=== PATIENT | female | born 1960 | race Caucasian/White ===

== ENCOUNTER 2024-06-22 08:41 | Emergency (ER) | payer MEDICARE, SELFPAY ==
[2024-06-22] VITALS (18 sets, daily range): BP systolic 131–134; BP diastolic 88–96; PULSE 61–84; TEMP 37.1; O2SAT 90–98; BMI 58.2
--- NOTE | 2024-06-22 08:43 | ECG_ITS ---
[facility] Test Date: 2024-06-22 Pat Name: LEANDRO RICHEY Department: Room: - Gender: Female Rf Manager: : 1960 Requested By: [id number] Order Number: [id number] Reading MD: LUIS BRIONES M.D. Measurements Intervals [place] Rate: 64 P: 40 MI: 210 QRS: -20 QRSD: 92 T: 37 QT: 394 QTc: 403 Interpretive Statements 1100 Sinus rhythm 2231 First degree AV block 8102 Low QRS voltage in chest leads 9150 abnormal ECG No previous ECG available for comparison Electronically Signed On 06-22-2024 13:15:34 EDT by LUIS BRIONES M.D.
--- NOTE | 2024-06-22 08:43 | ED.GENADUL1 ---
HPI HPI - General Adult General Chief complaint: Weakness Stated complaint: leg weakness Time Seen by Provider: 06/22/24 08:42 History of Present Illness HPI narrative: Patient states she has noticed left leg weakness since morning. She states it feels heavy. She has been in a rehab facility for 3 weeks because she would keep falling at home. Prior to her admission at the rehab facility she presented to an outlying ER and was found to have bilateral pulmonary emboli. She was started on apixaban. Patient has had problems with what she reports as neuropathy in the left leg causing her to have falls and other injuries involving the left leg. Over the last several weeks she has had imaging of the lower back, right knee, left ankle and foot with no fractures reported. CT angiogram of the chest performed 3 weeks ago, in addition to reporting bilateral pulmonary emboli with right heart strain had reported a new lung nodule in the right upper lobe. Patient is a former cigarette smoker who quit about 4 to 5 years ago. Related Data Home Medications ?Medication ?Instructions ?Recorded ?Confirmed acetaminophen 500 mg tablet 500 mg PO TID PRN pain 06/22/24 06/22/24 albuterol sulfate 90 mcg/actuation 2 inh inhalation Q4H PRN shortness 06/22/24 06/22/24 aerosol inhaler of breath or wheezing apixaban 5 mg tablet 5 mg PO BID 06/22/24 06/22/24 aripiprazole 30 mg tablet 30 mg PO .QD 06/22/24 06/22/24 atorvastatin 20 mg tablet 20 mg PO .QD 06/22/24 06/22/24 benztropine 0.5 mg tablet 0.5 mg PO .QD 06/22/24 06/22/24 duloxetine 60 mg capsule,delayed 60 mg PO .QD 06/22/24 06/22/24 release famotidine 20 mg tablet (Acid 20 mg PO DAILY 06/22/24 06/22/24 Controller) levothyroxine 150 mcg tablet 150 mcg PO .ACB 06/22/24 06/22/24 loratadine 10 mg tablet (Claritin) 10 mg PO DAILY 06/22/24 06/22/24 losartan 100 mg tablet 100 mg PO .QD 06/22/24 06/22/24 metformin 500 mg tablet,extended 500 mg PO .QD 06/22/24 06/22/24 release 24 hr ondansetron 4 mg disintegrating 4 mg PO Q6H PRN nausea and vomiting 06/22/24 06/22/24 tablet polyethylene glycol 3350 17 gram 17 g PO DAILY 06/22/24 06/22/24 oral powder packet (Miralax) pregabalin 25 mg capsule 50 mg PO Q12H 06/22/24 06/22/24 tramadol 50 mg tablet 50 mg PO .QHS PRN pain 06/22/24 06/22/24 Allergies Allergy/AdvReac Type Severity Reaction Status Date / Time gabapentin Allergy Mild Anxiety Verified 06/22/24 08:46 semaglutide (From Ozempic) Allergy Mild Rash Verified 06/22/24 08:46 sulfamethoxazole (From Allergy Mild Hives Verified 06/22/24 08:46 Bactrim) trimethoprim (From Bactrim) Allergy Mild Hives Verified 06/22/24 08:46 Opioid HPI Opioid Management Most Recent Opioid Data: No Data to Display Review of Systems ROS Narrative All other systems are reviewed and are negative other than what is mentioned in the HPI. PFSH PFSH Social History Little interest or pleasure in doing things: not at all Feeling down, depressed, or hopeless: not at all Exam Narrative Exam Narrative: Patient is awake and alert upon arrival. GCS is 15. Head is atraumatic. Pupils are equal and reactive. There is no facial asymmetry. Speech and mentation are clear and intact. She moves her upper extremities actively. She is unable to raise the left leg or bend the leg at the knee. She is weak plantarflexion and dorsiflexion of the right foot. She is able to raise the right leg little against gravity and she is able to bend the right leg also. Neck is supple. Lung sounds are clear anteriorly. Heart has regular rate and rhythm. Abdomen is protuberant, soft and nontender. Skin is warm dry with no pallor or icterus. Constitutional Vital Signs, click to edit/add: Last Vital Signs Temp 98.7 F 06/22/24 08:47 Pulse 84 06/22/24 08:47 Resp 18 06/22/24 08:47 BP 134/88 06/22/24 08:47 Pulse Ox 98 06/22/24 08:47 O2 Del Method Room Air 06/22/24 08:47 Course Vital Signs Vital signs: Vital Signs Temperature 98.7 F 06/22/24 08:47 Pulse Rate 84 06/22/24 08:47 Respiratory Rate 18 06/22/24 08:47 Blood Pressure 134/88 06/22/24 08:47 Pulse Oximetry 98 06/22/24 08:47 Oxygen Delivery Method Room Air 06/22/24 08:47 Temperature 98.7 F 06/22/24 08:47 Pulse Rate 84 06/22/24 08:47 Respiratory Rate 18 06/22/24 08:47 Blood Pressure 134/88 06/22/24 08:47 Pulse Oximetry 98 06/22/24 08:47 Oxygen Delivery Method Room Air 06/22/24 08:47 Medical Decision Making MDM Narrative Medical decision making narrative: Twelve-lead EKG is interpreted by me and shows sinus rhythm with a rate of 64 bpm. Echo is normal. [place] interval is elongated consistent with first-degree AV block. No acute ST elevations noted. Patient presents with new onset left leg weakness although in reviewing her previous history she has had ongoing weakness of the legs more so on the left side that has been ascribed to peripheral neuropathy in the past. She has had a number of falls in the recent past. She was diagnosed with bilateral pulmonary emboli with right heart strain 3 weeks ago and was placed on apixaban and is currently in a rehab facility. She is a former smoker. CT of the chest 3 weeks ago reported a new lung nodule in the right upper lobe. 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 Patient is administered Decadron 6 mg IV and 50 mL of hypertonic saline IV. The plan is to transfer her to [facility] where she has been accepted by their hospitalist Dr. Killian and I also discussed her findings with their neurosurgeon Dr. Tovar. Lab Data Labs: Lab Results 06/22/24 06/22/24 Range/Units 08:57 09:14 WBC 7.5 (4.0-11.0) 10^3/uL RBC 4.22 (4.20-5.40) 10^6/uL Hgb 13.6 (12.0-16.0) g/dL Hct 40.7 (36.0-48.0) % MCV 96.4 (81.0-99.0) fL MCH 32.2 (26.7-34.0) pg MCHC 33.4 (29.9-35.2) g/dL RDW 12.8 (11.0-15.0) % Plt Count 296 (150-450) 10^3/uL MPV 9.1 L (9.5-13.5) fL Neut % (Auto) 63.6 (43.0-75.0) % Lymph % (Auto) 24.9 (20.5-60.0) % Beaver % (Auto) 6.9 (1.7-12.0) % Eos % (Auto) 4.0 (0.9-7.0) % Baso % (Auto) 0.3 (0.2-2.0) % Neut # (Auto) 4.8 (1.4-6.5) 10^3/uL Lymph # (Auto) 1.9 (1.2-3.8) 10^3/uL Beaver # (Auto) 0.5 (0.3-0.8) 10^3/uL Eos # (Auto) 0.3 (0.0-0.7) 10^3/uL Baso # (Auto) 0.0 (0.0-0.1) 10^3/uL Abs Immat Gran (auto) 0.02 (0.00-0.03) 10^3/uL Imm/Tot Granulo (auto) 0.3 (0.0-0.5) % PT 10.9 (9.0-11.6) sec INR 1.03 APTT 28.0 (22.3-36.2) sec Sodium 141 (136-145) mmol/L Potassium 4.0 (3.5-5.1) mmol/L Chloride 105 (98-107) mmol/L Carbon Dioxide 30.7 (21.0-32.0) mmol/L Anion Gap 9.3 BUN 10.0 (7.0-18.0) mg/dL Creatinine 0.91 (0.55-1.02) mg/dL Est GFR ( Amer) >60 (>=60 mL/min/1.73m^2) Est GFR (Non-Af Amer) >60 (>=60 mL/min/1.73m^2) BUN/Creatinine Ratio 11.0 Glucose 100 (74-106) mg/dL Calcium 9.0 (8.5-10.1) mg/dL Total Bilirubin 0.5 (0.2-1.0) mg/dL AST 15 (15-37) U/L ALT 19 (14-59) U/L Alkaline Phosphatase 177 H (46-116) U/L Troponin I High Sens <4.0 L (4.0-51.3) pg/mL Total Protein 7.0 (6.4-8.2) g/dL Albumin 3.2 L (3.4-5.0) g/dL Globulin 3.8 g/dL Albumin/Globulin Ratio 0.8 POC Glucose 107 H (74-106) mg/dL Discharge Plan Discharge Chief Complaint: Weakness Clinical Impression: FINANCIAL UNDERWRITER mass Patient Disposition: [facility] Time of Disposition Decision: 10:32 Discharge location: [facility] Condition: Good Mode of Transportation: EMS
[2024-06-22 09:06] LABS: Basophils Percent Auto 0.3 % (0.2-2.0); Eosinophils Absolute Auto 0.3 10^3/uL (0.0-0.7); Hematocrit 40.7 % (36.0-48.0); Hemoglobin 13.6 g/dL (12.0-16.0); Immature Granulocytes Abs Auto 0.02 10^3/uL (0.00-0.03); Immature Granulocytes Pct Auto 0.3 % (0.0-0.5); Lymphocytes Absolute Auto 1.9 10^3/uL (1.2-3.8); Lymphocytes Percent Auto 24.9 % (20.5-60.0); Mean Corpuscular HGB Conc 33.4 g/dL (29.9-35.2); Mean Corpuscular Hemoglobin 32.2 pg (26.7-34.0); Mean Corpuscular Volume 96.4 fL (81.0-99.0); Mean Platelet Volume 9.1 fL (9.5-13.5); Monocytes Absolute Auto 0.5 10^3/uL (0.3-0.8); Monocytes Percent Auto 6.9 % (1.7-12.0); Neutrophils Absolute Auto 4.8 10^3/uL (1.4-6.5); Neutrophils Percent Auto 63.6 % (43.0-75.0); Platelet Count 296 10^3/uL (150-450); Red Blood Count 4.22 10^6/uL (4.20-5.40); Red Cell Distribution Width 12.8 % (11.0-15.0); White Blood Count 7.5 10^3/uL (4.0-11.0)
[2024-06-22 09:15] LABS: Glucometer 107 mg/dL (74-106)
[2024-06-22] MEDS: DEXAMETHASONE SOD PHOS 10 MG/ML VIAL 6 MG IV (09:17)
[2024-06-22 09:19] LABS: INR 1.03; Prothrombin Time 10.9 sec (9.0-11.6)
[2024-06-22 09:20] LABS: Alanine Aminotransferase 19 U/L (14-59); Albumin Globulin Ratio 0.8; Albumin Level 3.2 g/dL (3.4-5.0); Alkaline Phosphatase 177 U/L (46-116); Anion Gap 9.3; Aspartate Amino Transferase 15 U/L (15-37); Bilirubin Total 0.5 mg/dL (0.2-1.0); Carbon Dioxide 30.7 mmol/L (21.0-32.0); Chloride 105 mmol/L (98-107); Estimated GFR (African America >60 (>=60 mL/min/1.73m^2); Estimated GFR (Non-African Ame >60 (>=60 mL/min/1.73m^2); Globulin 3.8 g/dL; Glucose 100 mg/dL (74-106); Sodium 141 mmol/L (136-145)
[2024-06-22 09:22] LABS: Troponin I High Sensitivity <4.0 pg/mL (4.0-51.3)
[2024-06-22] MEDS: SODIUM CHLORIDE 3 % 500 ML 100 ML IV (09:51)
[2024-06-22] MEDS: FENTANYL CITRATE/PF 100 MCG/2 ML VIAL 25 MCG IV (11:35)
== END 2024-06-22 15:51 | disposition short-term general hospital (02) ==
PROVIDERS: Emergency Provider Emergency Medicine; PCP Family Medicine
DX: G93.9 Disorder of brain, unspecified (principal); R53.1 Weakness; Z91.81 History of falling; I26.99 Other pulmonary embolism without acute cor pulmonale; Z79.01 Long term (current) use of anticoagulants; Z87.891 Personal history of nicotine dependence; R91.1 Solitary pulmonary nodule
CPT/HCPCS: 36415; 70450; 80053; 84484; 85025; 85610; 85730; 93005; 96374; 96375; 99285; J1100; J3010; J7131

== ENCOUNTER 2024-09-14 10:51 | Emergency (ER) | payer MEDICARE, SELFPAY ==
--- OUTSIDE RECORDS SUMMARY | 2024-08-10 05:00 | XMS_ITS ---
Author Organization [facility] [place] Address [address] [place] [address] Care Team Providers Care Metal Machinist Name Role Phone Reynold Rehman Primary Care Provider Unavailabl e Provider, Radiology Unavailable [phone] REASON FOR VISIT Radiology Billing Encounters Encounter Location Date Provider Diagnosis Radiology [facility] [address] [place] [address] 08/10/2024 Radiology Provider Neoplasm of unspecified behavior of bone, soft tissue, and skin D49.2 Assessments Encounter Date Diagnosis (ICD Code) Assessment Notes Treatment Notes Treatment Clinical Notes Section Notes 08/10/2024 Neoplasm of unspecified behavior of bone, soft tissue, and skin (ICD-10 - D49.2) Plan Of Treatment No Information Progress Notes * Melissa GODOY JDOB:[birth year] (64 yo F)Acc No.[id number]:08/10/2024 Progress Note Patient: Niya WAGONERTOY Melissa Kate Provider: Wolfgang adiology Provider :1960 A ge:64 Y S ex:Female Date:08/10/2024 Address:[address] [place] [id number] Pcp:Reynold Rehman Subjective: * Chief Complaints: * R adiology Billing * Active Problem List J45.20 Mild intermittent as thma Modified On:11/30/2020W/U Status:confirmed G47.33 MEETA on CPAP Modified On:11/30/2020W/U Status:confirmed E66.01 Morbid obesity Modified On:11/30/2020 Status:confirmed F17.200 Tobacco dependence Modified On:12/30/2019 Status:confirmed U07.1 COVID-19 virus infec tion Modified On:06/29/2020 Status:confirmed Z87.891 History of tobacco u se Modified On:11/30/2020 Status:confirmed I10 Essential (primary) hypertension Modified On:06/22/2024 Status:confirmed G47.33 Obstructive sleep ap dania (adult) (pediatric) Modified On:06/22/2024 Status:confirmed 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 N eoplasm of unspecified behavior of bone, soft tissue, and skin - D49.2 Plan: * Treatment: * Procedure Codes: 7 0553 MRI BRAIN W/[facility] DYE * * Sign off status: Completed Visit Status: Lashonda BONILLA (Check Out) true * Provider: Wolfgang adiology Provider Date: 0 08/10/2024 Generated for Crystal oneill/Matheus/Damirsmitting on: 0 09/14/2024 12:20 PM EDT
--- OUTSIDE RECORDS SUMMARY | 2024-08-20 04:30 | XMS_ITS ---
Author Organization [facility] Address [address] [place], [place] [address] Care Team Providers Care Fleece Tier Name Role Phone Dinorah Leger Primary Care Provider Mary Ramirez Unavailable [phone] REASON FOR VISIT 3 month f/u Social History Sex Assigned At : Social History Observation Description Sex Assigned At Female Encounters Encounter Location Date Provider Diagnosis Main [address] [place] [id number] 08/20/2024 Mary Ramirez Plan Of Treatment Next Appt Details Provider Name:Mary Ramirez , 12/10/2024 10:00:00 AM, [address] [place] [place], [id number], Provider Name:Dinorah Leger , 12/17/2024 09:45:00 AM, [address] [place], [id number], Progress Notes * Sina GODOYB:1960 (64 yo F)Acc No.[id number]:08/20/2024 Patient: Claribel FARRELLa Provider: CARMEN LeesPBethBC :1960 A ge:64 Y S ex:Female Date:08/20/2024 Address:[address] [place] [phone] Pcp:Dinorah Leger Subjective: * Chief Complaints: * 1 . 3 month f/u. * Medical History: Objective: * Vitals: Assessment: Plan: * Treatment: Care Plan: * Problems: * Billing Information: * Visit Code: * Procedure Codes: Care Plan Details* * Electronic signature of Maurice Ramirez [facility] on 09/14/2024 at 12:19 PM EDT Sign off status: Pending * Provider: CARMEN LeesBeth Date: 0 08/20/2024 Generated for Crystal oneill/Matheus/Em on: 09/14/2024 12:19 PM EDT
--- OUTSIDE RECORDS SUMMARY | 2024-08-20 06:30 | XMS_ITS ---
Author Organization [facility] in [place] Address [address] [place] [address] Care Team Providers Care Rcp Name Role Phone Reynold Rehman Primary Care Provider Emerald Ho Unavailable [phone] REASON FOR VISIT MD TELEHEALTH Encounters Encounter Location Date Provider Diagnosis [address] [address] 08/20/2024 Emerald Rose Plan Of Treatment No Information Progress Notes * ROSSI Melissa KateDOB:[birth year] (64 yo F)Acc No.[id number]:08/20/2024 UNLOCKED PROGRESS NOTE Progress Notes Patient: Melissa FARRELL Provider: Amy Rose M.D. :1960 A ge:64 Y S ex:Female Date:08/20/2024 Address:[address] [place], [place] [phone] Pcp:Reynold Rehman Subjective: * Chief Complaints: * 1 . TELEHEALTH. * Medical History: Objective: * Vitals: Assessment: Plan: * Treatment: * * Electronic signature of Shazia Rose MD, [id number] on 09/14/2024 at 12:19 PM EDT Sign off status: Pending Visit Status: C ANC (Cancelled) * Provider: Amy Rose M.D. Date: 0 08/20/2024 Generated for Printi ng/Faxing/eTransmitting on: 0 09/14/2024 12:19 PM EDT
--- OUTSIDE RECORDS SUMMARY | 2024-08-26 08:15 | XMS_ITS ---
Author Organization [facility] in [place] Address [address] [place] [address] Care Team Providers Care Road Worker Name Role Phone Reynold Rehman Primary Care Provider Emerald Ho Unavailable [phone] REASON FOR VISIT MD TELEHEALTH Encounters Encounter Location Date Provider Diagnosis [facility] [address] [place] [address] 08/26/2024 Emerald Rose Plan Of Treatment No Information Progress Notes * ROSSI Melissa JDOB:[birth year] (64 yo F)Acc No.[id number]:08/26/2024 UNLOCKED PROGRESS NOTE Progress Notes Patient: Melissa FARRELL Provider: Amy Rose M.D. :1960 A ge:64 Y S ex:Female Date:08/26/2024 Address:[address] [place], [place] [phone] Pcp:Reynold Rehman Subjective: * Chief Complaints: * 1 . TELEHEALTH. * Medical History: Objective: * Vitals: Assessment: Plan: * Treatment: * * Electronic signature of Shazia Rose MD, [id number] on 09/14/2024 at 12:20 PM EDT Sign off status: Pending Visit Status: C ONFPHONE (Voice) * Provider: Amy Rose M.D. Date: 0 08/26/2024 Generated for Crystal oneill/Matheus/Em on: 0 09/14/2024 12:20 PM EDT
--- OUTSIDE RECORDS SUMMARY | 2024-09-01 13:00 | XMS_ITS | Encounter Summary ---
[facility] Address [id number] [place] [address] Care Team Providers Care Hide Dropper Name Role Phone Dinorah Leger LENS POLISHER-FINANCIAL COMPLIANCE OFFICER Primary Care Provider + Reason for Visit * Reason Comments Suture / Staple Removal Encounter Details Date Type Department Care Team (Late st Contact Info) Description 09/01/2024 1:00 PM EDT Support Visit [facility] [address] [place] [phone] Superficial incisional surgical site infection (Primary Dx) Social History Tobacco Use Types Packs/Day Years Used Date Smoking Tobacco: Former Cigarettes 2 20 Q uit: 2019 Smokeless Tobacco: Never Alcohol Use Standard Drinks/Week Comments No 0 (1 standard drink = 0.6 oz pur e alcohol) [employer] Utilities Answer Date Recorded In the past 12 months has e [employer], gas, oil, or water company threatened to shut off services in your home? No 08/20/2024 AUDIT-C Answer Date Recorded Q1: How often do you have a drink containing alcohol? Never 08/20/2024 Q2: How many drinks containi ng alcohol do you have on a typical day when you are drinking? Patient does not drink Q3: How often do you have si x or more drinks on one occasion? Never 08/20/2024 PHQ-2 Answer Date Recorded Total Score 0 08/20/2024 PRAPARE - Transportation Answer Date Re corded In the past 12 months, has l ack of transportation kept you from medical appointments or from getting medications? No 07/30 In the past 12 months, has l ack of transportation kept you from meetings, work, or from getting things needed for daily living? No 08/20/2024 Housing Instability Answer Date Recorde d Are you worried or concerned that in the next two months you may not have stable housing that you own, rent or stay in as a part of a household? No 08/20/2024 Childcare Answer Date Recorded Childcare Unknown 09/01/2018 Employment Answer Date Recorded Employment Unknown 09/01/2018 Hunger Screening Answer Date Recorded Within the past 12 months we worried whether our food would run out before we got money to buy more. Never True 08/22/2024 Within the past 12 months th e food we bought just didn't last and we didn't have money to get more. Never True 08/22/2024 Purpose - Life Answer Date Recorded Purpose and direction in life Unknown Comments No Sex and Gender Information Value Date Recorded Sex Assigned at Not on file Legal Sex Female 11:28 AM EDT Gender Identity Female 05/28/2024 5:58 PM EST Sexual Orientation Straight 05/28/2024 5: 58 PM EST documented as of this encounter Progress Notes * Madhuri Beaver LPN - 09/01/2024 1:00 PM EDT [facility] [address] [address] Suture/Staple Removal/Wound Date: September 01, 2024 Patient: Melissa Godoy Physician: Dr. Tovar Procedure: Past Surgical History: Procedure Laterality Date APPENDECTOMY unsure if removed during hysterectomy, they were supposed to age 17 COLONOSCOPY N/A 08/22/2017 Performed by Andrew Guevara MD at [facility] Diagnostic cerebral angiogram N/A 06/24/2024 Performed by Ori Hitchcock MD at [facility] EGD N/A 08/22/2017 Performed by Andrew Guevara MD at [facility] Embolization intracranial N/A 06/24/2024 Performed by Ori Hitchcock MD at [facility] INCISION DRAINAGE HEAD/NECK / SURGICAL SITE N/A 08/20/2024 Performed by Adarsh Tovar MD at [facility] LAPAROTOMY OOPHERECTOMY Right age 17 Neuro Invasive N/A 06/24/2024 Performed by Ori Hitchcock MD at [facility] SYNAPTIVE CRANIOTOMY EXCISION TUMOR N/A 06/25/2024 Performed by Adarsh Tovar MD at [facility] Date of Procedure: 08/20/24 Reason for Appointment: staple/suture removal Post-Op Fever?: No Incisional Drainage?: No Skin Edges Approximated?: Yes Unusual Redness?: No Unusual Swelling?: No Sutures/Champlain Removed?: Yes Steri Strips Applied?: No Use of Pain Medication: Tylenol ES prn Effective for Pain Relief?: Yes Comments: Patient ambulates with a wobbly gate, accompanied by son. Incision is clean,dry with edges well approximated. Scabbing noted to incision line,no drainage or swelling noted. Provider assessed and advised ok to remove the puneet and sutures. Removed without difficultly and hygiene reviewed with patient understanding. Gently wash with baby shampoo,rinse and pat dry, no lotions or ointments to incision. Patient uses a mask for sleep apnea and is advised to be careful with straps rubbing on incision.Patient denies any fevers/chills, headaches or body aches. Patient has PICC to [facility], receiving Vancomycin for 1 1/2 hours daily. Patient has home care nursing and PT in home. Patient follows up with [facility] Joann Garza I&D on 09/10/24 and radiation to begin in about 1 month ,after head incision is healed per oncology. Patient verbalizes post appointment on 09/29/24 and is advised to call our office prior with any questions or concerns. Current Concerns with Incision or Symptoms?: No Patient educated on how to properly request future pain medication refills as well as the need to always read the directions on their medication bottle because the direction on how to take the medication may change with every refill. Neurosurgery will not provide early refills for prescriptions that are lost, stolen or not taken as prescribed. It is best to reposition often to reduce the amount of pressure on the incision. Evaluated By: Dr. Tovar documented in this encounter Plan of Treatment Upcoming Encounters Date Type Department Care Team (Late st Contact Info) Description 09/29/2024 12:50 PM EDT Office Visit [facility] [address] [place] [phone] Adarsh Tovar MD [address], [facility] [address] [place], [place] [id number] 11/22/2024 11:45 AM EDT Office Visit [facility] [address] [address] [place] [address] [place] [address] [address] [place], [place] [phone] documented as of this encounter Goals Goal Patient Goal Type Associated Problems Recent Progress Patient-Stated? Author SNF per pt & son Celestino General Yes María Ruiz LSW Note: Evaluation of progress towards goal: feeling some better transition to SNF at discharge General Yes Mita Paniagua, HOT METAL CAR OPERATOR Note: Evaluation of progress towards goal: transition to SNF at discharge <enter goal here> General Yes Adonay Luna, RN Note: Evaluation of progress towards goal: home with [facility] documented as of this encounter Visit Diagnoses Diagnosis Superficial incisional surgical site infection- Primary documented in this encounter Additional Health Concerns Assessment Noted Time PHQ-9 Depression Total Score: 0 08/21/19 25 8:33 PM EDT documented as of this encounter Care Teams Hide Dropper Relationship Specialty Start Date End Date Dinorah Leger, LENS POLISHER-FINANCIAL COMPLIANCE OFFICER [address] [place] [address] PCP - General Nurse Practitioner 03/09/24 documented as of this encounter
--- OUTSIDE RECORDS SUMMARY | 2024-09-03 04:30 | XMS_ITS ---
Author Organization [facility] vices Address [address] [place], [place] [id number] Care Team Providers Care Phone Circuit Operator Name Role Phone Farrah Legersa Primary Care Provider Mary Ramirez Unavailable [phone] Allergies Allergen (clinical drug ingredient) Drug/Non Drug Allergy documented on EMR Reaction Allergy Type Onset Date Status sulfamethoxazole / trimethoprim Bactrim Hives Drug Allergy Active gabapentin Gabapentin delusional Drug Allergy Acti ve semaglutide Ozempic Sores on head Drug Allergy A ctive REASON FOR VISIT F/u Medications Medication SIG (Take, Route, Frequency, Duration) Notes Start Date End Date Status glucometer 1 glucometer for 30 days any brand covered by insurance 01/21/2024 Active Albuterol Sulfate (2.5 MG/3ML) 0.083% 3 mL as needed Inhalation every 6 hrs for 90 days Please give 6 boxes or quantify allowed by insurance. Active Alcohol Pads twice daily for 30 days any brand covered by insurance 01/21/2024 Active Lancets 1 twice daily for 30 days any brand covered by insurance 01/21/2024 Active Glucose Test Strips 1 strip twice a day for 30 days any brand covered by insurance 01/21/2024 Active DULoxetine HCl 60 MG 1 capsule Orally Once a day for 90 days 02/20/2024 Active Albuterol Sulfate 108 (90 Base) MCG/ACT 1 puff as needed Inhalation every 4 hrs Active Blood Glucose Monitor - as directed for 90 days Please give brand covered by insurance. 12/14/2023 Active Benztropine Mesylate 0.5 MG 1 tablet at bedtime Oral Once a day for 90 days Active ARIPiprazole 30 MG 1 tablet Orally bed time for 90 days Active Alcohol Wipes 70 % Use 1 alcohol pad Externally three times daily for 90 days 08/06/2024 Active 1st Choice Lancets Super Thin - Use 1 lancet to test sugars three times daily for 90 days Please give brand covered by insurance. 12/14/2023 Active Blood Glucose Test Strips 333 - Use 1 strip In Vitro three times daily for 90 days Please give brand covered by insurance. 12/14/2023 Active Mounjaro 5 MG/0.5ML 5mg Subcutaneous once weekly for 30 days Dose change. Not-Taking Losartan Potassium 100 MG 1 tablet Orall y Once a day for 90 days Not-Taking hydroCHLOROthiazide 25 MG 1 tablet in th e morning Orally Once a day for 90 days 01/30/2024 Not-Taking Refresh 1.4-0.6 % as directed Ophthalmic 1gtts OU in am Not-Taking Fish Oil 1200 MG 1 capsule Orally Three times a day Not-Taking MiraLax 17 GM/SCOOP 1 scoop mixed with 8 ounces of fluid Orally Once a day for 30 days Active traMADol HCl 50 MG 1 tablet if needed Orally Once a day for 30 days Reviewed [facility], [place] to fill today 6--08/31/2024 Active Famotidine 20 MG 1 tablet at bedtime as needed Orally Once a day for 30 days Active Eliquis 5 MG 1 tablet Orally twice daily for 30 days 08/06/2024 Active metFORMIN HCl ER 500 MG TAKE 1 TABLETS B Y MOUTH EVERY DAY Oral Once a day for 30 days Please use prior RF 1st. Active Melatonin 5 MG 1-2 capsule at bedtime as needed Orally Once a day for 30 days Active Levothyroxine Sodium 150 MCG 1 tablet in the morning on an empty stomach Orally Once a day for 30 days Active Vitamin B-12 1000 MCG 1 tablet Oral every other day for 30 days Active dexAMETHasone 2 MG 1 tablet Orally Once a day for 30 days Active Atorvastatin Calcium 20 MG TAKE 1 TABLET BY MOUTH DAILY Orally daily for 30 days Active Social History Tobacco Use: Social History Observation Description Date Details (start date - stop date) Former Smoker 06/21/1996 - 08/30/2019 Sex Assigned At : Social History Observation Description Sex Assigned At Female Tobacco Use/Smoking Question Answer Notes Tobacco use: former smoker patient enter ed data When did you start smoking? 06/21/1996 lillian harding entered data When did you stop smoking? 08/30/2019 lee james entered data How long has it been since you last smoked? 1-5 years patient entered data Tobacco use other than smoking: Question Answer Notes Are you an other tobacco user? No CAGE-AID Questionnaire (2018 Edition) Question Answer Notes Have you ever felt that you ought to cut down on your drinking or drug use? No patient entered data Have people annoyed you by c riticizing your drinking or drug use? No patient entered data Have you ever felt bad or gu ilty about your drinking or drug use? No patient entered data Have you ever had a drink or used drugs first thing in the morning to steady your nerves or to get rid of a hangover? No patient entered data CAGE-AID Score 0 Interpretation Negative Problems Problem Type SNOMED Code ICD Code Onset Dates Problem Status W/U Status Risk Notes Problem Mental health screening (procedure) (671205725) Encounter for screening examination for mental health and behavioral disorders, unspecified (Z13.30) Active confirmed Vital Signs Weight 280 lbs 09/03/2024 Height 62.50 in 09/03/2024 BMI 50.39 kg/m2 09/03/2024 Respiratory Rate 18 /min 09/03/2024 Weight-kg 127.01 kg 09/03/2024 Height-cm 158.75 cm 09/03/2024 Encounters Encounter Location Date Provider Diagnosis Main [address] [place], [place] [id number] 09/03/2024 Mary Ramirez Schizophrenia, unspecified type F20.9 ; Dietary counseling Z71.3 ; Exercise counseling Z71.82 and Encounter for screening examination for mental health and behavioral disorders, unspecified Z13.30 Assessments Encounter Date Diagnosis (ICD Code) Assessment Notes Treatment Notes Treatment Clinical Notes Section Notes 09/03/2024 Schizophrenia, unspecified type (ICD-10 - F20.9) Stable w/current medications. Reviewed risks/benefits, major/common side effects, and alternatives of medication plan with patient, stated understanding and agreement with plan. Medication and allergy list reconciled. The patient was informed of contraindications of alcohol, THC use and side effects of any substances with medications. Antidepressant Medication: We discussed the risks/benefits and side effects of medications. I stressed in particular side effects including but not limited to gastrointestinal problems, sexual dysfunction, serotonin syndrome, agitation, rare induction of mag, rare activation of suicidality. We discussed issues related to healthy weight, diet, and sleep hygiene. Discussed risk of EPS, black box warnings. Encouraged multivitamin. RTO in 3 months or as needed. 911/ER if suicidal/homicidal. PVU. Continue counseling as needed for support. 09/03/2024 Dietary counseling (ICD-10 - Z71.3) Stable w/current medications. Reviewed risks/benefits, major/common side effects, and alternatives of medication plan with patient, stated understanding and agreement with plan. Medication and allergy list reconciled. The patient was informed of contraindications of alcohol, THC use and side effects of any substances with medications. Antidepressant Medication: We discussed the risks/benefits and side effects of medications. I stressed in particular side effects including but not limited to gastrointestinal problems, sexual dysfunction, serotonin syndrome, agitation, rare induction of mag, rare activation of suicidality. We discussed issues related to healthy weight, diet, and sleep hygiene. Discussed risk of EPS, black box warnings. Encouraged multivitamin. RTO in 3 months or as needed. 911/ER if suicidal/homicidal. PVU. Continue counseling as needed for support. 09/03/2024 Exercise counseling (ICD-10 - Z71.82) Stable w/current medications. Reviewed risks/benefits, major/common side effects, and alternatives of medication plan with patient, stated understanding and agreement with plan. Medication and allergy list reconciled. The patient was informed of contraindications of alcohol, THC use and side effects of any substances with medications. Antidepressant Medication: We discussed the risks/benefits and side effects of medications. I stressed in particular side effects including but not limited to gastrointestinal problems, sexual dysfunction, serotonin syndrome, agitation, rare induction of mag, rare activation of suicidality. We discussed issues related to healthy weight, diet, and sleep hygiene. Discussed risk of EPS, black box warnings. Encouraged multivitamin. RTO in 3 months or as needed. 911/ER if suicidal/homicidal. PVU. Continue counseling as needed for support. 09/03/2024 Encounter for screening examination for mental health and behavioral disorders, unspecified (ICD-10 - Z13.30) Stable w/current medications. Reviewed risks/benefits, major/common side effects, and alternatives of medication plan with patient, stated understanding and agreement with plan. Medication and allergy list reconciled. The patient was informed of contraindications of alcohol, THC use and side effects of any substances with medications. Antidepressant Medication: We discussed the risks/benefits and side effects of medications. I stressed in particular side effects including but not limited to gastrointestinal problems, sexual dysfunction, serotonin syndrome, agitation, rare induction of mag, rare activation of suicidality. We discussed issues related to healthy weight, diet, and sleep hygiene. Discussed risk of EPS, black box warnings. Encouraged multivitamin. RTO in 3 months or as needed. 911/ER if suicidal/homicidal. PVU. Continue counseling as needed for support. 09/03/2024 Kelsea Torres is a 64 y.o female presents in office for f.u visit. Pt presents alone without son. Ambulates independent with a walker. 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 Continues to live alone, has a home nurse and nursing aid that come in once a week and therapy twice a week. 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 Large scar noted on top right side of head. Pt's hair is buzzed short. Reports she starts radiation sometime in September. Pt reports she has pic line. Denies SI/HI and hallucinations . Denies paranoia. Reports she is coping well with the new medical diagnosis. Stable w/current medications. Reviewed risks/benefits, major/common side effects, and alternatives of medication plan with patient, stated understanding and agreement with plan. Medication and allergy list reconciled. The patient was informed of contraindications of alcohol, THC use and side effects of any substances with medications. Antidepressant Medication: We discussed the risks/benefits and side effects of medications. I stressed in particular side effects including but not limited to gastrointestinal problems, sexual dysfunction, serotonin syndrome, agitation, rare induction of mag, rare activation of suicidality. We discussed issues related to healthy weight, diet, and sleep hygiene. Discussed risk of EPS, black box warnings. Encouraged multivitamin. RTO in 3 months or as needed. 911/ER if suicidal/homicidal. PVU. Continue counseling as needed for support. Plan Of Treatment Medication Medication Name Sig Start Date Stop Date Notes DULoxetine HCl 60 MG 1 capsule Orally On ce a day for 90 days 02/20/2024 Benztropine Mesylate 0.5 MG 1 tablet at bedtime Oral Once a day for 90 days ARIPiprazole 30 MG 1 tablet Orally bed time for 90 days Next Appt Details Follow Up: 3 Months,prn, Kelley son: Provider Name:Mary Ramirez , 12/10/2024 10:00:00 AM, [address], [place], [id number], Provider Name:Dinorah Leger , 12/17/2024 09:45:00 AM, [address], [place], [id number], Progress Notes * ROSSI SinaB:1960 (64 yo F)Acc No.[id number]:09/03/2024 Patient: Melissa FARRELL Provider: Rosita Perea PMHNP-BC :1960 A ge:64 Y S ex:Female Date:09/03/2024 Address:[address] [place], [place] [id number] Pcp:Dinorah Leger Subjective: * Chief Complaints: * F /u * HPI: S creening: [place] Suicide Severity Rating Scale (LF) D o you want to initiate with S creener form 1 . Wish to be : Have you wished you were or wished you could go to sleep and not wake up? N o 2 . Suicidal Thoughts: Have you actually had any thoughts of killing yourself? N o 6 . Suicide Behaviour: Have you ever done anything,started to do anything, or prepared to end your life? N o I nterpretation: L ow Risk H istory of Presenting Problem: Denies : Referral source. Denies : Anger management. Denies : Anxiety. Denies : Depression. Denies : Homicidal ideation. Denies : Mood lability. Denies : Obsessive thoughts. Denies : Psychosis. Denies : Sleep disturbance. Denies : Substance abuse. Denies : Suicidal ideation. Well and stable. * Medical History: * Social History: S afety: P atient feels safe in relationships: Yes. T obacco Use: T obacco Use/Smoking T obacco use: f ormer smoker patient entered data W hen did you start smoking? 0 06/21/1996 patient entered data W hen did you stop smoking? 0 08/30/2019 patient entered data H ow long has it been since you last smoked??1-5 years patient entered data Tobacco use other than smoking A re you an other tobacco user? N o D rugs/Alcohol/Caffeine: D rugs H ave you used drugs other than those for medical reasons in the past 12 months? N o Caffeine I ntake: 3 -4 cups per day coffee Do you smoke marijuana?: Denies. Do you drink alcohol?: No. CAGE-AID Questionnaire (2018 Edition) H ave you ever felt that you ought to cut down on your drinking or drug use? N o patient entered data H ave people annoyed you by criticizing your drinking or drug use? N o patient entered data H ave you ever felt bad or guilty about your drinking or drug use? N o patient entered data H ave you ever had a drink or used drugs first thing in the morning to steady your nerves or to get rid of a hangover? N o patient entered data C AGE-AID Score 0 I nterpretation N egative A IMS: A IMS B ase your answers off of the following code:?0 = None, 1 = Minimal, 2 = Mild, 3 = Moderate, 4 = Severe M uscles of Facial Expression: e.g., movements of forehead, eyebrow, periorbital area, cheeks; include frowning, blinking, smiling, grimacing 0 L ips and Perioral Area e.g., puckering, pouting, smacking 0 J aw e.g., biting, clenching, chewing, mouth opening, lateral movement 0 T ongue Rate only increase in movement both in and out of mouth. NOT inability to sustain movement 0 U pper (arms, wrists, hands, fingers) Include choreic movements, (i.e., rapid, objectively purposeless, Irregular, spontaneous), athetoid movements (i.e., slow, irregular, complex, serpentine). Do NOT include tremor (i.e., repetitive, regular, rhythmic) 0 L ower (legs, knees, ankles, toes) e.g., lateral knee movement, foot tapping, heel dropping, foot squirming, inversion and eversion of foot 0 N nicole, shoulders, hips e.g., rocking, twisting, squirming, pelvic gyrations 0 S everity of abnormal movements 0 I ncapacitation due to abnormal movements 0 A wareness of abnormal movements N o awareness - 0 C urrent problems with teeth and/or dentures??No - 0 D o you usually wear dentures? N o - 0 T otal 0 N utrition Assessment: A ssessment G ained or lost more than 10 lbs in the last 3 months N o D ecrease in food intake or appetite N o D ental issues N o E ating disorder behaviors N o * Medications: T akingBlood Glucose Test Strips 333 - Strip Use 1 strip In Vitro three times daily , Notes to Pharmacist: Please give brand covered by insurance.1st Choice Lancets Super Thin - Miscellaneous Use 1 lancet to test sugars three times daily , Notes to Pharmacist: Please give brand covered by insurance.Alcohol Wipes 70 % Miscellaneous Use 1 alcohol pad Externally three times daily Blood Glucose Monitor - Kit as directed , Notes to Pharmacist: Please give brand covered by insurance.Albuterol Sulfate 108 (90 Base) MCG/ACT Aerosol Powder Breath Activated 1 puff as needed Inhalation every 4 hrs Albuterol Sulfate (2.5 MG/3ML) 0.083% Nebulization Solution 3 mL as needed Inhalation every 6 hrs , Notes to Pharmacist: Please give 6 boxes or quantify allowed by insurance.glucometer 1 glucometer any brand covered by insuranceGlucose Test Strips 1 strip twice a day any brand covered by insuranceLancets 1 twice daily any brand covered by insuranceAlcohol Pads twice daily any brand covered by insuranceARIPiprazole 30 MG Tablet 1 tablet Orally bed time Atorvastatin Calcium 20 MG Tablet TAKE 1 TABLET BY MOUTH DAILY Orally daily Benztropine Mesylate 0.5 MG Tablet TAKE 1 TABLET BY MOUTH 1 TIME PER DAY Oral Once a day dexAMETHasone 2 MG Tablet 1 tablet Orally Once a day Vitamin B-12 1000 MCG Tablet 1 tablet Oral every other day DULoxetine HCl 60 MG Capsule Delayed Release Particles 1 capsule Orally Once a day Eliquis 5 MG Tablet 1 tablet Orally twice daily Famotidine 20 MG Tablet 1 tablet at bedtime as needed Orally Once a day Levothyroxine Sodium 150 MCG Tablet 1 tablet in the morning on an empty stomach Orally Once a day Melatonin 5 MG Capsule 1-2 capsule at bedtime as needed Orally Once a day metFORMIN HCl ER 500 MG Tablet Extended Release 24 Hour TAKE 1 TABLETS BY MOUTH EVERY DAY Oral Once a day , Notes to Pharmacist: Please use prior RF 1st.traMADol HCl 50 MG Tablet 1 tablet if needed Orally Once a day , Notes to Pharmacist: Reviewed [facility] to fill today 4-0-99CcagIvn 17 GM/SCOOP Powder 1 scoop mixed with 8 ounces of fluid Orally Once a day Taking Blood Glucose Test Strips 333 - Strip Use 1 strip In Vitro three times daily , Notes to Pharmacist: Please give brand covered by insurance.Taking 1st Choice Lancets Super Thin - Miscellaneous Use 1 lancet to test sugars three times daily , Notes to Pharmacist: Please give brand covered by insurance.Taking Alcohol Wipes 70 % Miscellaneous Use 1 alcohol pad Externally three times daily Taking Blood Glucose Monitor - Kit as directed , Notes to Pharmacist: Please give brand covered by insurance.Taking Albuterol Sulfate 108 (90 Base) MCG/ACT Aerosol Powder Breath Activated 1 puff as needed Inhalation every 4 hrs Taking Albuterol Sulfate (2.5 MG/3ML) 0.083% Nebulization Solution 3 mL as needed Inhalation every 6 hrs , Notes to Pharmacist: Please give 6 boxes or quantify allowed by insurance.Taking glucometer 1 glucometer any brand covered by insuranceTaking Glucose Test Strips 1 strip twice a day any brand covered by insuranceTaking Lancets 1 twice daily any brand covered by insuranceTaking Alcohol Pads twice daily any brand covered by insuranceTaking ARIPiprazole 30 MG Tablet 1 tablet Orally bed time Taking Atorvastatin Calcium 20 MG Tablet TAKE 1 TABLET BY MOUTH DAILY Orally daily Taking Benztropine Mesylate 0.5 MG Tablet TAKE 1 TABLET BY MOUTH 1 TIME PER DAY Oral Once a day Taking dexAMETHasone 2 MG Tablet 1 tablet Orally Once a day Taking Vitamin B-12 1000 MCG Tablet 1 tablet Oral every other day Taking DULoxetine HCl 60 MG Capsule Delayed Release Particles 1 capsule Orally Once a day Taking Eliquis 5 MG Tablet 1 tablet Orally twice daily Taking Famotidine 20 MG Tablet 1 tablet at bedtime as needed Orally Once a day Taking Levothyroxine Sodium 150 MCG Tablet 1 tablet in the morning on an empty stomach Orally Once a day Taking Melatonin 5 MG Capsule 1-2 capsule at bedtime as needed Orally Once a day Taking metFORMIN HCl ER 500 MG Tablet Extended Release 24 Hour TAKE 1 TABLETS BY MOUTH EVERY DAY Oral Once a day , Notes to Pharmacist: Please use prior RF 1st.Taking traMADol HCl 50 MG Tablet 1 tablet if needed Orally Once a day , Notes to Pharmacist: Reviewed [facility], [place] to fill today 9-4-36Qfflkv MiraLax 17 GM/SCOOP Powder 1 scoop mixed with 8 ounces of fluid Orally Once a day Not-Taking/PRNFish Oil 1200 MG Capsule 1 capsule Orally Three times a day Refresh 1.4-0.6 % Solution as directed Ophthalmic 1gtts OU in am hydroCHLOROthiazide 25 MG Tablet 1 tablet in the morning Orally Once a day Losartan Potassium 100 MG Tablet 1 tablet Orally Once a day Mounjaro 5 MG/0.5ML Solution Pen-injector 5mg Subcutaneous once weekly , Notes to Pharmacist: Dose change.Medication List reviewed and reconciled with the patientNot-Taking/PRN Fish Oil 1200 MG Capsule 1 capsule Orally Three times a day Not-Taking/PRN Refresh 1.4-0.6 % Solution as directed Ophthalmic 1gtts OU in am Not-Taking/PRN hydroCHLOROthiazide 25 MG Tablet 1 tablet in the morning Orally Once a day Not-Taking/PRN Losartan Potassium 100 MG Tablet 1 tablet Orally Once a day Not-Taking/PRN Mounjaro 5 MG/0.5ML Solution Pen-injector 5mg Subcutaneous once weekly , Notes to Pharmacist: Dose change.Medication List reviewed and reconciled with the patient * Allergies: B actrim: Hives - AllergyOzempic: Sores on headGabapentin: delusional - Contraindicationno[Allergies Verified] Objective: * Vitals: W t:280lbs, Ht: 62.50 in, BMI:50.39Index, RR:18/min, Pain scale:61-10, Wt-k.01 kg, Ht-cm: 158.75 cm, Body Surface Area: 2.36. Assessment: * Assessment: 1. S chizophrenia, unspecified type - F20.9 (Primary) 2 . D ietary counseling - Z71.3 3 . E xercise counseling - Z71.82 4 . E ncounter for screening examination for mental health and behavioral disorders, unspecified - Z13.30 ? Stable w/current medications . Reviewed risks/benefits, major/common side effects, and alternatives of medication plan with patient, stated understanding and agreement with plan. Medication and allergy list reconciled. The patient was informed of contraindications of alcohol, THC use and side effects of any substances with medications. Antidepressant Medication: We discussed the risks/benefits and side effects of medications. I stressed in particular side effects including but not limited to gastrointestinal problems, sexual dysfunction, serotonin syndrome, agitation, rare induction of mag, rare activation of suicidality. We discussed issues related to healthy weight, diet, and sleep hygiene. Discussed risk of EPS, black box warnings. Encouraged multivitamin. RTO in 3 months or as needed. 911/ER if suicidal/homicidal. PVU. Continue counseling as needed for support. Plan: * Treatment: 2. O thers Clinical Notes: Melissa is a 64 y.o female presents in office for f.u visit. Pt presents alone without son. Ambulates independent with a walker. 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 Continues to live alone, has a home nurse and nursing aid that come in once a week and therapy twice a week. 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 Large scar noted on top right side of head. Pt's hair is buzzed short. Reports she starts radiation sometime in September. Pt reports she has pic line. Denies SI/HI and hallucinations. Denies paranoia. Reports she is coping well with the new medical diagnosis. * Procedure Codes: 1 036F TOBACCO NON-USER * Follow Up: 3 Months,prn Care Plan: * Problems: * Billing Information: * Visit Code: 80484 Office Visit Est 20-29 minutes. * Procedure Codes: 1036F TOBACCO NON-USER. Care Plan Details* * Sign off status: Completed true * Provider: OSIEL Lees Date: 0 09/03/2024 Generated for Crystal oneill/Matheus/eTransmitting on: 0 09/14/2024 12:20 PM EDT History and Physical Notes * HPI (History of Present Illness) Category Sub-Category Detail Notes Category Not es History of Presenting Problem Referral source Well and stable. Anxiety Depression Substance abuse Anger management Suicidal ideation Homicidal ideation Sleep disturbance Psychosis Mood lability Obsessive thoughts Screening [place] Suicide Sev erity Rating Scale (LF) Do you want to initiate with: Screener form 1. Wish to be : Have you wished you were or wished you could go to sleep and not wake up?: No 2. Suicidal Thoughts: Have you actually had any thoughts of killing yourself?: No 6. Suicide Behaviour: Have you ever done anything,started to do anything, or prepared to end your life?: No Interpretation:: Low Risk
--- OUTSIDE RECORDS SUMMARY | 2024-09-09 11:00 | XMS_ITS ---
Author Organization Formerly [facility] vices Address [address], [place] [id number] Care Team Providers Care Sprayer Leather Name Role Phone Farrah Legersa Primary Care Provider [phone] Mary Ramirez Unavailable [phone] Allergies Allergen (clinical drug ingredient) Drug/Non Drug Allergy documented on EMR Reaction Allergy Type Onset Date Status sulfamethoxazole / trimethoprim Bactrim Hives Drug Allergy Active gabapentin Gabapentin delusional Drug Allergy Acti ve semaglutide Ozempic Sores on head Drug Allergy A ctive REASON FOR VISIT DVT & Brain Cancer Medications Medication SIG (Take, Route, Frequency, Duration) Notes Start Date End Date Status Mounjaro 5 MG/0.5ML 5mg Subcutaneous once weekly for 30 days Dose change. Unknown hydroCHLOROthiazide 25 MG 1 tablet in th e morning Orally Once a day for 90 days 01/30/2024 Unknown Losartan Potassium 100 MG 1 tablet Orall y Once a day for 90 days Unknown Fish Oil 1200 MG 1 capsule Orally Three times a day Unknown Refresh 1.4-0.6 % as directed Ophthalmic 1gtts OU in am Unknown MiraLax 17 GM/SCOOP 1 scoop mixed with 8 ounces of fluid Orally Once a day for 30 days Active DULoxetine HCl 60 MG 1 capsule Orally Once a day for 90 days 02/20/2024 Active traMADol HCl 50 MG 1 tablet if needed Orally Once a day for 30 days Reviewed [facility], OK to fill today 6-3-25 08/31/2024 Active ARIPiprazole 30 MG 1 tablet Orally bed time for 90 days Active Benztropine Mesylate 0.5 MG 1 tablet at bedtime Oral Once a day for 90 days Active Levothyroxine Sodium 150 MCG 1 tablet in the morning on an empty stomach Orally Once a day for 30 days Active Melatonin 5 MG 1-2 capsule at bedtime as needed Orally Once a day for 30 days Active Famotidine 20 MG 1 tablet at bedtime as needed Orally Once a day for 30 days Active metFORMIN HCl ER 500 MG TAKE 1 TABLETS B Y MOUTH EVERY DAY Oral Once a day for 30 days Please use prior RF 1st. Active Eliquis 5 MG 1 tablet Orally twice daily for 30 days 08/06/2024 Active Lancets 1 twice daily for 30 days any brand covered by insurance 01/21/2024 Active Alcohol Pads twice daily for 30 days any brand covered by insurance 01/21/2024 Active Vitamin B-12 1000 MCG 1 tablet Oral every other day for 30 days Active Atorvastatin Calcium 20 MG TAKE 1 TABLET BY MOUTH DAILY Orally daily for 30 days Active dexAMETHasone 2 MG 1 tablet Orally Once a day for 30 days Active Blood Glucose Monitor - as directed for 90 days Please give brand covered by insurance. 12/14/2023 Active Albuterol Sulfate 108 (90 Base) MCG/ACT 1 puff as needed Inhalation every 4 hrs Active Albuterol Sulfate (2.5 MG/3ML) 0.083% 3 mL as needed Inhalation every 6 hrs for 90 days Please give 6 boxes or quantify allowed by insurance. Active glucometer 1 glucometer for 30 days any brand covered by insurance 01/21/2024 Active Glucose Test Strips 1 strip twice a day for 30 days any brand covered by insurance 01/21/2024 Active 1st Choice Lancets Super Thin - Use 1 lancet to test sugars three times daily for 90 days Please give brand covered by insurance. 12/14/2023 Active Alcohol Wipes 70 % Use 1 alcohol pad Externally three times daily for 90 days 08/06/2024 Active Blood Glucose Test Strips 333 - Use 1 strip In Vitro three times daily for 90 days Please give brand covered by insurance. 12/14/2023 Active Social History Sex Assigned At : Social History Observation Description Sex Assigned At Female Problems Problem Type SNOMED Code ICD Code Onset Dates Problem Status W/U Status Risk Notes Problem 663213209 Neuropathy (G62.9) Active confirmed Problem [id number] Malignant neoplasm of brain, unspecified location (C71.9) Active confirmed Vital Signs Temperature 98.0 degrees Fahrenheit 09/10/19 25 Weight 301 lbs 09/09/2024 Height 62.50 in 09/09/2024 BMI 54.17 kg/m2 09/09/2024 Blood pressure systolic 111 mm Hg 09/10/19 25 Blood pressure diastolic 72 mm Hg 025 Heart Rate 79 /min 09/09/2024 Respiratory Rate 18 /min 09/09/2024 Oximetry 96 % 09/09/2024 Weight-kg 136.53 kg 09/09/2024 Height-cm 158.75 cm 09/09/2024 Samy Stern 025 03:04:57 PM EDT > Encounters Encounter Location Date Provider Diagnosis [address] [facility] [place] [id number] 09/09/2024 Dinorah Arsen Malignant neoplasm o f brain, unspecified location C71.9 ; Neuropathy G62.9 ; Obesity, morbid, BMI 50 or higher E66.01 and Body mass index (BMI) of 50-59.9 in adult Z68.43 Assessments Encounter Date Diagnosis (ICD Code) Assessment Notes Treatment Notes Treatment Clinical Notes Section Notes 09/09/2024 Malignant neoplasm of brain, unspecified location (ICD-10 - C71.9) Continue following w/ Neurosurgery at this time Next appt Early September and will determine if pt can begin radiation F/U 3 months or PRN 09/09/2024 Neuropathy (ICD-10 - G62.9) Pt would like to resume Lyrica for neuropathy Has not taken in some time d/t diagnosis Used to get from Neurology at [facility] Informed pt she should discuss w/ Neurosurgery at next appt prior to starting Will manage for her if OK for her to take from specialist standpoint F/U 3 months or PRN 09/09/2024 Obesity, morbid, BMI 50 or higher (ICD-10 - E66.01) 09/09/2024 Body mass index (BMI) of 50-59.9 in adult (ICD-10 - Z68.43) Plan Of Treatment Treatment Notes Assessment Notes Malignant neoplasm of brain, unspecified location Continue following w/ Neurosurgery at this time Next appt Early September and will determine if pt can begin radiation F/U 3 months or PRN Neuropathy Pt would like to resume Lyrica for neuropathy Has not taken in some time d/t diagnosis Used to get from Neurology at [facility] Informed pt she should discuss w/ Neurosurgery at next appt prior to starting Will manage for her if OK for her to take from specialist standpoint F/U 3 months or PRN Next Appt Details Follow Up: 3 months Brain Ca ncer & Neuropathy, Reason: Provider Name:Mary Ramirez , 12/10/2024 10:00:00 AM, [address] [place], [id number], Provider Name:Dinorah Leger , 12/17/2024 09:45:00 AM, [address] [place], [place], [id number], Progress Notes * ROSSISinaB:1960 (64 yo F)Acc No.[id number]:09/09/2024 Medical Note Patient: Melissa FARRELL Provider: Amy Leger :1960 A ge:64 Y S ex:Female Date:09/09/2024 Address:[address] [place], [place] [id number] Subjective: * Chief Complaints: * D VT & Brain Cancer * HPI: I nterim History: DVT & BRAIN CANCER Pt underwent craniotomy and resection w/ Dr. 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 Tovar felt it appeared infected at incision site, placed on Keflex, stopped on Eliquis I&D of infected craniotomy incision 08/20/24 Dr. Tovar recommended post-op radiation to R Frontal Parietal tumor bed once wounds healed and infection resolved Recent PET CT Negative Dr. Tovar wanted pt to wait at least aa month following I&D before starting radiation Radiation to last 5-6 weeks. Pt follows w/ [facility] in [place], [place] Last appt 08/13/24 Telehealth w/ Dr. Rubens Altamirano, will F/U on 09/16/24 again Follows w/ Dr. Tovar from Neurosurgery, last visit 09/01/24 for staple and suture removal, pt on Vancomycin through port, next appt 09/29/24; Pt to start Radiation in 1 month Pt following w/ [facility] Abby Russmo 09/10/24 Pt follows w/ [facility] Follows w/ Dr. Dedra Olivo from [facility], next appt 11/22/24 Follows bailee/ Marcio Ramirez, PMHNP for [facility] NEUROPATHY Pt reports Neuropathy in left foot, used to follow w/ Neurology at [facility] for this and received Lyrics 25mg 1QD Pt reports last she filled it was March She would like to resume taking it, as her neuropathy has been acting up. * ROS: N egative except mentioned above in the HPI. * Medical History: * Surgical History: C ystectomy; Total Appendectomy EXTENSIVE HYSTERECTOMY Brain tumor unsureBrain cleaning due to infection unsure * Hospitalization/Major Diagno stic Procedure: S ee Above * Family History: F ather: , malignant melanoma. M other: alive, deep vein thrombosis. P aternal Grand Father: . P aternal Grand Mother: . M aternal Grand Father: , diagnosed with Cancer. M aternal Grand Mother: , diagnosed with Cancer. S ister: diagnosed with Cancer. 2 sister(s) . . * Medications: T akingBlood Glucose Test Strips [...] Pads twice daily any brand covered by insuranceAtorvastatin Calcium 20 MG Tablet TAKE 1 TABLET BY MOUTH DAILY Orally daily dexAMETHasone 2 MG Tablet 1 tablet Orally Once a day Vitamin B-12 1000 MCG Tablet 1 tablet Oral every other day Eliquis 5 MG Tablet 1 tablet [...] a day , Notes to Pharmacist: Reviewed OARRSLAVERNE to fill today 3-9-66JskpDkw 17 GM/SCOOP Powder 1 scoop mixed with 8 ounces of fluid Orally Once a day DULoxetine HCl 60 MG Capsule Delayed Release Particles 1 capsule Orally Once a day ARIPiprazole 30 MG Tablet 1 tablet Orally bed time Benztropine Mesylate 0.5 MG Tablet 1 tablet at bedtime Oral Once a day Taking Blood Glucose Test [...] twice daily any brand covered by insuranceTaking Atorvastatin Calcium 20 MG Tablet TAKE 1 TABLET BY MOUTH DAILY Orally daily Taking dexAMETHasone 2 MG Tablet 1 tablet Orally Once a day Taking Vitamin B-12 1000 MCG Tablet 1 tablet Oral every other day Taking Eliquis 5 MG Tablet 1 [...] a day , Notes to Pharmacist: Reviewed QASIMRRSLAVERNE to fill today 8-5-25Qrmohq MiraLax 17 GM/SCOOP Powder 1 scoop mixed with 8 ounces of fluid Orally Once a day Taking DULoxetine HCl 60 MG Capsule Delayed Release Particles 1 capsule Orally Once a day Taking ARIPiprazole 30 MG Tablet 1 tablet Orally bed time Taking Benztropine Mesylate 0.5 MG Tablet 1 tablet at bedtime Oral Once a day UnknownFish Oil 1200 MG Capsule 1 capsule Orally [...] change.Medication List reviewed and reconciled with the patientUnknown Fish Oil 1200 MG Capsule 1 capsule Orally Three times a day Unknown Refresh 1.4-0.6 % Solution as directed Ophthalmic 1gtts OU in am Unknown hydroCHLOROthiazide 25 MG Tablet 1 tablet in the morning Orally Once a day Unknown Losartan Potassium 100 MG Tablet 1 tablet Orally Once a day Unknown Mounjaro 5 MG/0.5ML Solution Pen-injector 5mg Subcutaneous once weekly , Notes to Pharmacist: Dose change.Medication List reviewed and reconciled with the patient * Allergies: B actrim: Hives - AllergyOzempic: Sores on headGabapentin: delusional - Contraindicationno[Allergies Verified] Objective: * Vitals: T emp:98.0F, Wt:301lbs, Ht: 62.50 in, BMI:54.17Index, BP:111/72mm Hg, HR:79/min, RR:18/min, Pain scale:61-10, Oxygen sat %:96%, Wt-k.53 kg, Ht-cm: 158.75 cm, Body Surface Area: 2.45. Samy Stern 09/09/2024 03:04:57 PM EDT >. * Examination: C QM Exceptions: Currently taking Aspirin: A spirin Use: N o G eneral Examination: General appearance: a lert, pleasant, well-nourished and in no acute distress. Head: n ormocephalic,healed fully approximated craniotomy scar. Heart: r egular rate and rhythm without murmurs, gallops, clicks or rubs. Lungs: c lear to auscultation bilaterally, with good air movement and no rales, rhonchi or wheezes. Extremities: b ilateral LE swelling, 1+ nonpitting, good pulses. Psych: a lert and oriented x 3 , cooperative with exam,?normal affect / mood , speech is clear and coherent. Assessment: * Assessment: 1. M alignant neoplasm of brain, unspecified location - C71.9 (Primary) 2 .?Neuropathy - G62.9 3 . O besity, morbid, BMI 50 or higher - E66.01 ?4. B anderson mass index (BMI) of 50-59.9 in adult - Z68.43 Plan: * Treatment: 2. N europathy Notes: Pt would like to resume Lyrica for neuropathy Has not taken in some time d/t diagnosis Used to get from Neurology at [facility] Informed pt she should discuss w/ Neurosurgery at next appt prior to starting Will manage for her if OK for her to take from specialist standpoint F/U 3 months or PRN * Procedure Codes: 3 078F HTN DIAST BP < [id number] HTN SYST BP < 130 * Preventive Medicine: Counseling: C ommunication to patient: Counseling for nutrition provided Y es Counseling for physical activity provided Y es * Follow Up: 3 months Brain Cancer & Neuropathy * Billing Information: * Visit Code: 16463 Office Visit Est 30-39 minutes. * Procedure Codes: 3078F HTN DIAST BP < 80. 3074F HTN SYST BP < 130. * Sign off status: Completed true * Provider: Amy Leger Date: 0 09/09/2024 Generated for Crystal oneill/Matheus/Damianransmitting on: 0 09/14/2024 12:21 PM EDT History and Physical Notes * Examination Category Sub-Category Detail Notes Category Not es General Examination General appearance: alert, p leasant, well-nourished and in no acute distress Head: normocephalic, heale d fully approximated craniotomy scar Heart: regular rate and rhy thm without murmurs, gallops, clicks or rubs Lungs: clear to auscultatio n bilaterally, with good air movement and no rales, rhonchi or wheezes Extremities: bilateral LE swellin g, 1+ nonpitting, good pulses Psych: alert and oriented x 3 , cooperative with exam, normal affect / mood , speech is clear and coherent CQM Exceptions Currently taking Aspirin: Aspirin Use:: No
--- OUTSIDE RECORDS SUMMARY | 2024-09-10 09:40 | XMS_ITS | Encounter Summary ---
Author Organization [facility] Address [address] [place] [address] Care Team Providers Care Credit Department Manager Name Role Phone Self, Referred Primary Care Provider Unavailabl e Reason for Visit * Reason Comments Follow-up Encounter Details Date Type Department Care Team (Late st Contact Info) Description 09/10/2024 9:40 AM EDT Follow-Up [facility] Infectious Disease [address], [address] [place] [phone] Abby Barbosa, HARNESS TIER [address] [facility] [phone] 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, sequela (Primary Dx); S/P craniotomy; Controlled type 2 diabetes mellitus without complication, unspecified whether jail insulin use (CMS/HCC); Urinary frequency Social History Tobacco Use Types Packs/Day Years Used Date Smoking Tobacco: Never Assessed Comments Unknown Sex and Gender Information Value Date Recorded Sex Assigned at Not on file Legal Sex Female 6:47 PM EDT Gender Identity Not on file Sexual Orientation Not on file documented as of this encounter Last Filed Vital Signs Vital Sign Reading Time Taken Comments Blood Pressure 127/85 09/10/2024 9:33 AM EDT Pulse 70 09/10/2024 9:33 AM EDT Temperature - - Respiratory Rate - - Oxygen Saturation 96% 09/10/2024 9:33 AM EDT Inhaled Oxygen Concentration - - Weight 127 kg (280 lb) 09/10/2024 9:33 AM EDT Height 160 cm (5' 3 ) 09/10/2024 9:33 AM EDT Body Mass Index 49.6 09/10/2024 9:33 AM EDT documented in this encounter Patient Instructions * Attachments The following attachments cannot be sent through Care Everywhere. * Wound Infection (Nepalese) documented in this encounter Progress Notes * Abby Barbosa, EKATERINA - 09/10/2024 9:40 AM EDT Division of Infectious Diseases - Outpatient Clinic Note Patient name: Melissa Godoy Patient Today's Date and Time: 09/10/2024, 11:07 AM Primary Care Physician: SELF, REFERRED Reason for consultation / Chief complaint: Postoperative infection History of Present Illness: This is a 64-year-old female patient who was initially admitted on August 20, 2024. 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 She developed dehiscence of her surgical incision in the outpatient setting, and she was noted to have purulence from the incision. She had started taking oral cephalexin a few days prior to presentation to the hospital. She underwent an I&D on August 20, 2024. Intraoperative cultures obtained showed no growth, and the operative note documented that there was no purulent drainage encountered during the procedure. She was discharged on 6 weeks of intravenous vancomycin that we will conclude on October 01, 2024. The patient is completing a hospital follow-up with her service today to evaluate for any change ofsymptoms. She is present today with her son. She reports she has been infusing vancomycin as prescribed, and she has not had any side effects. She denied having any fevers, chills, chest pain, shortness of breath, abdominal pain, nausea, vomiting, or diarrhea. She has not had any headaches. She reports chronic pain of the bilateral knees and left foot. She has a follow up on September 29, 2024 with neurosurgery. She reports she has to wait one month after her last surgery before she can start radiation. She will have 6-8 weeks of radiation 5 days a week. Her blood sugar this morning was 130. Past Medical History: Medical History[1] Past Surgical History: Surgical History[2] Medications: Social History: Social History Socioeconomic History Marital status: Single Spouse name: Not on file Number of children: Not on file Years of education: Not on file Highest education level: Not on file Occupational History Not on file Tobacco Use Smoking status: Not on file Smokeless tobacco: Not on file Substance and Sexual Activity Alcohol use: Not on file Drug use: Not on file Sexual activity: Not on file Other Topics Concern Not on file Social History Narrative Not on file Social Drivers of Health Financial Resource Strain: Not on file Food Insecurity: No Food Insecurity (08/22/2024) Received from [facility] Hunger Screening Within the past 12 months we worried whether our food would run out before we got money to buy more.: Never True Within the past 12 months the food we bought just didn't last and we didn't have money to get more.: Never True Transportation Needs: No Transportation Needs (08/20/2024) Received from [facility] PRAPARE - Transportation Lack of Transportation (Medical): No Lack of Transportation (Non-Medical): No Physical Activity: Not on file Stress: Not on file Social Connections: Not on file Intimate Partner Violence: Not on file Housing Stability: Low Risk (08/20/2024) Received from [facility] Housing Instability Are you worried or concerned that in the next two months you may not have stable housing that you own, rent or stay in as a part of a household?: No Family History: Family History[3] Immunization History: There is no immunization history on file for this patient. Allergies: Allergies[4] Review of Systems: General: No fevers or chills. Eyes: No double vision or blurry vision. ENT: No sore throat or runny nose. Cardiovascular: No chest pain or palpitations. Lung: No shortness of breath or cough. Abdomen: No nausea, vomiting, diarrhea, or abdominal pain. Genitourinary: No increased urinary frequency, or dysuria. Musculoskeletal: Chronic pain of the bilateral knees and left foot. Hematologic: No bleeding or bruising. Neurologic: No headache, weakness, numbness, or tingling. Objective Physical Examination: Vitals: 09/10/24 0933 BP: 127/85 BP Location: Left arm Patient Position: Sitting BP Cuff Size: Adult Pulse: 70 SpO2: 96% Weight: 127 kg (280 lb) Height: 1.6 m (5' 3 ) General Appearance: awake, alert, oriented, in no acute distress Lungs: Normal expansion. Clear to auscultation. No rales, rhonchi, or wheezing. Heart: Heart sounds are normal. Regular rate and rhythm without murmur, gallop or rub. Abdomen: Soft, non-tender, normal bowel sounds; no bruits, organomegaly or masses. Skin: No rash. PICC line noted. The cranial incision is well-approximated. There are 2 areas of scabbing. There does appear to be an embedded suture away from the incision near the middle portion of the head. Psych exam: alert,oriented, in NAD with a full range of affect, normal behavior and no psychotic features Impression and Recommendations: 1. 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, sequela (Primary) This is a patient who was hospitalized after developing a postcraniotomy infection. Cultures obtained showed no growth. She was discharged on 6 weeks of intravenous vancomycin that we will conclude on October 01, 2024. She has been tolerating the antibiotic without any side effects. She denied having any symptoms of infection. Lab work obtained on September 06, 2024 did not show any renal dysfunction. A vancomycin trough was therapeutic. A CRP had been within normal. A CBC from September 07, 2024 did not show any leukocytosis. On examination, there are no signs of infection surrounding the cranial incision. However, there isan embedded suture that is noted. It was attempted to lift the suture after the area was cleaned, but there was resistance met, and there is concern that the suture may track underneath a scab on the portion of the incision. The patient's neurosurgeons office was contacted to see if they could see the patient today to remove this, and they had recommended the patient go to the emergency department for removal. Her son reports he will be taking her to [facility] for this. We will plan for the patient to continue on antibiotic therapy through completion. We will follow-up with her near her treatment stop date for further evaluation. They were in agreement with this plan. 2. S/P craniotomy Treatment as above. We will await further input from the patient's neurosurgeon as to whether or not the patient will require repeat imaging. 3. Controlled type 2 diabetes mellitus without complication, unspecified whether jail insulin use ([facility]) The patient reports today her blood sugar was 130. She was encouraged to maintain her blood sugars within normal to prevent recurrent infection. 4. Urinary frequency The patient suffers from chronic urinary frequency that she reports has been worsening. She also has been suffering from incontinence. She did have a urine culture obtained in June 2024 that showed Proteus. We will repeat a urinalysis and urine culture to ensure she is not still infected with with this. We will await these results and treat accordingly - Urinalysis; Future - Urine culture, routine; Future The patient was educated about new and worsening signs and symptoms of infection to monitor for andinstructed to call immediately or go to the emergency department if any of these occur. Abby Barbosa APRN-EKATERINA [facility]-Infectious Disease Please call , option 3, for any questions or concerns. This progress note was completed using a voice home demonstrator system. Every effort was made to ensure accuracy; however, inadvertent computerized home demonstrator errors may be present. [1] No past medical history on file. [2] No past surgical history on file. [3] No family history on file. [4] Allergies Allergen Reactions Gabapentin Other and Unknown Sulfamethoxazole-Trimethoprim Hives and Unknown Semaglutide Other and Rash Other Reaction(s): Sores on head documented in this encounter Plan of Treatment Upcoming Encounters Date Type Department Care Team (Late st Contact Info) Description 09/29/2024 11:40 AM EDT Follow-Up [facility] Infectious Disease [address], [address] [place] [address] Abby Barbosa CNP [address] [facility]/[place]ious [place] [address] Scheduled Orders Name Type Priority Associated Diagnoses Orde r Schedule Urinalysis Lab Routine Urinary frequency Expected: 09/10/2024 (Approximate), Expires: 09/10/2025 Urine culture, routine Microbiology Routine Urinary frequency Expected: 09/10/2024 (Approximate), Expires: 09/10/2025 documented as of this encounter Visit Diagnoses Diagnosis 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, sequela- Primary S/P craniotomy Other postprocedural status Controlled type 2 diabetes mellitus without complication, unspecified whether jail insulin use ([facility]) Urinary frequency documented in this encounter Care Teams Credit Department Manager Relationship Specialty Start Date End Date SELF, REFERRED [address] PCP - General 09/10/24 documented as of this encounter
[2024-09-14 10:58] VITALS: BP 140/74; PULSE 73; TEMP 36.6; O2SAT 95; BMI 49.6
--- NOTE | 2024-09-14 11:10 | ED.GENADUL1 ---
HPI HPI - General Adult General Chief complaint: Recheck/Abnormal Lab/Rx Stated complaint: staple removal Time Seen by Provider: 09/14/24 10:53 Source: patient Mode of arrival: walk-in History of Present Illness HPI narrative: 64-year-old female presents to the emergency department to have sutures removed. She had neurosurgery in [place] about 3 weeks ago and she states that some of the sutures were taken out in the office but not all of them and she was told to come here to get the remaining one removed. She has had no issues such as drainage. Related Data Home Medications ?Medication ?Instructions ?Recorded ?Confirmed acetaminophen 500 mg tablet 500 mg PO TID PRN pain 06/22/24 06/22/24 albuterol sulfate 90 mcg/actuation 2 inh inhalation Q4H PRN shortness 06/22/24 06/22/24 aerosol inhaler of breath or wheezing apixaban 5 mg tablet 5 mg PO BID 06/22/24 06/22/24 aripiprazole 30 mg tablet 30 mg PO .QD 06/22/24 06/22/24 atorvastatin 20 mg tablet 20 mg PO .QD 06/22/24 06/22/24 benztropine 0.5 mg tablet 0.5 mg PO .QD 06/22/24 06/22/24 duloxetine 60 mg capsule,delayed 60 mg PO .QD 06/22/24 06/22/24 release famotidine 20 mg tablet (Acid 20 mg PO DAILY 06/22/24 06/22/24 Controller) levothyroxine 150 mcg tablet 150 mcg PO .ACB 06/22/24 06/22/24 loratadine 10 mg tablet (Claritin) 10 mg PO DAILY 06/22/24 06/22/24 losartan 100 mg tablet 100 mg PO .QD 06/22/24 06/22/24 metformin 500 mg tablet,extended 500 mg PO .QD 06/22/24 06/22/24 release 24 hr ondansetron 4 mg disintegrating 4 mg PO Q6H PRN nausea and vomiting 06/22/24 06/22/24 tablet polyethylene glycol 3350 17 gram 17 g PO DAILY 06/22/24 06/22/24 oral powder packet (Miralax) pregabalin 25 mg capsule 50 mg PO Q12H 06/22/24 06/22/24 tramadol 50 mg tablet 50 mg PO .QHS PRN pain 06/22/24 06/22/24 Allergies Allergy/AdvReac Type Severity Reaction Status Date / Time gabapentin Allergy Mild Anxiety Verified 06/22/24 08:46 semaglutide (From Ozempic) Allergy Mild Rash Verified 06/22/24 08:46 sulfamethoxazole (From Allergy Mild Hives Verified 06/22/24 08:46 Bactrim) trimethoprim (From Bactrim) Allergy Mild Hives Verified 06/22/24 08:46 Opioid HPI Opioid Management Most Recent Opioid Data: Last Pain Scale 10 06/22/24, 11:35 Review of Systems ROS Narrative A ten point review of systems is negative except as noted above. PFSH PFSH Social History Little interest or pleasure in doing things: not at all Feeling down, depressed, or hopeless: not at all Exam Narrative Exam Narrative: Nurses note and vital signs reviewed and patient is not hypoxic. General: The patient appears well and in no apparent distress. Patient is resting comfortably on cart. Skin: Warm, dry, no pallor noted. There is no rash noted. Head: Normocephalic, her scalp is inspected and the surgical wound appears to be healing well. There is a single Prolene suture visible. I have removed it with no dehiscence or drainage. It was towards the left side of the incision. On the right side is a large scab which should not be removed at this point and no visible suture material is noted. Eye: Normal conjunctiva, no drainage Ears, Nose, Mouth, and Throat: oral mucosa is moist. Nares patent. Cardiovascular: Regular Rate and Rhythm Respiratory: Patient is in no distress, no accessory muscle use, lungs are clear to auscultation, no wheezing, rales or rhonchi Back: non-tender GI: Soft and nontender Musculoskeletal: No joint swelling Neurological: A&O, normal speech Psychiatric: Cooperative Constitutional Vital Signs, click to edit/add: Last Vital Signs Temp 98 F 09/14/24 10:58 Pulse 73 09/14/24 10:58 Resp 20 09/14/24 10:58 BP 140/74 09/14/24 10:58 Pulse Ox 95 09/14/24 10:58 O2 Del Method Room Air 09/14/24 10:58 Course Vital Signs Vital signs: Vital Signs Temperature 98 F 09/14/24 10:58 Pulse Rate 73 09/14/24 10:58 Respiratory Rate 20 09/14/24 10:58 Blood Pressure 140/74 09/14/24 10:58 Pulse Oximetry 95 09/14/24 10:58 Oxygen Delivery Method Room Air 09/14/24 10:58 Temperature 98 F 09/14/24 10:58 Pulse Rate 73 09/14/24 10:58 Respiratory Rate 20 09/14/24 10:58 Blood Pressure 140/74 09/14/24 10:58 Pulse Oximetry 95 09/14/24 10:58 Oxygen Delivery Method Room Air 09/14/24 10:58 Medical Decision Making MDM Narrative Medical decision making narrative: I have removed the single suture present and there is no dehiscence. Differential Diagnosis Differential Diagnosis: Suture removal Discharge Plan Discharge Chief Complaint: Recheck/Abnormal Lab/Rx Clinical Impression: Visit for suture removal Patient Disposition: Home, Self-Care Time of Disposition Decision: 11:10 Condition: Good Mode of Transportation: Private Vehicle Prescriptions / Home Meds: No Action atorvastatin 20 mg tablet 20 mg PO .QD duloxetine 60 mg capsule,delayed release(DR/EC) 60 mg PO .QD metformin 500 mg tablet extended release 24 hr 500 mg PO .QD tramadol 50 mg tablet 50 mg PO .QHS PRN (Reason: pain) aripiprazole 30 mg tablet 30 mg PO .QD benztropine 0.5 mg tablet 0.5 mg PO .QD famotidine [Acid Controller] 20 mg tablet 20 mg PO DAILY levothyroxine 150 mcg tablet 150 mcg PO .ACB losartan 100 mg tablet 100 mg PO .QD apixaban 5 mg tablet 5 mg PO BID pregabalin 25 mg capsule 50 mg PO Q12H loratadine [Claritin] 10 mg tablet 10 mg PO DAILY polyethylene glycol 3350 [Miralax] 17 gram powder in packet 17 g PO DAILY albuterol sulfate 90 mcg/actuation HFA aerosol inhaler 2 inh inhalation Q4H PRN (Reason: shortness of breath or wheezing) acetaminophen 500 mg tablet 500 mg PO TID PRN (Reason: pain) ondansetron 4 mg tablet,disintegrating 4 mg PO Q6H PRN (Reason: nausea and vomiting) Print Language: Solomon Islander Instructions: Stitches Removal (ED) Referrals: STEFFANIE ALANIZ DO [Primary Care Provider, Family Practice] - 1 week
--- OUTSIDE RECORDS SUMMARY | 2024-09-14 12:20 | XMS_ITS | Referral Summary ---
Author Organization [facility] Address [address] [place] [address] Care Team Providers Care Financial Aid Officer Name Role Phone Self, Referred Primary Care Provider Unavailabl e Encounters Date Type Department Care Team Description 09/13/2024 Telephone [facility] of [address], [address] [place] [phone] Abby Barbosa CNP 09/10/2024 Telephone [facility] of [address], [address] [place] [phone] Abby Barbosa CNP 09/10/2024 9:40 AM EDT Follow-Up [facility] of [address], [address] [place] [phone] Abby Barbosa CNP 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, sequela (Primary Dx); S/P craniotomy; Controlled type 2 diabetes mellitus without complication, unspecified whether tank terminal gauger insulin use ([facility]); Urinary frequency 09/06/2024 Telephone [facility] of [address], [address] [place] [phone] Halley Haynes MA 08/30/2024 Telephone [facility] of [facility] [address], [address] [place] [phone] Halley Haynes MA 08/27/2024 Telephone [facility] of [facility] Infectious Disease [address], [address] [place] [address] Christal Frank RN from Last 3 Months Allergies Active Allergy Reactions Criticality Noted Date Comments Gabapentin Other,Unknown High 11/24/2023 Semaglutide Other,Rash Low 10/29/2021 Other Reaction(s): Sores on head Sulfamethoxazole-Trimethop rim Hives,Unknown High 07/01/2007 Medications albuterol 90 mcg/actuation inhaler Inhale 2 puffs every 4 (four) hours if needed. 10/17/2022 Active amLODIPine (Norvasc) 5 mg tablet Take 5 mg by mouth in the morning. Active Eliquis 5 mg tablet Take 1 tablet by mouth Twice daily at 6am and 6pm. 08/06/2024 Active ARIPiprazole (Abilify) 30 mg tablet Take 30 mg by mouth in the morning. 07/30/2021 Active atorvastatin (Lipitor) 20 mg tablet Take 20 mg by mouth in the morning. 04/08/2022 Active cyanocobalamin (Vitamin B-12) 1,000 mcg tablet Take 1,000 mcg by mouth in the morning. 10/04/2021 Active dexAMETHasone (Decadron) 2 mg tablet Take 2 mg by mouth. 07/05/2024 Active famotidine (Pepcid) 20 mg tablet Take 20 mg by mouth in the morning. 06/02/2024 Active heparin lock flush, porcine, 10 unit/mL injection Infuse 10-50 Units into a venous catheter if needed each day. 08/24/2024 Active heparin lock flush, porcine, 100 unit/mL vial Infuse 100-500 Units into a venous catheter if needed each day. 08/24/2024 Active hydroCHLOROthia zide (HYDRODiuril) 25 mg tablet take 1 tablet by mouth daily in the morning 02/01/2024 Active levothyroxine (Synthroid, Levoxyl) 150 mcg tablet Take 150 mcg by mouth in the morning. 08/21/2022 Active melatonin 10 mg tablet,chewable Chew 10 mg in the morning. Active metFORMIN XR (Glucophage-XR) 500 mg 24 hr tablet Take 500 mg by mouth daily with evening meal. 07/12/2021 Active pregabalin (Lyrica) 25 mg capsule Take 25 mg by mouth twice a day. 04/08/2024 Active traMADol (Ultram) 50 mg tablet Take 50 mg by mouth every 6 (six) hours if needed. Active vancomycin (Vancocin) 10 gram recon soln 09/07/2024 Act myles Social History Tobacco Use Types Packs/Day Years Used Date Smoking Tobacco: Never Assessed Comments Unknown Sex and Gender Information Value Date Recorded Sex Assigned at Not on file Legal Sex Female 6:47 PM EDT Gender Identity Not on file Sexual Orientation Not on file Last Filed Vital Signs Vital Sign Reading [...] Mass Index 49.6 09/10/2024 9:33 AM EDT Plan of Treatment Upcoming Encounters Date Type Department Care Team (Late st Contact Info) Description 09/29/2024 11:40 AM EDT Follow-Up [facility] Infectious Disease [address] [place] [address], [address] [place] [address] Abby Barbosa, CELLAR HAND [address] [facility] [address] Insurance [facility] MEDICARE ADVANTAGE Care Teams Financial Aid Officer Relationship Specialty Start Date End Date SELF, REFERRED [address] PCP - General 09/10/24
--- OUTSIDE RECORDS SUMMARY | 2024-09-14 12:20 | XMS_ITS | Encounter Summary ---
Author Organization 3D Product Imagingsouth [facility] regional medical centerAudit Verify [facility] tem Address [id number] [address] [place] [address] Care Team Providers Care Glove Former Name Role Phone Dinorah Leger BARREL ASSEMBLER-SUPERVISOR COAL HANDLING Primary Care Provider + Encounter Details Date Type Department Care Team (Late st Contact Info) Description 09/13/2024 Lab Requisition [facility] - Lab [address] [place] [phone] Pamela Santiago APRN-SUPERVISOR COAL HANDLING [address] [place] [address] Infection following a procedure, organ and space surgical site, initial encounter; Disruption of external operation (surgical) wound, not elsewhere classified, initial encounter Social History Tobacco Use Types Packs/Day Years Used Date Smoking Tobacco: Former Cigarettes 2 20 Q uit: 2019 Smokeless Tobacco: Never Alcohol Use Standard Drinks/Week Comments No 0 (1 standard drink = 0.6 oz pur e alcohol) [facility] Utilities Answer Date Recorded In the past 12 months has [employer], gas, oil, or water [employer] threatened to shut off services in your [...] PM EST documented as of this encounter Plan of Treatment Upcoming Encounters Date Type Department Care Team (Late st Contact Info) Description 09/29/2024 12:50 PM EDT Office Visit [facility] [address] [place] [phone] Adarsh Tovar MD [address] [place], [place] [phone] 11/22/2024 11:45 AM EDT Office Visit [facility] [place] [address] Dedra Olivo DO [address] [place] [address] documented as of this encounter Goals Goal Patient Goal Type Associated Problems Recent Progress Patient-Stated? Author SNF per pt & son Celestino General Yes María Ruiz, ADVERTISING VICE PRESIDENT Note: Evaluation of progress towards goal: feeling some better transition to SNF at discharge General Yes Mita Paniagua, ADVERTISING VICE PRESIDENT Note: Evaluation of progress towards goal: transition to SNF at discharge <enter goal here> General Yes Adonay Luna RN Note: Evaluation of progress towards goal: home with [facility] documented as of this encounter Procedures Procedure Name Priority Date/Time Associated Diagnosis Comments CBC WITH AUTO DIFFERENTIAL Routine 09/13/2024 9:10 AM EDT Infection following a procedure, organ and space surgical site, initial encounter Disruption of external operation (surgical) wound, not elsewhere classified, initial encounter C-REACTIVE PROTEIN Routine 09/13/2024 9: 10 AM EDT Infection following a procedure, organ and space surgical site, initial encounter Disruption of external operation (surgical) wound, not elsewhere classified, initial encounter BUN Routine 09/13/2024 9:10 AM EDT Infection following a procedure, organ and space surgical site, initial encounter Disruption of external operation (surgical) wound, not elsewhere classified, initial encounter CREATININE, SERUM Routine 09/13/2024 9:1 0 AM EDT Infection following a procedure, organ and space surgical site, initial encounter Disruption of external operation (surgical) wound, not elsewhere classified, initial encounter VANCOMYCIN, TROUGH Routine 09/13/2024 9: 10 AM EDT Infection following a procedure, organ and space surgical site, initial encounter Disruption of external operation (surgical) wound, not elsewhere classified, initial encounter documented in this encounter Results * C-reactive protein (09/13/2024 9:10 AM EDT) C REACTIVE PROTEIN 0.7 <=0.7 mg/dL 09/13/2024 10:28 AM EDT [facility] Blood Venous blood / Unknown 09/13/2024 9:10 AM EDT 09/13/2024 9:51 AM EDT us Pamela Amadio BARREL ASSEMBLER-SUPERVISOR COAL HANDLING LAB BLOOD ORDERABLES Ina l Result Performing Organization Address City/[facility] Co de Phone Number [address] [place] [address], [place] * Vancomycin, trough (09/13/2024 9:10 AM EDT) VANCOMYCIN TROUGH 14.5 5.0 - 20.0 ug/mL 09/13/2024 11:09 AM EDT [facility] Blood Venous blood / Unknown 09/13/2024 9:10 AM EDT 09/13/2024 9:51 AM EDT us Pamela Amadio BARREL ASSEMBLER-SUPERVISOR COAL HANDLING LAB BLOOD ORDERABLES Ina l Result Performing Organization Address [facility] Phone Number [address] [place] [address], [place] * Creatinine includes GFR, serum (09/13/2024 9:10 AM EDT) CREATININE 0.50 0.40 - 1.00 mg/dL 09/13/2024 10:28 AM EDT [facility] Comment:METHOD TRACEABLE TO IDMS STANDARD EGFR Non-Race Dependent >90 >=60 ml/min/1.7 3sq.m 09/13/2024 10:28 AM EDT [facility] Comment: Reported eGFR is based on the CKD-EPI 2020 equation that does not use a race coefficient. Blood Venous blood / Unknown 09/13/2024 9:10 AM EDT 09/13/2024 9:51 AM EDT us Pamela Amadio BARREL ASSEMBLER-SUPERVISOR COAL HANDLING LAB BLOOD ORDERABLES Ina l Result Performing Organization Address [facility] Co de Phone Number [address] [place] [address], [place] * BUN (09/13/2024 9:10 AM EDT) BLOOD UREA NITROGEN 20 5 - 27 mg/dL 09/13/2024 10:28 AM EDT [facility] Blood Venous blood / Unknown 09/13/2024 9:10 AM EDT 09/13/2024 9:51 AM EDT us Pamela Santiago BARREL ASSEMBLER-SUPERVISOR COAL HANDLING LAB BLOOD ORDERABLES Ina l Result [facility] [address] [place] [address], [place] * (ABNORMAL) CBC auto differential (09/13/2024 9:10 AM EDT) WBC 10.2 4 - 11 x10E9/L 09/13/2024 9:57 AM EDT [facility] RBC Count 3.93 3.8 - 5.2 X10E12/L 09/13/2024 9:57 AM EDT [facility] Hemoglobin 12.4 11.7 - 15.5 g/dL 09/13/2024 9:57 AM EDT [facility] Hematocrit 37.6 35 - 47 % 09/13/2024 9:57 AM EDT [facility] MCV 96 80 - 100 fL 09/13/2024 9:57 AM EDT [facility] MCH 31.7 27 - 34 pg 09/13/2024 9:57 AM EDT [facility] MCHC 33.1 32 - 36 g/dL 09/13/2024 9:57 AM EDT [facility] RDW 14.9 11.5 - 15 % 09/13/2024 9:57 AM EDT [facility] Platelet Count 292 150 - 450 X10E9/L 09/13/2024 9:57 AM EDT [facility] MPV 7.0 7 - 12 fL 09/13/2024 9:57 AM EDT [facility] Neutrophils Relative 71.7 % 09/13/2024 9:57 AM EDT [facility] Lymphocytes Relative 19.7 % 09/13/2024 9:57 AM EDT [facility] Monocytes Relative 8.0 % 09/13/2024 9:57 AM EDT [facility] Eosinophils Relative 0.3 % 09/13/2024 9:57 AM EDT [facility] Basophils Relative 0.3 % 09/13/2024 9:57 AM EDT [facility] Neutrophils Absolute (A) 7.3(H) 1.5 - 6.6 10*3/uL 09/13/2024 9:57 AM EDT [facility] Lymphocytes Absolute 2.0 1.0 - 3.5 10*3/uL 09/13/2024 9:57 AM EDT [facility] Monocytes Absolute 0.8 0.0 - 0.9 10*3/uL 09/13/2024 9:57 AM EDT [facility] Eosinophils Absolute 0.0 0.0 - 0.4 10*3/uL 09/13/2024 9:57 AM EDT [facility] Basophils Absolute 0.0 0.0 - 0.2 10*3/uL 09/13/2024 9:57 AM EDT [facility] Differential Type AUTOMATED DIFFERENTIAL 09/13/2024 9:57 AM EDT [facility] Blood Venous blood / Unknown 09/13/2024 9:10 AM EDT 09/13/2024 9:51 AM EDT us Pamela Santiago BARREL ASSEMBLER-SUPERVISOR COAL HANDLING LAB BLOOD ORDERABLES Ina l Result [facility] [address] [place] [address], [place] documented in this encounter Visit Diagnoses Diagnosis Infection following a procedure, organ and space surgical site, initial encounter Disruption of external operation (surgical) wound, not elsewhere classified, initial encounter documented in this encounter Additional Health Concerns Assessment Noted Time PHQ-9 Depression Total Score: 0 08/21/19 25 8:33 PM EDT documented as of this encounter Care Teams Glove Former Relationship Specialty Start Date End Date Dinorah Leger APRN-EKATERINA [address] [place] [address] PCP - General Nurse Practitioner 03/09/24 documented as of this encounter
--- OUTSIDE RECORDS SUMMARY | 2024-09-14 12:20 | XMS_ITS | Encounter Summary ---
Author Organization [employer] tem Address [facility]-[id number] [address] [place] [address] Care Team Providers Care Front End Drupal Developer Name Role Phone Dinorah Leger SPINNER HYDRAULIC-AIRPLANE PILOT COMMERCIAL Primary Care Provider + Reason for Visit * Reason Onset Date Comments re start Lyrica 09/09/2024 Encounter Details Date Type Department Care Team (Late st Contact Info) Description 09/09/2024 Telephone [facility] [address] [place] [address] Madhuri Beaver LPN re start Lyrica Social History Tobacco Use Types Packs/Day Years Used Date Smoking Tobacco: Former Cigarettes 2 20 Q uit: 2019 Smokeless Tobacco: Never Alcohol Use Standard Drinks/Week Comments No 0 (1 standard drink = 0.6 oz pur e alcohol) [facility] Utilities Answer Date Recorded In the past 12 months has e electric, gas, oil, or water company threatened to [...] PM EST documented as of this encounter Miscellaneous Notes * Telephone Encounter - Madhuri Beaver LPN - 09/09/2024 4:52 PM EDT Melissa calls and leaves a message asking if ok to resume her Lyrica, reports prescriber advised patient to check with neurosurgery prior to restarting Attempted to call Melissa, her phone line is disconnected and number left is unable to leave a message. Called and spoke with son Celestino and advised that if prescribing physician is ok for patient to restart then ok. Advised that Melissa may call with anyfurther questions. documented in this encounter Plan of Treatment Upcoming Encounters Date Type Department Care Team (Late st Contact Info) Description 09/29/2024 12:50 PM EDT Office Visit [facility] [address] [place] [phone] Adarsh Tovar MD [address], [address] [address] 11/22/2024 11:45 AM EDT Office Visit [facility] [place] [address] [place] [address] Dedra Olivo, [address] [facility] [address] [place] [address] documented as of this encounter Goals Goal Patient Goal Type Associated Problems Recent Progress Patient-Stated? Author SNF per pt & son Celestino General Yes María Ruiz OVEN LABORER Note: Evaluation of progress towards goal: feeling some better transition to SNF at discharge General Yes Mita Paniagua, OVEN LABORER Note: Evaluation of progress towards goal: transition to SNF at discharge <enter goal here> General Yes Adonay Luna, RN Note: Evaluation of progress towards goal: home with [facility] documented as of this encounter Visit Diagnoses Not on filedocumented in this encounter Additional Health Concerns Assessment Noted Time PHQ-9 Depression Total Score: 0 08/21/19 25 8:33 PM EDT documented as of this encounter Care Teams Front End Drupal Developer Relationship Specialty Start Date End Date Dinorah Leger APRN-EKATERINA [address] [place] [address] PCP - General Nurse Practitioner 03/09/24 documented as of this encounter
--- OUTSIDE RECORDS SUMMARY | 2024-09-14 12:20 | XMS_ITS | Encounter Summary ---
Author Organization [employer] tem Address [facility]-[id number] [address] [place] [address] Care Team Providers Care Seafood Specialist Name Role Phone Dinorah Leger PIPE BLANKS CUT OFF SAW OPERATOR-ASSISTANT FINANCIAL ACCOUNTANT Primary Care Provider + Encounter Details Date Type Department Care Team (Late st Contact Info) Description 09/10/2024 Telephone [facility] [address] [place] [phone] Susy Bridges Social History Tobacco Use Types Packs/Day Years Used Date Smoking Tobacco: Former Cigarettes 2 20 Q uit: 2019 Smokeless Tobacco: Never Alcohol Use Standard Drinks/Week Comments No 0 (1 standard drink = 0.6 oz pur e alcohol) [facility] Utilities Answer Date Recorded In the past 12 months has [employer] gas, oil, or water [employer] threatened to shut off services in your [...] encounter Miscellaneous Notes * Telephone Encounter - Susy Bridges - 09/10/2024 10:31 AM EDT RETAINED SUTURE FROM CRANIOTOMY RE: MELISSA GODOY [address] MONROY'S NURSE? Spoke with Madhuri OLIVIER and she advised patient should go to [facility] for retained suture. Sks documented in this encounter Plan of Treatment Upcoming Encounters Date Type Department Care Team (Late st Contact Info) Description 09/29/2024 12:50 PM EDT Office Visit [facility] [address] [place] [phone] Adarsh Tovar MD [address], [facility] [address] [place] [address] 11/22/2024 11:45 AM EDT Office Visit [facility] [place] [address] Dedra Olivo, [address] [place] [address] documented as of this encounter Goals Goal Patient Goal Type Associated Problems Recent Progress Patient-Stated? Author SNF per pt & son Celestino General Yes María Ruiz LSW Note: Evaluation of progress towards goal: feeling some better transition to SNF at discharge General Yes Mita Paniagua, MILANESE KNITTING MACHINE OPERATOR Note: Evaluation of progress towards goal: transition to SNF at discharge <enter goal here> General Yes Adonay Luna, CHARLINE Note: Evaluation of progress towards goal: home with [facility] documented as of this encounter Visit Diagnoses Not on filedocumented in this encounter Additional Health Concerns Assessment Noted Time PHQ-9 Depression Total Score: 0 08/21/19 25 8:33 PM EDT documented as of this encounter Care Teams Seafood Specialist Relationship Specialty Start Date End Date Dinorah Leger APRN-EKATERINA [address] [place] [address] PCP - General Nurse Practitioner 03/09/24 documented as of this encounter
--- OUTSIDE RECORDS SUMMARY | 2024-09-14 12:20 | XMS_ITS | Encounter Summary ---
Author Organization [email or web address] tem Address [id number] [address] [place] [address] Care Team Providers Care Tobacco Baler Name Role Phone Dinorah Leger GENERAL UTILITY WORKER-WARDROBE STYLIST Primary Care Provider + Encounter Details Date Type Department Care Team (Late st Contact Info) Description 09/07/2024 Lab Requisition [facility] - Lab [address] [place] [phone] Pamela Santiago APRN-WARDROBE STYLIST [address] [place] [address] Aftercare following surgery for neoplasm; Infection following a procedure, organ and space surgical site, initial encounter; Disruption of external operation (surgical) wound, not elsewhere classified, initial encounter Social History Tobacco Use Types Packs/Day Years Used Date Smoking Tobacco: Former Cigarettes 2 20 Q uit: 2019 Smokeless Tobacco: Never Alcohol Use Standard Drinks/Week Comments No 0 (1 standard drink = 0.6 oz pur e alcohol) [facility] Utilities Answer Date Recorded In the past 12 months has [email or web address], gas, oil, or water [employer] threatened to shut off services in your [...] PM EDT Office Visit [facility] [address] [place] [address] Adarsh Tovar MD [address], [facility] [address] [place], [place] [phone] 11/22/2024 11:45 AM EDT Office Visit [facility] [place] [address] Dedra Olivo DO [address] [facility] [address] [place] [address] documented as of this encounter Goals Goal Patient Goal Type Associated Problems Recent Progress Patient-Stated? Author SNF per pt & son Celestino General Yes María Ruiz, CURER ACID DRUM Note: Evaluation of progress towards goal: feeling some better transition to SNF at discharge General Yes Mita Paniagua, CURER ACID DRUM Note: Evaluation of progress towards goal: transition to SNF at discharge <enter goal here> General Yes Adonay Luna, RN Note: Evaluation of progress towards goal: home with [facility] documented as of this encounter Procedures Procedure Name Priority Date/Time Associated Diagnosis Comments CBC WITH AUTO DIFFERENTIAL Routine 09/07/2024 2:10 PM EDT Aftercare following surgery for neoplasm Infection following a procedure, organ and space surgical site, initial encounter Disruption of external operation (surgical) wound, not elsewhere classified, initial encounter documented in this encounter Results * (ABNORMAL) CBC auto differential (09/07/2024 2:10 PM EDT) WBC 10.5 4 - 11 x10E9/L 09/07/2024 3:21 PM EDT [facility] RBC Count 3.88 3.8 - 5.2 X10E12/L 09/07/2024 3:21 PM EDT [facility] Hemoglobin 12.3 11.7 - 15.5 g/dL 09/07/2024 3:21 PM EDT [facility] Hematocrit 37.0 35 - 47 % 09/07/2024 3:21 PM EDT [facility] MCV 95 80 - 100 fL 09/07/2024 3:21 PM EDT [facility] MCH 31.6 27 - 34 pg 09/07/2024 3:21 PM EDT [facility] MCHC 33.1 32 - 36 g/dL 09/07/2024 3:21 PM EDT [facility] RDW 14.8 11.5 - 15 % 09/07/2024 3:21 PM EDT [facility] Platelet Count 342 150 - 450 X10E9/L 09/07/2024 3:21 PM EDT [facility] MPV 6.5(L) 7 - 12 fL 09/07/2024 3:21 PM EDT [facility] Neutrophils Relative 82.6 % 09/07/2024 3:21 PM EDT [facility] Lymphocytes Relative 12.9 % 09/07/2024 3:21 PM EDT [facility] Monocytes Relative 4.4 % 09/07/2024 3:21 PM EDT [facility] Eosinophils Relative 0.0 % 09/07/2024 3:21 PM EDT [facility] Basophils Relative 0.1 % 09/07/2024 3:21 PM EDT [facility] Neutrophils Absolute (A) 8.7(H) 1.5 - 6.6 10*3/uL 09/07/2024 3:21 PM EDT [facility] Lymphocytes Absolute 1.4 1.0 - 3.5 10*3/uL 09/07/2024 3:21 PM EDT [facility] Monocytes Absolute 0.5 0.0 - 0.9 10*3/uL 09/07/2024 3:21 PM EDT [facility] Eosinophils Absolute 0.0 0.0 - 0.4 10*3/uL 09/07/2024 3:21 PM EDT [facility] Basophils Absolute 0.0 0.0 - 0.2 10*3/uL 09/07/2024 3:21 PM EDT [facility] Differential Type AUTOMATED DIFFERENTIAL 09/07/2024 3:21 PM EDT [facility] Blood Venous blood / Unknown 09/07/2024 2:10 PM EDT 09/07/2024 3:15 PM EDT us Pamela Santiago GENERAL UTILITY WORKER-WARDROBE STYLIST LAB BLOOD ORDERABLES Ina l Result [facility] [address] [place] [address], documented in this encounter Visit Diagnoses Diagnosis Aftercare following surgery for neoplasm Infection following a procedure, organ and space surgical site, initial encounter Disruption of external operation (surgical) wound, not elsewhere classified, initial encounter documented in this encounter Additional Health Concerns Assessment Noted Time PHQ-9 Depression Total Score: 0 08/21/19 25 8:33 PM EDT documented as of this encounter Care Teams Tobacco Baler Relationship Specialty Start Date End Date Dinorah Leger APRN-CNP [address] [place] [address] PCP - General Nurse Practitioner 03/09/24 documented as of this encounter
--- OUTSIDE RECORDS SUMMARY | 2024-09-14 12:20 | XMS_ITS | Encounter Summary ---
Author Organization [facility] Address [facility]-[id number] [address] [place] [address] Care Team Providers Care Oxidation Engineer Name Role Phone Dinorah Leger MEDICAL RESIDENT-FISH HATCHERY WORKER Primary Care Provider + Reason for Visit * Reason Onset Date Comments Appointment 09/14/2024 Encounter Details Date Type Department Care Team ([facility] st Contact Info) Description 09/14/2024 [facility] [address] [place] [address] Brenda Omalley, RN Appointment Social History Tobacco Use Types Packs/Day Years Used Date Smoking Tobacco: Former Cigarettes 2 20 Q uit: 2019 Smokeless Tobacco: Never Alcohol Use Standard Drinks/Week Comments No 0 (1 standard drink = 0.6 oz pur e alcohol) [facility] Utilities Answer Date Recorded In the past 12 months has e [employer], gas, oil, or water company threatened to [...] encounter Miscellaneous Notes * Telephone Encounter - Brenda Omalley RN - 09/14/2024 12:11 PM EDT Melissa calls stating that she is unable to come to the appointment tomorrow as she has no transportation. She states that she was as a local hospital today that removed the retained suture, but did notremove the scab. Advised that it would be beneficial to be evaluated in the clinic by the nurse andshe states that she is unable to come other than at the time of appt with the doctor. Advised that s he is at higher risk of infection and she could be at the higher risk of returning to surgery. She verbalizes understanding- appt canceled. documented in this encounter Plan of Treatment Upcoming Encounters Date Type Department Care Team (Late st Contact Info) Description 09/29/2024 12:50 PM EDT Office Visit [facility] [address] [place] [phone] Adarsh Tovar MD [address], [address] [address] 11/22/2024 11:45 AM EDT Office Visit [facility] [address] [place] [address] Dedra Olivo, DO [address] [facility] [address] [place] [address] documented as of this encounter Goals Goal Patient Goal Type Associated Problems Recent Progress Patient-Stated? Author SNF per pt & son Celestino General Yes María Ruiz, HOUSE PAINTER Note: Evaluation of progress towards goal: feeling some better transition to SNF at discharge General Yes Mita Paniagua, HOUSE PAINTER Note: Evaluation of progress towards goal: transition to SNF at discharge <enter goal here> General Yes Adonay Luna, RN Note: Evaluation of progress towards goal: home with [facility] documented as of this encounter Visit Diagnoses Not on filedocumented in this encounter Additional Health Concerns Assessment Noted Time PHQ-9 Depression Total Score: 0 08/21/19 25 8:33 PM EDT documented as of this encounter Care Teams Oxidation Engineer Relationship Specialty Start Date End Date Dinorah Leger APRN-EKATERINA [address] [place] [address] PCP - General Nurse Practitioner 03/09/24 documented as of this encounter
--- OUTSIDE RECORDS SUMMARY | 2024-09-14 12:20 | XMS_ITS | Encounter Summary ---
Author Organization [facility] Address [id number] [place] [address] Care Team Providers Care Credit Operations Specialist Name Role Phone Dinorah Leger DRY TRANSFER MAN-CLINICAL TRAINING COORDINATOR Primary Care Provider + Encounter Details Date Type Department Care Team (Late st Contact Info) Description 09/06/2024 Lab Requisition [facility] - Lab [address] [place] [phone] Pamela Santiago APRN-CLINICAL TRAINING COORDINATOR [address] [place] [address] Infection following a procedure, organ and space surgical site, initial encounter; Disruption of external operation (surgical) wound, not elsewhere classified, initial encounter Social History Tobacco Use Types Packs/Day Years Used Date Smoking Tobacco: Former Cigarettes 2 20 Q uit: 2019 Smokeless Tobacco: Never Alcohol Use Standard Drinks/Week Comments No 0 (1 standard drink = 0.6 oz pur e alcohol) [employer] Utilities Answer Date Recorded In the past 12 months has [employer], gas, oil, or water [facility] threatened to shut off services in your [...] Office Visit [facility] [address] [place] [phone] Adarsh Tovar MD [address], [facility] [address] [place], [place] [id number] 11/22/2024 11:45 AM EDT Office Visit [facility] [place] [address] Dedra Olivo DO [address] [place] [address] documented as of this encounter Goals Goal Patient Goal Type Associated Problems Recent Progress Patient-Stated? Author SNF per pt & son Celestino General Yes María Ruiz, BARREL CHARRER Note: Evaluation of progress towards goal: feeling some better transition to SNF at discharge General Yes Mita Paniagua, BARREL CHARRER Note: Evaluation of progress towards goal: transition to SNF at discharge <enter goal here> General Yes Adonay Luna RN Note: Evaluation of progress towards goal: home with [facility] documented as of this encounter Procedures Procedure Name Priority Date/Time Associated Diagnosis Comments C-REACTIVE PROTEIN Routine 09/06/2024 8: 10 AM EDT Infection following a procedure, organ and space surgical site, initial encounter Disruption of external operation (surgical) wound, not elsewhere classified, initial encounter BUN Routine 09/06/2024 8:10 AM EDT Infection following a procedure, organ and space surgical site, initial encounter Disruption of external operation (surgical) wound, not elsewhere classified, initial encounter CREATININE, SERUM Routine 09/06/2024 8:1 0 AM EDT Infection following a procedure, organ and space surgical site, initial encounter Disruption of external operation (surgical) wound, not elsewhere classified, initial encounter VANCOMYCIN, TROUGH Routine 09/06/2024 8: 10 AM EDT Infection following a procedure, organ and space surgical site, initial encounter Disruption of external operation (surgical) wound, not elsewhere classified, initial encounter documented in this encounter Results * Vancomycin, trough (09/06/2024 8:10 AM EDT) VANCOMYCIN TROUGH 14.4 5.0 - 20.0 ug/mL 09/06/2024 9:17 AM EDT [facility] Blood Venous blood / Unknown 09/06/2024 8:10 AM EDT 09/06/2024 9:01 AM EDT us Pamela Santiago DRY TRANSFER MAN-CLINICAL TRAINING COORDINATOR LAB BLOOD ORDERABLES Ina l Result [facility] [place] [address], [place] * BUN (09/06/2024 8:10 AM EDT) BLOOD UREA NITROGEN 26 5 - 27 mg/dL 09/06/2024 9:17 AM EDT [facility] Blood Venous blood / Unknown 09/06/2024 8:10 AM EDT 09/06/2024 9:01 AM EDT us Pamela Amadio DRY TRANSFER MAN-CLINICAL TRAINING COORDINATOR LAB BLOOD ORDERABLES Ina l Result [address] [place] [address], [place] * Creatinine includes GFR, serum (09/06/2024 8:10 AM EDT) CREATININE 0.55 0.40 - 1.00 mg/dL 09/06/2024 9:17 AM EDT [facility] Comment:METHOD TRACEABLE TO IDMS STANDARD EGFR Non-Race Dependent >90 >=60 ml/min/1.7 3sq.m 09/06/2024 9:17 AM EDT [facility] Comment: Reported eGFR is based on the CKD-EPI 2020 equation that does not use a race coefficient. Blood Venous blood / Unknown 09/06/2024 8:10 AM EDT 09/06/2024 9:01 AM EDT us Pamela Amadio DRY TRANSFER MAN-CLINICAL TRAINING COORDINATOR LAB BLOOD ORDERABLES Ina l Result [address] [place] [address], [place] * C-reactive protein (09/06/2024 8:10 AM EDT) C REACTIVE PROTEIN 0.6 <=0.7 mg/dL 09/06/2024 9:17 AM EDT [facility] Blood Venous blood / Unknown 09/06/2024 8:10 AM EDT 09/06/2024 9:01 AM EDT us Pamela GUNTER LAB BLOOD ORDERABLES Ina l Result [facility] [place] [address] [place] [address], documented in this encounter Visit Diagnoses Diagnosis Infection following a procedure, organ and space surgical site, initial encounter Disruption of external operation (surgical) wound, not elsewhere classified, initial encounter documented in this encounter Additional Health Concerns Assessment Noted Time PHQ-9 Depression Total Score: 0 08/21/19 25 8:33 PM EDT documented as of this encounter Care Teams Credit Operations Specialist Relationship Specialty Start Date End Date Dinorah Leger APRN-CNP [address] [place] [id number] PCP - General Nurse Practitioner 03/09/24 documented as of this encounter
--- OUTSIDE RECORDS SUMMARY | 2024-09-14 12:20 | XMS_ITS | Clinical Summary ---
Author Organization [facility] Address [address] [place] [address] Care Team Providers Care Formula Clerk Name Role Phone Self, Referred Primary Care Provider Unavailabl e Allergies Active Allergy Reactions Criticality Noted Date [...] 10 gram recon soln 09/07/2024 Act myles Encounters Date Type Department Care Team Description 09/13/2024 Telephone [facility] [address] [place] [phone] Abby Barbosa CNP 09/10/2024 9:40 AM EDT Follow-Up [facility] [address], [address] [place] [phone] Abby Barbosa CNP 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, sequela (Primary Dx); S/P craniotomy; Controlled type 2 diabetes mellitus without complication, unspecified whether termite helper insulin use ([facility]); Urinary frequency 09/10/2024 Telephone [facility] [address], [address] [place] [phone] Abby Barbosa CNP 09/06/2024 Telephone [facility] [address] [facility], [address] [place] [address] Halley Haynes MA 08/30/2024 Telephone [facility] [address], [address] [place] [address] Halley Haynes MA 08/27/2024 Telephone [facility] Infectious Disease [address] [facility], [address] [place] [address] Christal Frank RN from Last 3 Months Social History Tobacco Use Types Packs/Day Years [...] 09/29/2024 11:40 AM EDT Follow-Up [facility] Infectious Disease [address] [facility], [address] [place] [address] Abby Barbosa, DIRECTOR OF MATERNITY SERVICES [address] [place] [facility]/[place] [phone] Health Maintenance Due Date Last Done Comments CT Colonography 1959 Colonoscopy 1959 Colorectal Cancer Screening 1959 Diabetes: Hemoglobin A1C 1959 FIT-DNA 1959 FIT 1959 FOBT 1959 Medicare Annual Wellness (AWV) 1959 Medicare Initial Physical (IPPE) 1959 Sigmoidoscopy 1959 Diabetes: Retinopathy Screening 1969 Depression Screening 1971 Diabetes: Urine Protein Screening 1978 Pap Smear 1980 Cervical Cancer Screening 1989 HPV/Cotest 1989 Mammogram 1999 COVID-19 Vaccine ( season) 2024 01/02/2024, 12/29/2022, 12/22/2021, Additional history exists Fall Risk Screening 2024 Adult Tetanus 02/07/2033 02/07/2023, 07/18/2008 Zoster Vaccines Completed 04/04/2023, 02/07/2023 Influenza Vaccine Completed 01/02/2024, , 12/22/2021, Additional history exists Pneumococcal Vaccine: 50+ Years Completed 01/05/2024 HIB Vaccines Aged Out No longer eligi ble based on patient's age to complete this topic HPV Vaccines Aged Out No longer eligi ble based on patient's age to complete this topic IPV Vaccines Aged Out No longer eligi ble based on patient's age to complete this topic Meningococcal B Vaccine Aged Out No l onger eligible based on patient's age to complete this topic Meningococcal Vaccine Aged Out No kory miky eligible based on patient's age to complete this topic Rotavirus Vaccines Aged Out No longer eligible based on patient's age to complete this topic Insurance [employer] [place] [address] Care Teams Formula Clerk Relationship Specialty Start Date End Date SELF, REFERRED [address] PCP - General 09/10/24
--- OUTSIDE RECORDS SUMMARY | 2024-09-14 12:20 | XMS_ITS | Encounter Summary ---
Author Organization [facility] Address [address] [place] [address] Care Team Providers Care Cleaner And Polisher Name Role Phone Misa Grey MD Primary Care Provider [phone] Deacon Lacy DO Unavailable [phone] Dinorah Leger MD Unavailable [phone] Encounter Details Date Type Department Care Team (Late st Contact Info) Description 12/18/2023 Orders Only LATOSHA DEDE [address] [place] [phone] Jamarcus Kong MD [address] [place] [address] Social History Tobacco Use Types Packs/Day Years Used Date Smoking Tobacco: Former Cigarettes Smokeless Tobacco: Never Alcohol Use Standard Drinks/Week Comments Never 0 (1 standard drink = 0.6 oz pure alcohol) Caffeine intake: 1-2 cups per day Comments Unknown Sex and Gender Information Value Date Recorded Sex Assigned at Not on file Legal Sex Female 8:13 PM EDT Gender Identity Not on file Sexual Orientation Not on file documented as of this encounter Plan of Treatment Not on file documented as of this encounter Procedures Procedure Name Priority Date/Time Associated Diagnosis Comments EMG AND NERVE CONDUCTION STUDY Routine 08/17/2012 4:23 PM EDT documented in this encounter Results * EMG AND NERVE CONDUCTION STUDY (08/17/2012 4:23 PM EDT) Jamarcus Kong MD NEUROLOGY ORDERABLES Final Result documented in this encounter Visit Diagnoses Not on filedocumented in this encounter Care Teams Cleaner And Polisher Relationship Specialty Start Date End Date Misa Grey MD [address] [place], [place] [phone] PCP - General Pediatrics 09/11/22 Deacon Lacy DO [address] [facility] [address] [place] [address] Referring Physician Neurology 04/08/24 Dinorah Leger MD [address] [place], [place] [phone] Referring Physician Drywall Taper 04/08/24 documented as of this encounter
--- OUTSIDE RECORDS SUMMARY | 2024-09-14 12:20 | XMS_ITS | Clinical Summary ---
Author Organization [email or web address] tem Address [facility] [id number] [address] [place] [address] Care Team Providers Care Drag Down Name Role Phone Dinorah Leger TRUCK SALES REPRESENTATIVE-CURATOR OF MANUSCRIPTS Primary Care Provider + Allergies Active Allergy Reactions Criticality Noted Date Comments Sulfamethoxazole-Trimeth oprim Hives High 06/12/2017 Gabapentin Abnormal Behavior High 11/24/2023 Semaglutide Rash Low 10/29/2021 Other Reaction(s): Sores on head Medications levothyroxine (SYNTHROID, LEVOTHROID) 150 MCG tabletIndications :hypothyroidism Take 1 tablet (150 mcg total) by mouth in the morning. Indications: a condition with low thyroid hormone levels. Active benztropine (COGENTIN) 0.5 mg tabletIndications :drug-induced extrapyramidal reaction Take 1 tablet (0.5 mg total) by mouth in the morning. Indications: extrapyramidal symptoms as a result of taking the medication. 022 Active ARIPiprazole (ABILIFY) 30 mg tabletIndications :schizophrenia Take 1 tablet (30 mg total) by mouth in the morning. Indications: schizophrenia. 022 Active metFORMIN XR (GLUCOPHAGE XR) 500 mg 24 hr tabletIndications :type 2 diabetes mellitus Take 1 tablet (500 mg total) by mouth daily with breakfast Indications: type 2 diabetes mellitus. 022 Active cyanocobalamin 1000 MCG tabletIndications :prevention of vitamin B12 deficiency Take 1 tablet (1,000 mcg total) by mouth in the morning. Indications: prevention of vitamin B12 deficiency. 022 Active atorvastatin (LIPITOR) 20 mg tabletIndications :hypercholesterol emia Take 1 tablet (20 mg total) by mouth in the morning. Indications: high cholesterol. Active albuterol (PROAIR HFA) 90 mcg/actuation inhalerIndication s:Mild intermittent asthma without complication Inhale 2 puffs every 4 (four) hours as needed for shortness of breath. 18 g 11 Active melatonin 10 mg tablet,chewable Chew 10 mg and swallow once daily at bedtime. sleep Active DULoxetine (CYMBALTA) 60 mg capsule Take 1 capsule (60 mg total) by mouth once daily at bedtime. Active Additional Information Patient taking differently:60 mg oral Bedtime,Indications: anxiety with depression, Reported on 08/20/2024 famotidine (PEPCID) 20 mg tablet Take 1 tablet (20 mg total) by mouth in the morning. Active Additional Information Patient taking differently:20 mg oral Daily, Morning,Indications: gastroesophageal reflux disease, Reported on 08/12/2024 ALCOHOL PREP PADS pads, medicated Active ACCU-CHEK GUIDE TEST STRIPS strip Active ACCU-CHEK SOFTCLIX LANCETS lancets Active acetaminophen (TYLENOL EXTRA STRENGTH) 500 mg tablet Take 2 tablets (1,000 mg total) by mouth every 6 (six) hours as needed for pain or headaches. Active dexAMETHasone (DECADRON) 2 mg tablet Take 1 tablet (2 mg total) by mouth daily with breakfast. Continue current dose until follow up with radiation oncology Active sennosides-docusa te sodium (SENOKOT-S) 8.6-50 mg Take 2 tablets by mouth nightly. Active Additional Information Patient taking differently:2 tablet oral Nightly,Indications: constipation, Reported on 08/12/2024 polyethylene glycol (GLYCOLAX) 17 gram packet Take 17 g by mouth daily as needed (constipation). Active insulin lispro (HumaLOG) 100 unit/mL injection Inject 0.01-0.15 mL (1-15 Units total) under the skin in the morning and 0.01-0.15 mL (1-15 Units total) at noon and 0.01-0.15 mL (1-15 Units total) in the evening. Inject before meals. Per sliding scale . Active nystatin (MYCOSTATIN) powderIndications :cutaneous candidiasis Apply 1 Application topically in the morning and 1 Application at noon and 1 Application in the evening and 1 Application before bedtime. Indications: a skin infection due to the fungus Leeanne. Activ e traMADoL (ULTRAM) 50 mg tablet Take 1 tablet (50 mg total) by mouth every 6 (six) hours as needed for pain. Activ e loperamide (IMODIUM) 2 mg capsule Take 1 capsule (2 mg total) by mouth as needed for diarrhea. Active ondansetron (ZOFRAN) 4 mg tablet Take 1 tablet (4 mg total) by mouth 4 (four) times a day as needed for nausea or vomiting. Activ e vancomycin in NaCl (VANCOCIN) IVPB Premix Infuse 540 mL (2,000 mg total) into a venous catheter daily for 38 days. 500 mL 37 025 2024 Active heparin lock flush, porcine, 10 unit/mL injection Infuse 1-5 mL (10-50 Units total) into a venous catheter as needed (line care per nursing agency protocol.). 1 mL Active heparin lock flush, porcine, injection 100 unit/mL solution Infuse 1-5 mL (100-500 Units total) into a venous catheter as needed (line care per nursing agency protocol.). 1 mL Active sodium chloride injection Infuse 10-20 mL into a venous catheter as needed for line care (line care per nursing agency protocol.). 1 mL Active apixaban (ELIQUIS) 5 mg tablet Take 2 tablets (10 mg total) by mouth 2 (two) times a day for 5 days, THEN 1 tablet (5 mg total) 2 (two) times a day for 90 days. 025 2024 CEPHalexin (KEFLEX) 500 mg capsuleIndication s:Delayed surgical wound healing, subsequent encounter Take 1 capsule (500 mg total) by mouth in the morning and 1 capsule (500 mg total) at noon and 1 capsule (500 mg total) in the evening and 1 capsule (500 mg total) before bedtime. Do all this for 10 days. 40 capsule 025 2024 Discontin ued(Stop Taking at Discharge ) Active Problems Problem Noted Date Diagnosed Date Status post craniotomy 08/11/2024 Delayed surgical wound healing 08/11/2024 Acute urinary retention 06/29/2024 Acute pulmonary embolism, un specified pulmonary embolism type, unspecified whether acute cor pulmonale present 05/28/2024 COPD (chronic obstructive pulmonary disease) Diabetic polyneuropathy asso ciated with type 2 diabetes mellitus 05/28/2024 Hypothyroidism 08/09/2021 Primary hypertension 08/09/2021 Sleep apnea 08/09/2021 Overview (08/12/2024): cpap Schizoaffective disorder 08/09/2021 Diabetes 08/09/2021 History of concussion 08/09/2021 Nicotine dependence 08/09/2021 Mild intermittent asthma without complication Obesity Resolved Problems Problem Noted Date Diagnosed Date Resolved Date Brain mass 06/22/2024 08/12/2024 Morbid obesity with BMI of 50.0-59.9, adult 08/09/2021 08/12/2024 Encounters Date Type Department Care Team Description 09/14/2024 Telephone [facility] [address] [place] [phone] Brenda Omalley, RN Appointment 09/13/2024 Lab Requisition [facility] - Lab [address] [place] [phone] Abby Barbosa APRN-CURATOR OF MANUSCRIPTS Frequency of micturition 09/13/2024 Lab Requisition [facility] - Lab [address] [place] [phone] Pamela Santiago APRN-EKATERINA Infection following a procedure, organ and space surgical site, initial encounter; Disruption of external operation (surgical) wound, not elsewhere classified, initial encounter 09/10/2024 Telephone [facility] [address] [place] [phone] Susy Bridges 09/09/2024 Telephone [facility] [address] [place] [address] [phone] Madhuri Beaver LPN re start [facility] 09/07/2024 Lab Requisition [facility] - Lab [address] [place] [phone] Pamela Santiago APRN-CNP Aftercare following surgery for neoplasm; Infection following a procedure, organ and space surgical site, initial encounter; Disruption of external operation (surgical) wound, not elsewhere classified, initial encounter 09/06/2024 Lab Requisition [facility] - Lab [address] [place] [address] Pameal Santiago APRN-CURATOR OF MANUSCRIPTS Infection following a procedure, organ and space surgical site, initial encounter; Disruption of external operation (surgical) wound, not elsewhere classified, initial encounter 09/01/2024 1:00 PM EDT Support Visit [facility] [address] [place] [phone] Superficial incisional surgical site infection (Primary Dx) 09/01/2024 Travel 08/30/2024 Lab Requisition [facility] - Lab [address] [place] [phone] Pamela Santiago APRN-EKATERINA Infection following a procedure, organ and space surgical site, initial encounter; Disruption of external operation (surgical) wound, not elsewhere classified, initial encounter 08/20/2024 4:45 PM EDT - 08/20/2024 6:15 PM EDT Surgery [facility] - Surgery [address] [place] [phone] Adarsh Tovar MD INCISION DRAINAGE HEAD/NECK / SURGICAL SITE [83660 (CPT )] 08/20/2024 2:21 PM EDT Anesthesia Event [facility] - Surgery [address] [place] [phone] Latoya Woodson MD 08/20/2024 9:36 AM EDT - 08/26/2024 4:16 PM EDT Hospital Encounter [facility] - GEN [address] [place] [phone] Adarsh Tovar MD Pillai, Kanchan M, MD Gill, Kaleem U, MD Simple chronic bronchitis ([facility]) (Primary Dx); Status post craniotomy; Delayed surgical wound healing, initial encounter Discharge Disposition: Home Health 08/20/2024 Travel 08/12/2024 10:45 AM EDT Procedure visit [facility] [address] [place] [phone] Pre-op testing (Primary Dx) 08/12/2024 Telephone [facility] [address] [facility] [address] [place] [phone] Madhuri Beaver LPN antibiotic 08/12/2024 Travel 08/11/2024 12:40 PM EDT Office Visit [facility] [address] [place] [phone] Adarsh Tovar MD Status post craniotomy (Primary Dx) 08/11/2024 Telephone [facility] [address] [place] [phone] Faby Bai CMA 08/11/2024 Travel 08/10/2024 9:55 AM EDT Ancillary Procedure [facility] [address] [place] [phone] Pain 07/30/2024 Orders Only [facility] [address] [place] [address] Ref Prov, Not In System 07/26/2024 1:45 PM EDT Office Visit [facility] [place] [address] [place] [address] Dedra Olivo DO Acute deep vein thrombosis (DVT) of tibial vein of both lower extremities ([facility]) (Primary Dx) 07/26/2024 Travel 07/05/2024 Telephone [facility] [address] [place] [address] Madhuri Beaver LPN suture removal appointment 07/02/2024 Telephone [facility] [address] [place] [address] Jemima Aquino MA Referral 07/02/2024 Orders Only [facility] Radiation Oncology [address] [place] [address] Sasha Parnell, TRUCK SALES REPRESENTATIVE-CURATOR OF MANUSCRIPTS Brain mass (Primary Dx) 06/25/2024 6:30 PM EDT - 06/25/2024 9:25 PM EDT Surgery [facility] - Surgery [address] [place] [address]. [place] [address] Adarsh Tovar MD SYNAPTIVE CRANIOTOMY EXCISION TUMOR 06/25/2024 5:59 PM EDT Anesthesia Event [facility] Surgery [address] [place] [address]. [place] [phone] Mitch Izquierdo 06/25/2024 Travel 06/24/2024 10:48 AM EDT Anesthesia Event [facility] - Cardiac Cath [address] [place] [phone] Anatoly Donohue MD Harrison, Daniel P, TRUCK SALES REPRESENTATIVE-STONE CLEANER 06/24/2024 10:05 AM EDT - 06/24/2024 12:05 PM EDT Surgery [facility] - Cardiac Cath [address] [place] [phone] Ori Hitchcock MD Embolization intracranial [10474 (CPT )] 06/23/2024 [facility] [address] [place] [phone] Transcribe, Orders Support User Pain (Primary Dx) 06/22/2024 4:59 PM EDT - 07/05/2024 3:00 PM EDT Hospital Encounter [facility] - GEN 8 Acute [address] [place] [phone] Gaviota Killian MD Noumi, Andre, MD Slusky, Ryan M, MD Brain mass (Primary Dx) Discharge Disposition: Half-Way Facility-Medicare Cert 06/22/2024 8:55 AM EDT Ancillary Procedure [facility] [address] [place] [phone] Pain 06/22/2024 Travel 06/22/2024 Telephone [facility] [address] [place] [phone] Dania Sanford ADMISSION ADVICE from Last 3 Months Immunizations Immunization Administration Dates Next Due Influenza (IM) Preservative Free 12/31/2015,09/2014 Influenza, Im Flucelvax (Pf) 01/02/2024 Influenza, Injectable, Mdck, Preservative Free, Quad 12/22/2021 Influenza, Injectable, quadr ivalent (PF) 12/29/2022,01/01/2021,01/05/2020,2018,01/12/2018,12/29/2017,01/13/2017 Palivizumab 02/07/2023 Pneumococcal Conjugate 20-valent 01/05/2024 RSV, recombinant, protein pack bunit RSVpreF, adjuvant reconstituted, 0.5 mL, PF 02/07/2023 Tdap 02/07/2023,07/18/2008 Zoster Vaccine Recombinant 04/04/2023,02/07/2023 Family History Medical History Relation Name Comments Breast cancer Cousin 30s [place] Breast Cancer Daughter Breast cancer Daughter Melanoma Father Colon cancer Maternal Grandfather Lung cancer Maternal Grandfather Colon polyps Mother Dementia Mother Breast cancer Sister 1 Lung cancer Sister 2 Lung cancer Sister 3 Anesthesia problems Neg Hx Relation Name Status Comments Cousin Daughter Alive Father Maternal Grandfather Mother Alive Sister 1 Alive Sister 2 Sister 3 Social History Tobacco Use Types Packs/Day Years Used Date Smoking Tobacco: Former Cigarettes 2 20 Q uit: 2019 Smokeless Tobacco: Never Tobacco Cessation:Counseling Given: Not Answered Alcohol Use Standard Drinks/Week Comments No 0 (1 standard drink = 0.6 oz pur e alcohol) [facility] Utilities Answer Date Recorded In the past 12 months has [email or web address] gas, oil, or water company threatened to [...] Orientation Straight 05/28/2024 5: 58 PM EST Last Filed Vital Signs Vital Sign Reading Time Taken Comments Blood Pressure 125/88 08/26/2024 3:11 PM EDT Pulse 71 08/26/2024 11:28 AM EDT Temperature 36.7 C (98 F) 08/26/2024 11:28 AM EDT Respiratory Rate 20 08/26/2024 11:28 AM EDT Oxygen Saturation 95% 08/26/2024 11:28 AM EDT Inhaled Oxygen Concentration - - Weight 127 kg (280 lb) 08/20/2024 12:19 PM EDT Height 160 cm (5' 3 ) 08/20/2024 12:19 PM EDT Body Mass Index 49.6 08/20/2024 12:19 PM EDT Plan of Treatment Upcoming Encounters Date Type Department Care Team (Late st Contact Info) Description 09/29/2024 12:50 PM EDT Office Visit [facility] [address] [place] [phone] Adarsh Tovar MD [address] [place], [place] [phone] 11/22/2024 11:45 AM EDT Office Visit [facility] [place] [address] Dedra Olivo, DO [address] [place] [address] Health Maintenance Due Date Last Done Comments Diabetic Ophthalmology Exam 1959 Adult BMI Follow Up Plan 1977 Diabetic Foot Exam 1977 Colonoscopy 06/24/2017 06/25/2007 Fall Risk Screening 2024 COVID-19 Vaccine (2023-2 5 season) 2024 01/02/2024, 12/29/2022, 12/22/2021, Additional history exists Influenza Vaccine 11/29/2024 01/02/2024, , 12/22/2021, Additional history exists Adult BMI Screening 08/20/2025 08/20/2024 Depression Screening 08/20/2025 08/20/2024 Tobacco Screening 08/20/2025 08/20/2024 DTaP,Tdap and Td Vaccines (3 - Td or Tdap) 02/07/2033 02/07/2023, 07/18/2008 Zoster (Shingles) Vaccine Completed 04/04/2023, 12/2022 Goals Goal Patient Goal Type Associated Problems Recent Progress Patient-Stated? Author SNF per pt & son Celestino General Yes Joseph, María, COMMUNITY MIDWIFE Note: Evaluation of progress towards goal: feeling some better transition to SNF at discharge General Yes Siva, Mita, COMMUNITY MIDWIFE Note: Evaluation of progress towards goal: transition to SNF at discharge <enter goal here> General Yes Adonay Luna, RN Note: Evaluation of progress towards goal: home with [facility] Medical Devices Implanted Type Area Search Marketing Specialist Device Identifier Shelf Expiration Date Model / Serial / Lot Patch Dura 5x4in Thk3.5mm Crnmxf Drmtrx-Onla y + Npor Rgnrt Rpl [id number] - [id number] Implanted:Q ty: 1 on 06/25/2024 by Adarsh Tovar MD at [facility] Graft N/A: Cranial LEWIS CRANIOMAXILLOFACIAL 03/30/2027 [id number] / / [id number] Sphere Embl Ylw Embsph 100-300um Trisacryl Geltn Pf Juanjose Syr 5/Bx - [id number] Implanted:Q ty: 1 on 06/24/2024 by Ori Hitchcock MD at [facility] Other Implant Merit [id number] 05/26/2025 S220 / / [id number] 1-5 Sphere Embl Ylw Embsph 100-300um Trisacryl Geltn Pf Juanjose Syr 5/Bx - [id number] Implanted:Q ty: 1 on 06/24/2024 by Ori Hitchcock MD at [facility] Other Implant Merit [id number] 05/26/2025 S220 / / [id number] 1-5 Cover Bur Hl 14mm Lp Tab Unv Neuro 2 Thk.5mm Ns Lf - [id number] Implanted:Q ty: 3 on 06/25/2024 by Adarsh Tovar MD at [facility] Other Implant N/A: Cranial LEWIS CRANIOMAXILLOFACIAL 53-0551 4 / / Plate Bn 4mm 2y 6 Hl Lp Bar Unv Neuro 2 Ns Lf - [id number] Implanted:Q ty: 2 on 06/25/2024 by Adarsh Tovar MD at [facility] Plate N/A: Cranial LEWIS CRANIOMAXILLOFACIAL 53-0560 8 / / Screw Bn 4mm 1.5mm Slf Drl Xpn Crnmxf Strl Must Order In Multiples Of 5ea - [id number] Implanted:Q ty: 18 on 06/25/2024 by Adarsh Tovar MD at [facility] Screw N/A: Cranial LEWIS CRANIOMAXILLOFACIAL 92-1849 4 / / Screw Bn 4mm 1.7mm Er Mxlfcl Ti - [id number] Implanted:Q ty: 2 on 06/25/2024 by Adarsh Tovar MD at [facility] Screw N/A: Cranial LEWIS CRANIOMAXILLOFACIAL 51-3270 4 / / Procedures Procedure Name Priority Date/Time Associated Diagnosis Comments URINALYSIS Routine 09/13/2024 9:20 AM EDT Frequency of micturition C-REACTIVE PROTEIN Routine 09/13/2024 9: 10 AM [...] (surgical) wound, not elsewhere classified, initial encounter CBC WITH AUTO DIFFERENTIAL Routine 09/13/2024 9:10 AM EDT Infection following a procedure, organ and space surgical site, initial encounter Disruption of external operation (surgical) wound, not elsewhere classified, initial encounter CBC WITH AUTO DIFFERENTIAL Routine 09/07/2024 2:10 [...] elsewhere classified, initial encounter C-REACTIVE PROTEIN Routine 09/06/2024 8: 10 AM EDT Infection following a procedure, organ and space surgical site, initial encounter Disruption of external operation (surgical) wound, not elsewhere classified, initial encounter CBC WITH AUTO DIFFERENTIAL Routine 08/30/2024 3:25 PM EDT Infection following a procedure, organ and space surgical site, initial encounter Disruption of external operation (surgical) wound, not elsewhere classified, initial encounter BUN Routine 08/30/2024 9:40 AM EDT Infection following a procedure, organ and space surgical site, initial encounter Disruption of external operation (surgical) wound, not elsewhere classified, initial encounter VANCOMYCIN, TROUGH Routine 08/30/2024 9: 40 AM EDT Infection following a procedure, organ and space surgical site, initial encounter Disruption of external operation (surgical) wound, not elsewhere classified, initial encounter CREATININE, SERUM Routine 08/30/2024 9:4 0 AM EDT Infection following a procedure, organ and space surgical site, initial encounter Disruption of external operation (surgical) wound, not elsewhere classified, initial encounter C-REACTIVE PROTEIN Routine 08/30/2024 9: 40 AM EDT Infection following a procedure, organ and space surgical site, initial encounter Disruption of external operation (surgical) wound, not elsewhere classified, initial encounter BEDSIDE GLUCOSE Routine 08/26/2024 12:19 PM EDT BEDSIDE GLUCOSE Routine 08/26/2024 8:12 AM EDT MAGNESIUM Routine 08/26/2024 4:21 AM EDT COMPREHENSIVE METABOLIC PANEL Routine 08/26/2024 4:21 AM EDT CBC WITH AUTO DIFFERENTIAL Routine 08/26/2024 4:21 AM EDT BEDSIDE GLUCOSE Routine 08/25/2024 9:58 PM EDT VANCOMYCIN, TROUGH Routine 08/25/2024 9: 29 PM EDT BEDSIDE GLUCOSE Routine 08/25/2024 4:20 PM EDT BEDSIDE GLUCOSE Routine 08/25/2024 11:56 AM EDT BEDSIDE GLUCOSE Routine 08/25/2024 8:08 AM EDT MAGNESIUM Routine 08/25/2024 2:24 AM EDT COMPREHENSIVE METABOLIC PANEL Routine 08/25/2024 2:24 AM EDT CBC WITH AUTO DIFFERENTIAL Routine 08/25/2024 2:24 AM EDT VANCOMYCIN, PEAK Routine 08/25/2024 2:24 AM EDT BEDSIDE GLUCOSE Routine 08/24/2024 10:09 PM EDT BEDSIDE GLUCOSE Routine 08/24/2024 4:15 PM EDT BEDSIDE GLUCOSE Routine 08/24/2024 12:05 PM EDT BASIC METABOLIC PANEL Routine 08/24/2024 10:47 AM EDT BEDSIDE GLUCOSE Routine 08/24/2024 7:32 AM EDT MAGNESIUM Routine 08/24/2024 6:32 AM EDT COMPREHENSIVE METABOLIC PANEL Routine 08/24/2024 6:32 AM EDT CBC WITH AUTO DIFFERENTIAL Routine 08/24/2024 6:32 AM EDT BEDSIDE GLUCOSE Routine 08/23/2024 7:31 PM EDT BEDSIDE GLUCOSE Routine 08/23/2024 3:30 PM EDT MAGNESIUM Routine 08/23/2024 11:44 AM EDT COMPREHENSIVE METABOLIC PANEL Routine 08/23/2024 11:44 AM EDT CBC WITH AUTO DIFFERENTIAL Routine 08/23/2024 11:44 AM EDT BEDSIDE GLUCOSE Routine 08/23/2024 11:34 AM EDT BEDSIDE GLUCOSE Routine 08/23/2024 8:55 AM EDT BEDSIDE GLUCOSE Routine 08/22/2024 9:49 PM EDT BEDSIDE GLUCOSE Routine 08/22/2024 4:59 PM EDT BEDSIDE GLUCOSE Routine 08/22/2024 12:50 PM EDT BEDSIDE GLUCOSE Routine 08/22/2024 9:00 AM EDT BEDSIDE GLUCOSE Routine 08/21/2024 10:34 PM EDT HEMOGLOBIN A1C Routine 08/21/2024 7:07 PM EDT BASIC METABOLIC PANEL Routine 08/21/2024 7:04 PM EDT BEDSIDE GLUCOSE Routine 08/21/2024 5:16 PM EDT BEDSIDE GLUCOSE Routine 08/21/2024 1:30 PM EDT BEDSIDE GLUCOSE Routine 08/21/2024 9:48 AM EDT BEDSIDE GLUCOSE Routine 08/20/2024 9:05 PM EDT BEDSIDE GLUCOSE Routine 08/20/2024 4:58 PM EDT TISSUE CULTURE Routine 08/20/2024 2:59 PM EDT Status post craniotomy Delayed surgical wound healing, initial encounter FUNGAL CULTURE INCLUDES FUNGAL SMEAR Routine 08/20/2024 2:59 PM EDT Status post craniotomy Delayed surgical wound healing, initial encounter ANAEROBIC CULTURE Routine 08/20/2024 2:5 9 PM EDT Status post craniotomy Delayed surgical wound healing, initial encounter SD AN ELECTIVE ENDOTRACHEAL AIRWAY Routine 08/20/2024 2:36 PM EDT SD DRAIN SKIN ABSCESS SIMPLE 08/20/2024 2:22 PM EDT Status post craniotomy Delayed surgical wound healing, initial encounter Case Notes ANGELITA GRAY 56 GAVE 60 Special Needs 1 HOUR WORKING BEDSIDE GLUCOSE Routine 08/20/2024 12:48 PM EDT CBC WITH AUTO DIFFERENTIAL Routine 08/12/2024 12:50 PM EDT Pre-op testing MR BRAIN W WO CONT Routine 08/10/2024 9: 55 AM EDT Pain VASC VENOUS DUPLEX LOWER BILATERAL Routine 07/30/2024 3:36 PM EDT EXTERNAL LAB ORDERS / RESULTS Routine 07/06/2024 2:09 PM EDT BEDSIDE GLUCOSE Routine 07/05/2024 11:35 AM EDT BEDSIDE GLUCOSE Routine 07/05/2024 8:05 AM EDT CBC WITH AUTO DIFFERENTIAL Routine 07/05/2024 5:16 AM EDT BASIC METABOLIC PANEL Routine 07/05/2024 5:16 AM EDT BEDSIDE GLUCOSE Routine 07/04/2024 8:54 PM EDT BEDSIDE GLUCOSE Routine 07/04/2024 3:49 PM EDT BEDSIDE GLUCOSE Routine 07/04/2024 11:34 AM EDT BEDSIDE GLUCOSE Routine 07/04/2024 8:37 AM EDT CBC WITH AUTO DIFFERENTIAL Routine 07/04/2024 6:04 AM EDT BASIC METABOLIC PANEL Routine 07/04/2024 6:04 AM EDT BEDSIDE GLUCOSE Routine 07/03/2024 9:03 PM EDT BEDSIDE GLUCOSE Routine 07/03/2024 3:58 PM EDT BLOOD CULTURE STAT 07/03/2024 12:30 PM EDT PROCALCITONIN Routine 07/03/2024 12:25 PM EDT LACTATE W/ REFLEX Routine 07/03/2024 12:25 PM EDT CBC WITH AUTO DIFFERENTIAL Routine 07/03/2024 12:25 PM EDT BLOOD CULTURE STAT 07/03/2024 12:24 PM EDT BEDSIDE GLUCOSE Routine 07/03/2024 11:53 AM EDT MICROSCOPIC URINE Routine 07/03/2024 10:20 AM EDT URINE CULTURE Routine 07/03/2024 10:20 AM EDT BASIC METABOLIC PANEL Routine 07/03/2024 8:58 AM EDT BEDSIDE GLUCOSE Routine 07/03/2024 8:26 AM EDT BEDSIDE GLUCOSE Routine 07/02/2024 9:25 PM EDT BEDSIDE GLUCOSE Routine 07/02/2024 6:00 PM EDT BEDSIDE GLUCOSE Routine 07/02/2024 12:19 PM EDT BEDSIDE GLUCOSE Routine 07/02/2024 8:47 AM EDT BASIC METABOLIC PANEL Routine 07/02/2024 5:43 AM EDT BIPAP/CPAP/AUTOPAP Routine 07/01/2024 8: 00 PM EDT BEDSIDE GLUCOSE Routine 07/01/2024 7:55 PM EDT BEDSIDE GLUCOSE Routine 07/01/2024 3:41 PM EDT BEDSIDE GLUCOSE Routine 07/01/2024 11:34 AM EDT BEDSIDE GLUCOSE Routine 07/01/2024 8:04 AM EDT BASIC METABOLIC PANEL Routine 07/01/2024 6:45 AM EDT BEDSIDE GLUCOSE Routine 06/30/2024 8:22 PM EDT BEDSIDE GLUCOSE Routine 06/30/2024 4:12 PM EDT BEDSIDE GLUCOSE Routine 06/30/2024 11:21 AM EDT BEDSIDE GLUCOSE Routine 06/30/2024 8:31 AM EDT BASIC METABOLIC PANEL Routine 06/30/2024 6:26 AM EDT BEDSIDE GLUCOSE Routine 06/29/2024 8:10 PM EDT BEDSIDE GLUCOSE Routine 06/29/2024 4:51 PM EDT BEDSIDE GLUCOSE Routine 06/29/2024 12:51 PM EDT BEDSIDE GLUCOSE Routine 06/29/2024 8:09 AM EDT BIPAP/CPAP/AUTOPAP Routine 06/29/2024 8: 00 AM EDT CBC (NO DIFF) Routine 06/29/2024 4:39 AM EDT BASIC METABOLIC PANEL Routine 06/29/2024 4:39 AM EDT BEDSIDE GLUCOSE Routine 06/29/2024 3:32 AM EDT BEDSIDE GLUCOSE Routine 06/28/2024 11:48 PM EDT BEDSIDE GLUCOSE Routine 06/28/2024 8:12 PM EDT BIPAP/CPAP/AUTOPAP Routine 06/28/2024 8: 00 PM EDT US RETROPERITONEAL COMPLETE Routine 06/28/2024 6:51 PM EDT BEDSIDE GLUCOSE Routine 06/28/2024 3:40 PM EDT BEDSIDE GLUCOSE Routine 06/28/2024 12:10 PM EDT BEDSIDE GLUCOSE Routine 06/28/2024 7:50 AM EDT CBC (NO DIFF) Routine 06/28/2024 6:40 AM EDT BASIC METABOLIC PANEL Routine 06/28/2024 6:40 AM EDT BEDSIDE GLUCOSE Routine 06/28/2024 4:04 AM EDT CROSSMATCH RBC Routine 06/28/2024 2:22 AM EDT BEDSIDE GLUCOSE Routine 06/28/2024 12:52 AM EDT BEDSIDE GLUCOSE Routine 06/27/2024 9:38 PM EDT OXYGEN THERAPY, MID-LEVEL Routine 06/27/2024 4:00 PM EDT BEDSIDE GLUCOSE Routine 06/27/2024 3:46 PM EDT OXYGEN THERAPY, MID-LEVEL Routine 06/27/2024 12:00 PM EDT BEDSIDE GLUCOSE Routine 06/27/2024 11:31 AM EDT FL SWALLOW MOTILITY FUNCTION Routine 06/27/2024 9:31 AM EDT BEDSIDE GLUCOSE Routine 06/27/2024 8:45 AM EDT OXYGEN THERAPY, MID-LEVEL Routine 06/27/2024 8:00 AM EDT BEDSIDE GLUCOSE Routine 06/27/2024 4:06 AM EDT OXYGEN THERAPY, MID-LEVEL Routine 06/27/2024 4:00 AM EDT CBC (NO DIFF) Add-On 06/27/2024 4:00 AM EDT HEMOGLOBIN Routine 06/27/2024 4:00 AM EDT BASIC METABOLIC PANEL Routine 06/27/2024 4:00 AM EDT BEDSIDE GLUCOSE Routine 06/27/2024 12:13 AM EDT OXYGEN THERAPY, MID-LEVEL Routine 06/27/2024 12:00 AM EDT BEDSIDE GLUCOSE Routine 06/26/2024 8:44 PM EDT OXYGEN THERAPY, MID-LEVEL Routine 06/26/2024 8:00 PM EDT BIPAP/CPAP/AUTOPAP Routine 06/26/2024 8: 00 PM EDT BEDSIDE GLUCOSE Routine 06/26/2024 4:[address] BRAIN WO CONT Routine 06/26/2024 3:59 PM EDT BEDSIDE GLUCOSE Routine 06/26/2024 12:51 PM EDT POTASSIUM Routine 06/26/2024 9:43 AM EDT EXTUBATION Routine 06/26/2024 9:24 AM EDT BEDSIDE GLUCOSE Routine 06/26/2024 8:02 AM EDT BEDSIDE GLUCOSE Routine 06/26/2024 6:16 AM EDT IONIZED CALCIUM Routine 06/26/2024 5:00 AM EDT RESP ARTERIAL LINE SETUP Routine 06/26/2024 4:00 AM EDT BLOOD GAS, ARTERIAL STAT 06/26/2024 3 :55 AM EDT BASIC METABOLIC PANEL Routine 06/26/2024 3:25 AM EDT RESP ARTERIAL LINE SETUP Routine 06/26/2024 12:00 AM EDT XR CHEST 1 VW STAT 06/25/2024 10:58 PM EDT VENTILATION Routine 06/25/2024 9:55 PM EDT VENTILATION Routine 06/25/2024 9:55 PM EDT VENTILATION Routine 06/25/2024 9:55 PM EDT VENTILATION Routine 06/25/2024 9:55 PM EDT RESP ARTERIAL LINE SETUP Routine 06/25/2024 9:55 PM EDT RESP ARTERIAL LINE SETUP Routine 06/25/2024 9:55 PM EDT RESP ARTERIAL LINE SETUP Routine 06/25/2024 9:55 PM EDT RESP ARTERIAL LINE SETUP Routine 06/25/2024 9:55 PM EDT BEDSIDE GLUCOSE Routine 06/25/2024 9:40 PM EDT POCT ABG RAPID NA K GLU ICA HH Routine 06/25/2024 8:21 PM EDT SURGICAL PATHOLOGY Routine 06/25/2024 7: 37 PM EDT SD ANES ART LINE Routine 06/25/2024 7:31 PM EDT SD ANE CENTRAL LINE DOUBLE LUMEN Routine 06/25/2024 6:49 PM EDT SD AN ELECTIVE ENDOTRACHEAL AIRWAY Routine 06/25/2024 6:18 PM EDT SYNAPTIVE CRANIOTOMY EXCISION TUMOR 06/25/2024 5:59 PM EDT TUMOR BEDSIDE GLUCOSE Routine 06/25/2024 5:21 PM EDT BEDSIDE GLUCOSE Routine 06/25/2024 11:29 AM EDT BEDSIDE GLUCOSE Routine 06/25/2024 8:17 AM EDT TYPE AND SCREEN Routine 06/25/2024 7:00 AM EDT APTT Routine 06/25/2024 6:39 AM EDT CBC (NO DIFF) Routine 06/25/2024 6:39 AM EDT MAGNESIUM Routine 06/25/2024 6:39 AM EDT BASIC METABOLIC PANEL Routine 06/25/2024 6:39 AM EDT APTT Routine 06/24/2024 9:54 PM EDT BEDSIDE GLUCOSE Routine 06/24/2024 9:51 PM EDT BEDSIDE GLUCOSE Routine 06/24/2024 2:56 PM EDT NEURO INVASIVE Routine 06/24/2024 12:56 PM EDT NEURO INVASIVE Routine 06/24/2024 12:56 PM EDT NEURO INVASIVE Routine 06/24/2024 12:56 PM EDT BEDSIDE GLUCOSE Routine 06/24/2024 8:12 AM EDT APTT Routine 06/24/2024 5:06 AM EDT CBC (NO DIFF) Routine 06/24/2024 5:06 AM EDT MAGNESIUM Routine 06/24/2024 5:06 AM EDT BASIC METABOLIC PANEL Routine 06/24/2024 5:06 AM EDT REPEATED ABORH Routine 06/24/2024 5:00 AM EDT MR BRAIN SYNAPTIVE Routine 06/24/2024 2: 54 AM EDT BEDSIDE GLUCOSE Routine 06/23/2024 9:45 PM EDT APTT Routine 06/23/2024 9:07 PM EDT BEDSIDE GLUCOSE Routine 06/23/2024 3:20 PM EDT APTT Routine 06/23/2024 12:23 PM EDT BEDSIDE GLUCOSE Routine 06/23/2024 12:[address] ABDOMEN AND PELVIS W CONT Routine 06/23/2024 11:38 AM EDT VASC VENOUS DUPLEX LOWER BILATERAL Routine 06/23/2024 11:00 AM EDT BEDSIDE GLUCOSE Routine 06/23/2024 8:39 AM EDT APTT Routine 06/23/2024 1:08 AM EDT CBC (NO DIFF) Routine 06/23/2024 1:08 AM EDT MAGNESIUM Routine 06/23/2024 1:08 AM EDT BASIC METABOLIC PANEL Routine 06/23/2024 1:08 AM EDT BEDSIDE GLUCOSE Routine 06/22/2024 9:09 PM EDT BIPAP/CPAP/AUTOPAP Routine 06/22/2024 7: 28 PM EDT BIPAP/CPAP/AUTOPAP Routine 06/22/2024 7: 28 PM EDT PROTIME & INR Routine 06/22/2024 6:29 PM EDT APTT Routine 06/22/2024 6:29 PM EDT PLATELET COUNT Routine 06/22/2024 6:29 PM EDT HEMOGLOBIN Routine 06/22/2024 6:[address] BRAIN WO CONT STROKE ALERT STAT Reading 06/22/2024 8:55 AM EDT Pain HM COLONOSCOPY Routine 06/25/2007 from Last 3 Months or Most Recently Relevant to Health Maintenance Results * Urinalysis (09/13/2024 9:20 AM EDT) COLOR Yellow Yellow, Colorless 09/13/2024 10:18 AM EDT [facility] TURBIDITY Clear Clear 09/13/2024 10:18 AM EDT [facility] SPECIFIC GRAVITY 1.025 1.003 - 1.035 09/13 10:18 AM EDT [facility] NITRITE Negative Negative 09/13/2024 10:18 AM EDT [facility] PH,URINE 6.0 5.0 - 8.5 09/13/2024 10:18 AM EDT [facility] LEUKOCYTE ESTERASE Negative Negative 09/13/2024 10:18 AM EDT [facility] PROTEIN Negative Negative 09/13/2024 10:18 AM EDT [facility] KETONES (URINE) Negative Negative 10:18 AM EDT [facility] UROBILINOGEN 0.2 eu/dL 0.2 eu/dL, 1.0 eu/dL 09/13/2024 10:18 AM EDT [facility] BILIRUBIN (URINE) Negative Negative 09/13/2024 10:18 AM EDT [facility] BLOOD/HGB Negative Negative 09/13/2024 10:18 AM EDT [facility] GLUCOSE (URINE) Negative Negative, 250 mg/dL 09/13/2024 10:18 AM EDT [facility] Urine Urine specimen collection, clean catch / Unknown 09/13/2024 9:20 AM EDT 09/13/2024 9:53 AM EDT Narrative [facility] - 09/13/2024 10:18 AM EDT Urine received without preservative. Delays in transport may affect results. Interpret with caution. A clinical correlation is recommended. us Abby Barbosa [employer] SALES REPRESENTATIVE-CURATOR OF [employer]US[employer] URINE ORDERABLES Ina l Result [facility] [address] [place] [address], * (ABNORMAL) CBC auto differential (09/13/2024 9:10 AM EDT) Only the most recent of11 resultswithin the time period is included. WBC 10.2 4 - 11 x10E9/L 09/13/2024 9:57 AM EDT [facility] RBC Count 3.93 3.8 - 5.2 X10E12/L 09/13/2024 9:57 AM EDT [facility] Hemoglobin 12.4 11.7 - 15.5 g/dL 09/13/2024 9:57 AM EDT [facility] Hematocrit 37.6 35 - 47 % 09/13/2024 9:57 AM EDT [facility] MCV 96 80 - 100 fL 09/13/2024 9:57 AM EDT [facility] MCH 31.7 27 - 34 pg 09/13/2024 9:57 AM EDT [facility] MCHC 33.1 32 - 36 g/dL 09/13/2024 9:57 AM EDT [facility] RDW 14.9 11.5 - 15 % 09/13/2024 9:57 AM EDT [facility] Platelet Count 292 150 - 450 X10E9/L 09/13/2024 9:57 AM EDT [facility] MPV 7.0 7 - 12 fL 09/13/2024 9:57 AM EDT [facility] Neutrophils Relative 71.7 % 09/13/2024 9:57 AM EDT [facility] Lymphocytes Relative 19.7 % 09/13/2024 9:57 AM EDT [facility] Monocytes Relative 8.0 % 09/13/2024 9:57 AM EDT [facility] Eosinophils Relative 0.3 % 09/13/2024 9:57 AM EDT [facility] Basophils Relative 0.3 % 09/13/2024 9:57 AM EDT [facility] Neutrophils Absolute (A) 7.3(H) 1.5 - 6.6 10*3/uL 09/13/2024 9:57 AM EDT [facility] Lymphocytes Absolute 2.0 1.0 - 3.5 10*3/uL 09/13/2024 9:57 AM EDT [facility] Monocytes Absolute 0.8 0.0 - 0.9 10*3/uL 09/13/2024 9:57 AM EDT [facility] Eosinophils Absolute 0.0 0.0 - 0.4 10*3/uL 09/13/2024 9:57 AM EDT [facility] Basophils Absolute 0.0 0.0 - 0.2 10*3/uL 09/13/2024 9:57 AM EDT [facility] Differential Type AUTOMATED DIFFERENTIAL 09/13/2024 9:57 AM EDT [facility] Blood Venous blood / Unknown 09/13/2024 9:10 AM EDT 09/13/2024 9:51 AM EDT us Pamela Amadio [employer] SALES REPRESENTATIVE-CURATOR OF [employer] LAB BLOOD ORDERABLES Ina l Result Performing Organization Address City/[facility] Co de Phone Number [address] [place] [address], [place] * C-reactive protein (09/13/2024 9:10 AM EDT) Only the most recent of3 resultswithin the time period is included. C REACTIVE PROTEIN 0.7 <=0.7 mg/dL 09/13/2024 10:28 AM EDT [facility] Blood Venous blood / Unknown 09/13/2024 9:10 AM EDT 09/13/2024 9:51 AM EDT us Pamela Amadio [employer] SALES REPRESENTATIVE-[employer]ATOR OF [employer] LAB BLOOD ORDERABLES Ina l Result Performing Organization Address [facility] Co de Phone Number [address] [place] [address], [place] * BUN (09/13/2024 9:10 AM EDT) Only the most recent of3 resultswithin the time period is included. BLOOD UREA NITROGEN 20 5 - 27 mg/dL 09/13/2024 10:28 AM EDT [facility] Blood Venous blood / Unknown 09/13/2024 9:10 AM EDT 09/13/2024 9:51 AM EDT us Pamela Amadio [employer] SALES REPRESENTATIVE-[employer]ATOR OF [employer] LAB BLOOD ORDERABLES Ina l Result Performing Organization Address City/[facility] Co de Phone Number [address] [place] [address], [place] * Creatinine includes GFR, serum (09/13/2024 9:10 AM EDT) Only the most recent of3 resultswithin the time period is included. CREATININE 0.50 0.40 - 1.00 mg/dL 09/13/2024 10:28 AM EDT [facility] Comment:METHOD TRACEABLE TO IDMS STANDARD EGFR Non-Race Dependent >90 >=60 ml/min/1.7 3sq.m 09/13/2024 10:28 AM EDT [facility] Comment: Reported eGFR is based on the CKD-EPI 2020 equation that does not use a race coefficient. Blood Venous blood / Unknown 09/13/2024 9:10 AM EDT 09/13/2024 9:51 AM EDT us Pamela Amadio [employer] SALES REPRESENTATIVE-[employer]ATOR OF [employer] LAB BLOOD ORDERABLES Ina l Result Performing Organization Address City/[facility]/ZIP Co de Phone Number [address] [place] [address], [place] * Vancomycin, trough (09/13/2024 9:10 AM EDT) Only the most recent of4 resultswithin the time period is included. Pathologist [facility] VANCOMYCIN TROUGH 14.5 5.0 - 20.0 ug/mL 09/13/2024 11:09 AM EDT [facility] Blood Venous blood / Unknown 09/13/2024 9:10 AM EDT 09/13/2024 9:51 AM EDT us Pamela Amadio [employer] SALES REPRESENTATIVE-[employer]ATOR OF [employer] LAB BLOOD ORDERABLES Ina l Result [address] [place] [address], [place] * (ABNORMAL) Bedside Glucose *Place/Obtain serum glucose if >500 per glucometer. (08/26/2024 12:19PM EDT) Only the most recent of82 resultswithin the time period is included. Bedside Glucose (POC) 124(H) 65 - 99 mg/dL 08/26/2024 12:23 PM EDT [facility] arterial/capilla ry 08/26/2024 12:19 PM EDT 08/26/2024 12:23 PM EDT us Keenan Ivan MD POINT OF CARE TEST ORDERABLES F inal Result [facility] [address] [place] [address], [place] * Magnesium (08/26/2024 4:21 AM EDT) Only the most recent of7 resultswithin the time period is included. MAGNESIUM 2.1 1.8 - 2.6 mg/dL 08/26/2024 5:38 AM EDT [facility] Blood Venous blood / Unknown 08/26/2024 4:21 AM EDT 08/26/2024 5:07 AM EDT us Tomasa Akhtar [employer] SALES REPRESENTATIVE-CURATOR OF [employer] LAB BLOOD ORDERABLES Ina l Result [facility] [address] [place] [address], [place] [phone] * (ABNORMAL) Comprehensive metabolic panel (08/26/2024 4:21 AM EDT) Only the most recent of4 resultswithin the time period is included. SODIUM 142 134 - 146 mmol/L 08/26/2024 5:38 AM EDT [facility] POTASSIUM 4.2 3.5 - 5.0 mmol/L 08/26/2024 5:38 AM EDT [facility] CHLORIDE 106 98 - 109 mmol/L 08/26/2024 5:38 AM EDT [facility] CARBON DIOXIDE 29 22 - 32 mmol/L 08/26/2024 5:38 AM EDT [facility] ANION GAP 7 5 - 15 mmol/L 08/26/2024 5:38 AM EDT [facility] BLOOD UREA NITROGEN 19 5 - 27 mg/dL 08/26/2024 5:38 AM EDT [facility] CREATININE 0.51 0.40 - 1.00 mg/dL 08/26/2024 5:38 AM EDT [facility] Comment:METHOD TRACEABLE TO IDMS STANDARD GLUCOSE 99 65 - 99 mg/dL 08/26/2024 5:38 AM EDT [facility] CALCIUM 8.3(L) 8.5 - 10.5 mg/dL 08/26/2024 5:38 AM EDT [facility] TOTAL PROTEIN 5.6(L) 6.0 - 8.0 g/dL 08/26/2024 5:38 AM EDT [facility] ALBUMIN 3.1(L) 3.2 - 5.3 g/dL 08/26/2024 5:38 AM EDT [facility] ALKALINE PHOSPHATASE 77 39 - 130 U/L 08/26/2024 5:38 AM EDT [facility] AST 35 <=41 U/L 08/26/2024 5:38 AM EDT [facility] ALT 67(H) <=31 U/L 08/26/2024 5:38 AM EDT [facility] BILIRUBIN,TOTAL 0.4 0.3 - 1.2 mg/dL 08/26/2024 5:38 AM EDT [facility] EGFR Non-Race Dependent >90 >=60 ml/min/1.7 3sq.m 08/26/2024 5:38 AM EDT [facility] Comment: Reported eGFR is based on the CKD-EPI 2020 equation that does not use a race coefficient. Blood Venous blood / Unknown 08/26/2024 4:21 AM EDT 08/26/2024 5:07 AM EDT us Tomasa Akhtar [employer] SALES REPRESENTATIVE-CURATOR OF [employer]US[employer]IP[employer] LAB BLOOD ORDERABLES Ina eunice Result [facility] [address] [place] [address], [place] [phone] * (ABNORMAL) Vancomycin, peak (08/25/2024 2:24 AM EDT) VANCOMYCIN PEAK 26.3(L) 30.0 - 40.0 ug/mL 08/25/2024 3:21 AM EDT [facility] Blood Venous blood / Unknown 08/25/2024 2:24 AM EDT 08/25/2024 2:45 AM EDT us Joann Garza MD LAB BLOOD ORDERABLES F inal Result [facility] [address] [place] [address], * (ABNORMAL) Basic Metabolic Panel (08/24/2024 10:47 AM EDT) Only the most recent of15 resultswithin the time period is included. Pathologist [facility] SODIUM 141 134 - 146 mmol/L 08/24/2024 11:46 AM EDT [facility] POTASSIUM 3.8 3.5 - 5.0 mmol/L 08/24/2024 11:46 AM EDT [facility] CHLORIDE 103 98 - 109 mmol/L 08/24/2024 11:46 AM EDT [facility] CARBON DIOXIDE 32 22 - 32 mmol/L 08/24/2024 11:46 AM EDT [facility] ANION GAP 6 5 - 15 mmol/L 08/24/2024 11:46 AM EDT [facility] BLOOD UREA NITROGEN 21 5 - 27 mg/dL 08/24/2024 11:46 AM EDT [facility] CREATININE 0.58 0.40 - 1.00 mg/dL 08/24/2024 11:46 AM EDT [facility] Comment:METHOD TRACEABLE TO IDMS STANDARD GLUCOSE 113(H) 65 - 99 mg/dL 08/24/2024 11:46 AM EDT [facility] CALCIUM 8.6 8.5 - 10.5 mg/dL 08/24/2024 11:46 AM EDT [facility] EGFR Non-Race Dependent >90 >=60 ml/min/1.7 3sq.m 08/24/2024 11:46 AM EDT [facility] Comment: Reported eGFR is based on the CKD-EPI 2020 equation that does not use a race coefficient. Blood 08/24/2024 10:4 7 AM EDT 08/24/2024 11:00 AM EDT Tomasa Giovana [employer] SALES REPRESENTATIVE-CURATOR OF [employer]US[employer]IP[employer] LAB BLOOD ORDERABLES Ina l Result [facility] [address] [place] [address], * (ABNORMAL) Hemoglobin A1c (08/21/2024 7:07 PM EDT) HEMOGLOBIN A1C 6.1(H) 4.4 - 5.6 % 08/22/2024 7:22 AM EDT [facility] Comment: ADA Guidelines Result HgbA1c Normal : less than 5.7 % Prediabetes : 5.7 % to 6.4 % Diabetes : > 6.4 % Use with caution in patients with abnormal hemoglobin variants as the half-life of red blood cells and in vivo glycation rates are affected. EST. AVERAGE GLUCOSE 128 mg/dL 08/22/2024 7:22 AM EDT [facility] Blood Venous blood / Unknown 08/21/2024 7:07 PM EDT 08/21/2024 7:07 PM EDT Sasha Peralta [employer] SALES REPRESENTATIVE-[employer]ATOR OF [employer] LAB BLOOD ORDERABLE S Final Result [facility] [address] [place] [address], [place] [phone] * Tissue culture includes gram stain (08/20/2024 2:59 PM EDT) CULTURE RESULTS NO GROWTH 3 DAYS 08/24/2024 6:20 AM EDT [facility] GRAM STAIN 10 to 24 White Blood Cells/LPF 08/24/2024 6:20 AM EDT [facility] GRAM STAIN 0 Squamous Epithelial Cells/LPF 08/24/2024 6:20 AM EDT [facility] GRAM STAIN No organisms seen 08/24/2024 6:20 AM EDT [facility] Tissue (Other) 08/20/2024 2: 59 PM EDT 08/20/2024 3:26 PM EDT Comment:Pre-op diagnosis: Status post craniotomy [Z98.890] Delayed surgical wound healing, initial encounter [T81.89XA] Adarsh Tovar MD MICROBIOLOGY - GENERAL ORDERABLE S Final Result Performing Organization Address City/[facility]/ZIP Co de Phone Number [facility] [address] [place] [address], [place] [phone] * Anaerobic culture (08/20/2024 2:59 PM EDT) CULTURE RESULTS NO GROWTH 5 DAYS 08/25/2024 7:26 AM EDT [facility] Tissue (Other) 08/20/2024 2: 59 PM EDT 08/20/2024 3:26 PM EDT Comment:Pre-op diagnosis: Status post craniotomy [Z98.890] Delayed surgical wound healing, initial encounter [T81.89XA] Adarsh Tovar MD MICROBIOLOGY - GENERAL ORDERABLE S Final Result [facility] [address] [place] [address], * SD AN ELECTIVE ENDOTRACHEAL AIRWAY (08/20/2024 2:36 PM EDT) Narrative Phil Falk APRN-STONE CLEANER - 08/20/2024 2:36 PM EDT ABIGAIL Stinson 08/20/2024 2:56 PM Airway Patient location during procedure: OR Urgency: Elective Date/Time: 08/20/2024 2:36 PM IV In Situ: Peripheral General Information and Staff Service Provider: Latoya Woodson MD STONE CLEANER: ABIGAIL Stinson Placed by: ABIGAIL Stinson Patient Identified, IV Checked, Risks and Benefits Discussed, Surgical Consent, Monitors and Equipment Checked, Pre-op Evaluation and Timeout Performed Fire Risk Assessment Score: 0 Consent for Emergent Airway (if performed for an anesthetic, see related documentation for consents) Risks and benefits: risks, benefits and alternatives were discussed Indications and Patient Condition Sedation level: Deep Preoxygenated: yesPatient position: Supine and Sniffing Mask difficulty assessment: With Oral Airway Indications for airway management: Anesthesia Complications: No Complicating Factors: No Final Airway Details Final airway type: ETT Endotracheal airway: Cuffed and ETT - Single Lumen Techniques used for successful ETT Placement: Video Laryngoscopy and With Stylet Cormack-Lehane Classification: Grade I Endotracheal tube insertion site: Oral Post Intubation Trauma? No Blade type: Aigou. Blade size: #3 (3x) Placement verified by: chest auscultation, capnography and symmetrical chest wall movement ETT size: 7.5 mm Measured from: Teeth Secured at (cm): 21 Number of other approaches attempted: 0 Number of attempts at approach: 1 us Latoya Woodson MD ANESTHESIA ORDERABLES F inal Result * MR brain with and without contrast (08/10/2024 9:55 AM EDT) us Scanning Provider External IMG MRI ORDERABLES Fi nal Result * Vas venous duplex lwr bilateral (07/30/2024 3:36 PM EDT) Only the most recent of2 resultswithin the time period is included. Anatomical Region Laterality Modality Vascular Bilateral Ultrasound us Not In System Ref Prov CV VASCULAR ORDERABLES Fi nal Result * External Lab Orders / Results (07/06/2024 2:09 PM EDT) Adarsh Tovar MD LAB ORDERABLES Final Result * Blood culture #2 (07/03/2024 12:30 PM EDT) Only the most recent of2 resultswithin the time period is included. Culture NO GROWTH 5 DAYS 07/08/2024 12:52 PM EDT [employer] Blood Blood / Unknown 07/03/2024 1 2:30 PM EDT 07/03/2024 12:46 PM EDT Comment:ONLY AEROBIC BOTTLE RECEIVED, SUBOPTIMAL VOLUME OF BLOOD COLLECTED, RESULTS MAY BE AFFECTED Milton Walker MD MICROBIOLOGY - GENERAL ORDERABLE S Final Result Performing Organization Address [facility] Co de Phone Number [employer] * Procalcitonin (07/03/2024 12:25 PM EDT) Procalcitonin <0.05 <0.05 ng/mL 07/03/2024 1:23 PM EDT [facility] Comment: NOTE <0.50 ng/mL - Low risk of severe sepsis and/or septic shock. <2.00 ng/mL - Recommend retesting within 6-24 hours. >2.00 ng/mL - High risk of sepsis and/or septic shock. PLASMA 07/03/2024 12:2 5 PM EDT 07/03/2024 12:26 PM EDT Milton Walker MD LAB BLOOD ORDERABLES Final Resul t Performing Organization Address City/[facility]/ZIP Co de Phone Number [employer] [facility] [address], [address] [place] [address] * Lactate w/ Reflex (07/03/2024 12:25 PM EDT) Lactate w/ Reflex 1.2 0.4 - 2.0 mmol/L 07/03/2024 1:05 PM EDT [facility] Comment: Result did not trigger repeat Lactate, re-order if needed. PLASMA 07/03/2024 12:2 5 PM EDT 07/03/2024 12:26 PM EDT us Milton Walker MD LAB BLOOD ORDERABLES Final Resul t [facility] [address], [address] [place] [address] * (ABNORMAL) Microscopic, urine (07/03/2024 10:20 AM EDT) Mucus, UA PRESENT(A) NONE^NONE 07/03/2024 11:46 AM EDT [facility] RBC 22(H) 0 - 5 /hpf 07/03/2024 11:46 AM EDT [facility] Squamous epithelium 1 0 - 5 /hpf 07/03/2024 11:46 AM EDT [facility] Triplephos [place], UA PRESENT(A) NONE^NONE 07/03/2024 11:46 AM EDT [facility] WBC 236(H) 0 - 5 /hpf 07/03/2024 11:46 AM EDT [facility] Urine / Unknown 07/03/2024 1 0:20 AM EDT 07/03/2024 10:59 AM EDT us Milton Walker MD URINE ORDERABLES Final Result Performing Organization Address [facility]/ZIP Co de Phone Number [facility] [address] [place] [address], [address] [place] [address] * (ABNORMAL) Urine culture (07/03/2024 10:20 AM EDT) Culture >100,000 ORGANISMS/mL PROTEUS MIRABILIS(A) 07/04/2024 10:17 AM EDT [facility] Culture 10,000 to 50,000 ORGANISMS/mL NORMAL URO GENITAL GRISELDA 07/04/2024 10:17 AM EDT [facility] Urine Urine / Unknown 07/03/2024 1 0:20 AM EDT 07/03/2024 12:32 PM EDT Narrative Organism Antibiotic Method Susceptibility Proteus Mirabilis Ampicillin ROLANDO METHOD <=2: Susceptible Proteus Mirabilis AMP/SULBACTAM ROLANDO METHOD <=2/1: Susceptible Proteus Mirabilis Cefazolin (non-urinary) ROLANDO METHOD 4: Intermediate Proteus Mirabilis Cefazolin (urinary) ROLANDO METHOD 4: Susceptible Proteus Mirabilis Ceftriaxone ROLANDO METHOD <=0.25: Susceptible Proteus Mirabilis Ciprofloxacin ROLANDO METHOD <=0.06: Susceptible Proteus Mirabilis Gentamicin ROLANDO METHOD <=1: Susceptible Proteus Mirabilis Levofloxacin ROLANDO METHOD <=0.12: Susceptible Proteus Mirabilis Nitrofurantoin ROLANDO METHOD 128: Resistant Proteus Mirabilis PIPERACIL/TAZOBACTAM ROLANDO METHOD <=4: Susceptible Proteus Mirabilis TRIMETH/SULFAMETHOXAZOLE ROLANDO METHOD <=/: Susceptible Milton Walker MD MICROBIOLOGY - GENERAL ORDERABLE S Final Result [facility] [address], [address] [place] [address] * (ABNORMAL) CBC without diff (06/29/2024 4:39 AM EDT) Only the most recent of6 resultswithin the time period is included. White Blood Cells 10.1 4.0 - 11.0 X10E9/L 06/29/2024 5:52 AM EDT [facility] RBC count 3.76(L) 3.80 - 5.20 X10E12/L 06/29/2024 5:52 AM EDT [facility] Hemoglobin 11.9 11.7 - 15.5 g/dL 06/29/2024 5:52 AM EDT [facility] Hematocrit 35.4 35 - 47 % 06/29/2024 5:52 AM EDT [facility] MCV 94 80 - 100 fL 06/29/2024 5:52 AM EDT [facility] MCH 31.7 27 - 34 pg 06/29/2024 5:52 AM EDT [facility] MCHC 33.7 32 - 36 g/dL 06/29/2024 5:52 AM EDT [facility] RDW 14.1 11.5 - 15.0 % 06/29/2024 5:52 AM EDT [facility] Platelets 272 150 - 450 X10E9/L 06/29/2024 5:52 AM EDT [facility] MPV 8.2 7 - 12 fL 06/29/2024 5:52 AM EDT [facility] Blood / Unknown 06/29/2024 4 :39 AM EDT 06/29/2024 4:40 AM EDT us Jennifer Belcher DO LAB BLOOD ORDERABLES Final Resu lt THERESAQUEST [facility] [address], [address] [place] [address] * Ultrasound retroperitoneal complete (06/28/2024 6:51 PM EDT) Anatomical Region Laterality Modality Body Ultrasound 06/28/2024 7:20 PM EDT Narrative 06/28/2024 7:21 PM EDT CLINICAL INFORMATION: Hydronephrosis on CT. TECHNIQUE: Complete retroperitoneal ultrasound. COMPARISON: CT abdomen and pelvis 326.5 FINDINGS: Right kidney measures 9.2 cm in length. Left kidney measures 9.6 cm in length. Bilaterally there is no collecting system dilatation, shadowing echogenic calculi or solid contour deforming lesions identified. Urinary bladder is decompressed by Cobian catheter. IMPRESSION: * No hydronephrosis. Finalized by Tito Mariscal MD on 06/28/2024 7:21 PM Procedure Note Tito Mariscal MD - 06/28/2024 CLINICAL INFORMATION: Hydronephrosis on CT. TECHNIQUE: Complete retroperitoneal ultrasound. COMPARISON: CT abdomen and pelvis 326.5 FINDINGS: Right kidney measures 9.2 cm in length. Left kidney measures 9.6 cm inlength. Bilaterally there is no collecting system dilatation, shadowing echogeniccalculi or solid contour deforming lesions identified. Urinary bladder is decompressed by Cobian catheter. IMPRESSION: * No hydronephrosis. Finalized by Tito Mariscal MD on 06/28/2024 7:21 PM Edward Marques MD [facility] [place] ORDERABLES Final Result * Crossmatch RBC:Number of Units: 2 (06/28/2024 2:22 AM EDT) Blood 06/28/2024 2:22 AM EDT Misa Martin TRUCK SALES REPRESENTATIVE-CURATOR OF MANUSCRIPTS BLOOD BANK PRODUCT ORDE BEST Edited Result - Final SUNQUEST * Fluoroscopy swallow motility function (06/27/2024 9:31 AM EDT) Anatomical Region Laterality Modality Chest, Abdomen, Body Radio Fluor oscopy 06/27/2024 9:43 AM EDT Narrative 06/27/2024 9:58 AM EDT STUDY: Video fluoroscopic swallow study CLINICAL HISTORY: Oral pharyngeal dysphagia, difficulty swallowing COMPARISON: None. FINDINGS: Video fluoroscopic swallow study was performed in conjunction with members of speech pathology. Barium contrast materials of multiple consistencies were administered. Fluoroscopic reference air kerma was 1.6 mGy. Multiple video fluoroscopic images. Zero fluoroscopic spot films. Penetration with the thin liquid consistency using a straw. No penetration or aspiration with the thin liquid consistency using the cup. No penetration or aspiration with the applesauce, fruit, or cracker. Correlate with dedicated speech pathology report for additional details and recommendations. IMPRESSION: * Abnormal swallow study, as above. Approved by Resident Zack Pink MD on 06/27/2024 9:43 AM Jez Reyes MD have personally reviewed the image(s) and agree with and/or edited the report Finalized by Jez Flores MD on 06/27/2024 9:58 AM Procedure Note Jez Flores MD - 06/27/2024 STUDY: Video fluoroscopic swallow study CLINICAL HISTORY: Oral pharyngeal dysphagia, difficulty swallowing COMPARISON: None. FINDINGS: Video fluoroscopic swallow study was performed in conjunction with membersof speech pathology. Barium contrast materials of multiple consistencieswere administered. Fluoroscopic reference air kerma was 1.6 mGy. Multiplevideo fluoroscopic images. Zero fluoroscopic spot films. Penetration with the thin liquid consistency using a straw. No penetrationor aspiration with the thin liquid consistency using the cup. Nopenetration or aspiration with the applesauce, fruit, or cracker. Correlate with dedicated speech pathology report for additional detailsand recommendations. IMPRESSION: * Abnormal swallow study, as above. Approved by Resident Zack Pink MD on 06/27/2024 9:43 AM I, Jez Flores MD have personally reviewed the image(s) and agree withand/or edited the report Finalized by Jez Flores MD on 06/27/2024 9:58 AM us Jonathan Siddiqui MD IMG FLUOROSCOPY ORDERABLES Ina l Result * Hemoglobin (06/27/2024 4:00 AM EDT) Only the most recent of2 resultswithin the time period is included. Hemoglobin 11.9 11.7 - 15.5 g/dL 06/27/2024 4:34 AM EDT [facility] Blood / Unknown 06/27/2024 4 :00 AM EDT 06/27/2024 4:23 AM EDT us Milton Walker MD LAB BLOOD ORDERABLES Final Resul t SUNQUEST [facility] [address], [address] [place] [address] * CT brain without contrast (06/26/2024 3:59 PM EDT) Anatomical Region Laterality Modality Neuro, Head, Head and Neck, Neuro Covera N/A Computed Tomography 06/26/2024 4:11 PM EDT Narrative 06/26/2024 4:13 PM EDT CLINICAL INFORMATION: Craniotomy, post-op; post craniotomy for tumor resection TECHNIQUE: CT BRAIN WO CONT CT images of the brain were obtained and compared to previous examinations of 06/22/2024. Patient is status post right parietal craniotomy with intracranial surgical changes and encephalomalacia. Degree of edema again noted within the right parietal lobe. Mass effect upon the posterior horn right lateral ventricle may be somewhat improved. Trace blood products and intracranial air, postoperative. Basilar cisterns are patent without herniation. Integrity of the superior sagittal sinus is not well evaluated with this exam. IMPRESSION: Postoperative right parietal craniotomy with a parenchymal surgical changes and edema. Close follow-up recommended. All CT scans at this facility use dose modulation, iterative reconstruction, and/or weight based dosing when appropriate to reduce radiation dose to as low as reasonably achievable. Finalized by Venkat Morris MD on 06/26/2024 4:13 PM Procedure Note Venkat Morris MD - 06/26/2024 CLINICAL INFORMATION: Craniotomy, post-op; post craniotomy for tumor resection TECHNIQUE: CT BRAIN WO CONT CT images of the brain were obtained and compared to previous examinationsof 06/22/2024. Patient is status post right parietal craniotomy withintracranial surgical changes and encephalomalacia. Degree of edema againnoted within the right parietal lobe. Mass effect upon the posterior hornright lateral ventricle may be somewhat improved. Trace blood products andintracranial air, postoperative. Basilar cisterns are patent withoutherniation. Integrity of the superior sagittal sinus is not well evaluatedwith this exam. IMPRESSION: Postoperative right parietal craniotomy with a parenchymal surgicalchanges and edema. Close follow-up recommended. All CT scans at this facility use dose modulation, iterativereconstruction, and/or weight based dosing when appropriate to reduceradiation dose to as low as reasonably achievable. Finalized by Venkat Morris MD on 06/26/2024 4:13 PM Misa Martin TRUCK SALES REPRESENTATIVE-CURATOR OF MANUSCRIPTS IM CT ORDERABLES Final Result * Potassium (06/26/2024 9:43 AM EDT) Potassium, Bld 4.3 3.5 - 5.0 mmol/L 06/26/2024 10:27 AM EDT [facility] PLASMA 06/26/2024 9:43 AM EDT 06/26/2024 9:54 AM EDT us Milton Walker MD LAB BLOOD ORDERABLES Final Resul t Performing Organization Address City/[facility] Co de Phone Number [facility] [address] [place] [address], [facility] [address] [place] [address] * Ionized calcium (06/26/2024 5:00 AM EDT) Calcium, ionized 4.8 4.5 - 5.3 mg/dL 06/26/2024 5:49 AM EDT [facility] PLASMA 06/26/2024 5:00 AM EDT 06/26/2024 5:31 AM EDT us Milton Walker MD LAB BLOOD ORDERABLES Final Resul t Performing Organization Address [facility] Co de Phone Number [facility] [address] [place] [address], [facility] [address] [place] [address] * (ABNORMAL) Blood Gas, Arterial (06/26/2024 3:55 AM EDT) Sample Type ARTERIAL 06/26/2024 3:59 AM EDT [facility] Body Temp 37.0 37.0 C 06/26/2024 3:59 AM EDT [facility] pH 7.371 7.350 - 7.450 06/26/2024 3:59 AM EDT [facility] PCO2 41.1 35 - 45 MMHG 06/26/2024 3:59 AM EDT [facility] PO2 102(H) 80 - 100 MMHG 06/26/2024 3:59 AM EDT [facility] Base,Deficit 1.0 0.0 - 2.0 MMOL/L 06/26/2024 3:59 AM EDT [facility] Portable HCO3 23.8 22 - 26 MMOL/L 06/26/2024 3:59 AM EDT [facility] % O2 Sat 98.0 >90 % 06/26/2024 3:59 AM EDT [facility] Kb's Test NA 06/26/2024 3:59 AM EDT [facility] SPO2 97 % 06/26/2024 3:59 AM EDT [facility] Sample Site Juancarlos 06/26/2024 3:59 AM EDT [facility] Insp. O2 Conc. 40 % 06/26/2024 3:59 AM EDT [facility] Oxygen Source Vent 06/26/2024 3:59 AM EDT [facility] Artrial Blood Specimen 06/26/2024 3:55 AM EDT 06/26/2024 3:59 AM EDT us Gaviota Killian MD LAB BLOOD ORDERABLES Ina eunice Result BLADE [facility] [address] [place] [address] * X-ray chest 1 view (06/25/2024 10:58 PM EDT) Anatomical Region Laterality Modality Body, Chest N/A Computed Radiogr aphy 06/25/2024 10:5 9 PM EDT Narrative 06/25/2024 11:00 PM EDT Single view chest History: Intubated. Comparison: 06/04/2021 Impression: 1. ET tube approximately 5 cm above the db. Enteric tube within the stomach. Right IJ catheter at the mid SVC. 2. Stable cardiomediastinal silhouette. 3. No focal consolidation, effusion, or pneumothorax. Finalized by Anatoly Seo MD on 06/25/2024 11:00 PM Procedure Note Anatoly Seo MD - 06/25/2024 Single view chest History: Intubated. Comparison: 06/04/2021 Impression: 1. ET tube approximately 5 cm above the db. Enteric tube within thestomach. Right IJ catheter at the mid SVC. 2. Stable cardiomediastinal silhouette. 3. No focal consolidation, effusion, or pneumothorax. Finalized by Anatoly Seo MD on 06/25/2024 11:00 PM Brooks Olivas TRUCK SALES REPRESENTATIVE-CURATOR OF MANUSCRIPTS IMG DIAGNOSTIC IMAGING ORDERABLES Final Result * (ABNORMAL) POCT ABG Rapid NA K GLU ICA HH (06/25/2024 8:21 PM EDT) Portable sodium 132(L) 134 - 146 mmol/L 06/25/2024 8:22 PM EDT [facility] Portable potassium 3.7 3.5 - 5.0 mmol/L 06/25/2024 8:22 PM EDT [facility] Glucose 140(H) 65 - 99 mg/dL 06/25/2024 8:22 PM EDT [facility] Portable HGB 13.1 11.7 - 15.5 g/dL 06/25/2024 8:22 PM EDT [facility] Portable hematocrit 40 35 - 47 % 06/25/2024 8:22 PM EDT [facility] Ionized Calcium 4.4(L) 4.5 - 5.3 mg/dL 06/25/2024 8:22 PM T [facility] Sample Type Arterial 06/25/2024 8:22 PM T [facility] Body Temp 37.0 37.0 C 06/25/2024 8:22 PM T [facility] pH 7.478(H) 7.350 - 7.450 06/25/2024 8:22 PM T [facility] PCO2 32.4(L) 35 - 45 MMHG 06/25/2024 8:22 PM EDT [facility] PO2 90 80 - 100 MMHG 06/25/2024 8:22 PM EDT [facility] Base,Excess 0.5 0.0 - 2.0 MMOL/L 06/25/2024 8:22 PM EDT [facility] Portable HCO3 24.0 22 - 26 MMOL/L 06/25/2024 8:22 PM T [facility] % O2 Sat 98.1 >90 % 06/25/2024 8:22 PM EDT [facility] Kb'S Test NA 06/25/2024 8:22 PM EDT [facility] Sample Site JUANCARLOS 06/25/2024 8:22 PM EDT [facility] Insp. O2 Conc. 100 % 06/25/2024 8:22 PM EDT [facility] Artrial Blood Specimen 06/25/2024 8:21 PM EDT 06/25/2024 8:22 PM EDT us Gaviota Killian MD POINT OF CARE TEST ORDERA BLES Final Result BLADE [facility] [address] [place] [address] * Surgical Pathology (06/25/2024 7:37 PM EDT) Tissue Head structure / Unknown 06/25/2024 7:37 PM EDT Comment:Pre-op diagnosis: TUMOR Tissue specimen (specimen) Head structure / Unknown 06/25/2024 7:38 PM EDT Comment:Pre-op diagnosis: TUMOR Narrative COPATH - 07/07/2024 11:29 AM EDT [facility] [address] [place] [address] Surgical Pathology Consultation Patient Name:MELISSA RICHEY:1960 (Age: 64)Gender:FTaken:06/25/2024Reported:07/07/2024Physician(s):[facility] To: Rec. #:[id number]: #[id number] Final Pathologic Diagnosis 1-2. 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 See Comment. Comment: The tumor cells show nuclear expression of STAT6 in relatively preserved regions, compatible with the presence of NAB2 :: STAT6 fusion and diagnostic of solitary fibrous tumor. Intravascular foreign material is noted, consistent with preoperative embolization, and is associated with regions of tumor devitalization. Relatively preserved regions harbor inconspicuous mitotic activity (up to 2 per 10 high-power olea), and no definitive spontaneous tumor necrosis is identified, supporting the WHO grade 1 designation. In a recent evaluation of the types of NAB2 :: STAT6 fusion among meningeal solitary fibrous tumors*, the presence of an exon5::gcrb32-04 fusion was found to be associated with inferior patient outcomes. Therefore, further characterization of this tumor by targeted sequencing may be considered, and can be performed upon request. *Reference: Edwin ROSAS et al. Brain Pathology. 2023. 34(6):[id number]. Clinical Information This 64 year-old female patient was found to have an extra-axial, lobulated, avidly enhancing mass in the right parafalcine parietal region. A pre-operative embolization procedure was performed prior to this tumor resection. (All immunohistochemical stains performed at the referring institution and reviewed here.) NOTE: The above diagnosis and comment is that of Toan Callejas M.D., [facility], [place], [place]. Please see the complete report in the patient's EMR. CASE SUMMARY (Central Nervous System) Procedure: Resection Specimen size, gross description: Greatest dimension: 1.0 cm (part 1), 9.0 cm (part 2) Tumor site: Leptomeninges, cerebral lobe, parietal Tumor laterality: Right Integrated diagnosis (TRAINING DEVELOPER WHO 2020): Solitary fibrous tumor Integrated histologic molecular grade (TRAINING DEVELOPER WHO 2020): TRAINING DEVELOPER WHO grade 1 v.1.0.0.0/gp/3.22.23 Report Electronically Signed Out [facility]/07/07/2024delia Chiu MD Preliminary Report (PHS) Date Reported: 07/01/2024 1, 2. 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 Comment: Section show a biphasic tumor comprising cells with ovoid to elongated nuclei and a fibrotic background with abundant irregular vessels, accompanied by a proliferation of epithelioid cells with moderately pleomorphic, enlarged nuclei. Mitotic activity, however, is low, 1-2 mitotic figures/10 HPF. The larger vessels contain foreign material consistent with prior embolization. There are rare foci of necrosis, most likely secondary to embolization. Immunohistochemical analysis is performed with adequate controls in order to classify this tumor. The neoplastic cells are positive for CD34 and S100, and focally positive for STAT6 and Bcl-2. SMA highlights vessels and shows immunoreactivity predominantly at the periphery of the tumor. Ki-67 cell proliferation index is low, ~1-3%. The tumor is negative for AE1/AE3, GFAP, CD56, SARMAD, SD and SOX10. 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 This case has been sent to [facility] for further evaluation and definitive diagnosis, which is pending platform consultant's report. Electronically Signed Out Raulito Chiu MD Interpretation performed at [facility], [address] [place] [address], License number: [id number]. Clinical History Tumor. Gross Description 1. Received fresh for frozen section labeled JAYNE, brain tumor are 2 hope soft tissue bits, 1 x 1 x 0.6 cm and 1 x 0.6 x 0.5 cm. Construction Equipment Technician sections are submitted for frozen section and the remnants are submitted in cassette FSA. The remaining tissue submitted for permanent in cassette A. (2,ns,[id number], m2) . 2. Received in formalin labeled JAYNE, brain tumor are multiple hope-cortez, focally hemorrhagic rubbery and nodular soft tissue fragments aggregating to 9.0 x 7.5 x 3.0 cm. Construction Equipment Technician sections are submitted in cassettes A-J. (10,ss,[id number], m2) 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 Deferred to permanent for IHC analysis. - AO Interpretation provided at [facility], [facility] [place] [address] Specimen(s) Received 1: Brain tumor 2: Brain tumor Fee Codes(s): 1; 07035, 60809, 85920 2; 18828, 24894, 45547(6), 24909(5) us Adarsh Tovar MD PATHOLOGY/CYTOLOGY ORDERABLES Ed ited Result - Final COPATH * SD ANES ART LINE (06/25/2024 7:31 PM EDT) Phani Disla APRN-CRNA - 06/25/2024 7:31 PM EDT ABIGAIL Roman 06/25/2024 7:32 PM Art Line Performed by: ABIGAIL Roman Authorized by: Mitch Izquierdo Patient Location: OR Start Time: 06/25/2024 6:13 PM End Time: 06/25/2024 6:16 PM Service Provider: Mitch Izquierdo STONE CLEANER ( if not the service provider): ABIGAIL Aragon Placed By: ABIGAIL Aragon Complete checklist: Patient Identified, IV Checked, Risks and Benefits Discussed, Surgical Consent, Monitors and Equipment Checked, Pre-op Evaluation and Timeout Performed Fire Risk Assessment Score: 0 Site Prep: Chlorhexadine and Isopropyl Alcohol Hand Hygiene Performed Prior to Insertion: Yes Site Prep Agent has Completely Dried Before Insertion: Yes Patient Prep Prior to AL Insertion: General Anesthesia Size: 20 G Total Catheter Length (inches): 1 3/4 Location: Radial Orientation: Left Securement Method: Taped, Transparent Dressing and Steri-Stips Specimen Obtained: No Placement Technique: Anatomical Landmarks, Guidewire and Ultrasound Guidance Insertion Attempts: 1 Patient Tolerance: Tolerated Well no arterial injury us Mitch Izquierdo SD ANESTHESIA Final Res ult * SD ANE CENTRAL LINE DOUBLE LUMEN (06/25/2024 6:49 PM EDT) Mitch Larios - 06/25/2024 6:49 PM EDT Mitch Izquierdo 06/25/2024 6:52 PM Venous Access Line ([facility] [facility]) Performed by: Mitch Izquierdo Authorized by: Mitch Izquierdo Patient Location: OR Start Time: 06/25/2024 6:35 PM End Time: 06/25/2024 6:40 PM Service Provider: Mitch Izquierdo Placed By: Mitch Izquierdo Patient Identified, IV Checked, Risks and Benefits Discussed, Surgical Consent, Monitors and Equipment Checked, Pre-op Evaluation and Timeout Performed Fire Risk Assessment Score: 1 Venous Access Type: Central Line Number of Central Line Lumens: Double Lumen Is the patient 5 years old or younger: No Prep: Chlorhexidine Hand Hygiene Performed Prior to Insertion: Yes Site Prep Agent has Completely Dried Before Insertion: Yes Power Injectable: Yes CVC Type: Non-Tunneled CVC Size (Fr): 9 Location: Internal Jugular Orientation: Right Securement Method: Sutured and Transparent Dressing Placement Technique: Ultrasound Guidance Insertion Attempts: 2 Placement Verification: Blood Return and Ultrasound Comments: Verified with ultrasound and manometry to confirm placement. No complications noted. Mitch Izquierdo SD ANESTHESIA Final Res ult * SD AN ELECTIVE ENDOTRACHEAL AIRWAY (06/25/2024 6:18 PM EDT) Phani Disla APRN-CRNA - 06/25/2024 6:18 PM EDT ABIGAIL Roman 06/25/2024 6:33 PM Airway Patient location during procedure: OR Urgency: Elective Date/Time: 06/25/2024 6:18 PM Airway not difficult IV In Situ: Peripheral General Information and Staff Service Provider: Mitch Izquierdo Placed by: Mitch Izquierdo Patient Identified, IV Checked, Risks and Benefits Discussed, Surgical Consent, Monitors and Equipment Checked, Pre-op Evaluation and Timeout Performed Fire Risk Assessment Score: 0 Consent for Emergent Airway (if performed for an anesthetic, see related documentation for consents) Risks and benefits: risks, benefits and alternatives were discussed Indications and Patient Condition Sedation level: Deep Preoxygenated: yes Patient position: Supine Mask difficulty assessment: Vent By Mask Indications for airway management: Anesthesia and Airway Protection Spontaneous Ventilation: absent Complications: No Complicating Factors: No Final Airway Details Final airway type: ETT Endotracheal airway: Cuffed and ETT - Single Lumen Techniques used for successful ETT Placement: With Stylet and Video Laryngoscopy Cormack-Lehane Classification: Grade I Endotracheal tube insertion site: Oral Post Intubation Trauma? No Visibility: Cords Clear Blade: Other (Miguel 3x) Placement verified by: chest auscultation, capnography and symmetrical chest wall movement ETT size: 7.5 mm Cuff volume (mL): 5 Measured from: Lips Secured at (cm): 22 Number of attempts at approach: 1 us Mitch Izquierdo ANESTHESIA ORDERABLES Fin al Result * Type and screen(includes indirect palak) (06/25/2024 7:00 AM EDT) ABO O 06/25/2024 9:17 AM EDT [facility] RH Negative 06/25/2024 9:17 AM EDT [facility] Antibody Screen Negative 06/25/2024 9:17 AM EDT [facility] [facility] 06/25/2024 7:00 AM EDT us So Nair TRUCK SALES REPRESENTATIVE-CURATOR OF MANUSCRIPTS BLOOD BANK TEST ORDERABLE S Edited Result - Final [facility] [address] [place] [address], [place] * (ABNORMAL) APTT (06/25/2024 6:39 AM EDT) Only the most recent of7 resultswithin the time period is included. aPTT 73(H) 26 - 37 sec 06/25/2024 7:42 AM EDT [facility] 06/25/2024 6:39 AM EDT 06/25/2024 6:40 AM EDT us Jonathan Siddiqui MD LAB BLOOD ORDERABLES Final Resu lt [facility] [address] [place] [address] * EMBOLIZATION INTRACRANIAL LEFT, NEURO INVASIVE, DIAGNOSTIC CEREBRAL ANGIOGRAM (06/24/2024 12:56 PM EDT) Anatomical Region Laterality Modality X-Ray Angiograph y Narrative 06/24/2024 1:26 PM EDT Neuro interventional procedure report Date: 06/24/24 Surgeon: Ori Hitchcock MD Fryer Operator: Hardeep Golden MD and Jose Guadalupe Allen MD Procedure: Diagnostic cerebral angiogram, tumor embolization, left middle meningeal artery embolization, right occipital embolization Indication: meningioma Diagnosis codes: meningioma History: 64 y.o. female presented with left sided weakness. Workup revealed large right sided meningioma. A diagnostic cerebral angiogram and tumor embolization was requested. Anesthesia: PAT Contrast: 135 cc Fluoroscopy time: 54.4 minutes Technique: The risks and benefits of cerebral angiography and intracranial tumor embolization were discussed with the patient. The risks included but were not limited to ipsilateral blindness, intracranial and extracranial bleeding, vessel dissection, infection, stroke, renal failure, allergy, and . The patient was brought to the angiography suite and placed in the supine position. The bilateral groins were prepped and draped in the usual fashion. Using palpated and fluoroscopic landmarks, a 5 Georgian sheath was placed in the right common femoral artery using a micro puncture modified Seldinger technique. Vessel selection and contrast injection was performed via a AppCast 2 diagnostic catheter. Multiple images were taken of the bilateral carotid and vertebral arteries. The procedure was monitored by nursing staff. Angiography: CPT 15565: Selective catheter placement, LEFT common carotid including angiography of the ipsilateral intracranial carotid circulation. The diagnostic catheter was placed in the common carotid artery. The distal common carotid artery is normal. The carotid bifurcation is normal. The visualized branches of the external carotid artery are normal. The proximal internal carotid artery is normal. The distal cervical, petrous, cavernous, and supraclinoid segments of the internal carotid artery are normal. The origin, course, caliber, and configuration of the ophthalmic artery are normal. The posterior communicating artery is normal. The anterior choroidal artery is normal. The carotid terminus is normal. The M1 segment and the remainder of the middle cerebral artery territory are normal. The A1 segment and the remainder of the anterior cerebral artery territory are normal. There is no filling across the anterior communicating artery to the contralateral A2 segment. Capillary blush is normal. The venous anatomy is normal. There are no visualized aneurysms, stenoses, or vascular malformations. CPT 62512: Selective catheter placement, LEFT external carotid artery, unilateral, with angiography of the ipsilateral external carotid circulation. The left middle meningeal and left occipital arteries supply the meningioma. Based on the above findings, the following neurointerventional procedure was performed: Intracranial embolization (CPT 34617, 50466) The patient was fully heparinized. Under high magnification, fluoroscopic, roadmap conditions, an echelon 10 microcatheter was advanced into the mid to distal left middle meningeal artery over a synchro 2 micro wire. The wire was removed and branch angiography was performed, confirming left middle meningeal artery placement and distal tumor blush. 100-300um embosphere particles were infused in a pulsatile fashion over a prolonged period until distal status and no further tumor bed filling was seen. The microcatheter was removed. CPT 36409: follow up imaging after embolization or infusion from an existing catheter position. Through the diagnostic catheter positioned in the ipsilateral external carotid artery, imaging over the head and neck was performed. This demonstrated occlusion of the distal left middle meningeal artery occlusion and no tumor filling from that vessel. There is trace left occipital filling. Multiple attempts were made to cannulate the occipital artery without success. CPT 78197: Selective catheter placement, RIGHT common carotid including angiography of the ipsilateral intracranial carotid circulation. The diagnostic catheter was placed in the common carotid artery. The distal common carotid artery is normal. The carotid bifurcation is normal. The visualized branches of the external carotid artery are normal. The proximal internal carotid artery is normal. The distal cervical, petrous, cavernous, and supraclinoid segments of the internal carotid artery are normal. The origin, course, caliber, and configuration of the ophthalmic artery are normal. The posterior communicating artery is normal. The anterior choroidal artery is normal. The carotid terminus is normal. The M1 segment and the remainder of the middle cerebral artery territory is normal. The A1 segment is normal. There is trace meningioma filling off the right anterior cerebral artery. There is no filling across the anterior communicating artery to the contralateral A2 segment. Capillary blush is normal. The venous anatomy is normal. There are no visualized aneurysms, stenoses, or vascular malformations. CPT 34328: Selective catheter placement, RIGHT external carotid artery, unilateral, with angiography of the ipsilateral external carotid circulation. There is substantial right occipital filling of the meningioma but not significant middle miningioma or other filling. Based on the above findings, the following neurointerventional procedure was performed: Intracranial embolization (CPT 95566, 74071) The patient was fully heparinized. Under high magnification, fluoroscopic, roadmap conditions, an echelon 10 microcatheter was advanced into the mid to distal right occipital artery over a synchro 2 micro wire. The wire was removed and branch angiography was performed, confirming occipital placement and distal tumor blush. 100-300um embosphere particles were infused in a pulsatile fashion over a prolonged period until distal status and no further tumor bed filling was seen. The microcatheter was removed. CPT 06231: follow up imaging after embolization or infusion from an existing catheter position. Through the diagnostic catheter positioned in the ipsilateral external carotid artery, imaging over the head and neck was performed. This demonstrated occlusion of the distal right occipital artery and no tumor filling. CPT 99188: Selective catheter placement, LEFT vertebral artery, unilateral, with angiography of the ipsilateral vertebral circulation. The diagnostic catheter was placed in the vertebral artery. The visualized distal vertebral artery is normal. The ipsilateral posterior inferior cerebellar artery is normal. The vertebral basilar junction is normal. There is no reflux to the contralateral V4 segment. The basilar segment is normal. The bilateral anterior inferior cerebellar arteries are normal. The bilateral superior cerebellar arteries are normal. The bilateral posterior cerebral arteries are normal. There is no collateral flow via posterior communicating artery to the anterior circulation. Capillary blush is normal. The venous anatomy is normal. There are no visualized aneurysms, stenosis, or vascular malformations. Right common femoral arteriography: The sheath was placed in the straight segment of the artery between the epigastric artery and the common femoral bifurcation. There is no evidence of stenosis, dissection, extravasation, or pseudoaneurysm. Closure: 5F Mynx, right common femoral artery. Hemostasis was achieved. Complications: none Disposition: Patient was transfered back to neurological ICU. Impression: -tumor embolization: left middle meningeal artery and right occipital artery embolization for tumor The findings were discussed with the requesting service. Ori Hitchcock MD PhD Neurointerventional Surgery Jose Guadalupe Allen MD INV NEURO ORDERABLES Edited Result - Final * ABO Rh Repeat (06/24/2024 5:00 AM EDT) ABO O 06/24/2024 8:22 PM EDT [facility] RH Negative 06/24/2024 8:22 PM EDT [facility] 06/24/2024 5:00 AM EDT us So Nair TRUCK SALES REPRESENTATIVE-CURATOR OF MANUSCRIPTS BLOOD BANK TEST ORDERABLE S Final Result [facility] [address] [place] [address], [place] * MR brain synaptive protocol (06/24/2024 2:54 AM EDT) Anatomical Region Laterality Modality Neuro, Head, Head and Neck, Neuro Covera N/A Magnetic Resonance 06/24/2024 1:13 PM EDT Narrative 06/24/2024 1:26 PM EDT MR BRAIN SYNAPTIVE 06/24/2024 2:06 AM INDICATION: Intracranial mass. Abnormal CT. COMPARISON: CT head 06/22/2024. TECHNIQUE: Multiplanar multisequence MR images of the brain synaptive protocol were obtained with and without intravenous contrast. FINDINGS: Avidly lobulated enhancing mass measuring approximately 4.1 x 3.9 x 5.4 cm (AP by TR by CC) centered along the right parafalcine parietal region. This appears to be extra-axial in nature with displacement of the adjacent parenchyma and possible CSF cleft. Internal flow voids are noted. There is abutment and thickening of the adjacent posterior falx cerebri. Suspected invasion or significant compression of the posterior aspect of the superior sagittal sinus (series 15 image 71). Multiple prominent adjacent serpiginous vessels are also noted along the periphery of the mass. Adjacent vasogenic edema within the right frontal and parietal lobes. Associated mass effect with adjacent sulcal effacement, leftward shift of midline structures measuring 0.8 cm, and effacement of the right lateral ventricular atrium and occipital horn. No evidence of ventricular outflow obstruction. No acute intracranial ischemia or intracranial hemorrhage. Slight asymmetric prominence in the right cortical draining veins. Orbits are symmetric. Mild mucosal thickening of the ethmoid air cells. Small mucous retention cyst of the left mastoid sinus. Mastoid air cells are well-aerated. Poorly visualized flow-void of the posterior superior sagittal sinus. IMPRESSION: * Avidly enhancing mass along the paramedian right parietal lobe favored to be extra-axial in nature. Multiple prominent adjacent serpiginous vessels and internal flow voids. Suspected invasion of the posterior aspect superior sagittal sinus. * Surrounding vasogenic edema with sulcal effacement and 0.8 cm leftward shift of midline structures. There is effacement of the right lateral ventricle without evidence of ventricular outflow obstruction. Finalized by Kyle Hayden MD on 06/24/2024 1:26 PM Procedure Note Kyle Hayden MD - 06/24/2024 MR BRAIN SYNAPTIVE 06/24/2024 2:06 AM INDICATION: Intracranial mass. Abnormal CT. COMPARISON: CT head 06/22/2024. TECHNIQUE: Multiplanar multisequence MR images of the brain synaptiveprotocol were obtained with and without intravenous contrast. FINDINGS: Avidly lobulated enhancing mass measuring approximately 4.1 x 3.9 x 5.4 cm(AP by TR by CC) centered along the right parafalcine parietal region.This appears to be extra-axial in nature with displacement of the adjacentparenchyma and possible CSF cleft. Internal flow voids are noted. There is abutment and thickening of the adjacent posterior falx cerebri. Suspectedinvasion or significant compression of the posterior aspect of thesuperior sagittal sinus (series 15 image 71). Multiple prominent adjacentserpiginous vessels are also noted along the periphery of the mass. Adjacent vasogenic edema within the right frontal and parietal lobes.Associated mass effect with adjacent sulcal effacement, leftward shift ofmidline structures measuring 0.8 cm, and effacement of the right lateralventricular atrium and occipital horn. No evidence of ventricular outflow obstruction. No acute intracranial ischemia or intracranial hemorrhage. Slightasymmetric prominence in the right cortical draining veins. Orbits aresymmetric. Mild mucosal thickening of the ethmoid air cells. Small mucousretention cyst of the left mastoid sinus. Mastoid air cells arewell-aerated. Poorly visualized flow-void of the posterior superior sagittal sinus. IMPRESSION: * Avidly enhancing mass along the paramedian right parietal lobe favoredto be extra-axial in nature. Multiple prominent adjacent serpiginousvessels and internal flow voids. Suspected invasion of the posterioraspect superior sagittal sinus. * Surrounding vasogenic edema with sulcal effacement and 0.8 cm leftwardshift of midline structures. There is effacement of the right lateralventricle without evidence of ventricular outflow obstruction. Finalized by Kyle Hayden MD on 06/24/2024 1:26 PM Milton Walker MD IMG MRI ORDERABLES Final Result * CT abdomen and pelvis with contrast (06/23/2024 11:38 AM EDT) Anatomical Region Laterality Modality Body, Abdomen, Body Covera N/A Compu yoana Tomography 06/23/2024 12:1 8 PM EDT Narrative 06/23/2024 12:23 PM EDT Clinical history: Metastatic disease evaluation. Brain mass. Technique: Spiral CT of the abdomen and pelvis was performed after the intravenous administration of contrast material. Sagittal and coronal reformatted imaging was performed. All CT scans at this facility use dose modulation, iterative reconstruction, and/or weight based dosing when appropriate to reduce radiation dose to as low as reasonably achievable. Comparisons: 10/29/2021. Findings: Dependent atelectasis is present in the lung bases, left greater than right. There is no pneumoperitoneum. There is diastases rectus without overt hernia. Cholelithiasis again seen. The liver, granulomatous spleen, adrenal glands and pancreas appear unremarkable. There is a simple cyst upper pole right kidney which requires no follow-up. Bilaterally the renal collecting systems and ureters are dilated to the level of the urinary bladder. The urinary bladder is distended. Abdominal aorta is nonaneurysmal. No retroperitoneal nor mesenteric lymphadenopathy. No retroperitoneal nor intraperitoneal fluid collections. No dilated bowel loops. Patient is status post appendectomy. No acute fracture. No destructive bone lesion. IMPRESSION: 1. Renal collecting systems and ureters are dilated to the level of the urinary bladder and the bladder is markedly distended suggesting bladder dysfunction without obstruction. 2. Otherwise no acute finding in the abdomen or pelvis. 3. Cholelithiasis. Finalized by Rl Sterling MD on 06/23/2024 12:23 PM Procedure Note Rl Sterling MD - 06/23/2024 Clinical history: Metastatic disease evaluation. Brain mass. Technique: Spiral CT of the abdomen and pelvis was performed after theintravenous administration of contrast material. Sagittal and coronalreformatted imaging was performed. All CT scans at this facility use dosemodulation, iterative reconstruction, and/or weight based dosing whenappropriate to reduce radiation dose to as low as reasonably achievable. Comparisons: 10/29/2021. Findings: Dependent atelectasis is present in the lung bases, left greater thanright. There is no pneumoperitoneum. There is diastases rectus withoutovert hernia. Cholelithiasis again seen. The liver, granulomatous spleen,adrenal glands and pancreas appear unremarkable. There is a simple cystupper pole right kidney which requires no follow-up. Bilaterally the renal collectingsystems and ureters are dilated to the level of the urinary bladder. Theurinary bladder is distended. Abdominal aorta is nonaneurysmal. Noretroperitoneal nor mesenteric lymphadenopathy. No retroperitoneal nor intraperitoneal fluid collections. No dilated bowel loops. Patient isstatus post appendectomy. No acute fracture. No destructive bone lesion. IMPRESSION: 1. Renal collecting systems and ureters are dilated to the level of theurinary bladder and the bladder is markedly distended suggesting bladderdysfunction without obstruction. 2. Otherwise no acute finding in the abdomen or pelvis. 3. Cholelithiasis. Finalized by Rl Sterling MD on 06/23/2024 12:23 PM us [place] TRUCK SALES REPRESENTATIVE-[facility] IMG CT ORDERABLES Final Result * (ABNORMAL) Protime & INR (06/22/2024 6:29 PM EDT) Protime 15.3(H) 9.8 - 13.2 sec 06/22/2024 8:59 PM EDT [facility] Inr 1.3(H) 0.9 - 1.2 06/22/2024 8:59 PM EDT [facility] 06/22/2024 6:29 PM EDT 06/22/2024 6:30 PM EDT us Milton Walker MD LAB BLOOD ORDERABLES Final Resul t [facility] [address], [address] [place] [address] * Platelet count (06/22/2024 6:29 PM EDT) Platelets 316 150 - 450 X10E9/L 06/22/2024 8:39 PM EDT [facility] MPV 7.7 7 - 12 fL 06/22/2024 8:39 PM EDT [facility] Blood / Unknown 06/22/2024 6 :29 PM EDT 06/22/2024 6:30 PM EDT us Milton Walker MD LAB BLOOD ORDERABLES Final Resul t Performing Organization Address City/[facility]/ZIP Co de Phone Number [facility] [address] [place] [address] * CT brain without contrast stroke alert (06/22/2024 8:55 AM EDT) us Scanning Provider External IMG CT ORDERABLES Fin al Result * COLONOSCOPY (06/25/2007) us Scanning Provider External HEALTH MAINTENANCE Fi nal Result Performing Organization Address City/[facility]/ZIP Co de Phone Number [facility] [address] [place] [address] from Last 3 Months or Most Recently Relevant to Health Maintenance Insurance [facility] Advance Directives * Full Code (Latest Code Status on File) Date Activated Date Inactivated Comments 08/23/2024 11:14 AM 08/26/2024 6:23 PM * Full Code Date Activated Date Inactivated Comments 06/22/2024 5:17 PM 07/05/2024 5:12 PM * Full Code Date Activated Date Inactivated Comments 05/28/2024 4:39 PM 06/01/2024 9:25 PM Care Teams Drag Down Relationship Specialty Start Date End Date Dinorah Leger APRN-CURATOR OF MANUSCRIPTS [address] [place] [address] PCP - General Nurse Practitioner 03/09/24
--- OUTSIDE RECORDS SUMMARY | 2024-09-14 12:20 | XMS_ITS | Encounter Summary ---
Author Organization [facility] Address [address] [place] [address] Care Team Providers Care Sawmill Supervisor Name Role Phone Self, Referred Primary Care Provider Unavailabl e Encounter Details Date Type Department Care Team (Late st Contact Info) Description 09/10/2024 Telephone [facility] [address], [address] [place] [phone] Abby Barbosa CNP [address] [facility] [phone] Social History Tobacco Use Types Packs/Day Years Used Date Smoking Tobacco: Never Assessed Comments Unknown Sex and Gender Information Value Date Recorded Sex Assigned at Not on file Legal Sex Female 6:47 PM EDT Gender Identity Not on file Sexual Orientation Not on file documented as of this encounter Miscellaneous Notes * Telephone Encounter - Abby Barbosa CNP - 09/10/2024 11:11 AM EDT Please fax the orders for a urinalysis and urine culture to the patient's home health care group. She is suffering from chronic urinary symptoms and did have a recent urinary tract infection after having a Cobian catheter. documented in this encounter Plan of Treatment Upcoming Encounters Date Type Department Care Team (Late st Contact Info) Description 09/29/2024 11:40 AM EDT Follow-Up [facility] Infect[facility] Disease [address], [address] [place] [address] Abby Barbosa, COMMODITIES REQUIREMENTS ANALYST [address] [facility] [place] [address] documented as of this encounter Visit Diagnoses Not on filedocumented in this encounter Care Teams Sawmill Supervisor Relationship Specialty Start Date End Date SELF, REFERRED [address] PCP - General 09/10/24 documented as of this encounter
--- OUTSIDE RECORDS SUMMARY | 2024-09-14 12:20 | XMS_ITS | Encounter Summary ---
Author Organization [facility] Address [address] [place] [address] Care Team Providers Care Hand Binder Cutter Name Role Phone Self, Referred Primary Care Provider Unavailabl e Encounter Details Date Type Department Care Team (Late st Contact Info) Description 09/13/2024 Telephone [facility] [address], [address] [place] [address] Abby Barbosa, SENIOR BRAND MANAGER [address] [facility] [address] Social History Tobacco Use Types Packs/Day Years Used Date Smoking Tobacco: Never Assessed Comments Unknown Sex and Gender Information Value Date Recorded Sex Assigned at Not on file Legal Sex Female 6:47 PM EDT Gender Identity Not on file Sexual Orientation Not on file documented as of this encounter Miscellaneous Notes * Telephone Encounter - Kim Saxena - 09/13/2024 1:50 PM EDT Patient has to get her sutures removed by Dr. Tovar, the office she went to said they couldn't do it, (I believe she said the office she went to was in [place].) documented in this encounter Plan of Treatment Upcoming Encounters Date Type Department Care Team (Late st Contact Info) Description 09/29/2024 11:40 AM EDT Follow-Up [facility] Infectious [facility] [address], [address] [place] [address] Abby Barbosa, SENIOR BRAND MANAGER [address] [facility]/[place] [address] documented as of this encounter Visit Diagnoses Not on filedocumented in this encounter Care Teams Hand Binder Cutter Relationship Specialty Start Date End Date SELF, REFERRED [address] PCP - General 09/10/24 documented as of this encounter
--- OUTSIDE RECORDS SUMMARY | 2024-09-14 12:20 | XMS_ITS | Encounter Summary ---
Author Organization [employer] [facility] tem Address [id number] [address] [place] [address] Care Team Providers Care Medical Record Coder Name Role Phone Dinorah Leger V BELT COVERER-CARD PLAYER Primary Care Provider + Encounter Details Date Type Department Care Team (Late st Contact Info) Description 09/13/2024 Lab Requisition [facility] - Lab [address] [place] [phone] Abby Barbosa, V BELT COVERER-CARD PLAYER [address] [facility] [address] [place] [address] Frequency of micturition Social History Tobacco Use Types Packs/Day Years Used Date Smoking Tobacco: Former Cigarettes 2 20 Q uit: 2019 Smokeless Tobacco: Never Alcohol Use Standard Drinks/Week Comments No 0 (1 standard drink = 0.6 oz pur e alcohol) [facility] Utilities Answer Date Recorded In the past 12 months has [employer], [employer], oil, or water [employer] threatened to shut off services in your [...] Office Visit [facility] [address] [place] [phone] Adarsh Tovar MD [address], [facility] [address] [place], [place] [phone] 11/22/2024 11:45 AM EDT Office Visit [facility] [place] [address] [place] [address] Dedra Olivo, DO [address] [place] [phone] Pending Results Name Type Priority Associated Diagnoses Date /Time Urine culture Microbiology Routine Frequency of micturition 09/13/2024 9:20 AM EDT documented as of this encounter Goals Goal Patient Goal Type Associated Problems Recent Progress Patient-Stated? Author SNF per pt & son Celsetino Rutledge Yes María Ruiz, CEMENT BREAKER Note: Evaluation of progress towards goal: feeling some better transition to SNF at discharge General Yes Mita Paniagua, CEMENT BREAKER Note: Evaluation of progress towards goal: transition to SNF at discharge <enter goal here> General Yes Adonay Luna, RN Note: Evaluation of progress towards goal: home with [facility] documented as of this encounter Procedures Procedure Name Priority Date/Time Associated Diagnosis Comments URINALYSIS Routine 09/13/2024 9:20 AM EDT Frequency of micturition documented in this encounter Results * Urinalysis (09/13/2024 9:20 AM EDT) COLOR Yellow Yellow, Colorless 09/13/2024 10:[address] [facility] TURBIDITY Clear Clear 09/13/2024 10:[address] [facility] SPECIFIC GRAVITY 1.025 1.003 - 1.035 09/13 10:[address] [facility] NITRITE Negative Negative 09/13/2024 10:[address] [facility] PH,URINE 6.0 5.0 - 8.5 09/13/2024 10:[address] [facility] LEUKOCYTE ESTERASE Negative Negative 09/13/2024 10:[address] [facility] PROTEIN Negative Negative 09/13/2024 10:[address] [facility] KETONES (URINE) Negative Negative 10:[address] [facility] UROBILINOGEN 0.2 eu/dL 0.2 eu/dL, 1.0 eu/dL 09/13/2024 10:[address] [facility] BILIRUBIN (URINE) Negative Negative 09/13/2024 10:[address] [facility] BLOOD/HGB Negative Negative 09/13/2024 10:[address] [facility] GLUCOSE (URINE) Negative Negative, 250 mg/dL 09/13/2024 10:[address] [facility] Urine Urine specimen collection, clean catch / Unknown 09/13/2024 9:20 AM EDT 09/13/2024 9:53 AM EDT [address] [facility] - 09/13/2024 10:18 AM EDT Urine received without preservative. Delays in transport may affect results. Interpret with caution. A clinical correlation is recommended. us Abby Barbosa APRN-CARD PLAYER URINE ORDERABLES Ina l Result [facility] [address] [place] [address], documented in this encounter Visit Diagnoses Diagnosis Frequency of micturition Urinary frequency documented in this encounter Additional Health Concerns Assessment Noted Time PHQ-9 Depression Total Score: 0 08/21/19 25 8:33 PM EDT documented as of this encounter Care Teams Medical Record Coder Relationship Specialty Start Date End Date Dinorah Leger APRN-CNP [address] [place], [place] [phone] PCP - General Nurse Practitioner 03/09/24 documented as of this encounter
--- OUTSIDE RECORDS SUMMARY | 2024-09-14 12:21 | XMS_ITS | Encounter Summary ---
Author Organization [facility] tem Address [id number] [address] [place] [address] Care Team Providers Care Cco Name Role Phone Dinorah Leger VISITOR SERVICES ASSISTANT-PEDIATRIC ASSISTANT Primary Care Provider + Encounter Details Date Type Department Care Team (Late st Contact Info) Description 08/30/2024 Lab Requisition [facility] - Lab [address] [place] [phone] Pamela Santiago APRN-PEDIATRIC ASSISTANT [address] [place] [address] Infection following a procedure, organ and space surgical site, initial encounter; Disruption of external operation (surgical) wound, not elsewhere classified, initial encounter Social History Tobacco Use Types Packs/Day Years Used Date Smoking Tobacco: Former Cigarettes 2 20 Q uit: 2019 Smokeless Tobacco: Never Alcohol Use Standard Drinks/Week Comments No 0 (1 standard drink = 0.6 oz pur e alcohol) [facility] Utilities Answer Date Recorded In the past 12 months has [employer], gas, oil, or water [employer] threatened to shut off services in your [...] Office Visit [facility] [address] [place] [phone] Adarsh Tovar MD [address], [facility] [place] [address] [place], [place] [phone] 11/22/2024 11:45 AM EDT Office Visit [facility] [place] [address] Dedra Olivo DO [address] [place] [address] documented as of this encounter Goals Goal Patient Goal Type Associated Problems Recent Progress Patient-Stated? Author SNF per pt & son Celestino General Yes María Ruiz, SCRATCH POLISHER Note: Evaluation of progress towards goal: feeling some better transition to SNF at discharge General Yes Mita Paniagua, SCRATCH POLISHER Note: Evaluation of progress towards goal: transition to SNF at discharge <enter goal here> General Yes Adonay Luna RN Note: Evaluation of progress towards goal: home with [facility] documented as of this encounter Procedures Procedure Name Priority Date/Time Associated Diagnosis Comments CBC WITH AUTO DIFFERENTIAL Routine 08/30/2024 3:25 [...] encounter Results * (ABNORMAL) CBC auto differential (08/30/2024 3:25 PM EDT) WBC 11.2(H) 4 - 11 x10E9/L 08/30/2024 4:00 PM EDT [facility] RBC Count 3.77(L) 3.8 - 5.2 X10E12/L 08/30/2024 4:00 PM EDT [facility] Hemoglobin 12.2 11.7 - 15.5 g/dL 08/30/2024 4:00 PM EDT [facility] Hematocrit 36.0 35 - 47 % 08/30/2024 4:00 PM EDT [facility] MCV 96 80 - 100 fL 08/30/2024 4:00 PM EDT [facility] MCH 32.4 27 - 34 pg 08/30/2024 4:00 PM EDT [facility] MCHC 33.9 32 - 36 g/dL 08/30/2024 4:00 PM EDT [facility] RDW 14.7 11.5 - 15 % 08/30/2024 4:00 PM EDT [facility] Platelet Count 300 150 - 450 X10E9/L 08/30/2024 4:00 PM EDT [facility] MPV 7.1 7 - 12 fL 08/30/2024 4:00 PM EDT [facility] Neutrophils Relative 84.1 % 08/30/2024 4:00 PM EDT [facility] Lymphocytes Relative 10.7 % 08/30/2024 4:00 PM EDT [facility] Monocytes Relative 4.9 % 08/30/2024 4:00 PM EDT [facility] Eosinophils Relative 0.1 % 08/30/2024 4:00 PM EDT [facility] Basophils Relative 0.2 % 08/30/2024 4:00 PM EDT [facility] Neutrophils Absolute (A) 9.4(H) 1.5 - 6.6 10*3/uL 08/30/2024 4:00 PM EDT [facility] Lymphocytes Absolute 1.2 1.0 - 3.5 10*3/uL 08/30/2024 4:00 PM EDT [facility] Monocytes Absolute 0.5 0.0 - 0.9 10*3/uL 08/30/2024 4:00 PM EDT [facility] Eosinophils Absolute 0.0 0.0 - 0.4 10*3/uL 08/30/2024 4:00 PM EDT [facility] Basophils Absolute 0.0 0.0 - 0.2 10*3/uL 08/30/2024 4:00 PM EDT [facility] Differential Type AUTOMATED DIFFERENTIAL 08/30/2024 4:00 PM EDT [facility] Blood Venous blood / Unknown 08/30/2024 3:25 PM EDT 08/30/2024 3:57 PM EDT us Pamela Amadio VISITOR SERVICES ASSISTANT-PEDIATRIC ASSISTANT LAB BLOOD ORDERABLES Ina l Result [address] [place] [address], [place] * BUN (08/30/2024 9:40 AM EDT) BLOOD UREA NITROGEN 22 5 - 27 mg/dL 08/30/2024 10:41 AM EDT [facility] Blood Venous blood / Unknown 08/30/2024 9:40 AM EDT 08/30/2024 10:20 AM EDT us Pamela Amadio VISITOR SERVICES ASSISTANT-PEDIATRIC ASSISTANT LAB BLOOD ORDERABLES Ina l Result [address] [place] [address], [place] * Vancomycin, trough (08/30/2024 9:40 AM EDT) VANCOMYCIN TROUGH 8.5 5.0 - 20.0 ug/mL 08/30/2024 10:41 AM EDT [facility] Blood Venous blood / Unknown 08/30/2024 9:40 AM EDT 08/30/2024 10:20 AM EDT us Pamela Amadio VISITOR SERVICES ASSISTANT-PEDIATRIC ASSISTANT LAB BLOOD ORDERABLES Ina l Result Performing Organization Address City/[facility] Co de Phone Number [facility] [address] [place] [address] [place] [address], [place] * Creatinine includes GFR, serum (08/30/2024 9:40 AM EDT) CREATININE 0.63 0.40 - 1.00 mg/dL 08/30/2024 10:41 AM EDT [facility] Comment:METHOD TRACEABLE TO IDHI STANDARD EGFR Non-Race Dependent >90 >=60 ml/min/1.7 3sq.m 08/30/2024 10:41 AM EDT [facility] Comment: Reported eGFR is based on the CKD-EPI 2020 equation that does not use a race coefficient. Blood Venous blood / Unknown 08/30/2024 9:40 AM EDT 08/30/2024 10:20 AM EDT us Pamela Amadio VISITOR SERVICES ASSISTANT-PEDIATRIC ASSISTANT LAB BLOOD ORDERABLES Ina l Result Performing Organization Address [facility] Co de Phone Number [address] [place] [address], [place] * (ABNORMAL) C-reactive protein (08/30/2024 9:40 AM EDT) C REACTIVE PROTEIN 1.2(H) <=0.7 mg/dL 08/30/2024 10:41 AM EDT [facility] Blood Venous blood / Unknown 08/30/2024 9:40 AM EDT 08/30/2024 10:20 AM EDT us Pamela Amadio VISITOR SERVICES ASSISTANT-PEDIATRIC ASSISTANT LAB BLOOD ORDERABLES Ina l Result Performing Organization Address City/[facility] Co de Phone Number [address] [place] [address], [place] documented in this encounter Visit Diagnoses Diagnosis Infection following a procedure, organ and space surgical site, initial encounter Disruption of external operation (surgical) wound, not elsewhere classified, initial encounter documented in this encounter Additional Health Concerns Assessment Noted Time PHQ-9 Depression Total Score: 0 08/21/19 25 8:33 PM EDT documented as of this encounter Care Teams Cco Relationship Specialty Start Date End Date Dinorah Leger APRN-EKATERINA [address] [place] [address] PCP - General Nurse Practitioner 03/09/24 documented as of this encounter
--- OUTSIDE RECORDS SUMMARY | 2024-09-14 12:21 | XMS_ITS | Encounter Summary ---
Author Organization [facility] Address [address] [place] [address] Care Team Providers Care Hot Plate Plywood Press Feeder Name Role Phone Misa Grey MD Primary Care Provider [phone] Deacon Lacy DO Unavailable [phone] Dinorah Leger MD Unavailable [phone] Encounter Details Date Type Department Care Team (Late st Contact Info) Description 01/10/2023 Abstract [facility] [address] [place] [phone] Phil Cano, DPM [address] [place], [place] [phone] Social History Tobacco Use Types Packs/Day Years [...] on file documented as of this encounter Visit Diagnoses Not on filedocumented in this encounter Care Teams Hot Plate Plywood Press Feeder Relationship Specialty Start Date End Date Misa Grey MD [address] [place], [place] [phone] PCP - General Pediatrics 09/11/22 Deacon Lacy DO [address] [place] [address] Referring Physician Neurology 04/08/24 Dinorah Leger MD [address] [place] [address] Referring Physician Wrist Hemmer 04/08/24 documented as of this encounter
--- OUTSIDE RECORDS SUMMARY | 2024-09-14 12:21 | XMS_ITS | Encounter Summary ---
Author Organization [facility] tem Address [id number] [address] [place] [address] Care Team Providers Care Supervisor [place] Name Role Phone Dinorah Leger APRN-GASTROENTEROLOGY MANAGER Primary Care Provider + Encounter Details Date Type Department Care Team (Late Contact Info) Description 05/14/2022 Orders Only [facility] [address] [place] [phone] Saadia Engle PA-C [address] [facility], 2nd [place] [address] Social History Tobacco Use Types Packs/Day Years Used Date Smoking Tobacco: Former Cigarettes Q uit: 2019 Smokeless Tobacco: Never Alcohol Use Standard Drinks/Week Comments No 0 (1 standard drink = 0.6 oz pur e alcohol) Childcare Answer Date Recorded Childcare Unknown 09/01/2018 Employment Answer Date Recorded Employment Unknown 09/01/2018 Purpose - Life Answer Date Recorded Purpose and direction in life Unknown Comments No Sex and Gender Information Value Date Recorded Sex Assigned at Not on file Legal Sex Female 11:28 AM EDT Gender Identity Female 05/28/2024 5:58 PM EST Sexual Orientation Straight 05/28/2024 5: 58 PM EST COVID-19 Exposure Response Date Recorded In the last month, have you been in contact with someone who was confirmed or suspected to have Coronavirus / COVID-19? No / Unsure 05/07/2022 11:20 AM EST documented as of this encounter Plan of Treatment Upcoming Encounters Date Type Department Care Team (Late Contact Info) Description 09/29/2024 12:50 PM EDT Office Visit [facility] [address] [place] [phone] Adarsh Tovar MD [address], [address] [place], [place] [phone] 11/22/2024 11:45 AM EDT Office Visit [facility] [place] [address] [place] [address] Dedra Olivo, [address] [facility] [address] [place] [address] documented as of this encounter Visit Diagnoses Not on filedocumented in this encounter Care Teams Supervisor [place] Relationship Specialty Start Date End Date Dinorah Leger APRN-EKATERINA [address] [place] [address] PCP - General Nurse Practitioner 03/09/24 documented as of this encounter
--- OUTSIDE RECORDS SUMMARY | 2024-09-14 12:21 | XMS_ITS | Encounter Summary ---
Author Organization [employer] tem Address [id number] [address] [place] [address] Care Team Providers Care Cyber Crime Investigator Name Role Phone Dinorah Leger CENTRAL OFFICE EQUIPMENT ENGINEER-INSTRUCTIONAL TECHNOLOGY TEACHER Primary Care Provider + Encounter Details Date Type Department Care Team (Late st Contact Info) Description 10/24/2022 Telephone [facility] [address] [address] Pat Ramos RN Social History Tobacco Use Types Packs/Day Years [...] encounter Miscellaneous Notes * Telephone Encounter - Pat Ramos RN - 10/24/2022 11:55 AM EDT Patient called nurse line and left message requesting pap supply order. Rehabilitation Supervisor returned call. No answer. Unable to leave message as patient has not setup voicemail. Pap supply order was sent on 10-18-22 by CHARLINE Figueroa to [facility] documented in this encounter Plan of Treatment Upcoming Encounters Date Type Department Care Team (Late st Contact Info) Description 09/29/2024 12:50 PM EDT Office Visit [facility] [address] [place] [phone] Adarsh Tovar MD [address], [address] [place], [place] [phone] 11/22/2024 11:45 AM EDT Office Visit [facility] [place] [address] [place] [address] Dedra Olivo, DO [address] [facility] [address] [place] [address] documented as of this encounter Visit Diagnoses Not on filedocumented in this encounter Care Teams Cyber Crime Investigator Relationship Specialty Start Date End Date Dinorah Leger APRN-EKATERINA [address] [place], [place] [phone] PCP - General Nurse Practitioner 03/09/24 documented as of this encounter
--- OUTSIDE RECORDS SUMMARY | 2024-09-14 12:21 | XMS_ITS | Encounter Summary ---
Author Organization [employer] tem Address [id number] [address] [place] [address] Care Team Providers Care Ramp Flight Attendant Name Role Phone Dinorah Leger STRIPPER SOFT PLASTIC-MECHANICAL CAR CHECKER Primary Care Provider + Encounter Details Date Type Department Care Team (Latest Contact Info) Description 09/01/2024 Travel Social History Tobacco Use Types Packs/Day Years Used Date Smoking Tobacco: Former Cigarettes 2 20 Q uit: 2019 Smokeless Tobacco: Never Alcohol Use Standard Drinks/Week Comments No 0 (1 standard drink = 0.6 oz pur e alcohol) [facility] Utilities Answer Date Recorded In the past 12 months has [employer], gas, oil, or water company threatened [...] Office Visit [facility] [address] [place] [phone] Adarsh Tovar MD [address], [address] [place], [place] [phone] 11/22/2024 11:45 AM EDT Office Visit [facility] [place] [address] [place] [address] Dedra Olivo, DO [address] [facility] [address] [place] [address] documented as of this encounter Goals Goal Patient Goal Type Associated Problems Recent Progress Patient-Stated? Author SNF per pt & son Celestino General Yes María Ruiz ROLL FORGER Note: Evaluation of progress towards goal: feeling some better transition to SNF at discharge General Yes Mita Paniagua ROLL FORGER Note: Evaluation of progress towards goal: transition to SNF at discharge <enter goal here> General Yes Adonay Luna, RN Note: Evaluation of progress towards goal: home with [facility] documented as of this encounter Visit Diagnoses Not on filedocumented in this encounter Additional Health Concerns Assessment Noted Time PHQ-9 Depression Total Score: 0 08/21/19 25 8:33 PM EDT documented as of this encounter Care Teams Ramp Flight Attendant Relationship Specialty Start Date End Date Dinorah Leger APRN-EKATERINA [address] [place] [address] PCP - General Nurse Practitioner 03/09/24 documented as of this encounter
--- OUTSIDE RECORDS SUMMARY | 2024-09-14 12:21 | XMS_ITS | Encounter Summary ---
Author Organization [facility] Address [address] [place] [address] Care Team Providers Care Training And Development Specialist Name Role Phone Self, Referred Primary Care Provider Unavailabl e Encounter Details Date Type Department Care Team (Late st Contact Info) Description 09/06/2024 Telephone [facility] Infectious Disease [address] [facility], [address] [place] [address] Halley Haynes MA Social History Tobacco Use Types Packs/Day Years Used Date Smoking Tobacco: Never Assessed Comments Unknown Sex and Gender Information Value Date Recorded Sex Assigned at Not on file Legal Sex Female 6:47 PM EDT Gender Identity Not on file Sexual Orientation Not on file documented as of this encounter Miscellaneous Notes * Telephone Encounter - Halley Haynes MA - 09/06/2024 1:55 PM EDT [facility] documented in this encounter Plan of Treatment Upcoming Encounters Date Type Department Care Team (Late st Contact Info) Description 09/29/2024 11:40 AM EDT Follow-Up [facility] Infectious Disease [address] [facility], [address] [place] [address] Abby Barbosa, ELECTRONICS RECYCLER [address] [facility]/[place] [address] documented as of this encounter Visit Diagnoses Not on filedocumented in this encounter Care Teams Training And Development Specialist Relationship Specialty Start Date End Date SELF, REFERRED [address] PCP - General 09/10/24 documented as of this encounter
--- OUTSIDE RECORDS SUMMARY | 2024-09-14 12:21 | XMS_ITS | Encounter Summary ---
Author Organization [facility] Address [address] [place] [address] Care Team Providers Care Venetian Blind Assembler Name Role Phone Misa Grey MD Primary Care Provider [phone] Deacon Lacy DO Unavailable [phone] Dinorah Leger MD Unavailable [phone] Encounter Details Date Type Department Care Team (Late st Contact Info) Description 01/24/2023 External Result Encounter [facility] External Department Unsolicited Sukhwinder Voss, DRIVER STARTING GATE [address] [place] [address] Social History Tobacco Use Types Packs/Day Years [...] Procedure Name Priority Date/Time Associated Diagnosis Comments MR HIP LEFT WO IV CONTRAST 01/24/2023 2:19 PM EDT documented in this encounter Results * MR hip left wo IV contrast (01/24/2023 2:19 PM EDT) Anatomical Region Laterality Modality Lower Extremities, Hip Left Magnetic Resonance 01/24/2023 2:19 PM EDT Impressions 02/14/2023 7:59 PM EST Unremarkable left hip. Findings suggesting left greater trochanter bursitis. Edematous changes of the left gluteus zunilda tendon near the femoral shaft insertion. Impression dictated by: Nii Dangelo M.D.01/24/2023 2:31 PM Dictation Location: [place] [address] Transcribed By: [facility] 01/24/23 143 Dictated By: Nii Dangelo DO 01/24/23 1419 Signed By: <Electronically signed by Nii Dangelo DO in OV> 01/24/23 1431 Narrative 02/14/2023 7:59 PM EST [facility] Main [place] [address] [place] [address] MRI Report Signed Patient: Melissa Godoy MR#: [id number] 156 : 1960 Acct:[id number] Age/Sex: 62 / F ADM Date: 01/24/23 Loc: MR Room: Type: [facility] Attending Dr: Sukhwinder Voss DRIVER STARTING GATE-C Copies to: Sukhwinder Voss LIBRARY CATALOGING TECHNICIAN Ordering Provider: Sukhwinder Voss CNP Date of Service: 01/24/23 MR/MR hip LT wo con: M25.552, S70.02XA MRI left hip without contrast Routine technique HISTORY: Fell. Left hip pain 1 month ago. Continued posterior pain. Continued left groin pain. Painful weightbearing. Pelvis: PUBIC SYMPHYSIS: Unremarkable SI JOINTS: Unremarkable COMPARISON HIP: Unremarkable VISUALIZED LUMBAR SPINE: Unremarkable Bone: BONE MARROW EDEMA: None BONE MARROW INFILTRATION: None FRACTURE: None CAM DEFORMITY: None Joint space: LIGAMENTUM TERES: Unremarkable LABRUM: No tear. Chondral labrum intact. CARTILAGE: Intact SYNOVIAL PROLIFERATION: None Tendons: GLUTEUS MINIMUS TENDON: Intact. Normal attachment of the anterior facet. GLUTEUS MEDIUS TENDON: Intact. Normal lateral and superolateral facet attachment. ILIOPSOAS TENDON: Intact. Adequate position anterior to the anterior labrum. No bursitis. RECTUS FEMORIS TENDON: Intact PIRIFORMIS MUSCLE: Unremarkable Muscular edema of the left gluteus zunilda near the femoral shaft insertion. Consider strain/partial tear. ADDITIONAL FINDINGS: None INGUINAL HERNIA: None MR/MR hip LT wo con Procedure Note Radiology, Radiologist, - 02/14/2023 [facility] Main [place] [address] [place] [address] MRI Report Signed Patient: Melissa Godoy JMR#: [id number] : 1960Acct:[id number] Age/Sex: 62 / FADM Date: 01/24/23 Loc: MR Room:Type: [facility] Attending Dr: Sukhwinder Voss DRIVER STARTING GATE-C Copies to: Sukhwinder Voss LIBRARY CATALOGING TECHNICIAN Ordering Provider: Sukhwinder Voss LIBRARY CATALOGING TECHNICIAN Date of Service: 01/24/23 MR/MR hip LT wo con: M25.552, S70.02XA MRI left hip without contrast Routine technique HISTORY: Fell. Left hip pain 1 month ago. Continued posterior pain.Continued left groin pain. Painful weightbearing. Pelvis: PUBIC SYMPHYSIS: Unremarkable SI JOINTS: Unremarkable COMPARISON HIP: Unremarkable VISUALIZED LUMBAR SPINE: Unremarkable Bone: BONE MARROW EDEMA: None BONE MARROW INFILTRATION: None FRACTURE: None CAM DEFORMITY: None Joint space: LIGAMENTUM TERES: Unremarkable LABRUM: No tear. Chondral labrum intact. CARTILAGE: Intact SYNOVIAL PROLIFERATION: None Tendons: GLUTEUS MINIMUS TENDON: Intact. Normal attachment of the anterior facet. GLUTEUS MEDIUS TENDON: Intact. Normal lateral and superolateral facetattachment. ILIOPSOAS TENDON: Intact. Adequate position anterior to the anteriorlabrum. No bursitis. RECTUS FEMORIS TENDON: Intact PIRIFORMIS MUSCLE: Unremarkable Muscular edema of the left gluteus zunilda near the femoral shaftinsertion. Consider strain/partial tear. ADDITIONAL FINDINGS: None INGUINAL HERNIA: None MR/MR hip LT wo con IMPRESSION: Unremarkable left hip. Findings suggesting left greater trochanterbursitis. Edematous changes of the left gluteus zunilda tendon near the femoralshaft insertion. Impression dictated by: Nii Dangelo M.D.01/24/2023 2:31 PM Dictation Location: [place] [address] Transcribed By: [facility] 01/24/23 1431 Dictated By: Nii Dangelo DO 01/24/23 1419 Signed By: <Electronically signed by Nii Dangelo DO in OV> 01/24/23 1431 Sukhwinder Voss DRIVER STARTING GATE IMG MRI PROCEDURES Edited Resul t - Final documented in this encounter Visit Diagnoses Not on filedocumented in this encounter Care Teams Venetian Blind Assembler Relationship Specialty Start Date End Date Misa Grey MD [address] [place], [place] [phone] PCP - General Pediatrics 09/11/22 Deacon Lacy DO [address] [facility] [address] [place] [address] Referring Physician Neurology 04/08/24 Dinorah Leger MD [address] [place], [place] [phone] Referring Physician Manager Sign 04/08/24 documented as of this encounter
--- OUTSIDE RECORDS SUMMARY | 2024-09-14 12:21 | XMS_ITS | Encounter Summary ---
Author Organization [facility] Address [address] [place] [address] Care Team Providers Care Automobile Or Truck Rental Dispatcher Name Role Phone Misa Grey MD Primary Care Provider [phone] Deacon Lacy DO Unavailable [phone] Dinorah Leger MD Unavailable [phone] Encounter Details Date Type Department Care Team (Late st Contact Info) Description 12/25/2022 Abstract [facility] [address] [facility] [place] [phone] Sukhwinder Voss, PUTTY MIXER AND APPLIER [address] [place], [place] [phone] Social History Tobacco Use Types Packs/Day Years [...] on filedocumented in this encounter Care Teams Automobile Or Truck Rental Dispatcher Relationship Specialty Start Date End Date Misa Grey MD [address] [place], [place] [phone] PCP - General Pediatrics 09/11/22 Deacon Lacy DO [address] [place] [address] Referring Physician Neurology 04/08/24 Dinorah Leger MD [address] [place] [address] Referring Physician Director Erp 04/08/24 documented as of this encounter
--- OUTSIDE RECORDS SUMMARY | 2024-09-14 12:21 | XMS_ITS | Clinical Summary ---
Author Organization [facility] Address [address] [place], [place] [phone] Care Team Providers Care Anvil Seating Press Operator Name Role Phone Trixie Schmidt MD Primary Care Provider [phone] Eula Mueller DO, George Cajetan Unavailable Allergies Active Allergy Reactions Criticality Noted Date Comments Sulfamethoxazole-Trimethoprim Hives 2007 Medications quetiapine fumarate(SEROQU EL 300 MG TAB) Take one(1) tablet twice daily as necessary 0 8 Active aripiprazole(AB ILIFY 20 MG TAB) Take one(1) tablet daily. 0 8 Active ALBUTEROL 90 MCG/ACTUATION AEROSOL INHALER Inhale one(1) - two(2) puffs four(4) times a day as needed for wheezing and shortness of breath. 0 8 Active levothyroxine sodium(SYNTHROI D 200 MCG TAB) Take one(1) tablet daily. 0 8 Active levothyroxine sodium(SYNTHROI D 25 MCG TAB) Take one(1) tablet daily. 0 8 Active montelukast sodium(SINGULAI R 10 MG TAB) Take one(1) tablet daily at bedtime. 0 8 Active fluticasone/gilda meterol(ADVAIR DISKUS 250 MCG-50 MCG/DOSE FOR INHALATION) Take one(1) inhalation twice daily; rinse and gargle mouth with water after each use. 0 8 Active aspirin(ASPIR-L OW 81 MG TAB) Take one(1) tablet daily. 0 8 Active Family History Medical History Relation Comments Cancer Father Relation Status Comments Father Social History Tobacco Use Types Packs/Day Years Used Date Smoking Tobacco: Former Cigarettes 1.3 8 0 06/17/1999 - 06/17/2007 Alcohol Use Standard Drinks/Week Comments No 0 (1 standard drink = 0.6 oz pur e alcohol) Comments No Sex and Gender Information Value Date Recorded Sex Assigned at Not on file Legal Sex Female 8:13 AM EST Gender Identity Not on file Sexual Orientation Not on file Last Filed Vital Signs Vital Sign Reading Time Taken Comments Blood Pressure 131/81 07/01/2007 4:05 PM EDT Pulse 78 07/01/2007 4:05 PM EDT Temperature - - Respiratory Rate - - Oxygen Saturation 96% 07/01/2007 4:05 PM EDT Inhaled Oxygen Concentration - - Weight 126.1 kg (278 lb) 07/01/2007 4:05 PM EDT Height 160 cm (5' 3 ) 07/01/2007 4:05 PM EDT Body Mass Index 49.25 07/01/2007 4:05 PM EDT Plan of Treatment Health Maintenance Due Date Last Done Comments Anxiety Screening 1977 Depression Screening 1977 HIV Screening 1977 Hepatitis C Screening 1977 DTaP,Tdap,Td Vaccine (1 - Tdap) [address] Colonography 2004 Cologuard (FIT-DNA) 2004 Colonoscopy 2004 Colorectal Cancer Screening 2004 Diabetes Screening 2004 Fecal Occult Blood 2004 Lipid Screening 2004 Sigmoidoscopy 2004 Pneumococcal Vaccine: 50+ (1 of 1 - PCV) 2009 Shingrix Vaccine (1 of 2) 2009 Covid-19 Vaccine ( - season) 2023 Advance Directive Discussion 2024 Bone Density Screening 2024 Influenza Vaccine (Season Ended) 2024 RSV Vaccine (1 - 1-dose 75+ series) 2034 Insurance [employer] MEDICARE ADVANTAGE PPO Care Teams Anvil Seating Press Operator Relationship Specialty Start Date End Date Trixie Schmidt MD PCP - General 06/30/07 Andrew Forde Jr., [address] [place] [address] Referring Orthopedics 08/05/22
--- OUTSIDE RECORDS SUMMARY | 2024-09-14 12:21 | XMS_ITS | Encounter Summary ---
Author Organization [employer] [facility] [employer] Address [id number] [address] [place] [address] Care Team Providers Care Ferruler Name Role Phone Dinorah Leger [employer] MEMBER-PEDIATRIC REGISTERED NURSE Primary Care Provider + Encounter Details Date Type Department Care Team (Late st Contact Info) Description 10/28/2022 Telephone [facility] Pul[facility] [address] [phone] Pat Ramos RN Social History [...] Telephone Encounter - Pat Ramos RN - 10/28/2022 1:41 PM EDT Patient called nurse line and requested script for pap supplies to go to [facility] [email or web address]. Engraver Signature informed patient KEWEENAW, is no longer in service. Script sent to [facility]. Provided patient with phone number to contact them for pap supplies. Patient agreeable. documented in this encounter Plan of Treatment Upcoming Encounters Date Type Department Care Team (Late st Contact Info) Description 09/29/2024 12:50 PM EDT Office Visit [facility] [address] [place] [phone] Adarsh Tovar MD [address] [place], [place] [phone] 11/22/2024 11:45 AM EDT Office Visit [facility] [place] [address] [place] [address] Dedra Olivo, DO [address] [facility] [address] [place] [address] documented as of this encounter Visit Diagnoses Not on filedocumented in this encounter Care Teams Ferruler Relationship Specialty Start Date End Date Dionrah Leger APRN-EKATERINA [address] [place], [place] [phone] PCP - General Nurse Practitioner 03/09/24 documented as of this encounter
--- OUTSIDE RECORDS SUMMARY | 2024-09-14 12:21 | XMS_ITS | Encounter Summary ---
Author Organization [facility] Address [address] [place] [address] Care Team Providers Care Grinder Lap Name Role Phone Unavailable Primary Care Provider Unavailabl e Reason for Referral * Specialty Diagnoses / Procedures Referred By Norm izaguirre [facility] [address] [place] [address] Referral ID Status Reason Start Date Expiration Date Visits Re quested Visits Authorized Comments This order was created through External Result Entry Encounter Details Date Type Department Care Team (Late st Contact Info) Description 08/13/2024 Orders Only [facility] Primary Care [address] [facility] [address] [place], [place] [phone] ProviderGayla MD Social History Tobacco Use Types Packs/Day Years Used Date Smoking Tobacco: Never Assessed Comments Unknown Sex and Gender Information Value Date Recorded Sex Assigned at Not on file Legal Sex Female 4:01 PM EST Gender Identity Not on file Sexual Orientation Not on file documented as of this encounter Plan of Treatment Not on file documented as of this encounter Procedures Procedure Name Priority Date/Time Associated Diagnosis Comments AMB REFERRAL TO RADIATION ONCOLOGY Routine 08/13/2024 3:46 PM EDT documented in this encounter Results * Ambulatory referral to Radiation Oncology (08/13/2024 3:46 PM EDT) Gayla Provider OUTPATIENT REFERRAL ORDER DARSHANA Final Result documented in this encounter Visit Diagnoses Not on filedocumented in this encounter
--- OUTSIDE RECORDS SUMMARY | 2024-09-14 12:21 | XMS_ITS | Clinical Summary ---
Author Organization [facility] Address [address] [place] [address] Care Team Providers Care Cleat Feeder Name Role Phone Misa Grey MD Primary Care Provider [phone] Deacon Lacy DO Unavailable [phone] Dinorah Leger MD Unavailable [phone] Allergies Active Allergy Reactions Criticality Noted Date Comments Gabapentin Unknown 12/11/2023 Semaglutide Other 09/11/2022 Sulfamethoxazole-Trimethoprim Hives,Unknown 05/2007 Medications albuterol HFA 90 mcg/act inhaler Inhale 2 puffs every 4 (four) hours if needed for shortness of breath Active atorvastatin (Lipitor) 20 MG tablet Take 20 mg by mouth in the morning. Active levothyroxine (Synthroid, Levoxyl) 150 MCG tablet 1 (one) time each day at the same time. Active losartan (Cozaar) 100 MG tablet Take 100 mg by mouth Daily Active MONTELUKAST SODIUM PO Montelukast Sodium Active amLODIPine (Norvasc) 5 MG tablet 1 (one) time each day at the same time. Active ARIPiprazole (Abilify) 30 MG tablet 1 (one) time each day at the same time. Active benztropine (Cogentin) 0.5 MG tablet 1 (one) time each day at the same time. Active cyanocobalamin (Vitamin B-12) 1000 MCG tablet Take 1,000 mcg by mouth every other day Active levothyroxine (Synthroid, Levoxyl) 150 MCG tablet TAKE 1 TABLET BY MOUTH EVERY DAY IN THE MORNING ON AN EMPTY STOMACH 3 Active metFORMIN XR (Glucophage-XR) 500 MG 24 hr tablet Take 1,000 mg by mouth 1 (one) time each day at the same time Active montelukast (Singulair) 10 MG tablet 1 (one) time each day at the same time. Active omega-3 (Fish Oil) 1000 MG capsule 1 capsule every 12 (twelve) hours. Active QUEtiapine (SEROquel) 25 MG tablet Take 75 mg by mouth in the morning and 75 mg in the evening and 75 mg before bedtime. Active meloxicam (Mobic) 7.5 MG tablet TAKE 1 TABLET BY MOUTH TWICE DAILY FOR 15 DAYS NEEDED 3 Active Melatonin 5 MG chewable tablet Chew Acti ve DULoxetine (Cymbalta) [address] capsule Take 60 mg by mouth Daily Do not crush or chew. Active Mounjaro 2.5 MG/0.5ML solution auto-injector 2.5 mg 1 (one) time per week 4 Active pregabalin (Lyrica) 25 MG capsuleIndicati ons:Numbness of left lower extremity Take 1 capsule (25 mg) by mouth in the morning and 1 capsule (25 mg) before bedtime. 60 capsule 1 5 Active Active Problems No known active problems Immunizations Immunization Administration Dates Next Due Influenza, injectable, MDCK, preservative free, quadrivalent 12/22/2021 Influenza, injectable, quadr ivalent, preservative free 12/29/2022,01/01/2021,01/05/2020,2018,01/12/2018,12/29/2017,01/13/2017 Influenza, seasonal, injecta ble, preservative free 12/31/2015,01/04/2015 RSV, recombinant, protein pack bunit RSVpreF, adjuvant reconstitu, 120mcg/0.5mL, PF (Arexvy) 02/07/2023 RSV-MAb 02/07/2023 Tdap 02/07/2023,07/18/2008 Zoster, Recombinant 04/04/2023,02/07/2023 Family History Medical History Relation Name Comments Cancer Father HTN Mother Cancer Paternal Grandfather Relation Name Status Comments Father Mother Alive Paternal Grandfather Paternal Grandmother Social History Tobacco Use Types Packs/Day Years Used Date Smoking Tobacco: Former Cigarettes Smokeless Tobacco: Never Tobacco Cessation:Counseling Given: Not Answered Alcohol Use Standard Drinks/Week Comments Never 0 [...] Sign Reading Time Taken Comments Blood Pressure 108/60 04/08/2024 4:19 PM EST Pulse 57 04/08/2024 4:19 PM EST Temperature - - Respiratory Rate - - Oxygen Saturation 96% 01/15/2024 1:14 PM EDT Inhaled Oxygen Concentration - - Weight 133 kg (294 lb) 04/08/2024 4:19 PM EST Height 160 cm (5' 3 ) 04/08/2024 4:19 PM EST Body Mass Index 52.08 04/08/2024 4:19 PM EST Plan of Treatment Health Maintenance Due Date Last Done Comments CT Colonography 1959 Colonoscopy 1959 Colorectal Cancer Screening 1959 FIT-DNA 1959 FIT 1959 FOBT 1959 Sigmoidoscopy 1959 Pap Smear 1980 Cervical Cancer Screening 1989 HPV/Cotest 1989 Mammogram 07/08/2024 07/09/2023, 03/0 11/2022, 06/04/2021, Additional history exists Influenza Vaccine Completed 01/02/2024, , 12/22/2021, Additional history exists Pneumococcal Vaccine: 65+ Years Completed 4 Insurance [facility] MEDICARE ADVANTAGE Care Teams Cleat Feeder Relationship Specialty Start Date End Date Misa Grey MD [address] [place], [place] [phone] PCP - General Pediatrics 09/11/22 Deacon Lacy DO [address] [facility] [address] [place] [address] Referring Physician Neurology 04/08/24 Dinorah Leger MD [address] [place], [place] [phone] Referring Physician Line Technician 04/08/24
--- OUTSIDE RECORDS SUMMARY | 2024-09-14 12:21 | XMS_ITS | Encounter Summary ---
Author Organization [employer] [facility] [employer] Address [id number] [place] [address] Care Team Providers Care County Director Name Role Phone Dinorah Leger SEARCH PLANNER-CYTOTECHNOLOGIST/CYTOLOGY SUPERVISOR Primary Care Provider + Encounter Details Date Type Department Care Team (Late st Contact Info) Description 07/30/2024 Orders Only [facility] [address] [facility] [address] [address] [place] [phone] Ref Prov, [place] [address] Social History Tobacco Use Types Packs/Day Years Used Date Smoking Tobacco: Former Cigarettes Q uit: 2019 Smokeless Tobacco: Never Alcohol Use Standard Drinks/Week Comments No 0 (1 standard drink = 0.6 oz pur e alcohol) [facility] Utilities Answer Date Recorded In the past 12 months has e electric, gas, oil, or water company threatened to shut off services in your home? No 06/22/2024 AUDIT-C Answer Date Recorded Q1: How often do you have a drink containing alcohol? Never 06/22/2024 Q2: How many drinks containi ng alcohol do you have on a typical day when you are drinking? Patient does not drink Q3: How often do you have si x or more drinks on one occasion? Never 06/22/2024 PHQ-2 Answer Date Recorded Total Score 0 06/22/2024 PRAPARE - Transportation Answer Date Re corded In the past 12 months, has l ack of transportation kept you from medical appointments or from getting medications? No 05/30 In the past 12 months, has l ack of transportation kept you from meetings, work, or from getting things needed for daily living? No 06/22/2024 Housing Instability Answer Date Recorde d Are you worried or concerned that in the next two months you may not have stable housing that you own, rent or stay in as a part of a household? No 06/22/2024 Childcare Answer Date Recorded Childcare Unknown 09/01/2018 Employment Answer Date Recorded Employment Unknown 09/01/2018 Hunger Screening Answer Date Recorded Within the past 12 months we worried whether our food would run out before we got money to buy more. Never True 06/22/2024 Within the past 12 months th e food we bought just didn't last and we didn't have money to get more. Never True 06/22/2024 Purpose - Life Answer Date Recorded Purpose [...] Office Visit [facility] [address] [place] [phone] Adarsh Tovar MD [address], [facility] [address] [place], [place] [phone] 11/22/2024 11:45 AM EDT [facility] Visit [facility] [place] [address] [place] [phone] Dedra Olivo DO [address] [facility] [address] [place] [address] documented as of this encounter Goals Goal Patient Goal Type Associated Problems Recent Progress Patient-Stated? Author SNF per pt & son Celestino General Yes María Ruiz LSW Note: Evaluation of progress towards goal: feeling some better transition to SNF at discharge General Yes Mita Paniagua LSW Note: Evaluation of progress towards goal: transition to SNF at discharge documented as of this encounter Procedures Procedure Name Priority Date/Time Associated Diagnosis Comments VASC VENOUS DUPLEX LOWER BILATERAL Routine 07/30/2024 3:36 PM EDT documented in this encounter Results * Vas venous duplex lwr bilateral (07/30/2024 3:36 PM EDT) Anatomical Region Laterality Modality Vascular Bilateral Ultrasound us Not In System Ref Prov CV VASCULAR ORDERABLES Fi nal Result documented in this encounter Visit Diagnoses Not on filedocumented in this encounter Additional Health Concerns Assessment Noted Time PHQ-9 Depression Total Score: 0 06/23/19 25 8:43 PM EDT documented as of this encounter Care Teams County Director Relationship Specialty Start Date End Date Dinorah Leger APRN-EKATERINA [address] [place] [address] PCP - General Nurse Practitioner 03/09/24 documented as of this encounter
--- OUTSIDE RECORDS SUMMARY | 2024-09-14 12:21 | XMS_ITS | Patient Health Record ---
Author Organization [facility] [place] Address [address] [place] [address] Care Team Providers Care Offset Printer Name Role Phone Reynold Rehman Primary Care Provider [facility], Radiology Unavailable [phone] Jesús Hastings Unavailable [phone] Emerald Rose Unavailable [phone] Allergies Allergen (clinical drug ingredient) Drug/Non Drug Allergy documented on EMR Reaction Allergy Type Onset Date Status sulfamethoxazole / trimethoprim Bactrim Unknown Drug Allergy Active sulfamethoxazole / trimethoprim Bactrim DS Unknown Drug Allergy Active Results Component Value Reference Range Notes PET/CT Skull Base to Mid-Thi gh (Not yet reviewed by provider) Interpretation: Performing Lab: Notes/Report: [facility] [place] [address] [place] [address] Name: Jayne Love : 1960 Gender: F Referring Provider: Emerald Rose Exam: PET/CT SKULL BASE TO MID-THIGH Exam Start: 07/30/2024 Accn: [id number] INDICATION/HISTORY: LAUNDRY MANAGER brain tumor/spindle cell sarcoma, 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 The patient was injected with 13.8 mCi F-18 FDG through right antecubital IV for imaging. Approximately one hour after injection, images were obtained utilizing attenuation-corrected PET imaging from the skull base to mid thigh. Corresponding low-dose noncontrast CT was performed for purposes of attenuation correction and anatomic localization. Patient's height 63 in, weight 282 lbs. COMPARISON: CT abdomen and pelvis 06/23/24 FINDINGS: 3D MIP images demonstrate physiologic uptake with the brain parenchyma, posterior oropharynx, myocardium, liver, spleen, and system. Nonspecific uptake within bowel. Neck: Physiologic uptake within brain parenchyma at the skull base, posterior oropharynx, submandibular glands, and true vocal cords. No adenopathy in the soft tissues of the neck. Chest: No supraclavicular or axillary adenopathy. Mild shoulder arthropathy. Substernal fat is unremarkable. No mediastinal megan enlargement. Retroesophageal right subclavian vein incidentally noted. No pericardial or pleural effusion. Increased linear density at the lung bases likely representing mild scarring or atelectasis. Callus formation with increased uptake related to probable old trauma involving the left anterior ribcage. Abdomen: Liver is homogeneous. Multiple small gallstones. Pancreas is homogeneous. Spleen is unremarkable. Adrenal glands unremarkable. Kidneys have lobulated contour. No renal calculi or hydronephrosis. Mild to moderate air and stool retention throughout the colon. Small bowel is of normal caliber. No gastrohepatic, retrocrural, or periportal adenopathy. Pelvis: Ileocecal junction is unremarkable. No retrocecal fascial inflammatory changes. Bladder is homogeneous. No deep peripelvic or groin adenopathy. Mild to moderate air and stool retention throughout the colon. No evidence for diverticulitis. Nonspecific uptake within bowel. Tracer is visualized in the renal collecting systems and ureters. Skeletal: Weakly increased uptake within the axial skeleton is nonspecific. Correlation with whole-body bone scan is recommended. IMPRESSION: 1. Subtle areas of deformity likely representing prior trauma left anterior ribcage. 2. No evidence for glucose-avid mass or adenopathy. Transcribed by: FABI JEFFREY 07/30/2024 13:48 Sincerely, ALLEN CHAVEZ MD Electronically Signed: 07/30/2024 14:55 Thank you for referring MELISSA GODOY to the [facility] [place], [facility]. 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 The patient was injected with 13.8 mCi F-18 FDG through right antecubital IV for imaging. Approximately one hour after injection, images were obtained utilizing attenuation-corrected PET imaging from the skull base to mid thigh. Corresponding low-dose noncontrast CT was performed for purposes of attenuation correction and anatomic localization. Patient's height 63 in, weight 282 lbs. COMPARISON: CT abdom en and pelvis 06/23/24 FINDINGS: 3D MIP images demons trate physiologic uptake with the brain parenchyma, posterior oropharynx, myocardium, liver, spleen, and system. Nonspecific uptake within bowel. Neck: Physiologic up take within brain parenchyma at the skull base, posterior oropharynx, submandibular glands, and true vocal cords. No adenopathy in the soft tissues of the neck. Chest: No supraclavi cular or axillary adenopathy. Mild shoulder arthropathy. Substernal fat is unremarkable. No mediastinal megan enlargement. Retroesophageal right subclavian vein incidentally noted. No pericardia l or pleural effusion. Increased linear density at the lung bases likely representing mild scarring or atelectasis. Callus formation with increased uptake related to probable old trauma involving the left anterior ribcage. Abdomen: Liver is ho mogeneous. Multiple small gallstones. Pancreas is homogeneous. Spleen is unremarkable. Adrenal glands unremarkable. Kidneys have lobulated contour. No renal calculi or hydronephrosis. Mild to moderate air and stool retention throughout the colon. Small bowel is of normal caliber. No gastrohepatic, retrocrural, or periportal adenopathy. Pelvis: Ileocecal ju nction is unremarkable. No retrocecal fascial inflammatory changes. Bladder is homogeneous. No deep peripelvic or groin adenopathy. Mild to moderate air and stool retention throughout the colon . No evidence for diverticulitis. Nonspecific uptake within bowel. Tracer is visualized in the renal collecting systems and ureters. Skeletal: Weakly inc reased uptake within the axial skeleton is nonspecific. Correlation with whole-body bone scan is recommended. IMPRESSION: 1. Subtle areas of d eformity likely representing prior trauma left anterior ribcage. 2. No evidence for g lucose-avid mass or adenopathy. Transcribed by: FABI WING 07/30/2024 13:48 Sincerely, ALLEN CHAVEZ MD Electronically Aracely d: 07/30/2024 14:55 Thank you for referr francia GODOY to the [facility]. 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 Partially empty pituitary fossa. Sagittal T1-weighted sequences demonstrate loss of normal morphology with mixed signal intensity and increased T1 signal in the right frontoparietal lobe paramedial adjacent to the falx. This area has increased FLAIR signal intensity and likely represents area of known postoperative change. Increased T1 signal may represent residual postsurgical changes with small hematoma. There is significant decreased mass effect on the right frontoparietal lobe. Craniotomy defect. Normal enhancement within the bridging veins, sagittal sinus, torcula, transverse sinus, and sigmoid sinuses. Dominant left vertebral artery with poor visualization of the right vertebral. Artery arteries of the skull base otherwise opacify symmetrically. No abnormal enhancement in the CP angles, cerebellum, claudia, or basal ganglia. There is some enhancement involving the resection cavity without enhancement in the central portion of the resection cavity where I suspect there is a small hematoma. Perfusion imaging demonstrates no evidence for increased flow in this location. Findings are consistent with posttherapeutic appearance without clear evidence for residual or recurrent tumor. No midline shift. Mild ventricular sulcal enlargement. Resection cavity measures 3.8 x 2.9 cm in transverse dimension with cephalocaudal extent of 4 cm. IMPRESSION: Craniotomy defect and postsurgical changes resection of large right frontoparietal lobe mass lesion vertically adjacent to the falx. There is significantly decreased mass effect and vasogenic edema, now with mild localized mass effect and evidence for probable post resection hematoma and enhancement involving the resection cavity. No clear evidence for persistent tumor on perfusion imaging. Recommend follow-up brain MRI in short interval to assess stability and confirm there is no residual tumor. This study would serve as a of baseline for comparison. Transcribed by: FABI JEFFREY 08/10/2024 10:22 Sincerely, ALLEN CHAVEZ MD Electronically Signed: 08/10/2024 11:54 Thank you for referring MELISSA GODOY to the [facility] [place]. Imaging Center - [facility], [phone] [facility] [place], [place] [address] Name: Jayne Love : 1960 Gender: F Referring Provider: Rubens Altamirano Exam: MRI BRAIN WITH AND WITHOUT CONTRAST Exam Start: 08/11/19 Accn: [id number] INDICATION/HISTORY: Neoplasm of unspecified behavior of bone, soft tissue, and skin (D49.2) Post surgery for milla or resection, soreness posterior head by incision, history of brain CA, surgery 07/23, no injury PROCEDURE: MRI brain with and without contrast including perfusion imaging 20 mL IV Clariscan COMPARISON: Outside MRI brain 06/24/24 FINDINGS: Corpus callosum and cerebellar tonsils unremarkable. Partially empty pituitary fossa. Sagittal T1-weighted sequences demonstrate loss of normal morphology with mixed signal intensity and increased T1 signal in the rig ht frontoparietal lobe paramedial adjacent to the falx. This area has increased FLAIR signal intensity and likely represents area of known postoperative change. Increased T1 signal may represent residual postsurgical changes with small hematoma. There is significant decreased mass effect on the right frontoparietal lobe. Craniotomy defect. Normal enhancement w ithin the bridging veins, sagittal sinus, torcula, transverse sinus, and sigmoid sinuses. Dominant left vertebral artery with poor visualization of the right vertebral. Artery arteries of the skul l base otherwise opacify symmetrically. No abnormal enhancement in the CP angles, cerebellum, claudia, or basal ganglia. There is some enhancement involving the resection cavity without enhancement in the central portion of the resection cavity where I suspect there is a small hematoma. Perfusion imaging demonstrates no evidence for increased flow in this location. Findings are consist ent with posttherapeutic appearance without clear evidence for residual or recurrent tumor. No midline shift. Mild ventricular sulcal enlargement. Resection cavity measures 3.8 x 2.9 cm in transver se dimension with cephalocaudal extent of 4 cm. IMPRESSION: Craniotomy defect an d postsurgical changes resection of large right frontoparietal lobe mass lesion vertically adjacent to the falx. There is significantly decreased mass effect and vasogenic edema, now with mild localized mass effect and evidence for probable post resection hematoma and enhancement involving the resection cavity. No clear evidence for persistent tumor on perfusion imaging. Recommend f ollow-up brain MRI in short interval to assess stability and confirm there is no residual tumor. This study would serve as a of baseline for comparison. Transcribed by: FABI WING 08/10/2024 10:22 Sincerely, ALLEN CHAVEZ MD Electronically Aracely d: 08/10/2024 11:54 Thank you for referr francia GODOY to the [facility] [place]. Reason For Referral Reason PET eye to thigh 08/03 9:30am -SB Diagnosis 1 Malignant neoplasm o f brain, unspecified (C71.9) Referral Organization [facility] Referring Provider First Name Emerald Referring Provider Last Name Rose Referring Provider Speciality Hematology /Oncology Referred Organization [facility] Referred Provider Provider, Radiology Referred Address [address],[facility] [address] [facility],[place], [place],[address], Referred Provider Specialty Radiology General Notes Cyndi Almazan 025 09:43:52 AM >SB SCHEDULED ON 08/03/24 Referral Priority Routine Medications Medication SIG (Take, Route, Frequency, Duration) Notes Start Date End Date Status Nebulizer - Nebulizer Kits and tubing length of need 99 QID for Expires in 1 yr DX Asthma J45.20 length of need 99 12/16/2016 Active Mask, Hose, Headgear, Filters, Humidifier chamber --- Mask, Hose, Headgear, Filters, Humidifier chamber length of need 99 QHS for Expires in 1 yr DX MEETA G47.33 12/15/2017 Active traMADol HCl 50 MG 1 tablet Orally qhs for 30 days 06/02/2024 Active Singulair 10 MG 1 tablet Orally Once a day for 30 days Active ProAir HFA 108 (90 Base) MCG/ACT 2 puffs as needed Inhalation every 4 hrs for 30 days Dispense As Written 05/03/2016 Active CPAP - use as directed - DIRECTED for 1 year Auto Cpap 7-12 cm with an EPR of 3 Download 1 month after setup DX MEETA G47.33 Length of need 99 09/27/2015 Active SEROquel Oral Active CPAP - Change CPAP to 10-15 cm with EPR of 3 Download in 1 month after Change DX MEETA G47.33 length of need 99 QHS for 1 year 06/03/2016 Active CPAP - Change Auto Cpap to 10-18 cm length of need 99 QHS for 1 year 12/16/2016 Active Synthroid Oral Active CPAP - Change Auto Cpap to 10-16 EPR 3 length of need 99 QHS for 1 year 12/15/2017 Active Aspirin 81 mg tablet Oral Not -Taking Fish Oil Active Lisinopril 40 MG 1 tablet Orally Once a day for 30 day(s) Active Abilify Oral Active Montelukast Sodium 10 MG TAKE 1 TABLET BY MOUTH EVERY DAY IN THE PM for 210 Active Albuterol Sulfate (2.5 MG/3ML) 0.083% 3 ml Inhalation QID for 30 days DX Asthma J45.909 length of need 99 Active Chantix Continuing Month Erik 1 MG 1 tablet Orally Twice a day for 30 day(s) 06/19/2018 Active Omeprazole 20 MG 1 capsule 30 minutes before morning meal Orally Once a day for 30 day(s) Active Chantix Starting Month Erik 0.5 MG X 11 & 1 MG X 42 as directed Orally Daily for 30 days 06/19/2018 Active Immunizations Vaccine Route Administration Date Status Comme nts Flu, Unspecified Unknown 12/30/2016 Administered Social History Tobacco Use: Social History Observation Description Date Details (start date - stop date) Former Smoker NA - NA Tobacco Use/Smoking Question Answer Notes Patient is a former smoker When did you stop smoking? 11/16 Problems Problem Type SNOMED Code ICD Code Onset Dates Problem Status W/U Status Risk Notes Problem 31836871 Essential (primary) hypertension (I10) Active confirmed Problem 66395104 Obstructive slee p apnea (adult) (pediatric) (G47.33) Active confirmed Problem Malignant neoplasm of brain (200702366) Malignant neoplasm of brain, unspecified (C71.9) Active confirmed Problem 065000095 Type 2 diabetes mellitus with diabetic polyneuropathy (E11.42) Active confirmed Problem 23229174 Constipation, unspecified (K59.00) Active confirmed Problem 486424345 Solitary pulmona ry nodule (R91.1) Active confirmed Problem 511778275 Morbid obesity (E66.01) Active confirmed Problem 03125203 MEETA on CPAP (G47.33) Active confirmed Problem 769356232 Mild intermitten t asthma (J45.20) Active confirmed Problem 10629784 Tobacco dependen ce (F17.200) Active confirmed Problem 574208390 History of tobac co use (Z87.891) Active confirmed Problem 725829223 COVID-19 virus infection (U07.1) Active confirmed Encounters Encounter Location Date Provider Diagnosis [place] [address] [place] [address] 07/15/2024 Emerald Rose [facility] [address] [address] 07/30/2024 Radiology Provider Malignant neoplasm of brain, unspecified C71.9 [facility] [address] [place] [address] 08/10/2024 Radiology Provider Neoplasm of unspecified behavior of bone, soft tissue, and skin D49.2 [place] [address] [place] [address] 08/26/2024 Emerald Rose [facility] [address] [place] [address] 06/02/2024 Jesús Hastings Assessments Encounter Date Diagnosis (ICD Code) Assessment Notes Treatment Notes Treatment Clinical Notes Section Notes 07/30/2024 Malignant neoplasm of brain, unspecified (ICD-10 - C71.9) 08/10/2024 Neoplasm of unspecified behavior of bone, soft tissue, and skin (ICD-10 - D49.2) Plan Of Treatment Pending Test Test Name Order Date MRI Brain w/wo contrast * 08/10/2024 PET/CT Skull Base to Mid-Thigh 5 Future Test Test Name Order Date PFT w/Bronchodillator and Body Box 03/28 PFT w/Bronchodillator and w/o Body Box-p erformed 06/29/2020 Insurance Providers Payer Name Payer Address Payer Phone Subscriber Number Group Number Insured Name Patient Relationship to Insured Coverage Start Date Coverage End Date [employer] ADV PLAN [address] [address] [place] [address] [phone] [id number] Melissa Godoy Self - patient is the insured Medical (General) History Medical History History ICD Code Asthma J45.909 MEETA (obstructive sleep apnea) G47.33 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
--- OUTSIDE RECORDS SUMMARY | 2024-09-14 12:21 | XMS_ITS | Encounter Summary ---
Author Organization [employer] Address [facility]-[id number] [place] [address] Care Team Providers Care Foundry Metallurgist Name Role Phone Dinorah Leger ADVERTISING TRAFFIC MANAGER-VIRTUAL ASSISTANT Primary Care Provider + Encounter Details Date Type Department Care Team (Late st Contact Info) Description 08/11/2024 Telephone [facility] [address] [place] [id number] Faby Bai CMA Social History Tobacco Use Types Packs/Day Years Used Date Smoking Tobacco: Former Cigarettes Q uit: 2019 Smokeless Tobacco: Never Alcohol Use Standard Drinks/Week Comments No 0 (1 standard drink = 0.6 oz pur e alcohol) [facility] Utilities Answer Date Recorded In the past 12 months has [employer], gas, oil, or water company threatened to [...] got money to buy more. Never True 08/12/2024 Within the past 12 months th e food we bought just didn't last and we didn't have money to get more. Never True 08/12/2024 Purpose - Life Answer Date Recorded Purpose and direction in life Unknown Comments No Sex and Gender Information Value Date Recorded Sex Assigned at Not on file Legal Sex Female 11:28 AM EDT Gender Identity Female 05/28/2024 5:58 PM EST Sexual Orientation Straight 05/28/2024 5: 58 PM EST documented as of this encounter Miscellaneous Notes * Telephone Encounter - Faby Bai CMA - 08/11/2024 2:13 PM EDT Patient having surgery Friday08/13/2024. CT done 08/10/2024 uploaded in PACS. * Telephone Encounter - Adarsh Tovar MD - 08/11/2024 2:13 PM EDT I reviewed the images documented in this encounter Plan of Treatment Upcoming Encounters Date Type Department Care Team (Late st Contact Info) Description 09/29/2024 12:50 PM EDT Office Visit [facility] [address] [place] [address] Adarsh Tovar MD [address], [address] [address] 11/22/2024 11:45 AM EDT Office Visit [facility] [place] [address] Dedra Olivo, DO [address] [facility] [address] [place] [address] documented as of this encounter Goals Goal Patient Goal Type Associated Problems Recent Progress Patient-Stated? Author SNF per pt & son [facility] General Yes María Ruiz LSW Note: Evaluation of progress towards goal: feeling some better transition to SNF at discharge General Yes Mita Paniagua LSW Note: Evaluation of progress towards goal: transition to SNF at discharge documented as of this encounter Visit Diagnoses Not on filedocumented in this encounter Additional Health Concerns Assessment Noted Time PHQ-9 Depression Total Score: 0 06/23/19 25 8:43 PM EDT documented as of this encounter Care Teams Foundry Metallurgist Relationship Specialty Start Date End Date Dinorah Leger APRN-EKATERINA [address] [place] [phone] PCP - General Nurse Practitioner 03/09/24 documented as of this encounter
--- OUTSIDE RECORDS SUMMARY | 2024-09-14 12:21 | XMS_ITS | Encounter Summary ---
Author Organization [facility] Address [place][id number] [address] [place] [address] Care Team Providers Care Multiple Knife Edge Trimmer Operator Name Role Phone Dinorah Leger DIE SINKING MACHINE OPERATOR-PUBLICITY EXPERT Primary Care Provider + Encounter Details Date Type Department Care Team (Late st Contact Info) Description 06/23/2024 Orders Only [facility] [place] [address] Transcribe, Orders Support User Pain (Primary Dx) Social History Tobacco Use Types Packs/Day Years Used Date Smoking Tobacco: Former Cigarettes Q uit: 2019 Smokeless Tobacco: Never Alcohol Use Standard Drinks/Week Comments No 0 (1 standard drink = 0.6 oz pur e alcohol) [facility] Utilities Answer Date Recorded In the past 12 months has [employer], gas, oil, or water company threatened to [...] Office Visit [facility] [address] [place] [address] Adarsh Tovar MD [address], [facility] [address] [place], [place] [id number] 11/22/2024 11:45 AM EDT Office Visit [facility] [place] [address] [place] [phone] Dedra Olivo DO [address] [facility] [address] [place] [address] documented as of this encounter Goals Goal Patient Goal Type Associated Problems Recent Progress Patient-Stated? Author SNF per pt & son [facility] General Yes María Ruiz LSW Note: Evaluation of progress towards goal: feeling some better transition to SNF at discharge General Yes Mita Paniagua LSW Note: Evaluation of progress towards goal: transition to SNF at discharge documented as of this encounter Results * CT brain without contrast stroke alert (06/22/2024 8:55 AM EDT) us Scanning Provider External IMG CT ORDERABLES Fin al Result documented in this encounter Visit Diagnoses Diagnosis Pain- Primary Generalized pain documented in this encounter Additional Health Concerns Assessment Noted Time PHQ-9 Depression Total Score: 0 06/23/19 8:43 PM EDT documented as of this encounter Care Teams Multiple Knife Edge Trimmer Operator Relationship Specialty Start Date End Date Dinorah Leger APRN-CNP [address] [place] [id number] PCP - General Nurse Practitioner 03/09/24 documented as of this encounter
--- OUTSIDE RECORDS SUMMARY | 2024-09-14 12:21 | XMS_ITS | Clinical Summary ---
Author Organization [facility] Address [address] [place] [address] Care Team Providers Care Supervisor Trust Accounts Name Role Phone Unavailable Primary Care Provider Unavailabl e Active Problems Problem Noted Date Diagnosed Date Acute urinary retention 06/29/2024 Assessment & Plan (07/20/2024 4:18 PM EDT): UTI treated and grewal now out. Urinating with no issues. Continue to monitor. Assessment & Plan (07/06/2024 2:20 PM EDT): Probably due to UTI- finish abx and then will try to take out Grewal. Brain mass 06/22/2024 Assessment & Plan (07/27/2024 1:04 PM EDT): S/p biopsy- scabs over incision areas- will use vaseline to keep soft until healed. Biopsy results pasted from chart results: Await final result from [place] Preliminary Diagnosis 1, 2. Brain tumor, resection: Atypical mesenchymal [...] is negative for AE1/AE3, GFAP, CD56, SARMAD, CA and SOX10. 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 This case has been sent to [facility] for further evaluation and definitive diagnosis, which is pending communications consultant's report. Assessment & Plan (07/20/2024 4:19 PM EDT): S/p biopsy- f/u as ordered. Assessment & Plan (07/15/2024 3:55 PM EDT): S/p biopsy. Continue f/u with NS and neurology as scheduled. Acute pulmonary embolism 05/28/2024 Assessment & Plan (07/27/2024 1:05 PM EDT): Continue eliquis. No bleeding or excessive bruising noted. Assessment & Plan (07/20/2024 4:19 PM EDT): Continue eliquis. No SOB and no signs of bleeding. Assessment & Plan (07/15/2024 3:56 PM EDT): Continue eliquis. No signs of bleeding. Assessment & Plan (07/06/2024 2:21 PM EDT): Currently on eliquis. No c/o CP or SOB. Chronic obstructive pulmonary disease 05/28/2024 Assessment & Plan (07/15/2024 3:55 PM EDT): Denies any SOB today. Continue to monitor for exac. Diabetic polyneuropathy asso ciated with type 2 diabetes mellitus 05/28/2024 Diabetes 08/09/2021 Assessment & Plan (07/27/2024 1:05 PM EDT): Monitor for s/s of high or low sugars. Assessment & Plan (07/20/2024 4:19 PM EDT): Sugars controlled. Denies any issues. Assessment & Plan (07/15/2024 3:54 PM EDT): Continue current meds. Sugars well controlled. No new changes. Assessment & Plan (07/06/2024 2:26 PM EDT): Continue to monitor for high or low BS symptoms. Continue home meds. D/c mounjaro as pt never got it filled at home due to cost. I do not see a Hba1c done recently. Will recheck. Hypothyroid 08/09/2021 Assessment & Plan (07/06/2024 2:25 PM EDT): TSH about a month ago was elevated. Will recheck. Mild intermittent asthma without complication Morbid obesity with BMI of 50.0-59.9, adult 07/29 MEEAT (obstructive sleep apnea) 08/09/2021 Primary hypertension 08/09/2021 Schizoaffective disorder 08/09/2021 Encounters Date Type Department Care Team Description 08/13/2024 Orders Only [facility] [id number] [place] [address] [phone] Gayla Fuentes MD 07/27/2024 Outside Services [facility] [address] [place], [place] [phone] Imani Kumar MD [facility] 07/23/2024 Outside Services [facility] [place] [address] Miles Jaime, LANE MARKER INSTALLER - LEHR STRIPPER [facility] 07/20/2024 Outside Services [facility] [address] [place], [place] [phone] Imani Kumar MD [facility] 07/15/2024 Outside Services [facility] [id number] [place] [address] [phone] Imani Kumar MD [place] [facility] 07/06/2024 Outside Services [facility] [address] [facility] [place] [address] Imani Kumar MD [facility] from Last 3 Months Social History Tobacco Use Types Packs/Day Years Used Date Smoking Tobacco: Never Assessed Comments Unknown Sex and Gender Information Value Date Recorded Sex Assigned at Not on file Legal Sex Female 4:01 PM EST Gender Identity Not on file Sexual Orientation Not on file Plan of Treatment Not on file Procedures Procedure Name Priority Date/Time Associated Diagnosis Comments AMB REFERRAL TO RADIATION ONCOLOGY Routine 08/13/2024 3:46 PM EDT from Last 3 Months Results * Ambulatory referral to Radiation Oncology (08/13/2024 3:46 PM EDT) Historical Provider OUTPATIENT REFERRAL ORDER DARSHANA Final Result from Last 3 Months Insurance [facility]
--- OUTSIDE RECORDS SUMMARY | 2024-09-14 12:21 | XMS_ITS | Encounter Summary ---
Author Organization [facility] Address [address] [place] [address] Care Team Providers Care Production Tester Name Role Phone Self, Referred Primary Care Provider Unavailabl e Encounter Details Date Type Department Care Team (Late st Contact Info) Description 08/30/2024 Telephone [facility] Infectious Disease [address], [address] [place] [address] Halley Haynes MA Social History Tobacco Use Types Packs/Day Years Used Date Smoking Tobacco: Never Assessed Comments Unknown Sex and Gender Information Value Date Recorded Sex Assigned at Not on file Legal Sex Female 6:47 PM EDT Gender Identity Not on file Sexual Orientation Not on file documented as of this encounter Miscellaneous Notes * Telephone Encounter - Dinroah Traore RN - 08/31/2024 10:02 AM EDT Marialuisa at [facility] called and stated that she would be adjusting patient Vanco to 1.5g every 12 hours. * Telephone Encounter - Halley Haynes MA - 08/31/2024 8:52 AM EDT Marialuisa the [facility] over pt is not in at this time but will return my call. * Telephone Encounter - Halley Haynes MA - 08/30/2024 4:22 PM EDT Labs [facility] documented in this encounter Plan of Treatment Upcoming Encounters Date Type Department Care Team (Late st Contact Info) Description 09/29/2024 11:40 AM EDT Follow-Up [facility] Infectious Disease [address], [address] [place] [phone] Abby Barbosa, FINANCIAL SERVICES REP [address] [facility]/[place] [address] documented as of this encounter Visit Diagnoses Not on filedocumented in this encounter Care Teams Production Tester Relationship Specialty Start Date End Date SELF, REFERRED [address] PCP - General 09/10/24 documented as of this encounter
== END 2024-09-14 11:20 | disposition home or self-care (01) ==
PROVIDERS: Emergency Provider Emergency Medicine; PCP Family Medicine
DX: Z48.02 Encounter for removal of sutures (principal)
CPT/HCPCS: 99281

== ENCOUNTER 2024-12-29 11:18 | Emergency (ER) | payer MEDICARE, SELFPAY ==
--- OUTSIDE RECORDS SUMMARY | 2024-12-17 05:45 | XMS_ITS ---
Author Organization [facility] Address [address] [place], [place] [id number] Care Team Providers Care Inspector Fabric Name Role Phone Dinorah Leger Primary Care Provider Allergies Allergen (clinical drug ingredient) Drug/Non Drug Allergy documented on EMR Reaction Allergy Type Onset Date Status sulfamethoxazole / trimethoprim Bactrim Hives Drug Allergy Active gabapentin Gabapentin delusional Drug Allergy Acti ve semaglutide Ozempic Sores on head Drug Allergy A ctive REASON FOR VISIT 3 month Neuropathy, Cancer Medications Medication SIG (Take, Route, Frequency, Duration) Notes Start Date End Date Status Terbinafine HCl 250 MG 1 tablet Orally Once a day; Duration: 14 days 11/02/2024 Active Levothyroxine Sodium 150 MCG TAKE 1 TABLET BY MOUTH EVERY MORNING ON AN EMPTY STOMACH; Duration: 30 Active Famotidine 20 MG TAKE 1 TABLET BY MOUTH EVERY NIGHT AT BEDTIME NEEDED; Duration: 30 Active Atorvastatin Calcium 20 MG TAKE 1 TABLET BY MOUTH ONCE DAILY; Duration: 30 Active metFORMIN HCl ER 500 MG TAKE 1 TABLET BY MOUTH ONCE DAILY; Duration: 30 Active Vitamin B-12 1000 MCG TAKE 1 TABLET BY MOUTH EVERY OTHER DAY; Duration: 30 days Active ARIPiprazole 30 MG 1 tablet Orally bed time; Duration: 90 days Active DULoxetine HCl 60 MG 1 capsule Orally Once a day; Duration: 90 days Active Benztropine Mesylate 0.5 MG 1 tablet at bedtime Oral Once a day; Duration: 90 days Active Furosemide 80 MG 1 tablet Orally Once a day; Duration: 30 days 11/10/2024 Active Alcohol Pads twice daily; Duration: 30 days any brand covered by insurance 01/21/2024 Active Lancets 1 twice daily; Duration: 30 days any brand covered by insurance 01/21/2024 Active MiraLax 17 GM/SCOOP 1 scoop mixed with 8 ounces of fluid Orally Once a day; Duration: 30 days Active traMADol HCl 50 MG 1 tablet if needed Orally Once a day; Duration: 30 days Reviewed [facility] to fill today 608/31/2024 Active Eliquis 5 MG 1 tablet Orally twice daily; Duration: 30 days 08/06/2024 Active Albuterol Sulfate (2.5 MG/3ML) 0.083% 3 mL as needed Inhalation every 6 hrs; Duration: 90 days Please give 6 boxes or quantify allowed by insurance. Active Albuterol Sulfate 108 (90 Base) MCG/ACT 1 puff as needed Inhalation every 4 hrs Active Blood Glucose Monitor - as directed; Duration: 90 days Please give brand covered by insurance. 12/14/2023 Active Glucose Test Strips 1 strip twice a day; Duration: 30 days any brand covered by insurance 01/21/2024 Active glucometer 1 glucometer; Duration: 30 days any brand covered by insurance 01/21/2024 Active Potassium Chloride ER 10 MEQ 1 tablet with food Orally Twice a day 11/30/2024 Active Alcohol Wipes 70 % Use 1 alcohol pad Externally three times daily; Duration: 90 days 08/06/2024 Active traZODone HCl 50 MG 1 tablet at bedtime as needed Orally Once a day; Duration: 30 days 12/09/2024 Active 1st Choice Lancets Super Thin - Use 1 lancet to test sugars three times daily; Duration: 90 days Please give brand covered by insurance. 12/14/2023 Active Blood Glucose Test Strips 333 - Use 1 strip In Vitro three times daily; Duration: 90 days Please give brand covered by insurance. 12/14/2023 Active dexAMETHasone 2 MG TAKE 1 TABLET BY MOUTH ONCE DAILY; Duration: 30 Not-Taking Mounjaro 5 MG/0.5ML 5mg Subcutaneous once weekly; Duration: 30 days Dose change. Not-Taking Losartan Potassium 100 MG 1 tablet Orall y Once a day; Duration: 90 days Not-Taking hydroCHLOROthiazide 25 MG 1 tablet in th e morning Orally Once a day; Duration: 90 days 01/30/2024 Not-Taking Lurasidone HCl 40 MG 1 tablet in the evening with food Orally Once a day; Duration: 30 days 12/14/2024 Active Social History Sex Assigned At : Social History Observation Description Sex Assigned At Female Vital Signs Temperature 98.0 degrees Fahrenheit 12/18/19 25 Weight 324 lbs 12/17/2024 Height 62.5 in 12/17/2024 BMI 58.31 kg/m2 12/17/2024 Blood pressure systolic 114 mm Hg 12/18/19 25 Blood pressure diastolic 79 mm Hg 025 Heart Rate 90 /min 12/17/2024 Respiratory Rate 20 /min 12/17/2024 Oximetry 96 % 12/17/2024 Weight-kg 146.97 kg 12/17/2024 Height-cm 158.75 cm 12/17/2024 left knee chronic. Calvin Velasquez 12/17/2024 09:15:56 AM EDT > Encounters Encounter Location Date Provider Diagnosis [address] [facility] [place] [id number] 12/17/2024 Dinorah [facility] [place] Localized swelling o f both lower legs R22.43 ; Obesity, morbid, BMI 50 or higher E66.01 and BMI 50.0-59.9, adult Z68.43 Assessments Encounter Date Diagnosis (ICD Code) Assessment Notes Treatment Notes Treatment Clinical Notes Section Notes 12/17/2024 Localized swelling of both lower legs (ICD-10 - R22.43) RX Furosemide increased from 40mg to 80mg 1QD Son reports pt will not be compliant w/ twice daily medication, OK w/ once daily Furosemide Pt to continue w/ Potassium as well Pt to follow w/ Cardiology to R/O Cardiovascular conditions, denies family and personal hx of cardiac events Pt scheduled for Echo on of this month and w/ Cardiology appt 01/06/25 F/U 2 weeks or PRN for weight trend 12/17/2024 Obesity, morbid, BMI 50 or higher (ICD-10 - E66.01) 12/17/2024 BMI 50.0-59.9, adult (ICD-10 - Z68.43) Plan Of Treatment Medication Medication Name Sig Start Date Stop Date Notes Furosemide 80 MG 1 tablet Orally Once a day; Duration: 30 days 11/10/2024 Potassium Chloride ER 10 MEQ 1 tablet food Orally Twice a day 11/30/2024 Treatment Notes Assessment Notes Localized swelling of both lower legs RX Furosemide increased from 40mg to 80mg 1QD Son reports pt will not be compliant w/ twice daily medication, OK w/ once daily Furosemide Pt to continue w/ Potassium as well Pt to follow w/ Cardiology to R/O Cardiovascular conditions, denies family and personal hx of cardiac events Pt scheduled for Echo on of this month and w/ Cardiology appt 01/06/25 F/U 2 weeks or PRN for weight trend Next Appt Details Follow Up: 2 weeks Leg Swell ing & Cancer, Reason: Provider Name:Saji Matamoros, 01/06/2025 01:30:00 PM, [address] [place], [place], [phone], Progress Notes * ROSSI, SinaB:1960 (64 yo F)Acc No.[id number]:12/17/2024 Medical Note Patient: Melissa FARRELL Provider: Amy Leger :1960 A ge:64 Y S ex:Female Date:12/17/2024 Address:[address] [place], [place] [id number] Subjective: * Chief Complaints: * 3 month Neuropathy, Cancer * HPI: I nterim History: NEUROPATHY & BRAIN CANCER Pt presents to appt today w/ her son Pt has her last radiation treatment on Friday12/07/24 and weighed 328 lbs Son Celestino reports today that pt receives pill packs in the mail for several months now that include Dexamethasone 4mg tablets, prescribed from Dr. Tovar, pt's Neurosurgeon, after her brain surgery a few months prior She was taking Dexamethasone all the way up to the first week of this month Latuda 40mg i s what pt is on now, started on 12/09/24, Pt reports Latuda helps her not go to the bathroom quite as often Pt will see Dr. Tovar on 12/22/24 her Neurosurgeon and hopes to have scans done Dr. Altamirano is pt's Oncologist she will see for F/U in 4 months Pt is scheduled to see Cardiology appt is 01/06/25 and pt needs to complete Echo at this time. * ROS: N egative except mentioned above [...] with Cancer. 2 sister(s) . . * Social History: P CMH and UDS Demographics: P [facility] Questions D o you have any barriers to learning? I choose not to answer this question patient entered data W hat is your preferred method of learning??Reading patient entered data H ow often do you need to have someone help you read instructions? S ometimes patient entered data S exual History: F amily Planning A re you or your partner planning on becoming in the next year if not already ? C hoose not to disclose * Medications: T akingtraZODone HCl 50 MG Tablet 1 tablet at bedtime as needed Orally Once a day Furosemide 40 MG Tablet 1 tablet Orally Once a day Blood Glucose Test Strips 333 - Strip [...] Pads twice daily any brand covered by insuranceEliquis 5 MG Tablet 1 tablet Orally twice daily traMADol HCl 50 MG Tablet 1 tablet if needed Orally Once a day , Notes to Pharmacist: Reviewed [facility] to fill today [id number] 17 GM/SCOOP Powder 1 scoop mixed with 8 ounces of fluid Orally Once a day Benztropine Mesylate 0.5 MG Tablet 1 tablet at bedtime Oral Once a day DULoxetine HCl 60 MG Capsule Delayed Release Particles 1 capsule Orally Once a day ARIPiprazole 30 MG Tablet 1 tablet Orally bed time Vitamin B-12 1000 MCG Tablet TAKE 1 TABLET BY MOUTH EVERY OTHER DAY Terbinafine HCl 250 MG Tablet 1 tablet Orally Once a day metFORMIN HCl ER 500 MG Tablet Extended Release 24 Hour TAKE 1 TABLET BY MOUTH ONCE DAILY Atorvastatin Calcium 20 MG Tablet TAKE 1 TABLET BY MOUTH ONCE DAILY Famotidine 20 MG Tablet TAKE 1 TABLET BY MOUTH EVERY NIGHT AT BEDTIME NEEDED Levothyroxine Sodium 150 MCG Tablet TAKE 1 TABLET BY MOUTH EVERY MORNING ON AN EMPTY STOMACH Potassium Chloride ER 10 MEQ Tablet Extended Release 1 tablet with food Orally Twice a day Lurasidone HCl 40 MG Tablet 1 tablet in the evening with food Orally Once a day Taking traZODone HCl 50 MG Tablet 1 tablet at bedtime as needed Orally Once a day Taking Furosemide 40 MG Tablet 1 tablet Orally Once a day Taking Blood Glucose [...] twice daily any brand covered by insuranceTaking Eliquis 5 MG Tablet 1 tablet Orally twice daily Taking traMADol HCl 50 MG Tablet 1 tablet if needed Orally Once a day , Notes to Pharmacist: Reviewed [facility], [facility] to fill today 3-0-77Jyinva MiraLax 17 GM/SCOOP Powder 1 scoop mixed with 8 ounces of fluid Orally Once a day Taking Benztropine Mesylate 0.5 MG Tablet 1 tablet at bedtime Oral Once a day Taking DULoxetine HCl 60 MG Capsule Delayed Release Particles 1 capsule Orally Once a day Taking ARIPiprazole 30 MG Tablet 1 tablet Orally bed time Taking Vitamin B-12 1000 MCG Tablet TAKE 1 TABLET BY MOUTH EVERY OTHER DAY Taking Terbinafine HCl 250 MG Tablet 1 tablet Orally Once a day Taking metFORMIN HCl ER 500 MG Tablet Extended Release 24 Hour TAKE 1 TABLET BY MOUTH ONCE DAILY Taking Atorvastatin Calcium 20 MG Tablet TAKE 1 TABLET BY MOUTH ONCE DAILY Taking Famotidine 20 MG Tablet TAKE 1 TABLET BY MOUTH EVERY NIGHT AT BEDTIME NEEDED Taking Levothyroxine Sodium 150 MCG Tablet TAKE 1 TABLET BY MOUTH EVERY MORNING ON AN EMPTY STOMACH Taking Potassium Chloride ER 10 MEQ Tablet Extended Release 1 tablet with food Orally Twice a day Taking Lurasidone HCl 40 MG Tablet 1 tablet in the evening with food Orally Once a day Not-Taking/PRNhydroCHLOROthiazide 25 MG Tablet 1 tablet in the morning Orally Once a day Losartan Potassium 100 MG Tablet 1 tablet Orally Once a day Mounjaro 5 MG/0.5ML Solution Pen-injector 5mg Subcutaneous once weekly , Notes to Pharmacist: Dose change.dexAMETHasone 2 MG Tablet TAKE 1 TABLET BY MOUTH ONCE DAILY Not-Taking/PRN hydroCHLOROthiazide 25 MG Tablet 1 tablet in the morning Orally Once a day Not-Taking/PRN Losartan Potassium 100 MG Tablet 1 tablet Orally Once a day Not-Taking/PRN Mounjaro 5 MG/0.5ML Solution Pen-injector 5mg Subcutaneous once weekly , Notes to Pharmacist: Dose change.Not-Taking/PRN dexAMETHasone 2 MG Tablet TAKE 1 TABLET BY MOUTH ONCE DAILY DiscontinuedMelatonin 5 MG Tablet TAKE 1-2 TABLETS BY MOUTH AT BEDTIME NEEDED Furosemide 40 MG Tablet 1 tablet Orally Once a day Fish Oil 1200 MG Capsule 1 capsule Orally Three times a day Refresh 1.4-0.6 % Solution as directed Ophthalmic 1gtts OU in am Medication List reviewed and reconciled with the patientDiscontinued Melatonin 5 MG Tablet TAKE 1-2 TABLETS BY MOUTH AT BEDTIME NEEDED Discontinued Furosemide 40 MG Tablet 1 tablet Orally Once a day Discontinued Fish Oil 1200 MG Capsule 1 capsule Orally Three times a day Discontinued Refresh 1.4-0.6 % Solution as directed Ophthalmic 1gtts OU in am Medication List reviewed and reconciled with the patient * Allergies: B actrim: Hives - AllergyOzempic: Sores on headGabapentin: delusional - Contraindicationno[Allergies Verified] Objective: * Vitals: T emp:98.0F, Wt:324lbs, Ht:62.5in, BMI:58.31Index, BP:114/79mm Hg, HR:90/min, RR:20/min, Pain scale:61-10, Oxygen sat %:96%, Wt-k.97 kg, Ht-cm: 158.75 cm, Body Surface Area: 2.54. left knee chronic.Lacy Velasquez 12/17/2024 09:15:56 AM EDT > . * Examination: C QM Exceptions: Currently taking Aspirin: A spirin Use: N o G eneral Examination: General appearance: a lert, pleasant, well-nourished and in no acute distress. Head: n ormocephalic, atraumatic. Heart: r egular rate and rhythm without murmurs, gallops, clicks or rubs. Lungs: c lear to auscultation bilaterally, with good air movement and no rales, rhonchi or wheezes. Extremities: b ilateral lower extremity swelling 2+ nonpitting, 1+ pulses. Psych: a lert and oriented x 3 , cooperative with exam,?normal affect / mood , speech is clear and coherent. Assessment: * Assessment: 1. L ocalized swelling of both lower legs - R22.43 (Primary) 2 . O besity, morbid, BMI 50 or higher - E66.01 3 . B SC 50.0-59.9, adult - Z68.43 ? Plan: * Treatment: * Procedure Codes: 3 078F HTN DIAST BP < 801274S HTN SYST BP < 130 * Preventive Medicine: Counseling: C ommunication to patient: Counseling for nutrition provided Y es Counseling for physical activity provided Y es * Follow Up: 2 weeks Leg Swelling & Cancer * Billing Information: * Visit Code: 14637 Office Visit Est 30-39 minutes. * Procedure Codes: 3078F HTN DIAST BP < 80. 3074F HTN SYST BP < 130. * Sign off status: Completed true * Provider: Amy Leger Date: 0 12/17/2024 Generated for Crystal oneill/Matheus/Em on: 1 11:26 AM EDT History and Physical Notes * Examination Category Sub-Category Detail Notes Category Not es General Examination General appearance: alert, p leasant, well-nourished and in no acute distress Head: normocephalic, atrau matic Heart: regular rate and rhy thm without murmurs, gallops, clicks or rubs Lungs: clear to auscultatio n bilaterally, with good air movement and no rales, rhonchi or wheezes Extremities: bilateral lower extr emity swelling 2+ nonpitting, 1+ pulses Psych: alert and oriented x 3 , cooperative with exam, normal affect / mood , speech is clear and coherent CQM Exceptions Currently taking Aspirin: Aspirin Use:: No
--- OUTSIDE RECORDS SUMMARY | 2024-12-22 13:50 | XMS_ITS | Encounter Summary ---
Author Organization [facility] Address [id number] 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 Never True 09/29/2024 Within the past 12 months th e food we bought just didn't last and we didn't have money to get more. Never True 09/29/2024 Purpose - Life Answer Date Recorded Purpose and direction in life Unknown Comments No Sex and Gender Information Value Date Recorded Sex Assigned at Not on file Legal Sex Female 11:28 AM EDT Gender Identity Female 05/28/2024 5:58 PM EST Sexual Orientation Straight 05/28/2024 5: 58 PM EST documented as of this encounter Last Filed Vital Signs Vital Sign Reading Time Taken Comments Blood Pressure - - Pulse - - Temperature - - Respiratory Rate - - Oxygen Saturation - - Inhaled Oxygen Concentration - - Weight 136.1 kg (300 lb) 12/22/2024 2:37 PM EDT Height 160 cm (5' 3 ) 12/22/2024 2:37 PM EDT Body Mass Index 53.14 12/22/2024 2:37 PM EDT documented in this encounter Progress Notes * Adarsh Tovar MD - 12/22/2024 1:50 PM EDT Images from the original note were not included. [facility] [address] [place] [address], [address] [place] [address] * CHART NOTE ? 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 Overall she is doing better and a follow-up MRI is scheduled for late December. PLAN I will check her MRI once this done and leave the follow-up surveillance MRIs to Oncology and Radiation Oncology. I have instructed the patient to contact my office if any new questions, concerns, or symptoms develop. 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 She did have worsening however schizophrenia with a steroid treatment that is better and L1 she has been off steroids. There has been no drainage from the wound. There was no new neurological deficits. She did have a follow-up CT of the brain on October 15 that shows no evidence of underlying osteomyelitis complications intracranially. HEALTH HISTORY Past Medical History Documented in chart and reviewed with the patient at this visit Family History Documented in chart and reviewed with the patient at this visit Social History Documented in chart and reviewed with the patient at this visit Surgeries/Hospitalizations Documented in chart and reviewed with the patient at this visit Current Medications Current Outpatient Medications on File Prior to Visit Medication Sig Dispense Refill ACCU-CHEK GUIDE TEST STRIPS strip ACCU-CHEK SOFTCLIX LANCETS lancets acetaminophen (TYLENOL EXTRA STRENGTH) 500 mg tablet Take 2 tablets (1,000 mg total) by mouth every6 (six) hours as needed for pain or headaches. albuterol (PROAIR HFA) 90 mcg/actuation inhaler Inhale 2 puffs every 4 (four) hours as needed for shortness of breath. 18 g 5 ALCOHOL PREP PADS pads, medicated amLODIPine (NORVASC) 5 mg tablet Take 1 tablet (5 mg total) by mouth in the morning. ARIPiprazole (ABILIFY) 30 mg tablet Take 1 tablet (30 mg total) by mouth in the morning. Indications: schizophrenia. atorvastatin (LIPITOR) 20 mg tablet Take 1 tablet (20 mg total) by mouth in the morning. Indications: high cholesterol. benztropine (COGENTIN) 0.5 mg tablet Take 1 tablet (0.5 mg total) by mouth in the morning. Indications: extrapyramidal symptoms as a result of taking the medication. cyanocobalamin 1000 MCG tablet Take 1 tablet (1,000 mcg total) by mouth in the morning. Indications: prevention of vitamin B12 deficiency. dexAMETHasone (DECADRON) 2 mg tablet Take 1 tablet (2 mg total) by mouth daily with breakfast. Continue current dose until follow up with radiation oncology DULoxetine (CYMBALTA) 60 mg capsule Take 1 capsule (60 mg total) by mouth once daily at bedtime. (Patient taking differently: Take 1 capsule (60 mg total) by mouth once daily at bedtime Indications: anxiousness associated with depression.) ELIQUIS 5 mg tablet Take 1 tablet (5 mg total) by mouth in the morning and 1 tablet (5 mg total) before bedtime. famotidine (PEPCID) 20 mg tablet Take 1 tablet (20 mg total) by mouth in the morning. (Patient taking differently: Take 1 tablet (20 mg total) by mouth in the morning. Indications: gastroesophageal reflux disease.) heparin lock flush, porcine, 10 unit/mL injection Infuse 1-5 mL (10-50 Units total) into a venous catheter as needed (line care per nursing agency protocol.). 1 mL 0 heparin lock flush, porcine, injection 100 unit/mL solution Infuse 1-5 mL (100- 500 Units total) into a venous catheter as needed (line care per nursing agency protocol.). 1 mL 0 hydroCHLOROthiazide (HYDRODIURIL) 25 mg tablet Take 1 tablet (25 mg total) by mouth every morning. TAKE 1 TABLET BY MOUTH DAILY IN THE MORNING insulin lispro (HumaLOG) 100 unit/mL injection Inject 0.01-0.15 mL (1-15 Units total) under the skin in the morning and 0.01-0.15 mL (1-15 Units total) at noon and 0.01-0.15 mL (1-15 Units total) in the evening. Inject before meals. Per sliding scale . levothyroxine (SYNTHROID, LEVOTHROID) 150 MCG tablet Take 1 tablet (150 mcg total) by mouth in the morning. Indications: a condition with low thyroid hormone levels. loperamide (IMODIUM) 2 mg capsule Take 1 capsule (2 mg total) by mouth as needed for diarrhea. melatonin 10 mg tablet,chewable Chew 10 mg and swallow once daily at bedtime. sleep metFORMIN XR (GLUCOPHAGE XR) 500 mg 24 hr tablet Take 1 tablet (500 mg total) by mouth daily with breakfast Indications: type 2 diabetes mellitus. nystatin (MYCOSTATIN) powder Apply 1 Application topically in the morning and 1 Application at noonand 1 Application in the evening and 1 Application before bedtime. Indications: a skin infection due to the fungus Leeanne. ondansetron (ZOFRAN) 4 mg tablet Take 1 tablet (4 mg total) by mouth 4 (four) times a day as neededfor nausea or vomiting. polyethylene glycol (GLYCOLAX) 17 gram packet Take 17 g by mouth daily as needed (constipation). pregabalin (LYRICA) 25 mg capsule Take 1 capsule (25 mg total) by mouth in the morning and 1 capsule (25 mg total) before bedtime. sennosides-docusate sodium (SENOKOT-S) 8.6-50 mg Take 2 tablets by mouth nightly. (Patient taking differently: Take 2 tablets by mouth nightly Indications: constipation.) sodium chloride injection Infuse 10-20 mL into a venous catheter as needed for line care (line careper nursing agency protocol.). 1 mL 0 traMADoL (ULTRAM) 50 mg tablet Take 1 tablet (50 mg total) by mouth every 6 (six) hours as needed for pain. vancomycin (VANCOCIN) 23115 mg recon soln No current facility-administered medications on file prior to visit. Allergies Allergies Allergen Reactions Bactrim [Sulfamethoxazole-Trimethoprim] Hives Gabapentin Abnormal Behavior Semaglutide Rash Other Reaction(s): Sores on head REVIEW OF SYSTEMS A complete and comprehensive 10-system review was completed. Pertinent positives and negatives are mentioned in the history of the present illness. PHYSICAL EXAMINATION Awake and oriented. Responsive to stimuli. Speech and language function is normal for age. Moving all extremities well . Her cranial incision has healed nicely. DIAGNOSTICS CT of the brain was completed on 10/15/24 and shows expected postoperative changes without any evidence of underlying bone infection. Sincerely, Electronically signed by: Adarsh Tovar MD, FAANS This note was created with the assistance of a speech recognition program with the goal of generating a timely record of the patient encounter. Inadvertent computerized detective bowling alley errors related to syntax, spelling, homophones, and/or inaudibility may be present. documented in this encounter Plan of Treatment Upcoming Encounters Date Type Department Care Team (Late Contact Info) Description 01/06/2025 7:30 AM EDT Appointment [facility] [address] [place] [phone] 01/06/2025 9:00 AM EDT Office Visit [facility] [address] [place] [phone] Marina Jordan MD [address] [place] [address] 01/13/2025 2:30 PM EDT Office Visit [facility] [address] [facility] [place] [phone] Mary Watson, DO [address] [facility] [address] [place] [address] documented as of this encounter Goals Goal Patient Goal Type Associated Problems Recent Progress Patient-Stated? Author SNF per pt & son Celestino General Yes María Ruiz COSMETICS SUPERVISOR Note: Evaluation of progress towards goal: feeling some better transition to SNF at discharge General Yes Mita Paniagua LSW Note: Evaluation of progress towards goal: transition to SNF at discharge <enter goal here> General Yes Adonay Luna, RN Note: Evaluation of progress towards goal: home with [facility] documented as of this encounter Visit Diagnoses Diagnosis 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)- Primary documented in this encounter Additional Health Concerns Assessment Noted Time PHQ-9 Depression Total Score: 0 08/21/19 25 8:33 PM EDT documented as of this encounter Care Teams Relocation Counselor Relationship Specialty Start Date End Date Dinorah Leger APRN-RN UTILIZATION MANAGEMENT [facility] [address] [place] [address] PCP - General Nurse Practitioner 03/09/24 documented as of this encounter
--- OUTSIDE RECORDS SUMMARY | 2024-12-23 11:30 | XMS_ITS ---
Author Organization [facility] Address [address] [place], [place] [id number] Care Team Providers Care Mechanical Piping Designer Name Role Phone Dinorah Leger Primary Care Provider [phone] Allergies Allergen (clinical drug ingredient) Drug/Non Drug Allergy documented on EMR Reaction Allergy Type Onset Date Status sulfamethoxazole / trimethoprim Bactrim Hives Drug Allergy Active gabapentin Gabapentin delusional Drug Allergy Acti ve semaglutide Ozempic Sores on head Drug Allergy A ctive REASON FOR VISIT Feet and legs are red Medications Medication SIG (Take, Route, Frequency, Duration) Notes Start Date End Date Status Blood Glucose Monitor - as directed; Duration: 90 days Please give brand covered by insurance. 12/14/2023 Active Alcohol Wipes 70 % Use 1 alcohol pad Externally three times daily; Duration: 90 days 08/06/2024 Active Albuterol Sulfate 108 (90 Base) MCG/ACT 1 puff as needed Inhalation every 4 hrs Active 1st Choice Lancets Super Thin - Use 1 lancet to test sugars three times daily; Duration: 90 days Please give brand covered by insurance. 12/14/2023 Active Blood Glucose Test Strips 333 - Use 1 strip In Vitro three times daily; Duration: 90 days Please give brand covered by insurance. 12/14/2023 Active Losartan Potassium 100 MG 1 tablet Orall y Once a day; Duration: 90 days Unknown hydroCHLOROthiazide 25 MG 1 tablet in th e morning Orally Once a day; Duration: 90 days 01/30/2024 Unknown dexAMETHasone 2 MG TAKE 1 TABLET BY MOUTH ONCE DAILY; Duration: 30 Unknown Mounjaro 5 MG/0.5ML 5mg Subcutaneous once weekly; Duration: 30 days Dose change. Unknown Amoxicillin 500 MG 1 capsule Orally twice daily; Duration: 7 days 12/23/2024 Active Potassium Chloride ER 10 MEQ 1 tablet with food Orally Twice a day 11/30/2024 Active Levothyroxine Sodium 150 MCG TAKE 1 TABLET BY MOUTH EVERY MORNING ON AN EMPTY STOMACH; Duration: 30 Active Furosemide 80 MG 1 tablet Orally Once a day; Duration: 30 days 11/10/2024 Active Lurasidone HCl 40 MG 1 tablet in the evening with food Orally Once a day; Duration: 30 days 12/14/2024 Active Vitamin B-12 1000 MCG TAKE 1 TABLET BY MOUTH EVERY OTHER DAY; Duration: 30 days Active Famotidine 20 MG TAKE 1 TABLET BY MOUTH EVERY NIGHT AT BEDTIME NEEDED; Duration: 30 Active Atorvastatin Calcium 20 MG TAKE 1 TABLET BY MOUTH ONCE DAILY; Duration: 30 Active metFORMIN HCl ER 500 MG TAKE 1 TABLET BY MOUTH ONCE DAILY; Duration: 30 Active Terbinafine HCl 250 MG 1 tablet Orally Once a day; Duration: 14 days 11/02/2024 Active DULoxetine HCl 60 MG 1 capsule Orally Once a day; Duration: 90 days Active Benztropine Mesylate 0.5 MG 1 tablet at bedtime Oral Once a day; Duration: 90 days Active ARIPiprazole 30 MG 1 tablet Orally bed time; Duration: 90 days Active Doxycycline Hyclate 100 MG 1 capsule Orally twice daily; Duration: 7 days 12/23/2024 Active MiraLax 17 GM/SCOOP 1 scoop mixed with 8 ounces of fluid Orally Once a day; Duration: 30 days Active Eliquis 5 MG 1 tablet Orally twice daily; Duration: 30 days 08/06/2024 Active Alcohol Pads twice daily; Duration: 30 days any brand covered by insurance 01/21/2024 Active traMADol HCl 50 MG 1 tablet if needed Orally Once a day; Duration: 30 days Reviewed [facility] to fill today 08-31-24 08/31/2024 Active Lancets 1 twice daily; Duration: 30 days any brand covered by insurance 01/21/2024 Active Glucose Test Strips 1 strip twice a day; Duration: 30 days any brand covered by insurance 01/21/2024 Active Albuterol Sulfate (2.5 MG/3ML) 0.083% 3 mL as needed Inhalation every 6 hrs; Duration: 90 days Please give 6 boxes or quantify allowed by insurance. Active glucometer 1 glucometer; Duration: 30 days any brand covered by insurance 01/21/2024 Active Social History Sex Assigned At : Social History Observation Description Sex Assigned At Female Vital Signs Temperature 98.0 degrees Fahrenheit 12/24/19 Height 62.5 in 12/23/2024 Blood pressure systolic 102 mm Hg 12/24/19 Blood pressure diastolic 71 mm Hg Heart Rate 91 /min 12/23/2024 Respiratory Rate 20 /min 12/23/2024 Oximetry 97 % 12/23/2024 Height-cm 158.75 cm 12/23/2024 knee a 9, foot a 7 Encounters Encounter Location Date Provider Diagnosis Main [address] [facility], [place] [id number] 12/23/2024 Dinorah Arsen Cellulitis of left l ower extremity L03.116 Assessments Encounter Date Diagnosis (ICD Code) Assessment Notes Treatment Notes Treatment Clinical Notes Section Notes 12/23/2024 Cellulitis of left lower extremity (ICD-10 - L03.116) RX sent at this time for Cellulitis. Pt has allergy to Bactrim, chose Amoxicillin and Doxycycline to ensure coverage for Streptococcus. Pt encouraged to take antibiotics in entirety. Continue w/ adequate amounts of fluid Pt to keep her leg elevated when at home, rest Take Tylenol for pain and keep the area moisturized. Discussed reassuring vs non reassuring signs related to cellulitis and when to RTC or go to the ER. F/U 1 week or PRN Plan Of Treatment Medication Medication Name Sig Start Date Stop Date Notes Amoxicillin 500 MG 1 capsule Orally twi ce daily; Duration: 7 days 12/23/2024 Doxycycline Hyclate 100 MG 1 capsule Ora lly twice daily; Duration: 7 days 12/23/2024 Treatment Notes Assessment Notes Cellulitis of left lower extremity RX sent at this time for Cellulitis. Pt has allergy to Bactrim, chose Amoxicillin and Doxycycline to ensure coverage for Streptococcus. Pt encouraged to take antibiotics in entirety. Continue w/ adequate amounts of fluid Pt to keep her leg elevated when at home, rest Take Tylenol for pain and keep the area moisturized. Discussed reassuring vs non reassuring signs related to cellulitis and when to RTC or go to the ER. F/U 1 week or PRN Next Appt Details Follow Up: 12/29/24, Reason: Provider Name:Saji Isbellviak, 01/06/2025 01:30:00 PM, [address] [place], [place], [phone], Progress Notes * Sina GODOYB:1960 (64 yo F)Acc No.[id number]:12/23/2024 Medical Note Patient: Melissa FARRELL Provider: Amy Leger :1960 A ge:64 Y S ex:Female Date:12/23/2024 Address:[address] [place], [place] [id number] Subjective: * Chief Complaints: * F eet and legs are red * HPI: I nterim History: CELLULITIS LEFT LOWER EXTREMITY Pt presents today for visit w/ reddened lower extremity Warm to the touch Reports she noticed it a few days ago and it gets very red and warm Pt reports she has been taking her Lasix daily Pt refuses to be weighed at today's appt. * ROS: N egative except mentioned above [...] Pharmacist: Reviewed [facility] to fill today 5-3-17IhixWad 17 GM/SCOOP Powder 1 scoop mixed with [...] MOUTH EVERY MORNING ON AN EMPTY STOMACH Lurasidone HCl 40 MG Tablet 1 tablet in the evening with food Orally Once a day Furosemide 80 MG Tablet 1 tablet Orally Once a day Potassium Chloride ER 10 MEQ Tablet Extended Release 1 tablet with food Orally Twice a day Taking Blood Glucose Test Strips [...] glucometer 1 glucometer [facility] brand [facility] Glucose Test Strips 1 strip twice a day any brand [facility] by [facility] Lancets 1 twice daily any brand [facility] by [facility] Alcohol Pads twice daily any brand [facility] by [facility] Eliquis 5 MG Tablet 1 tablet Orally twice daily Taking traMADol HCl 50 MG Tablet 1 tablet if needed Orally Once a day , Notes to Pharmacist: Reviewed [facility] to fill today 9-4-93Lbzsox MiraLax 17 GM/SCOOP Powder 1 scoop mixed [...] EVERY MORNING ON AN EMPTY STOMACH Taking Lurasidone HCl 40 MG Tablet 1 tablet in the evening with food Orally Once a day Taking Furosemide 80 MG Tablet 1 tablet Orally Once a day Taking Potassium Chloride ER 10 MEQ Tablet Extended Release 1 tablet with food Orally Twice a day DiscontinuedtraZODone HCl 50 MG Tablet 1 tablet at bedtime as needed Orally Once a day Discontinued traZODone HCl 50 MG Tablet 1 tablet at bedtime as needed Orally Once a day UnknownhydroCHLOROthiazide 25 MG Tablet 1 tablet in the morning Orally Once a day Losartan Potassium 100 MG Tablet 1 tablet Orally Once a day Mounjaro 5 MG/0.5ML Solution Pen-injector 5mg Subcutaneous once weekly , Notes to Pharmacist: Dose change.dexAMETHasone 2 MG Tablet TAKE 1 TABLET BY MOUTH ONCE DAILY Medication List reviewed and reconciled with the patientUnknown hydroCHLOROthiazide 25 MG Tablet 1 tablet in the morning Orally Once a day Unknown Losartan Potassium 100 MG Tablet 1 tablet Orally Once a day Unknown Mounjaro 5 MG/0.5ML Solution Pen-injector 5mg Subcutaneous once weekly , Notes to Pharmacist: Dose change.Unknown dexAMETHasone 2 MG Tablet TAKE 1 TABLET BY MOUTH ONCE DAILY Medication List reviewed and reconciled with the patient * Allergies: B actrim: Hives - AllergyOzempic: Sores on headGabapentin: delusional - Contraindicationno[Allergies Verified] Objective: * Vitals: T emp:98.0F, Wt: Not Taken - Declined by Patient, Ht: 62.5 in, BMI: Not Taken - Declined by Patient, BP:102/71mm Hg, HR:91/min, RR:20/min, Pain scale:71-10, Oxygen sat %:97%, Ht-cm: 158.75 cm. knee a 9, foot a 7. * Examination: C QM Exceptions: Currently taking Aspirin: A spirin Use: N o G eneral Examination: General appearance: a lert, pleasant, well-nourished and in no acute distress. Head: n ormocephalic, atraumatic. Heart: r egular rate and rhythm without murmurs, gallops, clicks or rubs. Lungs: c lear to auscultation bilaterally, with good air movement and no rales, rhonchi or wheezes. Extremities: l eft lower extremity swelling noted, 2+ pitting edema, reddened, warm, DP 1+ bilaterally, PT 1+ bilaterally. Psych: a lert and oriented x 3 , cooperative with exam,?normal affect / mood , speech is clear and coherent. Assessment: * Assessment: 1. C ellulitis of left lower extremity - L03.116 (Primary) Plan: * Treatment: * Procedure Codes: 3 078F HTN DIAST BP < 099881C HTN SYST BP < 130 * Preventive Medicine: Counseling: C ommunication to patient: Counseling for nutrition provided Y es Counseling for physical activity provided Y es * Follow Up: 1 * Billing Information: * Visit Code: 96048 Office Visit Est 20-29 minutes. * Procedure Codes: 3078F HTN DIAST BP < 80. 3074F HTN SYST BP < 130. * Sign off status: Completed true * Provider: Amy Leger Date: 0 12/23/2024 Generated for Crystal oneill/Matehus/eTransmitting on: 1 11:26 AM EDT History and [...] and no rales, rhonchi or wheezes Extremities: left lower extremity swelling noted, 2+ pitting edema, reddened, warm, DP 1+ bilaterally, PT 1+ bilaterally Psych: alert and oriented x 3 , cooperative with exam, normal affect / mood , speech is clear and coherent CQM Exceptions Currently taking Aspirin: Aspirin Use:: No
--- OUTSIDE RECORDS SUMMARY | 2024-12-29 06:30 | XMS_ITS ---
Author Organization Formerly [facility] vices Address [address], [place] [id number] Care Team Providers Care Spring Floor Service Worker Name Role Phone Dinorah Leger Primary Care Provider Allergies Allergen (clinical drug ingredient) Drug/Non Drug Allergy documented on EMR Reaction Allergy Type Onset Date Status sulfamethoxazole / trimethoprim Bactrim Hives Drug Allergy Active gabapentin Gabapentin delusional Drug Allergy Acti ve semaglutide Ozempic Sores on head Drug Allergy A ctive REASON FOR VISIT Leg Swelling & Cancer Medications Medication SIG (Take, Route, Frequency, Duration) Notes Start Date End Date Status Mounjaro 5 MG/0.5ML 5mg Subcutaneous once weekly; Duration: 30 days Dose change. Not-Taking Potassium Chloride ER 10 MEQ 1 tablet with food Orally Twice a day 11/30/2024 Active hydroCHLOROthiazide 25 MG 1 tablet in th e morning Orally Once a day; Duration: 90 days 01/30/2024 Not-Taking Losartan Potassium 100 MG 1 tablet Orall y Once a day; Duration: 90 days Not-Taking Atorvastatin Calcium 20 MG TAKE 1 TABLET BY MOUTH ONCE DAILY; Duration: 30 Active Furosemide 80 MG 1 tablet Orally Once a day; Duration: 30 days 11/10/2024 Active Famotidine 20 MG TAKE 1 TABLET BY MOUTH EVERY NIGHT AT BEDTIME NEEDED; Duration: 30 Active Levothyroxine Sodium 150 MCG TAKE 1 TABLET BY MOUTH EVERY MORNING ON AN EMPTY STOMACH; Duration: 30 Active Lurasidone HCl 40 MG 1 tablet in the evening with food Orally Once a day; Duration: 30 days 12/14/2024 Active Vitamin B-12 1000 MCG TAKE 1 TABLET BY MOUTH EVERY OTHER DAY; Duration: 30 days Active Terbinafine HCl 250 MG 1 tablet Orally Once a day; Duration: 14 days 11/02/2024 Active metFORMIN HCl ER 500 MG TAKE 1 TABLET BY MOUTH ONCE DAILY; Duration: 30 Active DULoxetine HCl 60 MG 1 capsule Orally Once a day; Duration: 90 days Active ARIPiprazole 30 MG 1 tablet Orally bed time; Duration: 90 days Active Benztropine Mesylate 0.5 MG 1 tablet at bedtime Oral Once a day; Duration: 90 days Active Alcohol Pads twice daily; Duration: 30 days any brand covered by insurance 01/21/2024 Active Eliquis 5 MG 1 tablet Orally twice daily; Duration: 30 days 08/06/2024 Active traMADol HCl 50 MG 1 tablet if needed Orally Once a day; Duration: 30 days Reviewed [facility] to fill today 08-31-24 08/31/2024 Active MiraLax 17 GM/SCOOP 1 scoop mixed with 8 ounces of fluid Orally Once a day; Duration: 30 days Active Albuterol Sulfate (2.5 MG/3ML) 0.083% 3 [...] covered by insurance 01/21/2024 Active Albuterol Sulfate 108 (90 Base) MCG/ACT 1 puff as needed Inhalation every 4 hrs Active Blood Glucose Monitor - as directed; Duration: 90 days Please give brand covered by insurance. 12/14/2023 Active Alcohol Wipes 70 % Use 1 alcohol pad Externally three times daily; Duration: 90 days 08/06/2024 Active Amoxicillin 500 MG 1 capsule Orally twice daily; Duration: 7 days 12/23/2024 Active Blood Glucose Test Strips 333 - Use 1 strip In Vitro three times daily; Duration: 90 days Please give brand covered by insurance. 12/14/2023 Active 1st Choice Lancets Super Thin - Use 1 lancet to test sugars three times daily; Duration: 90 days Please give brand covered by insurance. 12/14/2023 Active Doxycycline Hyclate 100 MG 1 capsule Orally twice daily; Duration: 7 days 12/23/2024 Active Social History Sex Assigned At : Social History Observation Description Sex Assigned At Female Vital Signs Temperature 98.0 degrees Fahrenheit 12/30/19 Weight 326 lbs 12/29/2024 Height 62.5 in 12/29/2024 BMI 58.67 kg/m2 12/29/2024 Blood pressure systolic 113 mm Hg 12/30/19 Blood pressure diastolic 74 mm Hg Heart Rate 88 /min 12/29/2024 Respiratory Rate 20 /min 12/29/2024 Oximetry 92 % 12/29/2024 Weight-kg 147.87 kg 12/29/2024 Height-cm 158.75 cm 12/29/2024 Samy Stern 10:31:56 AM EDT > Encounters Encounter Location Date Provider Diagnosis Main [address] [facility] [place] [id number] 12/29/2024 Dinorah Arsen Cellulitis of left l ower leg L03.116 ; Obesity, morbid, BMI 50 or higher E66.01 and BMI 50.0-59.9, adult Z68.43 Assessments Encounter Date Diagnosis (ICD Code) Assessment Notes Treatment Notes Treatment Clinical Notes Section Notes 12/29/2024 Cellulitis of left lower leg (ICD-10 - L03.116) Pt still has a few days left of her antibiotics (Doxycycline and Amoxicillin), has allergy to Bactrim W/ increased LLE pain despite antibiotic use, sending pt to ER for further evaluation Pt presents w/ son, and he will take her to ER, [facility]. Called [facility], spoke w/ CHARLINE Fan and gave report for pt coming. Pt and son ambulated safely off premises w/ Melissa in wheelchair F/U for ER F/U 12/29/2024 Obesity, morbid, BMI 50 or higher (ICD-10 - E66.01) 12/29/2024 BMI 50.0-59.9, adult (ICD-10 - Z68.43) Plan Of Treatment Treatment Notes Assessment Notes Cellulitis of left lower leg Pt still has a few days left of her antibiotics (Doxycycline and Amoxicillin), has allergy to Bactrim W/ increased LLE pain despite antibiotic use, sending pt to ER for further evaluation Pt presents w/ son, and he will take her to ER, prefers [facility]. Called [facility], spoke w/ Mita RN and gave report for pt coming. Pt and son ambulated safely off premises w/ Melissa in wheelchair F/U for ER F/U Next Appt Details Follow Up: After ER Visit, Wolfgang sierra: Provider Name:Saji Ernesto Matamoros, 01/06/2025 01:30:00 PM, [address] [place], [place], [phone], Progress Notes * Claribel GODOYaDOB:1960 (64 yo F)Acc No.[id number]:12/29/2024 Medical Note Patient: Melissa FARRELL Provider: Amy Leger :1960 A ge:64 Y S ex:Female Date:12/29/2024 Address:[address] [place], [place] [id number] Check In:10:20 AM EST Subjective: * Chief Complaints: * L eg Swelling & Cancer * HPI: I nterim History: LEG SWELLING Pt last visit 12/23/24 was treated for cellulitis of LLE w/ Doxycycline and Amoxicillin, still taking at this time Has current medical hx of leg swelling w/ long-term steroid use w/ radiation for her brain cancer Pt reports her leg is still red and swollen, pain is getting worse, presents w/ son Pain at a 9 out of 10 in her lower left extremity Pt's son reports her schizophrenia is not stable at this time as well, reports her most recent med addition of Latuda is not working well for her; leg swelling is not a frequent side effect but possible. Pt would like us to inform her Oncologist, Dr. Altamirano, regarding her current status; will fax notes. * ROS: N egative except mentioned above [...] 2 sister(s) . . * Medications: T akingDoxycycline Hyclate 100 MG Capsule 1 capsule Orally twice daily Amoxicillin 500 MG Capsule 1 capsule Orally twice daily Blood Glucose Test Strips 333 - Strip [...] Pharmacist: Reviewed OARRS, [facility] to fill today 9-8-56WqzpZpr 17 GM/SCOOP Powder 1 scoop mixed with [...] with food Orally Twice a day Taking Doxycycline Hyclate 100 MG Capsule 1 capsule Orally twice daily Taking Amoxicillin 500 MG Capsule 1 capsule Orally twice daily Taking Blood Glucose Test Strips 333 - [...] 1 twice daily any brand covered by insuranceTaCircular Energy Alcohol Pads twice daily any brand covered by insuranceTaking Eliquis 5 MG Tablet 1 tablet Orally twice daily Taking traMADol HCl 50 MG Tablet 1 tablet if needed Orally Once a day , Notes to Pharmacist: Reviewed LAVERNE SANDERS to fill today 7-0-28Ealdgx MiraLax 17 GM/SCOOP Powder 1 scoop mixed [...] tablet with food Orally Twice a day Not-Taking/PRNhydroCHLOROthiazide 25 MG Tablet 1 tablet in the morning Orally Once a day Losartan Potassium 100 MG Tablet 1 tablet Orally Once a day Mounjaro 5 MG/0.5ML Solution Pen-injector 5mg Subcutaneous once weekly , Notes to Pharmacist: Dose change.Not-Taking/PRN hydroCHLOROthiazide 25 MG Tablet 1 tablet in the morning Orally Once a day Not-Taking/PRN Losartan Potassium 100 MG Tablet 1 tablet Orally Once a day Not-Taking/PRN Mounjaro 5 MG/0.5ML Solution Pen-injector 5mg Subcutaneous once weekly , Notes to Pharmacist: Dose change.DiscontinueddexAMETHasone 2 MG Tablet TAKE 1 TABLET BY MOUTH ONCE DAILY Medication List reviewed and reconciled with the patientDiscontinued dexAMETHasone 2 MG Tablet TAKE 1 TABLET BY MOUTH ONCE DAILY Medication List reviewed and reconciled with the patient * Allergies: B actrim: Hives - AllergyOzempic: Sores on headGabapentin: delusional - Contraindicationno[Allergies Verified] Objective: * Vitals: T emp:98.0F, Wt:326lbs, Ht: 62.5 in, BMI:58.67Index, BP:113/74mm Hg, HR:88/min, RR:20/min, Pain scale:91-10, Oxygen sat %: 93 %,92%, Wt-k.87 kg, Ht-cm: 158.75 cm, Body Surface Area: 2.55. Samy Stern 12/29/2024 10:31:56 AM EDT >. * Examination: G eneral Examination: General appearance: a lert, pleasant, well-nourished and in no acute distress. Head: n ormocephalic, atraumatic. Heart: r egular rate and rhythm without murmurs, gallops, clicks or rubs. Lungs: c lear to auscultation bilaterally, with good air movement and no rales, rhonchi or wheezes. Extremities: b ilateral lower leg extremity swelling, left leg has more of a reddened appearance below the knee, blanching of the skin noted, 1+ bilateral pulses DP and PT noted, pain elicited w/ firm palpation, 2+ pitting edema noted on LLE. Psych: a lert and oriented x 3 , cooperative with exam,?normal affect / mood , speech is clear and coherent. C QM Exceptions: Currently taking Aspirin: A spirin Use: N o Assessment: * Assessment: 1. C ellulitis of left lower leg - L03.116 (Primary) 2 . O besity, morbid, BMI 50 or higher - E66.01 3 . B MN 50.0-59.9, adult - Z68.43 Plan: * Treatment: * Procedure Codes: 3 078F HTN DIAST BP < 632344S HTN SYST BP < 130 * Preventive Medicine: Counseling: C ommunication to patient: Counseling for nutrition provided Y es Counseling for physical activity provided Y es * Follow Up: A fter ER Visit * Billing Information: * Visit Code: 97975 Office Visit Est 30-39 minutes. * Procedure Codes: 3078F HTN DIAST BP < 80. 3074F HTN SYST BP < 130. * Sign off status: Completed true * Provider: Amy Leger Date: Generated for Crystal Saba/Em on: 11:25 AM EDT History and Physical Notes * Examination Category Sub-Category Detail Notes Category Not es General Examination General appearance: alert, p leasant, well-nourished and in no acute distress Head: normocephalic, atrau matic Heart: regular rate and rhy thm without murmurs, gallops, clicks or rubs Lungs: clear to auscultatio n bilaterally, with good air movement and no rales, rhonchi or wheezes Extremities: bilateral lower leg extremity swelling, left leg has more of a reddened appearance below the knee, blanching of the skin noted, 1+ bilateral pulses DP and PT noted, pain elicited w/ firm palpation, 2+ pitting edema noted on LLE Psych: alert and oriented x 3 , cooperative with exam, normal affect / mood , speech is clear and coherent CQM Exceptions Currently taking Aspirin: Aspirin Use:: No
[2024-12-29 11:24] VITALS: BP 142/72; PULSE 80; TEMP 36.5; O2SAT 94; BMI 57.7
--- OUTSIDE RECORDS SUMMARY | 2024-12-29 11:25 | XMS_ITS | Encounter Summary ---
Author Organization [employer] [facility] [employer] Address [id number] [address] [place] [address] Care Team Providers Care Forensic Ballistics Expert Name Role Phone Dinorah Leger DRUPAL PHP DEVELOPER-GLUE MILL OPERATOR Primary Care Provider + Encounter Details Date Type Department Care Team (Late st Contact Info) Description 10/04/2024 Telephone [facility] [address] [place] [address] David Agustin Social History Tobacco Use Types Packs/Day Years Used Date Smoking Tobacco: Former Cigarettes 2 20 Q uit: 2019 Smokeless Tobacco: Never Alcohol Use Standard Drinks/Week Comments No 0 (1 standard drink = 0.6 oz pur e alcohol) [facility] Utilities Answer Date Recorded In the past 12 months has e [employer], gas, oil, or water company threatened to [...] Care Team (Late st Contact Info) Description 01/06/2025 7:30 AM EDT Appointment [facility] - Cardiovascular [address] [place] [phone] 01/06/2025 9:00 AM EDT Office Visit [facility] [address] [facility] 1 [place] [phone] Marina Jordan MD [address] [place], [place] [phone] 01/13/2025 2:30 PM EDT Office Visit [facility] [address] [place] [address] Mary Watson DO [address] [address] documented as of this encounter Goals Goal Patient Goal Type Associated Problems Recent Progress Patient-Stated? Author SNF per pt & son Celestino General Yes María Ruiz LSW Note: Evaluation of progress towards goal: feeling some better transition to SNF at discharge General Yes Mita Paniagua, SPANISH LITERATURE PROFESSOR Note: Evaluation of progress towards goal: transition to SNF at discharge <enter goal here> General Yes Adonay Luna, RN Note: Evaluation of progress towards goal: home with [facility] documented as of this encounter Visit Diagnoses Not on filedocumented in this encounter Additional Health Concerns Assessment Noted Time PHQ-9 Depression Total Score: 0 08/21/19 25 8:33 PM EDT documented as of this encounter Care Teams Forensic Ballistics Expert Relationship Specialty Start Date End Date Dinorah Leger APRN-EKATERINA [address] [place] [address] PCP - General Nurse Practitioner 03/09/24 documented as of this encounter
--- OUTSIDE RECORDS SUMMARY | 2024-12-29 11:25 | XMS_ITS | Encounter Summary ---
Author Organization [facility] Address [id number] [address] [place] [address] Care Team Providers Care Apricot Washer Name Role Phone Dinorah Leger CHANGE MANAGEMENT CONSULTANT-DATA STORAGE SPECIALIST Primary Care Provider + Encounter Details Date Type Department Care Team (Late st Contact Info) Description 09/30/2024 Lab Requisition [facility] - Lab [address] [place] [phone] Abby Barbosa, CHANGE MANAGEMENT CONSULTANT-DATA STORAGE SPECIALIST [address] [facility] [address] [place] [address] Urinary tract infection, site not specified; Other bacterial infections of unspecified site; Aftercare following surgery for neoplasm Social History Tobacco Use Types Packs/Day Years Used Date Smoking Tobacco: Former Cigarettes 2 20 Q uit: 2019 Smokeless Tobacco: Never Alcohol Use Standard Drinks/Week Comments No 0 (1 standard drink = 0.6 oz pur e alcohol) [facility] Utilities Answer Date Recorded In the past 12 months has [employer], oil, or water [facility] threatened to shut off services in your [...] Info) Description 01/06/2025 7:30 AM EDT Appointment [facility] - Cardiovascular [address] [place] [phone] 01/06/2025 9:00 AM EDT Office Visit [facility] [address] [facility] 1 [place] [phone] Marina Jordan MD [address] [place] [address] 01/13/2025 2:30 PM EDT Office Visit [facility] [address] [place] [phone] Mary Watson, DO [address] [address] documented as of this encounter Goals Goal Patient Goal Type Associated Problems Recent Progress Patient-Stated? Author SNF per pt & son Celestino General Yes María Ruiz LSW Note: Evaluation of progress towards goal: feeling some better transition to SNF at discharge General Yes Mita Paniagua, FLASHER ADJUSTER Note: Evaluation of progress towards goal: transition to SNF at discharge <enter goal here> General Yes Adonay Luna, CHARLINE Note: Evaluation of progress towards goal: home with [facility] documented as of this encounter Procedures Procedure Name Priority Date/Time Associated Diagnosis Comments URINALYSIS Routine 09/30/2024 3:10 PM EDT Urinary tract infection, site not specified Other bacterial infections of unspecified site Aftercare following surgery for neoplasm URINE CULTURE Routine 09/30/2024 3:10 PM EDT Urinary tract infection, site not specified Other bacterial infections of unspecified site Aftercare following surgery for neoplasm documented in this encounter Results * Urine culture (09/30/2024 3:10 PM EDT) CULTURE RESULTS <10,000 ORGANISMS/m L NORMAL URO GENITAL GRISELDA 10/02/2024 7:02 AM EDT [facility] Urine Urine specimen collection, clean catch / Unknown 09/30/2024 3:10 PM EDT 09/30/2024 5:09 PM EDT us Abby Barbosa CHANGE MANAGEMENT CONSULTANT-DATA STORAGE SPECIALIST MICROBIOLOGY - GENERA L ORDERABLES Final Result [facility] [address] [place] [address], [place] [phone] * Urinalysis (09/30/2024 3:10 PM EDT) COLOR Yellow Yellow, Colorless 09/30/2024 5:18 PM EDT [facility] TURBIDITY Clear Clear 09/30/2024 5:18 PM EDT [facility] SPECIFIC GRAVITY >=1.030 1.003 - 1.035 09/30 5:18 PM EDT [facility] NITRITE Negative Negative 09/30/2024 5:18 PM EDT [facility] PH,URINE 5.5 5.0 - 8.5 09/30/2024 5:18 PM EDT [facility] LEUKOCYTE ESTERASE Negative Negative 09/30/2024 5:18 PM EDT [facility] PROTEIN Negative Negative 09/30/2024 5:18 PM EDT [facility] KETONES (URINE) Negative Negative 5:18 PM EDT [facility] UROBILINOGEN 0.2 eu/dL 0.2 eu/dL, 1.0 eu/dL 09/30/2024 5:18 PM EDT [facility] BILIRUBIN (URINE) Negative Negative 09/30/2024 5:18 PM EDT [facility] BLOOD/HGB Negative Negative 09/30/2024 5:18 PM EDT [facility] GLUCOSE (URINE) Negative Negative, 250 mg/dL 09/30/2024 5:18 PM EDT [facility] Urine Urine specimen collection, clean catch / Unknown 09/30/2024 3:10 PM EDT 09/30/2024 5:09 PM EDT Narrative [facility] - 09/30/2024 5:18 PM EDT Urine received without preservative. Delays in transport may affect results. Interpret with caution. A clinical correlation is recommended. us Abby Barbosa CHANGE MANAGEMENT CONSULTANT-DATA STORAGE SPECIALIST URINE ORDERABLES Ina l Result [facility] [address] [facility] [place] [address], documented in this encounter Visit Diagnoses Diagnosis Urinary tract infection, site not specified Other bacterial infections of unspecified site Aftercare following surgery for neoplasm documented in this encounter Additional Health Concerns Assessment Noted Time PHQ-9 Depression Total Score: 0 08/21/19 25 8:33 PM EDT documented as of this encounter Care Teams Apricot Washer Relationship Specialty Start Date End Date Dinorah Leger APRN-EKATERINA [address] [place] [address] PCP - General Nurse Practitioner 03/09/24 documented as of this encounter
--- OUTSIDE RECORDS SUMMARY | 2024-12-29 11:25 | XMS_ITS | Encounter Summary ---
Author Organization [email or web address] Address [id number] [address] [place] [address] Care Team Providers Care Psych Coordinator Name Role Phone Dinorah Leger ALLOY WEIGHER-APPRAISER ART Primary Care Provider + Encounter Details Date Type Department Care Team (Late st Contact Info) Description 12/08/2024 Orders Only [facility] [address] [address] External, Scanning Provider Social History Tobacco Use Types Packs/Day Years Used Date Smoking Tobacco: Former Cigarettes 2 20 Q uit: 2019 Smokeless Tobacco: Never Alcohol Use Standard Drinks/Week Comments No 0 (1 standard drink = 0.6 oz pur e alcohol) [facility] Utilities Answer Date Recorded In the past 12 months has e [employer], gas, oil, or water company threatened to [...] Info) Description 01/06/2025 7:30 AM EDT Appointment [facility] - Cardiovascular [address] [place] [phone] 01/06/2025 9:00 AM EDT [facility] [address] [facility] 1 [place] [phone] Marina Jordan MD [address] [place], [place] [phone] 01/13/2025 2:30 PM EDT Office Visit [facility] [address] [place] [address] Mary Watson, DO [address] [address] documented as of this encounter Goals Goal Patient Goal Type Associated Problems Recent Progress Patient-Stated? Author SNF per pt & son Celestino General Yes María Ruiz, DIRECTOR OF EDUCATION AND TRAINING Note: Evaluation of progress towards goal: feeling some better transition to SNF at discharge General Yes Mita Paniagua, DIRECTOR OF EDUCATION AND TRAINING Note: Evaluation of progress towards goal: transition to SNF at discharge <enter goal here> General Yes Adonay Luna, RN Note: Evaluation of progress towards goal: home with [facility] documented as of this encounter Procedures Procedure Name Priority Date/Time Associated Diagnosis Comments MULTIPLE LABS Routine 11/22/2024 3:55 PM EDT documented in this encounter Results * Multiple labs (11/22/2024 3:55 PM EDT) us Scanning Provider External [facility] Final Result MANUALLY TRANSCRIBED RESULTS documented in this encounter Visit Diagnoses Not on filedocumented in this encounter Additional Health Concerns Assessment Noted Time PHQ-9 Depression Total Score: 0 08/21/19 25 8:33 PM EDT documented as of this encounter Care Teams Psych Coordinator Relationship Specialty Start Date End Date Dinorah Leger APRN-EKATERINA [address] [place] [address] PCP - General Nurse Practitioner 03/09/24 documented as of this encounter
--- OUTSIDE RECORDS SUMMARY | 2024-12-29 11:26 | XMS_ITS | Encounter Summary ---
Author Organization [employer] Address [id number] [address] [place] [address] Care Team Providers Care Printer Floor Covering Assistant Name Role Phone Dinorah Leger PRODUCT CRAFTSMAN-MEDICAL REGISTRAR Primary Care Provider + Encounter Details Date Type Department Care Team (Late st Contact Info) Description 07/30/2024 Orders Only [facility] [address] [facility] [address] [place] [address] Ref Prov, [place] [address] Social History Tobacco Use Types Packs/Day Years Used Date Smoking Tobacco: Former Cigarettes Q uit: 2019 Smokeless Tobacco: Never Alcohol Use Standard Drinks/Week Comments No 0 (1 standard drink = 0.6 oz pur e alcohol) [facility] Utilities Answer Date Recorded In the past 12 months has th e electric, gas, oil, or water company [...] Info) Description 01/06/2025 7:30 AM EDT Appointment [facility] - Cardiovascular [address] [place] [phone] 01/06/2025 9:00 AM EDT Office Visit [facility] [address] [facility] 1 [place] [phone] Marina Jordan MD [address] [place] [address] 01/13/2025 2:30 PM EDT Office Visit [facility] [address] [place] [address] Mary Watson DO [address] [address] documented as of this encounter Goals Goal Patient Goal Type Associated Problems Recent Progress Patient-Stated? Author SNF per pt & son Celestino General Yes María Ruiz, INDUSTRIAL RELATIONS DIRECTOR Note: Evaluation of progress towards goal: feeling some better transition to SNF at discharge General Yes Mita Paniagua, INDUSTRIAL RELATIONS DIRECTOR Note: Evaluation of progress towards goal: transition [...] documented as of this encounter Care Teams Printer Floor Covering Assistant Relationship Specialty Start Date End Date Dinorah Leger APRN-EKATERINA [address] [place], [place] [phone] PCP - General Nurse Practitioner 03/09/24 documented as of this encounter
--- OUTSIDE RECORDS SUMMARY | 2024-12-29 11:26 | XMS_ITS | Encounter Summary ---
Author Organization [employer] Address [id number] [address] [place] [address] Care Team Providers Care Silica Filter Operator Name Role Phone Dinorah Leger CUSTOM SKI MAKER-MANAGER AREA Primary Care Provider + Encounter Details Date Type Department Care Team (Late st Contact Info) Description 10/24/2022 Telephone [facility] Pulmonary/Sleep Medicine [address] [phone] Pat Ramos RN Social History [...] and left message requesting pap supply order. Sales And Marketing Assistant returned call. No answer. Unable to leave message as patient has not setup voicemail. Pap supply order was sent on 10-18-22 by CHARLINE Figueroa to [facility] documented in this encounter Plan of Treatment Upcoming Encounters Date Type Department Care Team (Late st Contact Info) Description 01/06/2025 7:30 AM EDT Appointment [facility] - Cardiovascular [address] [place] [phone] 01/06/2025 9:00 AM EDT Office Visit [facility] Cardiology [address] [facility] [address] [place] [address] Marina Jordan MD [address] [place] [address] 01/13/2025 2:30 PM EDT Office Visit [facility] Pul[facility]/Sleep [facility] [address] [facility] [place] [phone] Mary Watson, DO [address] [facility] [address] [place] [address] documented as of this encounter Visit Diagnoses Not on filedocumented in this encounter Care Teams Silica Filter Operator Relationship Specialty Start Date End Date Dinorah Leger APRN-EKATERINA [facility]1 [place] [address] PCP - General Nurse Practitioner 03/09/24 documented as of this encounter
--- OUTSIDE RECORDS SUMMARY | 2024-12-29 11:26 | XMS_ITS | Encounter Summary ---
Author Organization [facility] Address [id number] [address] [place] [address] Care Team Providers Care Blending Technician Name Role Phone Dinorah Leger HEEL SLUGGER-GREASER AND OILER Primary Care Provider + Encounter Details Date Type Department Care Team (Late st Contact Info) Description 09/06/2024 Lab Requisition [facility] - Lab [address] [place] [phone] Pamela Santiago APRN-GREASER AND OILER [address] [place] [address] Infection following a procedure, organ and space surgical site, initial encounter; Disruption of external operation (surgical) wound, not elsewhere classified, initial encounter Social History Tobacco Use Types Packs/Day Years Used Date Smoking Tobacco: Former Cigarettes 2 20 Q uit: 2019 Smokeless Tobacco: Never Alcohol Use Standard Drinks/Week Comments No 0 (1 standard drink = 0.6 oz pur e alcohol) [facility] Utilities Answer Date Recorded In the past 12 months has [employer], gas, oil, or water [employer] threatened to shut off services in your [...] Info) Description 01/06/2025 7:30 AM EDT Appointment [facility] - Cardiovascular [address] [place] [phone] 01/06/2025 9:00 AM EDT Office Visit [facility] [address] [facility] 1 [place] [phone] Marina Jordan MD [address] [place] [address] 01/13/2025 2:30 PM EDT Office Visit [facility]/Sleep Medicine [address] [place] [address] Mary Watson, DO [address] [address] documented as of this encounter Goals Goal Patient Goal Type Associated Problems Recent Progress Patient-Stated? Author SNF per pt & son Celestino General Yes María Ruiz MEAT MOLDER Note: Evaluation of progress towards goal: feeling some better transition to SNF at discharge General Yes Mita Paniagua, MEAT MOLDER Note: Evaluation of progress towards goal: transition to SNF at discharge <enter goal here> General Yes Adonay Luna, CHARLINE Note: Evaluation of progress towards goal: home with [facility] documented as of this encounter Procedures [...] - 20.0 ug/mL 09/06/2024 9:17 AM EDT [facility] Blood Venous blood / Unknown 09/06/2024 8:10 AM EDT 09/06/2024 9:01 AM EDT us Pamela Amadio HEEL SLUGGER-GREASER AND OILER LAB BLOOD ORDERABLES Ina l Result Performing Organization Address City/[facility]/ZIP Co de Phone Number [address] [place] [address], [place] * BUN (09/06/2024 8:10 AM EDT) BLOOD UREA NITROGEN 26 5 - 27 mg/dL 09/06/2024 9:17 AM EDT [facility] Blood Venous blood / Unknown 09/06/2024 8:10 AM EDT 09/06/2024 9:01 AM EDT us Pamela Amadio HEEL SLUGGER-GREASER AND OILER LAB BLOOD ORDERABLES Ina l Result Performing Organization Address [facility] Co de Phone Number [address] [place] [address], [place] * Creatinine includes GFR, serum (09/06/2024 8:10 AM EDT) CREATININE 0.55 0.40 - 1.00 mg/dL 09/06/2024 9:17 AM EDT [facility] Comment:METHOD TRACEABLE TO IDMS STANDARD EGFR Non-Race Dependent >90 >=60 ml/min/1.7 3sq.m 09/06/2024 9:17 AM EDT [facility] Comment: Reported eGFR is based on the CKD-EPI 2020 equation that does not use a race coefficient. Blood Venous blood / Unknown 09/06/2024 8:10 AM EDT 09/06/2024 9:01 AM EDT us Pamela Amadio HEEL SLUGGER-GREASER AND OILER LAB BLOOD ORDERABLES Ina l Result Performing Organization Address City/[facility] Co de Phone Number [address] [place] [address], [place] * C-reactive protein (09/06/2024 8:10 AM EDT) C REACTIVE PROTEIN 0.6 <=0.7 mg/dL 09/06/2024 9:17 AM EDT [facility] Blood Venous blood / Unknown 09/06/2024 8:10 AM EDT 09/06/2024 9:01 AM EDT us Pamela GUNTER LAB BLOOD ORDERABLES Ina l Result [facility] [address] [facility] [place] [place] [address], documented in this encounter Visit Diagnoses Diagnosis Infection following a procedure, organ and space surgical site, initial encounter Disruption of external operation (surgical) wound, not elsewhere classified, initial encounter documented in this encounter Additional Health Concerns Assessment Noted Time PHQ-9 Depression Total Score: 0 08/21/19 25 8:33 PM EDT documented as of this encounter Care Teams Blending Technician Relationship Specialty Start Date End Date Dinorah Leger APRN-CNP [address] [place] [phone] PCP - General Nurse Practitioner 03/09/24 documented as of this encounter
--- OUTSIDE RECORDS SUMMARY | 2024-12-29 11:26 | XMS_ITS | Clinical Summary ---
Author Organization [facility] Address [address] [place], [place] [address] Care Team Providers Care Unpaid Intern Name Role Phone Trixie Schmidt MD Primary Care Provider [phone] Eula Mueller DO, George Cajetan Unavailable Allergies [...] 2009 Shingrix Vaccine (1 of 2) 2009 Advance Directive Discussion 2024 Bone Density Screening 2024 Influenza Vaccine (#1) 2024 RSV Vaccine (1 - 1-dose 75+ series) 2034 Insurance [facility] MEDICARE ADVANTAGE PPO Care Teams Unpaid Intern Relationship Specialty Start Date End Date Trixie Schmidt MD PCP - General 06/30/07 Andrew Forde Jr., [address] [place] [address] Referring Orthopedics 08/05/22
--- OUTSIDE RECORDS SUMMARY | 2024-12-29 11:26 | XMS_ITS | Clinical Summary ---
Author Organization [facility] Address [address] [facility], [address] [place] [address] Care Team Providers Care Data Mining Analyst Name Role Phone Unavailable Primary Care Provider [...] from chart results: Await final result from [place] Preliminary Diagnosis 1, 2. Brain tumor, resection: [...] is negative for AE1/AE3, GFAP, CD56, SARMAD, NV and SOX10. 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 This case has been sent to [facility] for further evaluation and definitive diagnosis, which is pending web development consultant's report. Assessment & Plan (07/20/2024 4:19 [...] obesity with BMI of 50.0-59.9, adult 07/29 MEETA (obstructive sleep apnea) 08/09/2021 Primary hypertension 08/09/2021 Schizoaffective disorder 08/09/2021 Social History Tobacco Use Types Packs/Day Years Used Date Smoking Tobacco: Never Assessed Comments Unknown Sex and Gender Information Value Date Recorded Sex Assigned at Not on file Legal Sex Female 4:01 PM EST Gender Identity Not on file Sexual Orientation Not on file Plan of Treatment Not on file Insurance [facility] MEDICARE
--- OUTSIDE RECORDS SUMMARY | 2024-12-29 11:26 | XMS_ITS | Encounter Summary ---
Author Organization [facility] tem Address [id number] [address] [place] [address] Care Team Providers Care Property Coordinator Name Role Phone Dinorah Leger SUPERVISOR HOT STRIP MILL-AUTOMOBILE SALESMAN Primary Care Provider + Encounter Details Date Type Department Care Team (Late st Contact Info) Description 09/13/2024 Lab Requisition [facility] - Lab [address] [place] [phone] Abby Barbosa, SUPERVISOR HOT STRIP MILL-AUTOMOBILE SALESMAN [address] [facility] [address] [place] [address] Frequency of micturition Social History Tobacco Use Types Packs/Day Years Used Date Smoking Tobacco: Former Cigarettes 2 20 Q uit: 2019 Smokeless Tobacco: Never Alcohol Use Standard Drinks/Week Comments No 0 (1 standard drink = 0.6 oz pur e alcohol) [facility] Utilities Answer Date Recorded In the past 12 months has [employer], [employer], oil, or water [employer] threatened to shut off services in your [...] Info) Description 01/06/2025 7:30 AM EDT Appointment [facility] - Cardiovascular [address] [place] [phone] 01/06/2025 9:00 AM EDT Office Visit [facility] [address] [facility] 1 [place] [phone] Marina Jordan MD [address] [place] [address] 01/13/2025 2:30 PM EDT Office Visit [facility] Pulmonary/Sleep Medicine [address] [place] [phone] Mary Watson, [address] [address] documented as of this encounter Goals Goal Patient Goal Type Associated Problems Recent Progress Patient-Stated? Author SNF per pt & son Celestino General Yes María Ruiz AUTOMOTIVE PARTS INTERPRETER Note: Evaluation of progress towards goal: feeling some better transition to SNF at discharge General Yes Mita Paniagua, AUTOMOTIVE PARTS INTERPRETER Note: Evaluation of progress towards goal: transition to SNF at discharge <enter goal here> General Yes Adonay Luna RN Note: Evaluation of progress towards goal: home with [facility] documented as of this encounter Procedures Procedure Name Priority Date/Time Associated Diagnosis Comments URINALYSIS Routine 09/13/2024 9:20 AM EDT Frequency of micturition URINE CULTURE Routine 09/13/2024 9:20 AM EDT Frequency of micturition documented in this encounter Results * (ABNORMAL) Urine culture (09/13/2024 9:20 AM EDT) CULTURE RESULTS 10,000-50,000 CFU/mL Pseudomonas aeruginosa(A) 09/15/2024 8:35 AM EDT [facility] Urine Urine specimen collection, clean catch / Unknown 09/13/2024 9:20 AM EDT 09/13/2024 9:53 AM EDT Narrative [facility] - 09/15/2024 8:35 AM EDT Along with <10,000 CFU/mL Normal Urogenital Nicole. Organism Antibiotic Method Susceptibility Pseudomonas aeruginosa PIPERACIL/TAZOBACTAM 8.0: Susceptible Pseudomonas aeruginosa Cefepime 2.0: Susceptible Pseudomonas aeruginosa Meropenem 1.0: Susceptible Pseudomonas aeruginosa Amikacin 4.0: Susceptible Pseudomonas aeruginosa Tobramycin <=1.0: Susceptible Pseudomonas aeruginosa Ciprofloxacin 0.5: Susceptible Pseudomonas aeruginosa Levofloxacin 1.0: Susceptible us Abby Barbosa SUPERVISOR HOT STRIP MILL-AUTOMOBILE SALESMAN MICROBIOLOGY - GENERA L ORDERABLES Final Result [facility] [address] [place] [address], [place] [phone] * Urinalysis (09/13/2024 9:20 AM EDT) COLOR Yellow Yellow, Colorless 09/13/2024 10:18 AM EDT [facility] TURBIDITY Clear Clear 09/13/2024 10:18 AM EDT [facility] SPECIFIC GRAVITY 1.025 1.003 - 1.035 09/13 10:18 AM EDT [facility] NITRITE Negative Negative 09/13/2024 10:18 AM EDT [facility] PH,URINE 6.0 5.0 - 8.5 09/13/2024 10:18 AM EDT [facility] LEUKOCYTE ESTERASE Negative Negative 09/13/2024 10:18 AM EDT [facility] PROTEIN Negative Negative 09/13/2024 10:18 AM EDT [facility] KETONES (URINE) Negative Negative 10:18 AM EDT [facility] UROBILINOGEN 0.2 eu/dL 0.2 eu/dL, 1.0 eu/dL 09/13/2024 10:18 AM EDT [facility] BILIRUBIN (URINE) Negative Negative 09/13/2024 10:18 AM EDT [facility] BLOOD/HGB Negative Negative 09/13/2024 10:18 AM EDT [facility] GLUCOSE (URINE) Negative Negative, 250 mg/dL 09/13/2024 10:18 AM EDT [facility] Urine Urine specimen collection, clean catch / Unknown 09/13/2024 9:20 AM EDT 09/13/2024 9:53 AM EDT Narrative [facility] - 09/13/2024 10:18 AM EDT Urine received without preservative. Delays in transport may affect results. Interpret with caution. A clinical correlation is recommended. us Abby Barbosa SUPERVISOR HOT STRIP MILL-AUTOMOBILE SALESMAN URINE ORDERABLES Ina l Result [facility] [address] [facility] [place] [address], documented in this encounter Visit Diagnoses Diagnosis Frequency of micturition Urinary frequency documented in this encounter Additional Health Concerns Assessment Noted Time PHQ-9 Depression Total Score: 0 08/21/19 25 8:33 PM EDT documented as of this encounter Care Teams Property Coordinator Relationship Specialty Start Date End Date Dinorah Leger APRN-CNP [address] [place] [address] PCP - General Nurse Practitioner 03/09/24 documented as of this encounter
--- OUTSIDE RECORDS SUMMARY | 2024-12-29 11:26 | XMS_ITS | Encounter Summary ---
Author Organization [facility] tem Address [id number] [address] [place] [address] Care Team Providers Care Coal Pulverizing Operator Name Role Phone Dinorah Leger COMBATANT SWIMMER-TEACHER'S ASSISTANT Primary Care Provider + Encounter Details Date Type Department Care Team (Late st Contact Info) Description 09/13/2024 Lab Requisition [facility] - Lab [address] [place] [phone] Pamela Santiago APRN-TEACHER'S ASSISTANT [address] [place] [address] Infection following a procedure, organ and space surgical site, initial encounter; Disruption of external operation (surgical) wound, not elsewhere classified, initial encounter Social History Tobacco Use Types Packs/Day Years Used Date Smoking Tobacco: Former Cigarettes 2 20 Q uit: 2019 Smokeless Tobacco: Never Alcohol Use Standard Drinks/Week Comments No 0 (1 standard drink = 0.6 oz pur e alcohol) [facility] Utilities Answer Date Recorded In the past 12 months has [employer], gas, oil, or water [employer] threatened to shut off services in your [...] Info) Description 01/06/2025 7:30 AM EDT Appointment [facility] - Cardiovascular [address] [place] [phone] 01/06/2025 9:00 AM EDT Office Visit [facility] [address] [facility] 1 [place] [phone] Marina Jordan MD [address] [place] [address] 01/13/2025 2:30 PM EDT Office Visit [facility] Pul[facility]/Sleep Medicine [address] [place] [address] Mary Watson, DO [address] [address] documented as of this encounter Goals Goal Patient Goal Type Associated Problems Recent Progress Patient-Stated? Author SNF per pt & son Celestino General Yes María Ruiz MAINTENANCE SERVICE TECHNICIAN Note: Evaluation of progress towards goal: feeling some better transition to SNF at discharge General Yes Mita Paniagua, MAINTENANCE SERVICE TECHNICIAN Note: Evaluation of progress towards goal: transition to SNF at discharge <enter goal here> General Yes Adonay Luna, CHARLINE Note: Evaluation of progress towards goal: home with [facility] documented as of this encounter [...] 0.7 <=0.7 mg/dL 09/13/2024 10:28 AM EDT [facility] Blood Venous blood / Unknown 09/13/2024 9:10 AM EDT 09/13/2024 9:51 AM EDT us Pamela Amadio COMBATANT SWIMMER-TEACHER'S ASSISTANT LAB BLOOD ORDERABLES Ina l Result Performing Organization Address City/[facility] Co de Phone Number [address] [address], [place] * Vancomycin, trough (09/13/2024 9:10 AM EDT) VANCOMYCIN TROUGH 14.5 5.0 - 20.0 ug/mL 09/13/2024 11:09 AM EDT [facility] Blood Venous blood / Unknown 09/13/2024 9:10 AM EDT 09/13/2024 9:51 AM EDT us Pamela Amadio COMBATANT SWIMMER-TEACHER'S ASSISTANT LAB BLOOD ORDERABLES Ina l Result Performing Organization Address [facility] Co de Phone Number [address] [place] [address], [place] * Creatinine includes GFR, serum (09/13/2024 9:10 AM EDT) CREATININE 0.50 0.40 - 1.00 mg/dL 09/13/2024 10:28 AM EDT [facility] Comment:METHOD TRACEABLE TO IDMS STANDARD EGFR Non-Race Dependent >90 >=60 ml/min/1.7 3sq.m 09/13/2024 10:28 AM EDT [facility] Comment: Reported eGFR is based on the CKD-EPI 2020 equation that does not use a race coefficient. Blood Venous blood / Unknown 09/13/2024 9:10 AM EDT 09/13/2024 9:51 AM EDT us Pamela Amadio COMBATANT SWIMMER-TEACHER'S ASSISTANT LAB BLOOD ORDERABLES Ina l Result [address] [place] [address], [place] * BUN (09/13/2024 9:10 AM EDT) BLOOD UREA NITROGEN 20 5 - 27 mg/dL 09/13/2024 10:28 AM EDT [facility] Blood Venous blood / Unknown 09/13/2024 9:10 AM EDT 09/13/2024 9:51 AM EDT us Pamela Osheao COMBATANT SWIMMER-TEACHER'S ASSISTANT LAB BLOOD ORDERABLES Ina l Result Performing Organization Address City/[facility]/ZIP Co de Phone Number [address] [place] [address], [place] * (ABNORMAL) CBC auto differential (09/13/2024 9:10 AM EDT) Pathologist [facility] WBC 10.2 4 - 11 x10E9/L 09/13/2024 9:57 AM EDT [facility] RBC Count 3.93 3.8 - 5.2 X10E12/L 09/13/2024 9:57 AM EDT [facility] Hemoglobin 12.4 11.7 - 15.5 g/dL 09/13/2024 9:57 AM EDT [facility] Hematocrit 37.6 35 - 47 % 09/13/2024 9:57 AM EDT [facility] MCV 96 80 - 100 fL 09/13/2024 9:57 AM EDT [facility] MCH 31.7 27 - 34 pg 09/13/2024 9:57 AM EDT [facility] MCHC 33.1 32 - 36 g/dL 09/13/2024 9:57 AM EDT [facility] RDW 14.9 11.5 - 15 % 09/13/2024 9:57 AM EDT [facility] Platelet Count 292 150 - 450 X10E9/L 09/13/2024 9:57 AM EDT [facility] MPV 7.0 7 - 12 fL 09/13/2024 9:57 AM EDT [facility] Neutrophils % 71.7 % 09/13/2024 9:57 AM EDT [facility] Lymphocytes % 19.7 % 09/13/2024 9:57 AM EDT [facility] Monocytes % 8.0 % 09/13/2024 9:57 AM EDT [facility] Eosinophils % 0.3 % 09/13/2024 9:57 AM EDT [facility] Basophils % 0.3 % 09/13/2024 9:57 AM EDT [facility] Neutrophils Absolute (A) 7.3(H) 1.5 - 6.6 10*3/uL 09/13/2024 9:57 AM EDT [facility] Lymphocytes Absolute 2.0 1.0 - 3.5 10*3/uL 09/13/2024 9:57 AM EDT [facility] Monocytes Absolute 0.8 0.0 - 0.9 10*3/uL 09/13/2024 9:57 AM EDT [facility] Eosinophils Absolute 0.0 0.0 - 0.4 10*3/uL 09/13/2024 9:57 AM EDT [facility] Basophils Absolute 0.0 0.0 - 0.2 10*3/uL 09/13/2024 9:57 AM EDT [facility] Differential Type AUTOMATED DIFFERENTIAL 09/13/2024 9:57 AM EDT [facility] Blood Venous blood / Unknown 09/13/2024 9:10 AM EDT 09/13/2024 9:51 AM EDT us Pamela Santiago COMBATANT SWIMMER-TEACHER'S ASSISTANT LAB BLOOD ORDERABLES Ina l Result [facility] [address], documented in this encounter Visit Diagnoses Diagnosis Infection following a procedure, organ and space surgical site, initial encounter Disruption of external operation (surgical) wound, not elsewhere classified, initial encounter documented in this encounter Additional Health Concerns Assessment Noted Time PHQ-9 Depression Total Score: 0 08/21/19 25 8:33 PM EDT documented as of this encounter Care Teams Coal Pulverizing Operator Relationship Specialty Start Date End Date Dinorah Leger APRN-CNP [address] [place] [address] PCP - General Nurse Practitioner 03/09/24 documented as of this encounter
--- OUTSIDE RECORDS SUMMARY | 2024-12-29 11:26 | XMS_ITS | Clinical Summary ---
Author Organization [facility] Address [address] [place] [address] Care Team Providers Care Energy Efficiency Engineer Name Role Phone Misa Grey MD Primary Care Provider [phone] Deacon Lacy DO Unavailable [phone] Dinorah Leger MD Unavailable [phone] Allergies Active Allergy Reactions Criticality Noted [...] before bedtime. 60 capsule 1 5 Active Eliquis 5 MG tablet 1 tablet Orally twice daily; Duration: 30 days 5 Active Active Problems No known active problems Encounters Date Type Department Care Team Description 11/22/2024 2:00 PM EDT Procedure Visit [facility] Podiatry [address] [place] [address] Phil Cano DPM Onychomycosis (Primary Dx); Onychodystrophy; Diabetic polyneuropathy associated with type 2 diabetes mellitus (HCC) 11/22[facility]20[facility] [address] [place] [address] Phil Cano DPM 11/22/2024 Travel 11/19/2024 Travel from Last 3 Months Immunizations Immunization Administration Dates Next Due Influenza, [...] - - Weight 133 kg (294 lb) 11/22/2024 1:46 PM EDT Height 160 cm (5' 3 ) 11/22/2024 1:46 PM EDT Body Mass Index 52.08 11/22/2024 1:46 PM EDT Plan of Treatment Upcoming Encounters Date Type Department Care Team (Late st Contact Info) Description 02/22/2025 2:00 PM EST Procedure Visit [facility] [address] [place] [phone] Phil Cano, NAMAN [address] [place] [address] Health Maintenance Due Date Last Done Comments CT Colonography 1959 Colonoscopy 1959 Colorectal Cancer Screening 1959 FIT-DNA 1959 FIT 1959 FOBT 1959 Sigmoidoscopy 1959 Pap Smear 1980 Cervical Cancer Screening 1989 HPV/Cotest 1989 Mammogram 07/08/2024 07/09/2023, 03/0 11/2022, 06/04/2021, Additional history exists Influenza Vaccine (#1) 2024 4, 12/29/2022, 12/22/2021, Additional history exists Pneumococcal Vaccine: 65+ Years Completed 4 Insurance [employer] MEDICARE ADVANTAGE Care Teams Energy Efficiency Engineer Relationship Specialty Start Date End Date Misa Grey MD [address] [place], [place] [phone] PCP - General Pediatrics 09/11/22 Deacon Lacy DO [address] [facility] [address] [place] [address] Referring Physician Neurology 04/08/24 Dinorah Leger MD [address] [place], [place] [phone] Referring Physician Cloth Wire Weaver 04/08/24
--- OUTSIDE RECORDS SUMMARY | 2024-12-29 11:26 | XMS_ITS | Encounter Summary ---
Author Organization [facility] Address [address] [place] [address], [address] [place] [address] Care Team Providers Care Lean Coach Name Role Phone Unavailable Primary Care Provider Unavailabl e Reason for Referral * Specialty Diagnoses / Procedures Referred By Norm t Referred To Contact [facility] [address] [place] [address] Referral ID Status Reason Start Date Expiration Date Visits Re quested Visits Authorized Comments This order was created through External Result Entry Encounter Details Date Type Department Care Team (Late st Contact Info) Description 08/13/2024 Orders Only [facility] Primary Care [address] [address] [place], [place] [id number] ProviderGayla MD Social History Tobacco Use Types [...]
--- OUTSIDE RECORDS SUMMARY | 2024-12-29 11:26 | XMS_ITS | Encounter Summary ---
Author Organization [facility] [employer] [facility] tem Address [id number] [address] [place] [address] Care Team Providers Care Strip Picker Name Role Phone Dinorah Leger NURSE COORDINATOR-CAREER DEVELOPER Primary Care Provider + Encounter Details Date Type Department Care Team (Late st Contact Info) Description 09/20/2024 Lab Requisition [facility] - Lab [address] [place] [phone] Pamela Santiago APRN-CAREER DEVELOPER [address] [place] [address] Infection following a procedure, organ and space [...] Recorded In the past 12 months has [employer], gas, oil, or water [employer] threatened to shut off services in your [...] Info) Description 01/06/2025 7:30 AM EDT Appointment [facility] - Cardiovascular [address] [place] [phone] 01/06/2025 9:00 AM EDT Office Visit [facility] [address] [facility] [address] [place] [phone] Marina Jordan MD [address] [place] [address] 01/13/2025 2:30 PM EDT Office Visit [facility] Pulmonary/Sleep Medicine [address] [place] [address] Mary Watson, DO [address] [address] documented as of this encounter Goals Goal Patient Goal Type Associated Problems Recent Progress Patient-Stated? Author SNF per pt & son Celestino General Yes María Ruiz RN MEDICATION Note: Evaluation of progress towards goal: feeling some better transition to SNF at discharge General Yes Mita Paniagua, RN MEDICATION Note: Evaluation of progress towards goal: transition to SNF at discharge <enter goal here> General Yes Adonay Luna, CHARLINE Note: Evaluation of progress towards goal: home with [facility] documented as of this encounter Procedures Procedure Name Priority Date/Time Associated Diagnosis Comments CBC WITH AUTO DIFFERENTIAL Routine 09/20/2024 9:00 AM EDT Infection following a procedure, organ and space surgical site, initial encounter Disruption of external operation (surgical) wound, not elsewhere classified, initial encounter C-REACTIVE PROTEIN Routine 09/20/2024 9: 00 AM EDT Infection following a procedure, organ and space surgical site, initial encounter Disruption of external operation (surgical) wound, not elsewhere classified, initial encounter BUN Routine 09/20/2024 9:00 AM EDT Infection following a procedure, organ and space surgical site, initial encounter Disruption of external operation (surgical) wound, not elsewhere classified, initial encounter CREATININE, SERUM Routine 09/20/2024 9:0 0 AM EDT Infection following a procedure, organ and space surgical site, initial encounter Disruption of external operation (surgical) wound, not elsewhere classified, initial encounter VANCOMYCIN, TROUGH Routine 09/20/2024 9: 00 AM EDT Infection following a procedure, organ and space surgical site, initial encounter Disruption of external operation (surgical) wound, not elsewhere classified, initial encounter documented in this encounter Results * C-reactive protein (09/20/2024 9:00 AM EDT) C REACTIVE PROTEIN <0.5 <=0.7 mg/dL 09/20/2024 9:50 AM EDT [facility] Blood Venous blood / Unknown 09/20/2024 9:00 AM EDT 09/20/2024 9:28 AM EDT us Pamela Amadio NURSE COORDINATOR-CAREER DEVELOPER LAB BLOOD ORDERABLES Ina l Result Performing Organization Address City/[facility] Co de Phone Number [address] [address], [place] * Creatinine includes GFR, serum (09/20/2024 9:00 AM EDT) CREATININE 0.62 0.40 - 1.00 mg/dL 09/20/2024 9:50 AM EDT [facility] Comment:METHOD TRACEABLE TO IDMS STANDARD EGFR Non-Race Dependent >90 >=60 ml/min/1.7 3sq.m 09/20/2024 9:50 AM EDT [facility] Comment: Reported eGFR is based on the CKD-EPI 2020 equation that does not use a race coefficient. Blood Venous blood / Unknown 09/20/2024 9:00 AM EDT 09/20/2024 9:28 AM EDT us Pamela Amadio NURSE COORDINATOR-CAREER DEVELOPER LAB BLOOD ORDERABLES Ina l Result Performing Organization Address City/[facility] Co de Phone Number [address] [place] [address], [place] * (ABNORMAL) BUN (09/20/2024 9:00 AM EDT) BLOOD UREA NITROGEN 29(H) 5 - 27 mg/dL 09/20/2024 9:50 AM EDT [facility] Blood Venous blood / Unknown 09/20/2024 9:00 AM EDT 09/20/2024 9:28 AM EDT us Pamela Amadio NURSE COORDINATOR-CAREER DEVELOPER LAB BLOOD ORDERABLES Ina l Result [facility] [address] [place] [address], [place] * (ABNORMAL) CBC auto differential (09/20/2024 9:00 AM EDT) WBC 11.7(H) 4 - 11 x10E9/L 09/20/2024 10:07 AM EDT [facility] RBC Count 3.83 3.8 - 5.2 X10E12/L 09/20/2024 10:07 AM EDT [facility] Hemoglobin 12.0 11.7 - 15.5 g/dL 09/20/2024 10:07 AM EDT [facility] Hematocrit 36.9 35 - 47 % 09/20/2024 10:07 AM EDT [facility] MCV 96 80 - 100 fL 09/20/2024 10:07 AM EDT [facility] MCH 31.4 27 - 34 pg 09/20/2024 10:07 AM EDT [facility] MCHC 32.6 32 - 36 g/dL 09/20/2024 10:07 AM EDT [facility] RDW 14.9 11.5 - 15 % 09/20/2024 10:07 AM EDT [facility] Platelet Count 324 150 - 450 X10E9/L 09/20/2024 10:07 AM EDT [facility] MPV 6.7(L) 7 - 12 fL 09/20/2024 10:07 AM EDT [facility] Neutrophils % 64.4 % 09/20/2024 10:07 AM EDT [facility] Lymphocytes % 27.2 % 09/20/2024 10:07 AM EDT [facility] Monocytes % 7.9 % 09/20/2024 10:07 AM EDT [facility] Eosinophils % 0.3 % 09/20/2024 10:07 AM EDT [facility] Basophils % 0.2 % 09/20/2024 10:07 AM EDT [facility] Neutrophils Absolute (A) 7.5(H) 1.5 - 6.6 10*3/uL 09/20/2024 10:07 AM EDT [facility] Lymphocytes Absolute 3.2 1.0 - 3.5 10*3/uL 09/20/2024 10:07 AM EDT [facility] Monocytes Absolute 0.9 0.0 - 0.9 10*3/uL 09/20/2024 10:07 AM EDT [facility] Eosinophils Absolute 0.0 0.0 - 0.4 10*3/uL 09/20/2024 10:07 AM EDT [facility] Basophils Absolute 0.0 0.0 - 0.2 10*3/uL 09/20/2024 10:07 AM EDT [facility] Differential Type AUTOMATED DIFFERENTIAL 09/20/2024 10:07 AM EDT [facility] Blood Venous blood / Unknown 09/20/2024 9:00 AM EDT 09/20/2024 9:28 AM EDT us Pamela Amadio NURSE COORDINATOR-CAREER DEVELOPER LAB BLOOD ORDERABLES Ina l Result Performing Organization Address City/[facility]/ZIP Co de Phone Number [facility] [address] [facility] [place] [address], * Vancomycin, trough (09/20/2024 9:00 AM EDT) Pathologist [facility] VANCOMYCIN TROUGH 13.0 5.0 - 20.0 ug/mL 09/20/2024 9:50 AM EDT [facility] Blood Venous blood / Unknown 09/20/2024 9:00 AM EDT 09/20/2024 9:28 AM EDT us Pamela Amadio NURSE COORDINATOR-CAREER DEVELOPER LAB BLOOD ORDERABLES Ina l Result [facility] [address] [place] [place] [address], documented in this encounter Visit Diagnoses Diagnosis Infection following a procedure, organ and space surgical site, initial encounter Disruption of external operation (surgical) wound, not elsewhere classified, initial encounter documented in this encounter Additional Health Concerns Assessment Noted Time PHQ-9 Depression Total Score: 0 08/21/19 25 8:33 PM EDT documented as of this encounter Care Teams Strip Picker Relationship Specialty Start Date End Date Dinorah Leger APRN-EKATERINA [address] [place] [id number] PCP - General Nurse Practitioner 03/09/24 documented as of this encounter
--- OUTSIDE RECORDS SUMMARY | 2024-12-29 11:26 | XMS_ITS | Encounter Summary ---
Author Organization [facility] tem Address [id number] [address] [place] [address] Care Team Providers Care Application Processor Name Role Phone Dinorah Leger LOG SCALER-SUBSTATION MECHANIC Primary Care Provider + Encounter Details Date Type Department Care Team (Late st Contact Info) Description 09/07/2024 Lab Requisition [facility] - Lab [address] [place] [phone] Pamela Santiago APRN-SUBSTATION MECHANIC [address] [place] [address] Aftercare following surgery for neoplasm; Infection following [...] drink = 0.6 oz pur e alcohol) [facility] Utilities Answer Date Recorded In the past 12 months has [employer], gas, oil, or water [employer] threatened to shut off services in your [...] Info) Description 01/06/2025 7:30 AM EDT Appointment [facility] - Cardiovascular [address] [place] [phone] 01/06/2025 9:00 AM EDT Office Visit [facility] [address] [facility] [address] [facility] [place] [address] Marina Jordan MD [address] [place] [address] 01/13/2025 2:30 PM EDT Office Visit [facility] Pulmonary/Sleep Medicine [address] [place] [address] Mary Watson, DO [address] [place] [address] documented as of this encounter Goals Goal Patient Goal Type Associated Problems Recent Progress Patient-Stated? Author SNF per pt & son Celestino General Yes María Ruiz RN DISEASE MANAGEMENT Note: Evaluation of progress towards goal: feeling some better transition to SNF at discharge General Yes Mita Paniagua, RN DISEASE MANAGEMENT Note: Evaluation of progress towards goal: transition to SNF at discharge <enter goal here> General Yes Adonay Luna, RN Note: Evaluation of progress towards goal: home with [facility] documented as of this encounter Procedures [...] - 11 x10E9/L 09/07/2024 3:21 PM EDT [facility] RBC Count 3.88 3.8 - 5.2 X10E12/L 09/07/2024 3:21 PM EDT [facility] Hemoglobin 12.3 11.7 - 15.5 g/dL 09/07/2024 3:21 PM EDT [facility] Hematocrit 37.0 35 - 47 % 09/07/2024 3:21 PM EDT [facility] MCV 95 80 - 100 fL 09/07/2024 3:21 PM EDT [facility] MCH 31.6 27 - 34 pg 09/07/2024 3:21 PM EDT [facility] MCHC 33.1 32 - 36 g/dL 09/07/2024 3:21 PM EDT [facility] RDW 14.8 11.5 - 15 % 09/07/2024 3:21 PM EDT [facility] Platelet Count 342 150 - 450 X10E9/L 09/07/2024 3:21 PM EDT [facility] MPV 6.5(L) 7 - 12 fL 09/07/2024 3:21 PM EDT [facility] Neutrophils % 82.6 % 09/07/2024 3:21 PM EDT [facility] Lymphocytes % 12.9 % 09/07/2024 3:21 PM EDT [facility] Monocytes % 4.4 % 09/07/2024 3:21 PM EDT [facility] Eosinophils % 0.0 % 09/07/2024 3:21 PM EDT [facility] Basophils % 0.1 % 09/07/2024 3:21 PM EDT [facility] Neutrophils Absolute (A) 8.7(H) 1.5 - 6.6 10*3/uL 09/07/2024 3:21 PM EDT [facility] Lymphocytes Absolute 1.4 1.0 - 3.5 10*3/uL 09/07/2024 3:21 PM EDT [facility] Monocytes Absolute 0.5 0.0 - 0.9 10*3/uL 09/07/2024 3:21 PM EDT [facility] Eosinophils Absolute 0.0 0.0 - 0.4 10*3/uL 09/07/2024 3:21 PM EDT [facility] Basophils Absolute 0.0 0.0 - 0.2 10*3/uL 09/07/2024 3:21 PM EDT [facility] Differential Type AUTOMATED DIFFERENTIAL 09/07/2024 3:21 PM EDT [facility] Blood Venous blood / Unknown 09/07/2024 2:10 PM EDT 09/07/2024 3:15 PM EDT Pamela GUNTER LAB BLOOD ORDERABLES Ina l Result [facility] [address] [facility] [place] [address], documented in this encounter Visit Diagnoses Diagnosis Aftercare following surgery for neoplasm Infection following a procedure, organ and space surgical site, initial encounter Disruption of external operation (surgical) wound, not elsewhere classified, initial encounter documented in this encounter Additional Health Concerns Assessment Noted Time PHQ-9 Depression Total Score: 0 08/21/19 25 8:33 PM EDT documented as of this encounter Care Teams Application Processor Relationship Specialty Start Date End Date Dinorah Leger APRN-CNP [address] [place] [address] PCP - General Nurse Practitioner 03/09/24 documented as of this encounter
--- OUTSIDE RECORDS SUMMARY | 2024-12-29 11:26 | XMS_ITS | Encounter Summary ---
Author Organization [facility] Address [address] [place] [address] Care Team Providers Care Paintless Dent Repair Technician Name Role Phone Misa Grey MD Primary Care Provider [phone] Deacon Lacy DO Unavailable [phone] Dinorah Leger MD Unavailable [phone] Encounter Details Date Type Department Care Team (Late Contact Info) Description 12/25/2022 Abstract [facility] [address] [place] [phone] Sukhwinder Voss, POWER MANAGER [address] [place], [place] [phone] Social History Tobacco Use Types Packs/Day Years [...] Department Care Team (Late Contact Info) Description 02/22/2025 2:00 PM EST Procedure Visit [facility] [address] [place] [phone] Phil Cano, DPLissa [address] [place], [place] [phone] documented as of this encounter Visit Diagnoses Not on filedocumented in this encounter Care Teams Paintless Dent Repair Technician Relationship Specialty Start Date End Date Misa Grey MD [address] [place], [place] [phone] PCP - General Pediatrics 09/11/22 Deacon Lacy DO [address] [facility] [address] [place] [address] Referring Physician Neurology 04/08/24 Dinorah Leger MD [address] [place], [place] [phone] Referring Physician Review Trainer 04/08/24 documented as of this encounter
--- OUTSIDE RECORDS SUMMARY | 2024-12-29 11:26 | XMS_ITS | Encounter Summary ---
Author Organization [employer] Address [id number] [address] [place] [address] Care Team Providers Care Animal Anatomist Name Role Phone Dinorah Leger PRINCIPAL PRODUCT MANAGER-ORTHOPEDIC DENTIST Primary Care Provider + Encounter Details Date Type Department Care Team (Late st Contact Info) Description 08/11/2024 Telephone [facility] [address] [place] [phone] Faby Bai CMA Social History Tobacco Use Types Packs/Day Years Used Date Smoking Tobacco: Former Cigarettes Q uit: 2019 Smokeless Tobacco: Never Alcohol Use Standard Drinks/Week Comments No 0 (1 standard drink = 0.6 oz pur e alcohol) [facility] Utilities Answer Date Recorded In the past 12 months has [employer], gas, oil, or water [email or web address] threatened to shut off services in your [...] Info) Description 01/06/2025 7:30 AM EDT Appointment [facility] - Cardiovascular [address] [place] [place] [address] 01/06/2025 9:00 AM EDT Office Visit [facility] Card[facility] [address] [place] [phone] Marina Jordan MD [address] [place] [address] 01/13/2025 2:30 PM EDT Office Visit [facility]Sleep [facility] [address] [facility] [place] [address] Mary Watson, DO [address] [address] documented as of this encounter Goals Goal [...] documented as of this encounter Care Teams Animal Anatomist Relationship Specialty Start Date End Date Dinorah Leger APRN-EKATERINA [facility] [place] [address] PCP - General Nurse Practitioner 03/09/24 documented as of this encounter
--- OUTSIDE RECORDS SUMMARY | 2024-12-29 11:26 | XMS_ITS | Encounter Summary ---
Author Organization [facility] tem Address [id number] [address] [place] [address] Care Team Providers Care Business Relationship Manager Name Role Phone Dinorah Leger RENAL DIALYSIS RN-BUSINESS DEVELOPER Primary Care Provider + Encounter Details Date Type Department Care Team (Late st Contact Info) Description 09/27/2024 Lab Requisition [facility] - Lab [address] [place] [phone] Pamela Santiago APRN-BUSINESS DEVELOPER [address] [place] [address] Infection following a procedure, organ and space surgical site, initial encounter; Disruption of external operation (surgical) wound, not elsewhere classified, initial encounter Social History Tobacco Use Types Packs/Day Years Used Date Smoking Tobacco: Former Cigarettes 2 20 Q uit: 2019 Smokeless Tobacco: Never Alcohol Use Standard Drinks/Week Comments No 0 (1 standard drink = 0.6 oz pur e alcohol) [facility] Utilities Answer Date Recorded In the past 12 months has [employer], gas, oil, or water [employer] [facility] threatened to shut off services in your [...] Info) Description 01/06/2025 7:30 AM EDT Appointment [facility] - Cardiovascular [address] [place] [phone] 01/06/2025 9:00 AM EDT Office Visit [facility] [address] [facility] 1 [place] [phone] Marina Jordan MD [address] [place] [address] 01/13/2025 2:30 PM EDT Office Visit [facility] [address] [place] [address] Mary Watson, DO [address] [address] Scheduled Orders Name Type Priority Associated Diagnoses Orde r Schedule C-reactive protein Lab Routine Infection following a procedure, organ and space surgical site, initial encounter Disruption of external operation (surgical) wound, not elsewhere classified, initial encounter Ordered: 09/28/2024 documented as of this encounter Goals Goal Patient Goal Type Associated Problems Recent Progress Patient-Stated? Author SNF per pt & son Celestino General Yes María Ruiz RN LICENSED PRACTICAL Note: Evaluation of progress towards goal: feeling some better transition to SNF at discharge General Yes Mita Paniagua, RN LICENSED PRACTICAL Note: Evaluation of progress towards goal: transition to SNF at discharge <enter goal here> General Yes Adonay Luna, RN Note: Evaluation of progress towards goal: home with [facility] documented as of this encounter Procedures Procedure Name Priority Date/Time Associated Diagnosis Comments CBC WITH AUTO DIFFERENTIAL Routine 09/27/2024 8:40 AM EDT Infection following a procedure, organ and space surgical site, initial encounter Disruption of external operation (surgical) wound, not elsewhere classified, initial encounter C-REACTIVE PROTEIN Routine 09/27/2024 8: 40 AM EDT Infection following a procedure, organ and space surgical site, initial encounter Disruption of external operation (surgical) wound, not elsewhere classified, initial encounter BUN Routine 09/27/2024 8:40 AM EDT Infection following a procedure, organ and space surgical site, initial encounter Disruption of external operation (surgical) wound, not elsewhere classified, initial encounter CREATININE, SERUM Routine 09/27/2024 8:4 0 AM EDT Infection following a procedure, organ and space surgical site, initial encounter Disruption of external operation (surgical) wound, not elsewhere classified, initial encounter VANCOMYCIN, TROUGH Routine 09/27/2024 8: 40 AM EDT Infection following a procedure, organ and space surgical site, initial encounter Disruption of external operation (surgical) wound, not elsewhere classified, initial encounter documented in this encounter Results * C-reactive protein (09/27/2024 8:40 AM EDT) C REACTIVE PROTEIN <0.5 <=0.7 mg/dL 09/28/2024 12:27 PM EDT [facility] Blood Venous blood / Unknown 09/27/2024 8:40 AM EDT 09/27/2024 9:37 AM EDT us Pamela Amadio RENAL DIALYSIS RN-BUSINESS DEVELOPER LAB BLOOD ORDERABLES Ina l Result [address] [place] [address], [place] * Creatinine includes GFR, serum (09/27/2024 8:40 AM EDT) CREATININE 0.70 0.40 - 1.00 mg/dL 09/27/2024 10:05 AM EDT [facility] Comment:METHOD TRACEABLE TO IDMS STANDARD EGFR Non-Race Dependent >90 >=60 ml/min/1.7 3sq.m 09/27/2024 10:05 AM EDT [facility] Comment: Reported eGFR is based on the CKD-EPI 2020 equation that does not use a race coefficient. Blood Venous blood / Unknown 09/27/2024 8:40 AM EDT 09/27/2024 9:37 AM EDT us Pamela Amadio RENAL DIALYSIS RN-BUSINESS DEVELOPER LAB BLOOD ORDERABLES Ina l Result [address] [place] [address], [place] * BUN (09/27/2024 8:40 AM EDT) BLOOD UREA NITROGEN 22 5 - 27 mg/dL 09/27/2024 10:05 AM EDT [facility] Blood Venous blood / Unknown 09/27/2024 8:40 AM EDT 09/27/2024 9:37 AM EDT us Pamela Santiago RENAL DIALYSIS RN-BUSINESS DEVELOPER LAB BLOOD ORDERABLES Ina dawson Result [facility] [address] [place] [address], [place] * (ABNORMAL) CBC auto differential (09/27/2024 8:40 AM EDT) WBC 10.7 4 - 11 x10E9/L 09/27/2024 9:56 AM EDT [facility] RBC Count 3.79(L) 3.8 - 5.2 X10E12/L 09/27/2024 9:56 AM EDT [facility] Hemoglobin 12.3 11.7 - 15.5 g/dL 09/27/2024 9:56 AM EDT [facility] Hematocrit 36.3 35 - 47 % 09/27/2024 9:56 AM EDT [facility] MCV 96 80 - 100 fL 09/27/2024 9:56 AM EDT [facility] MCH 32.5 27 - 34 pg 09/27/2024 9:56 AM EDT [facility] MCHC 33.9 32 - 36 g/dL 09/27/2024 9:56 AM EDT [facility] RDW 15.3(H) 11.5 - 15 % 09/27/2024 9:56 AM EDT [facility] Platelet Count 290 150 - 450 X10E9/L 09/27/2024 9:56 AM EDT [facility] MPV 6.8(L) 7 - 12 fL 09/27/2024 9:56 AM EDT [facility] Neutrophils % 62.3 % 09/27/2024 9:56 AM EDT [facility] Lymphocytes % 27.6 % 09/27/2024 9:56 AM EDT [facility] Monocytes % 9.5 % 09/27/2024 9:56 AM EDT [facility] Eosinophils % 0.4 % 09/27/2024 9:56 AM EDT [facility] Basophils % 0.2 % 09/27/2024 9:56 AM EDT [facility] Neutrophils Absolute (A) 6.7(H) 1.5 - 6.6 10*3/uL 09/27/2024 9:56 AM EDT [facility] Lymphocytes Absolute 2.9 1.0 - 3.5 10*3/uL 09/27/2024 9:56 AM EDT [facility] Monocytes Absolute 1.0(H) 0.0 - 0.9 10*3/uL 09/27/2024 9:56 AM EDT [facility] Eosinophils Absolute 0.0 0.0 - 0.4 10*3/uL 09/27/2024 9:56 AM EDT [facility] Basophils Absolute 0.0 0.0 - 0.2 10*3/uL 09/27/2024 9:56 AM EDT [facility] Differential Type AUTOMATED DIFFERENTIAL 09/27/2024 9:56 AM EDT [facility] Blood Venous blood / Unknown 09/27/2024 8:40 AM EDT 09/27/2024 9:37 AM EDT us Pamela Santiago RENAL DIALYSIS RN-BUSINESS DEVELOPER LAB BLOOD ORDERABLES Ina l Result [facility] [address] [place] [address], [place] * Vancomycin, trough (09/27/2024 8:40 AM EDT) VANCOMYCIN TROUGH 15.0 5.0 - 20.0 ug/mL 09/27/2024 10:05 AM EDT [facility] Blood Venous blood / Unknown 09/27/2024 8:40 AM EDT 09/27/2024 9:37 AM EDT us Pamela GUNTER LAB BLOOD ORDERABLES Ina l Result [facility] MARIE [address] [place] [address], [place] documented in this encounter Visit Diagnoses Diagnosis Infection following a procedure, organ and space surgical site, initial encounter Disruption of external operation (surgical) wound, not elsewhere classified, initial encounter documented in this encounter Additional Health Concerns Assessment Noted Time PHQ-9 Depression Total Score: 0 08/21/19 25 8:33 PM EDT documented as of this encounter Care Teams Business Relationship Manager Relationship Specialty Start Date End Date Dinorah Leger APRN-CNP [address] [place] [phone] PCP - General Nurse Practitioner 03/09/24 documented as of this encounter
--- OUTSIDE RECORDS SUMMARY | 2024-12-29 11:26 | XMS_ITS | Encounter Summary ---
Author Organization [employer] [facility] tem Address [id number] [address] [place] [address] Care Team Providers Care Intensive Care Ambulance Paramedic Name Role Phone Dinorah Leger AUTO BODY BUILDER APPRENTICE-HAND SHAPER Primary Care Provider + Encounter Details Date Type Department Care Team (Late st Contact Info) Description 06/23/2024 Orders Only [facility] [place] [address] Transcribe, Orders Support User Pain (Primary Dx) Social History Tobacco Use Types Packs/Day Years Used Date Smoking Tobacco: Former Cigarettes Q uit: 2019 Smokeless Tobacco: Never Alcohol Use Standard Drinks/Week Comments No 0 (1 standard drink = 0.6 oz pur e alcohol) [facility] Utilities Answer Date Recorded In the past 12 months has e [employer], gas, oil, or water company threatened to [...] 7:30 AM EDT Appointment [facility] - Cardiovascular [address] [place] [phone] 01/06/2025 9:00 AM EDT Office Visit [facility] [address] [facility] 1 [place] [phone] Marina Jordan MD [address] [place] [address] 01/13/2025 2:30 PM EDT Office Visit [facility] [address] [place] [address] Mary Watson DO [address] [address] documented as of this encounter Goals Goal Patient Goal Type Associated Problems Recent Progress Patient-Stated? Author SNF per pt & son Celestino General Yes María Ruiz, ESTATE PLANNING COUNSELOR Note: Evaluation of progress towards goal: feeling some better transition to SNF at discharge General Yes Siva, Mita, ESTATE PLANNING COUNSELOR Note: Evaluation of progress towards goal: transition [...] documented as of this encounter Care Teams Intensive Care Ambulance Paramedic Relationship Specialty Start Date End Date Dinorah Leger APRN-EKATERINA [address] [place] [phone] PCP - General Nurse Practitioner 03/09/24 documented as of this encounter
--- OUTSIDE RECORDS SUMMARY | 2024-12-29 11:26 | XMS_ITS | Encounter Summary ---
Author Organization [facility] tem Address [id number] [address] [place] [address] Care Team Providers Care Supervisor Graphite Name Role Phone Dinorah Leger TRESTLE MECHANIC-WASTE CHOPPER Primary Care Provider + Encounter Details Date Type Department Care Team (Late st Contact Info) Description 08/30/2024 Lab Requisition [facility] - Lab [address] [place] [address] Pamela Santiago APRN-WASTE CHOPPER [address] [place] [address] Infection following a procedure, organ and space surgical site, initial encounter; Disruption of external operation (surgical) wound, not elsewhere classified, initial encounter Social History Tobacco Use Types Packs/Day Years Used Date Smoking Tobacco: Former Cigarettes 2 20 Q uit: 2019 Smokeless Tobacco: Never Alcohol Use Standard Drinks/Week Comments No 0 (1 standard drink = 0.6 oz pur e alcohol) [facility] Utilities Answer Date Recorded In the past 12 months has [employer], gas, oil, or water [employer] threatened to shut off services in your [...] Info) Description 01/06/2025 7:30 AM EDT Appointment [facility] - Cardiovascular [address] [place] [phone] 01/06/2025 9:00 AM EDT Office Visit [facility] [address] [facility] 1 [place] [address] Marina Jordan MD [address] [place] [address] 01/13/2025 2:30 PM EDT Office Visit [facility] [address] [place] [address] Mary Watson, DO [address] [address] documented as of this encounter Goals Goal Patient Goal Type Associated Problems Recent Progress Patient-Stated? Author SNF per pt & son Celestino General Yes María Ruiz PARIMUTUEL TICKET SELLER Note: Evaluation of progress towards goal: feeling some better transition to SNF at discharge General Yes Mita Paniagua, PARIMUTUEL TICKET SELLER Note: Evaluation of progress towards goal: transition to SNF at discharge <enter goal here> General Yes Adonay Luna, CHARLINE Note: Evaluation of progress towards goal: home with [facility] documented as of this encounter Procedures [...] - 11 x10E9/L 08/30/2024 4:00 PM EDT [facility] RBC Count 3.77(L) 3.8 - 5.2 X10E12/L 08/30/2024 4:00 PM EDT [facility] Hemoglobin 12.2 11.7 - 15.5 g/dL 08/30/2024 4:00 PM EDT [facility] Hematocrit 36.0 35 - 47 % 08/30/2024 4:00 PM EDT [facility] MCV 96 80 - 100 fL 08/30/2024 4:00 PM EDT [facility] MCH 32.4 27 - 34 pg 08/30/2024 4:00 PM EDT [facility] MCHC 33.9 32 - 36 g/dL 08/30/2024 4:00 PM EDT [facility] RDW 14.7 11.5 - 15 % 08/30/2024 4:00 PM EDT [facility] Platelet Count 300 150 - 450 X10E9/L 08/30/2024 4:00 PM EDT [facility] MPV 7.1 7 - 12 fL 08/30/2024 4:00 PM EDT [facility] Neutrophils % 84.1 % 08/30/2024 4:00 PM EDT [facility] Lymphocytes % 10.7 % 08/30/2024 4:00 PM EDT [facility] Monocytes % 4.9 % 08/30/2024 4:00 PM EDT [facility] Eosinophils % 0.1 % 08/30/2024 4:00 PM EDT [facility] Basophils % 0.2 % 08/30/2024 4:00 PM EDT [facility] Neutrophils Absolute (A) 9.4(H) 1.5 - 6.6 10*3/uL 08/30/2024 4:00 PM EDT [facility] Lymphocytes Absolute 1.2 1.0 - 3.5 10*3/uL 08/30/2024 4:00 PM EDT [facility] Monocytes Absolute 0.5 0.0 - 0.9 10*3/uL 08/30/2024 4:00 PM EDT [facility] Eosinophils Absolute 0.0 0.0 - 0.4 10*3/uL 08/30/2024 4:00 PM EDT [facility] Basophils Absolute 0.0 0.0 - 0.2 10*3/uL 08/30/2024 4:00 PM EDT [facility] Differential Type AUTOMATED DIFFERENTIAL 08/30/2024 4:00 PM EDT [facility] Blood Venous blood / Unknown 08/30/2024 3:25 PM EDT 08/30/2024 3:57 PM EDT us Pamela Amadio TRESTLE MECHANIC-WASTE CHOPPER LAB BLOOD ORDERABLES Ina l Result Performing Organization Address City/[facility]/ZIP Co de Phone Number [address] [place] [address], [place] * BUN (08/30/2024 9:40 AM EDT) BLOOD UREA NITROGEN 22 5 - 27 mg/dL 08/30/2024 10:41 AM EDT [facility] Blood Venous blood / Unknown 08/30/2024 9:40 AM EDT 08/30/2024 10:20 AM EDT us Pamela Amadio TRESTLE MECHANIC-WASTE CHOPPER LAB BLOOD ORDERABLES Ina l Result [address] [place] [address], [place] * Vancomycin, trough (08/30/2024 9:40 AM EDT) VANCOMYCIN TROUGH 8.5 5.0 - 20.0 ug/mL 08/30/2024 10:41 AM EDT [facility] Blood Venous blood / Unknown 08/30/2024 9:40 AM EDT 08/30/2024 10:20 AM EDT us Pamela Amadio TRESTLE MECHANIC-WASTE CHOPPER LAB BLOOD ORDERABLES Ina l Result Performing Organization Address City/[facility]/ZIP Co de Phone Number [facility] [address] [place] [address] [place] [address], [place] * Creatinine includes GFR, serum (08/30/2024 9:40 AM EDT) CREATININE 0.63 0.40 - 1.00 mg/dL 08/30/2024 10:41 AM EDT [facility] Comment:METHOD TRACEABLE TO IDMS STANDARD EGFR Non-Race Dependent >90 >=60 ml/min/1.7 3sq.m 08/30/2024 10:41 AM EDT [facility] Comment: Reported eGFR is based on the CKD-EPI 2020 equation that does not use a race coefficient. Blood Venous blood / Unknown 08/30/2024 9:40 AM EDT 08/30/2024 10:20 AM EDT us Pamela Amadio TRESTLE MECHANIC-WASTE CHOPPER LAB BLOOD ORDERABLES Ina l Result Performing Organization Address City/[facility]/ZIP Co de Phone Number [address] [place] [address], [place] * (ABNORMAL) C-reactive protein (08/30/2024 9:40 AM EDT) C REACTIVE PROTEIN 1.2(H) <=0.7 mg/dL 08/30/2024 10:41 AM EDT [facility] Blood Venous blood / Unknown 08/30/2024 9:40 AM EDT 08/30/2024 10:20 AM EDT us Pamela Amadio TRESTLE MECHANIC-WASTE CHOPPER LAB BLOOD ORDERABLES Ina l Result [place] [facility] [address] [place] [address], documented in this encounter Visit Diagnoses Diagnosis Infection following a procedure, organ and space surgical site, initial encounter Disruption of external operation (surgical) wound, not elsewhere classified, initial encounter documented in this encounter Additional Health Concerns Assessment Noted Time PHQ-9 Depression Total Score: 0 08/21/19 25 8:33 PM EDT documented as of this encounter Care Teams Supervisor Graphite Relationship Specialty Start Date End Date Dinorah Leger APRN-EKATERINA [address] [place] [phone] PCP - General Nurse Practitioner 03/09/24 documented as of this encounter
--- OUTSIDE RECORDS SUMMARY | 2024-12-29 11:26 | XMS_ITS | Encounter Summary ---
Author Organization [facility] tem Address [id number] [address] [place] [address] Care Team Providers Care Aesthetician Name Role Phone Dinorah Leger IMMIGRATION LAWYER-RESOURCE ROOM SPECIAL EDUCATION TEACHER Primary Care Provider + Encounter Details Date Type Department Care Team (Late st Contact Info) Description 10/06/2024 Lab Requisition [facility] - Lab [address] [place] [phone] Abby Barbosa, IMMIGRATION LAWYER-RESOURCE ROOM SPECIAL EDUCATION TEACHER [address] [facility] [address] [place] [address] Aftercare following surgery for neoplasm; Urinary tract infection, site not specified; Other bacterial infections of unspecified site Social History Tobacco Use Types Packs/Day Years Used Date Smoking Tobacco: Former Cigarettes 2 20 Q uit: 2019 Smokeless Tobacco: Never Alcohol Use Standard Drinks/Week Comments No 0 (1 standard drink = 0.6 oz pur e alcohol) [facility] Utilities Answer Date Recorded In the past 12 months has [employer], [employer], oil, or water [employer] threatened to shut off services in your [...] [facility] [address] [place] [phone] 01/06/2025 9:00 AM EDT Office Visit [facility] [address] [facility] 1 [place] [phone] Marina Jordan MD [address] [place] [address] 01/13/2025 2:30 PM EDT Office Visit [facility] [address] [place] [phone] Mary Watson, DO [address] [address] documented as of this encounter Goals Goal Patient Goal Type Associated Problems Recent Progress Patient-Stated? Author SNF per pt & son Celestino General Yes María Ruiz LSW Note: Evaluation of progress towards goal: feeling some better transition to SNF at discharge General Yes Mita Paniagua, TUBE LANCER Note: Evaluation of progress towards goal: transition to SNF at discharge <enter goal here> General Yes Adonay Luna, CHARLINE Note: Evaluation of progress towards goal: home with [facility] documented as of this encounter Procedures Procedure Name Priority Date/Time Associated Diagnosis Comments URINE CULTURE Routine 10/06/2024 3:06 PM EDT Aftercare following surgery for neoplasm Urinary tract infection, site not specified Other bacterial infections of unspecified site documented in this encounter Results * Urine culture (10/06/2024 3:06 PM EDT) CULTURE RESULTS 10-50,000 ORGANISMS/mL NORMAL UROGENITAL GRISELDA 10/08/2024 8:18 AM EDT [facility] Urine Urine specimen collection, clean catch / Unknown 10/06/2024 3:06 PM EDT 10/06/2024 3:33 PM EDT Narrative [facility] - 10/08/2024 8:18 AM EDT Corrected report. previously reported as: 10,000-50,000 CFU/mL enterococcus species Along with <10,000 CFU/mL Normal Urogenital Griselda. us Abby Barbosa IMMIGRATION LAWYER-RESOURCE ROOM SPECIAL EDUCATION TEACHER MICROBIOLOGY - GENERA L ORDERABLES Final Result [facility] [address] [place] [address], [place] [phone] documented in this encounter Visit Diagnoses Diagnosis Aftercare following surgery for neoplasm Urinary tract infection, site not specified Other bacterial infections of unspecified site documented in this encounter Additional Health Concerns Assessment Noted Time PHQ-9 Depression Total Score: 0 05/23/20 25 8:33 PM EDT documented as of this encounter Care Teams Aesthetician Relationship Specialty Start Date End Date Dinorah Leger APRN-EKATERINA [address] [place], [place] [phone] PCP - General Nurse Practitioner 03/09/24 documented as of this encounter
--- OUTSIDE RECORDS SUMMARY | 2024-12-29 11:26 | XMS_ITS | Encounter Summary ---
Author Organization [employer] [facility] [employer] Address [id number] [address] [place] [address] Care Team Providers Care Network Operations Project Manager Name Role Phone Dinorah Leger FINAL ASSEMBLER BOAT-SUPERVISOR CLEANING AND ANNEALING Primary Care Provider + Encounter Details Date Type Department Care Team (Late st Contact Info) Description 10/28/2022 Telephone [facility] [address] [phone] Pat Ramos RN Social History [...] script for pap supplies to go to [facility] [employer]. Field Property Loss Specialist informed patient [place], is no longer in service. Script sent to [facility]. Provided patient with phone number to contact them for pap supplies. Patient agreeable. documented in this encounter Plan of Treatment Upcoming Encounters Date Type Department Care Team (Late st Contact Info) Description 01/06/2025 7:30 AM EDT Appointment [facility] - Cardiovascular [address] [place] [place] [phone] 01/06/2025 9:00 AM EDT Office Visit [facility] [address] [facility] 1 [place] [address] Marina Jordan MD [address] [place] [address] 01/13/2025 2:30 PM EDT Office Visit [facility] [address] [facility] [place] [phone] Mary Watson, [address] [facility] [address] [place] [address] documented as of this encounter Visit Diagnoses Not on filedocumented in this encounter Care Teams Network Operations Project Manager Relationship Specialty Start Date End Date Dinorah Leger APRN-EKATERINA [address] [place] [address] PCP - General Nurse Practitioner 03/09/24 documented as of this encounter
--- OUTSIDE RECORDS SUMMARY | 2024-12-29 11:26 | XMS_ITS | Encounter Summary ---
Author Organization [facility] Address [address] [place] [address] Care Team Providers Care Die Sinking Machine Operator Name Role Phone Misa Grey MD Primary Care Provider [phone] Deacon Lacy DO Unavailable [phone] Dinorah Leger MD Unavailable [phone] Encounter Details Date Type Department Care Team (Late Contact Info) Description 12/18/2023 Orders Only [facility] [address] [place] [phone] Jamarcus Kong MD [address] [place] [address] Social History Tobacco Use Types [...] PM EST Procedure Visit [facility] [address] [place] [address] Phil Cano DPM [address] [place] [address] documented as of this encounter Procedures Procedure Name Priority Date/Time Associated Diagnosis Comments EMG AND NERVE CONDUCTION STUDY Routine 08/17/2012 4:23 PM EDT documented in this encounter Results * EMG AND NERVE CONDUCTION STUDY (08/17/2012 4:23 PM EDT) Jamarcus Kong MD NEUROLOGY ORDERABLES Final Result documented in this encounter Visit Diagnoses Not on filedocumented in this encounter Care Teams Die Sinking Machine Operator Relationship Specialty Start Date End Date Misa Grey MD [address] [place], [place] [phone] PCP - General Pediatrics 09/11/22 Deacon Lacy DO [address] [place] [id number] Referring Physician Neurology 04/08/24 Dinorah Leger MD [address] [place] [address] Referring Physician Can Sorter 04/08/24 documented as of this encounter
--- OUTSIDE RECORDS SUMMARY | 2024-12-29 11:26 | XMS_ITS | Encounter Summary ---
Author Organization [employer] tem Address [id number] [address] [place] [address] Care Team Providers Care Advertising Agent Name Role Phone Dinorah Leger JET DYEING MACHINE OPERATOR-CAR JOCKEY Primary Care Provider + Encounter Details Date Type Department Care Team (Latest Contact Info) Description 12/22/2024 Travel Social History Tobacco Use Types Packs/Day Years Used Date Smoking Tobacco: Former Cigarettes 2 20 Q uit: 2019 Smokeless Tobacco: Never Alcohol Use Standard Drinks/Week Comments No 0 (1 standard drink = 0.6 oz pur e alcohol) [facility] Utilities Answer Date Recorded In the past 12 months has [employer] electric, gas, oil, or water company threatened [...] Info) Description 01/06/2025 7:30 AM EDT Appointment [facility] - Cardiovascular [address] [place] [phone] 01/06/2025 9:00 AM EDT Office Visit [facility] [address] [facility] [address] [place] [phone] Marina Jordan MD [address] [place] [address] 01/13/2025 2:30 PM EDT Office Visit [facility] Pulmonary/Sleep Medicine [address] [place] [phone] Mary Watson DO [address] [facility] [address] [place] [address] documented as of this encounter Goals Goal Patient Goal Type Associated Problems Recent Progress Patient-Stated? Author SNF per pt & son Celestino General Yes María Ruiz LSW Note: Evaluation of progress towards goal: feeling some better transition to SNF at discharge General Yes Mita Paniagua, PAPER TESTING SUPERVISOR Note: Evaluation of progress towards goal: transition to SNF at discharge <enter goal here> General Yes Adonay Luna RN Note: Evaluation of progress towards goal: home with [facility] documented as of this encounter Visit Diagnoses Not on filedocumented in this encounter Additional Health Concerns Assessment Noted Time PHQ-9 Depression Total Score: 0 08/21/19 25 8:33 PM EDT documented as of this encounter Care Teams Advertising Agent Relationship Specialty Start Date End Date Dinorah Leger APRN-EKATERINA [address] [place] [id number] PCP - General Nurse Practitioner 03/09/24 documented as of this encounter
--- OUTSIDE RECORDS SUMMARY | 2024-12-29 11:27 | XMS_ITS | Encounter Summary ---
Author Organization [facility] Address [address] [place] [address] Care Team Providers Care Tribal Delegate Name Role Phone Misa Grey MD Primary Care Provider [phone] Deacon Lacy DO Unavailable [phone] Dinorah Leger MD Unavailable [phone] Encounter Details Date Type Department Care Team (Late Contact Info) Description 01/10/2023 Abstract [facility] [address] [place] [phone] Phil Cano DPM [address] [place], [place] [phone] Social History Tobacco Use Types Packs/Day Years [...] EST Procedure Visit [facility] [address] [place] [address] Phil Cano DPM [address] [place], [place] [phone] documented as of this encounter Visit Diagnoses Not on filedocumented in this encounter Care Teams Tribal Delegate Relationship Specialty Start Date End Date Misa Grey MD [address] [place], [place] [phone] PCP - General Pediatrics 09/11/22 Deacon Lacy DO [address] [facility] [address] [place], [place] [phone] Referring Physician Neurology 04/08/24 Dinorah Leger MD [address] [place], [place] [phone] Referring Physician Glove Factory Sewer 04/08/24 documented as of this encounter
--- OUTSIDE RECORDS SUMMARY | 2024-12-29 11:27 | XMS_ITS | Encounter Summary ---
Author Organization [facility] tem Address [id number] [address] [place] [address] Care Team Providers Care Lap Grinder Name Role Phone Dinoarh Leger ALTERATIONS SEWER-DIESEL CRANE OPERATOR Primary Care Provider + Encounter Details Date Type Department Care Team (Late st Contact Info) Description 05/14/2022 Orders Only [facility] [address] [place] [phone] Saadia Engle PA-C [address] [facility], [address] [place] [address] Social History Tobacco Use Types Packs/Day Years [...] Info) Description 01/06/2025 7:30 AM EDT Appointment [facility] - Cardiovascular [address] [place] [phone] 01/06/2025 9:00 AM EDT Office Visit [facility] [address] [facility] [address] [place] [phone] Marina Jordan MD [address] [place], [place] [phone] 01/13/2025 2:30 PM EDT Office Visit [facility] [address] [place] [address] Mary Watson, [address] [address] documented as of this encounter Visit Diagnoses Not on filedocumented in this encounter Care Teams Lap Grinder Relationship Specialty Start Date End Date Dinorah Leger APRN-EKATERINA [address] [place], [place] [phone] PCP - General Nurse Practitioner 03/09/24 documented as of this encounter
--- OUTSIDE RECORDS SUMMARY | 2024-12-29 11:27 | XMS_ITS | Clinical Summary ---
Author Organization [employer] tem Address [id number] [address] [place] [address] Care Team Providers Care Airport Utility Worker Name Role Phone Dinorah Leger SENIOR DIRECTOR OF STRATEGY-SUSTAINABILITY COMMUNICATOR Primary Care Provider + Allergies Active Allergy Reactions Criticality Noted Date Comments Sulfamethoxazole-Trimeth oprim Hives High 06/12/2017 Gabapentin Abnormal Behavior High 11/24/2023 Semaglutide Rash Low 10/29/2021 Other Reaction(s): Sores on head Medications levothyroxine (SYNTHROID, LEVOTHROID) 150 MCG tabletIndications: hypothyroidism Take 1 tablet (150 mcg total) by mouth in the morning. Indications: a condition with low thyroid hormone levels. Active benztropine (COGENTIN) 0.5 mg tabletIndications: drug-induced extrapyramidal reaction Take 1 tablet (0.5 mg total) by mouth in the morning. Indications: extrapyramidal symptoms as a result of taking the medication. 07/31/19 22 Active ARIPiprazole (ABILIFY) 30 mg tabletIndications: schizophrenia Take 1 tablet (30 mg total) by mouth in the morning. Indications: schizophrenia. 07/31/19 22 Active metFORMIN XR (GLUCOPHAGE XR) 500 mg 24 hr tabletIndications: type 2 diabetes mellitus Take 1 tablet (500 mg total) by mouth daily with breakfast Indications: type 2 diabetes mellitus. 07/13/19 22 Active cyanocobalamin 1000 MCG tabletIndications: prevention of vitamin B12 deficiency Take 1 tablet (1,000 mcg total) by mouth in the morning. Indications: prevention of vitamin B12 deficiency. 10/05/19 22 Active atorvastatin (LIPITOR) 20 mg tabletIndications: hypercholesterolem ia Take 1 tablet (20 mg total) by mouth in the morning. Indications: high cholesterol. 04/08/19 Active melatonin 10 mg tablet,chewable Chew 10 mg and swallow once daily at bedtime. sleep Active DULoxetine (CYMBALTA) 60 mg capsule Take 1 capsule (60 mg total) by mouth once daily at bedtime. 06/02/19 Active famotidine (PEPCID) 20 mg tablet Take 1 tablet (20 mg total) by mouth in the morning. 06/03/19 Active ALCOHOL PREP PADS pads, medicated 03/29/20 Active ACCU-CHEK GUIDE TEST STRIPS strip 03/29/20 Active ACCU-CHEK SOFTCLIX LANCETS lancets 04/08/19 Active acetaminophen (TYLENOL EXTRA STRENGTH) 500 mg tablet Take 2 tablets (1,000 mg total) by mouth every 6 (six) hours as needed for pain or headaches. 07/06/19 Active dexAMETHasone (DECADRON) 2 mg tablet Take 1 tablet (2 mg total) by mouth daily with breakfast. Continue current dose until follow up with radiation oncology 07/06/19 Active Additional Information Patient not taking.Reported on 12/22/2024 sennosides-docusat e sodium (SENOKOT-S) 8.6-50 mg Take 2 tablets by mouth nightly. 07/06/19 Active Additional Information Patient taking differently:2 tablet oral Nightly,Indications: constipation, Reported on 09/29/2024 polyethylene glycol (GLYCOLAX) 17 gram packet Take 17 g by mouth daily as needed (constipation). 07/06/19 Active insulin lispro (HumaLOG) 100 unit/mL injection Inject 0.01-0.15 mL (1-15 Units total) under the skin in the morning and 0.01-0.15 mL (1-15 Units total) at noon and 0.01-0.15 mL (1-15 Units total) in the evening. Inject before meals. Per sliding scale . Active nystatin (MYCOSTATIN) powderIndications: cutaneous candidiasis Apply 1 Application topically in the morning and 1 Application at noon and 1 Application in the evening and 1 Application before bedtime. Indications: a skin infection due to the fungus Leeanne. Active traMADoL (ULTRAM) 50 mg tablet Take 1 tablet (50 mg total) by mouth every 6 (six) hours as needed for pain. Active loperamide (IMODIUM) 2 mg capsule Take 1 capsule (2 mg total) by mouth as needed for diarrhea. Active ondansetron (ZOFRAN) 4 mg tablet Take 1 tablet (4 mg total) by mouth 4 (four) times a day as needed for nausea or vomiting. Active heparin lock flush, porcine, 10 unit/mL injection Infuse 1-5 mL (10-50 Units total) into a venous catheter as needed (line care per nursing agency protocol.). 1 mL 08/25/19 25 Active heparin lock flush, porcine, injection 100 unit/mL solution Infuse 1-5 mL (100-500 Units total) into a venous catheter as needed (line care per nursing agency protocol.). 1 mL 08/25/19 25 Active sodium chloride injection Infuse 10-20 mL into a venous catheter as needed for line care (line care per nursing agency protocol.). 1 mL 08/25/19 25 Active albuterol (PROAIR HFA) 90 mcg/actuation inhalerIndications :Mild intermittent asthma without complication Inhale 2 puffs every 4 (four) hours as needed for shortness of breath. 18 g 5 09/28/19 25 Active hydroCHLOROthiazid e (HYDRODIURIL) 25 mg tablet Take 1 tablet (25 mg total) by mouth every morning. TAKE 1 TABLET BY MOUTH DAILY IN THE MORNING 02/01/20 24 Active ELIQUIS 5 mg tablet Take 1 tablet (5 mg total) by mouth in the morning and 1 tablet (5 mg total) before bedtime. 08/07/19 25 Active amLODIPine (NORVASC) 5 mg tablet Take 1 tablet (5 mg total) by mouth in the morning. Active pregabalin (LYRICA) 25 mg capsule Take 1 capsule (25 mg total) by mouth in the morning and 1 capsule (25 mg total) before bedtime. 04/08/19 25 Active vancomycin (VANCOCIN) 27123 mg recon soln 09/08/19 25 Active furosemide (LASIX) 80 mg tablet 1 tablet Orally Once a day; Duration: 30 days 11/11/19 25 Active lurasidone (LATUDA) 40 mg tablet 1 tablet in the evening with food Orally Once a day; Duration: 30 days 12/15/19 25 Active potassium chloride (K-TAB,KLOR-CON) 10 MEQ CR tablet Take 1 tablet (10 mEq total) by mouth in the morning and at bedtime. 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) 12/22/2024 Travel 12/10/2024 Travel 12/09/2024 Telephone [facility] [address] [place] [address] Gila Silva CMA 12/08/2024 Orders Only [facility] [address] [place] [address] External, Scanning Provider 12/08/2024 Abstract [facility] [address] [place] [address] External, Scanning Provider 11/30/2024 Telephone [facility] [address] [place] [address] Lacy Ware CMA 11/22/2024 2:30 PM EDT - 11/22/2024 11:59 PM EDT Hospital Encounter [facility] - Cardiovascular [address] [place] [address] Localized swelling of both lower legs Discharge Disposition: Home 11/22/2024 Travel 11/22/2024 Telephone [facility] [place] [address] Ana Maria Colon MA 11/12/2024 2:59 PM EDT - 11/12/2024 11:59 PM EDT Hospital Encounter [facility] - Vascular [address] [place] [address] Localized swelling, mass and lump, lower limb, bilateral Discharge Disposition: Home 11/12/2024 Travel 11/11/2024 Telephone [facility] [address] [place] [phone] Lacy Aquino 10/15/2024 7:45 AM EDT - 10/15/2024 11:59 PM EDT Hospital Encounter [facility] - CT Imaging [address] [place] [phone] Neoplasm of unspecified behavior of brain ([facility]) Discharge Disposition: Home 10/15/2024 Travel 10/12/2024 Telephone [facility] [address] [place] [address] Flaco Sykes Jr., MD 10/11/2024 Telephone [facility] [address] [place] [address] Flaco Sykes Jr., MD 10/06/2024 Lab Requisition [facility] - Lab [address] [place] [phone] Abby Barbosa, SENIOR DIRECTOR OF STRATEGY-SUSTAINABILITY COMMUNICATOR Aftercare following surgery for neoplasm; Urinary tract infection, site not specified; Other bacterial infections of unspecified site 10/04/2024 Telephone [facility] [address] [place] [address] [facility] 10/04/2024 Telephone [facility] [address] [place] [address] [facility] 09/30/2024 Lab Requisition [facility] - Lab [address] [place] [phone] Abby Barbosa, SENIOR DIRECTOR OF STRATEGY-SUSTAINABILITY COMMUNICATOR Urinary tract infection, site not specified; Other bacterial infections of unspecified site; Aftercare following surgery for neoplasm 09/29/2024 12:50 PM EDT Office Visit [facility] [address] [place] [address] Adarsh Tovar MD Neoplasm of unspecified behavior of brain ([facility]) (Primary Dx) 09/29/2024 [facility] [address] [place] [phone] Flaco Sykes Jr., MD 09/29/2024 Travel from Last 3 Months Immunizations Immunization [...] Lung cancer Maternal Grandfather Colon polyps Mother Deep vein thrombosis Mother Dementia Mother Breast cancer Sister 1 [...] drink = 0.6 oz pur e alcohol) [employer] Answer Date Recorded In the past 12 months has e [employer], gas, oil, or water [employer] threatened to shut off services in your [...] EDT Inhaled Oxygen Concentration - - Weight 136.1 kg (300 lb) 12/22/2024 2:37 PM EDT Height 160 cm (5' 3 ) 12/22/2024 2:37 PM EDT Body Mass Index 53.14 12/22/2024 2:37 PM EDT Plan of Treatment Upcoming Encounters Date Type Department Care Team (Late st Contact Info) Description 01/06/2025 7:30 AM EDT Appointment [facility] - Cardiovascular [address] [place] [phone] 01/06/2025 9:00 AM EDT Office Visit [facility] [address] [facility] [place] [phone] Marina Jordan MD [address] [place] [address] 01/13/2025 2:30 PM EDT Office Visit [facility] [address] [place] [phone] Mary Watson, DO [address] [address] Health Maintenance Due Date Last Done Comments Diabetic Ophthalmology Exam 1959 Statin Use: Diabetic 1959 Adult BMI Follow Up Plan 1977 Diabetic Foot Exam 1977 Colonoscopy 06/24/2017 06/25/2007 Fall Risk Screening 2024 COVID-19 Vaccine (7 - 2023-2 5 season) 2024 01/02/2024, 12/29/2022, 12/22/2021, Additional history exists Influenza Vaccine 11/29/2024 01/02/2024, , 12/22/2021, Additional history exists Depression Screening 08/20/2025 08/20/2024 Adult BMI Screening 12/22/2025 12/22/2024 Tobacco Screening 12/22/2025 12/22/2024 DTaP,Tdap and Td Vaccines (3 - Td or Tdap) 02/07/2033 02/07/2023, 07/18/2008 Zoster (Shingles) Vaccine Completed 04/04/2023, 12/2022 Goals Goal Patient Goal Type Associated Problems Recent Progress Patient-Stated? Author SNF per pt & son Celestino General Yes María Ruiz LSW Note: Evaluation of progress towards goal: feeling some better transition to SNF at discharge General Yes Mita Paniagua, [employer] Note: Evaluation of progress towards goal: transition to SNF at discharge <enter goal here> General Yes Adonay Luna, RN Note: Evaluation of progress towards goal: home with [facility] Medical Devices Implanted Type Area Technical Program Manager Device Identifier Shelf Expiration Date Model / Serial / Lot Patch Dura 5x4in Thk3.5mm Crnmxf Drmtrx-Onla y + Npor Rgnrt Rpl [id number] - [id number] Implanted:Q ty: 1 on 06/25/2024 by Adarsh Tovar MD at [facility] Graft N/A: Cranial LEWIS CRANIOMAXILLOFACIAL 03/30/2027 [id number] / / [id number] Sphere Embl Ylw Embsph 100-300um Trisacryl Geltn Pf Juanjose Syr 5/Bx - [id number] Implanted:Q ty: 1 on 06/24/2024 by Ori Hitchcock MD at [facility] Other Implant Merit [id number] 05/26/2025 S220 / / [id number] 1-5 Sphere Embl Ylw Embsph 100-300um Trisacryl Geltn Pf Juanjose Syr 5/Bx - [id number] Implanted:Q ty: 1 on 06/24/2024 by Ori Hitchcock MD at [facility] Other Implant Merit [id number] 05/26/2025 S220 / / [id number] 1-5 Cover Bur Hl 14mm Lp Tab Unv Neuro 2 Thk.5mm Ns Lf - [id number] Implanted:Q ty: 3 on 06/25/2024 by Adarsh Tovar MD at [facility] Other Implant N/A: Cranial LEWIS CRANIOMAXILLOFACIAL 53-0551 4 / / Plate Bn 4mm 2y 6 Hl Lp Bar Unv Neuro 2 Ns Lf - [id number] Implanted:Q ty: 2 on 06/25/2024 by Adarsh Tovar MD at [facility] Plate N/A: Cranial [employer]WIS CRANIOMAXILLOFACIAL 53-0560 8 / / Screw Bn 4mm 1.5mm Slf Drl Xpn Crnmxf Strl Must Order In Multiples Of 5ea - [id number] Implanted:Q ty: 18 on 06/25/2024 by Adarsh Tovar MD at [facility] Screw N/A: Cranial [employer]IS CRANIOMAXILLOFACIAL 92-4087 4 / / Screw Bn 4mm 1.7mm Er Mxlfcl Ti - [id number] Implanted:Q ty: 2 on 06/25/2024 by Adarsh Tovar MD at [facility] Screw N/A: Cranial LEWIS CRANIOMAXILLOFACIAL 51-5870 4 / / Procedures Procedure Name Priority Date/Time Associated Diagnosis Comments MULTIPLE LABS Routine 11/22/2024 3:55 PM EDT D-DIMER Routine 11/22/2024 2:54 PM EDT Localized swelling, mass and lump, lower limb, bilateral ERYTHROCYTE SEDIMENTATION RATE (ESR) Routine 11/22/2024 2:54 PM EDT Localized swelling, mass and lump, lower limb, bilateral B-TYPE NATRIURETIC PEPTIDE Routine 11/22/2024 2:54 PM EDT Localized swelling, mass and lump, lower limb, bilateral C-REACTIVE PROTEIN Routine 11/22/2024 2: 54 PM EDT Localized swelling, mass and lump, lower limb, bilateral CBC WITH AUTO DIFFERENTIAL Routine 11/22/2024 2:54 PM EDT Localized swelling, mass and lump, lower limb, bilateral MAGNESIUM Routine 11/22/2024 2:54 PM EDT Localized swelling, mass and lump, lower limb, bilateral COMPREHENSIVE METABOLIC PANEL Routine 11/22/2024 2:54 PM EDT Localized swelling, mass and lump, lower limb, bilateral ECG 12-LEAD Routine 11/22/2024 2:38 PM EDT Localized swelling of both lower legs VASC VENOUS DUPLEX LOWER BILATERAL Routine 11/12/2024 4:18 PM EDT Localized swelling, mass and lump, lower limb, bilateral CT BRAIN W WO CONT Routine 10/15/2024 8: 13 AM EDT 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) URINE CULTURE Routine 10/06/2024 3:06 PM EDT Aftercare following surgery for neoplasm Urinary tract infection, site not specified Other bacterial infections of unspecified site URINALYSIS Routine 09/30/2024 3:10 PM EDT Urinary tract infection, site not specified Other bacterial infections of unspecified site Aftercare following surgery for neoplasm URINE CULTURE Routine 09/30/2024 3:10 PM EDT Urinary tract infection, site not specified Other bacterial infections of unspecified site Aftercare following surgery for neoplasm HM COLONOSCOPY Routine 06/25/2007 from Last 3 Months or Most Recently Relevant to Health Maintenance Results * Multiple labs (11/22/2024 3:55 PM EDT) us Scanning Provider External [facility] Final Result MANUALLY TRANSCRIBED RESULTS * Erythrocyte Sedimentation Rate (ESR) (11/22/2024 2:54 PM EDT) ESR, Erythrocyte Sedimentation Rate 16 0 - 30 mm/h 11/22/2024 10:13 PM EDT [facility] Blood Venous blood / Unknown Venipuncture / Unknown 11/22/2024 2:54 PM EDT 11/22/2024 2:54 PM EDT Dinorah Leger SENIOR DIRECTOR OF STRATEGY-SUSTAINABILITY COMMUNICATOR LAB BLOOD ORDERABLES Fin al Result [facility] [address] [place] [address], [place] [phone] * (ABNORMAL) CBC auto differential (11/22/2024 2:54 PM EDT) WBC 12.9(H) 4 - 11 x10E9/L 11/22/2024 3:07 PM EDT [facility] RBC Count 4.64 3.8 - 5.2 X10E12/L 11/22/2024 3:07 PM EDT [facility] Hemoglobin 14.2 11.7 - 15.5 g/dL 11/22/2024 3:07 PM EDT [facility] Hematocrit 42.9 35 - 47 % 11/22/2024 3:07 PM EDT [facility] MCV 92 80 - 100 fL 11/22/2024 3:07 PM EDT [facility] MCH 30.6 27 - 34 pg 11/22/2024 3:07 PM EDT [facility] MCHC 33.2 32 - 36 g/dL 11/22/2024 3:07 PM EDT [facility] RDW 15.4(H) 11.5 - 15 % 11/22/2024 3:07 PM EDT [facility] Platelet Count 323 150 - 450 X10E9/L 11/22/2024 3:07 PM EDT [facility] MPV 6.8(L) 7 - 12 fL 11/22/2024 3:07 PM EDT [facility] Neutrophils % 73.1 % 11/22/2024 3:07 PM EDT [facility] Lymphocytes % 17.6 % 11/22/2024 3:07 PM EDT [facility] Monocytes % 8.9 % 11/22/2024 3:07 PM EDT [facility] Eosinophils % 0.1 % 11/22/2024 3:07 PM EDT [facility] Basophils % 0.3 % 11/22/2024 3:07 PM EDT [facility] Neutrophils Absolute (A) 9.4(H) 1.5 - 6.6 10*3/uL 11/22/2024 3:07 PM EDT [facility] Lymphocytes Absolute 2.3 1.0 - 3.5 10*3/uL 11/22/2024 3:07 PM EDT [facility] Monocytes Absolute 1.2(H) 0.0 - 0.9 10*3/uL 11/22/2024 3:07 PM EDT [facility] Eosinophils Absolute 0.0 0.0 - 0.4 10*3/uL 11/22/2024 3:07 PM EDT [facility] Basophils Absolute 0.0 0.0 - 0.2 10*3/uL 11/22/2024 3:07 PM EDT [facility] Differential Type AUTOMATED DIFFERENTIAL 11/22/2024 3:07 PM EDT [facility] Blood Venous blood / Unknown Venipuncture / Unknown 11/22/2024 2:54 PM EDT 11/22/2024 2:54 PM EDT [facility] SENIOR DIRECTOR OF STRATEGY-SUSTAINABILITY COMMUNICATOR LAB BLOOD ORDERABLES Fin al Result Performing Organization Address [facility] de Phone Number [address] [place] [address], [place] * D-Dimer (11/22/2024 2:54 PM EDT) D DIMER <150 1 - 255 ug/mL 11/22/2024 3:22 PM EDT [facility] Comment:Results <255 ng/mL D DU: The presensence of a VTE can safely be excluded with a negative D-Dimer result and Wells score. A negative result doesn't exclude the possibility of DIC. The test should be repeated along with other diagnostic tests if the patient's symptoms persist or worsen. Blood Venous blood / Unknown Venipuncture / Unknown 11/22/2024 2:54 PM EDT 11/22/2024 2:54 PM EDT [facility] SENIOR DIRECTOR OF STRATEGY-SUSTAINABILITY COMMUNICATOR LAB BLOOD ORDERABLES Fin al Result Performing Organization Address [facility] de Phone Number [address] [place] [address], [place] * C-reactive protein (11/22/2024 2:54 PM EDT) Pathologist [facility] C REACTIVE PROTEIN 0.1 <=0.7 mg/dL 11/22/2024 6:45 PM EDT [facility] Blood Venous blood / Unknown Venipuncture / Unknown 11/22/2024 2:54 PM EDT 11/22/2024 2:54 PM EDT [facility] SENIOR DIRECTOR OF STRATEGY-SUSTAINABILITY COMMUNICATOR LAB BLOOD ORDERABLES Fin al Result Performing Organization Address City/[facility]/ZIP Co de Phone Number [facility] [address] [place] [address], * B-type natriuretic peptide (11/22/2024 2:54 PM EDT) [facility] BNP 20 <=100 pg/mL 11/22/2024 5:06 PM EDT [facility] Blood Venous blood / Unknown Venipuncture / Unknown 11/22/2024 2:54 PM EDT 11/22/2024 2:54 PM EDT [facility] SENIOR DIRECTOR OF STRATEGY-SUSTAINABILITY COMMUNICATOR LAB BLOOD ORDERABLES Fin al Result [facility] [address] [place] [address], [place] * Magnesium (11/22/2024 2:54 PM EDT) [facility] MAGNESIUM 2.3 1.8 - 2.6 mg/dL 11/22/2024 6:45 PM EDT [facility] Blood Venous blood / Unknown Venipuncture / Unknown 11/22/2024 2:54 PM EDT 11/22/2024 2:54 PM EDT [facility] SENIOR DIRECTOR OF STRATEGY-SUSTAINABILITY COMMUNICATOR LAB BLOOD ORDERABLES Fin al Result [facility] [address] [place] [address], * (ABNORMAL) Comprehensive metabolic panel (11/22/2024 2:54 PM EDT) [facility] SODIUM 143 134 - 146 mmol/L 11/22/2024 6:45 PM EDT [facility] POTASSIUM 4.5 3.5 - 5.0 mmol/L 11/22/2024 6:45 PM EDT [facility] CHLORIDE 106 98 - 109 mmol/L 11/22/2024 6:45 PM EDT [facility] CARBON DIOXIDE 28 22 - 32 mmol/L 11/22/2024 6:45 PM EDT [facility] ANION GAP 9 5 - 15 mmol/L 11/22/2024 6:45 PM T [facility] BLOOD UREA NITROGEN 22 5 - 27 mg/dL 11/22/2024 6:45 PM T [facility] CREATININE 0.77 0.40 - 1.00 mg/dL 11/22/2024 6:45 PM T [facility] Comment:METHOD TRACEABLE TO [facility] STANDARD GLUCOSE 99 65 - 99 mg/dL 11/22/2024 6:45 PM T [facility] CALCIUM 9.1 8.5 - 10.5 mg/dL 11/22/2024 6:45 PM T [facility] TOTAL PROTEIN 6.9 6.0 - 8.0 g/dL 11/22/2024 6:45 PM T [facility] ALBUMIN 4.0 3.2 - 5.3 g/dL 11/22/2024 6:45 PM T [facility] ALKALINE PHOSPHATASE 101 39 - 130 U/L 11/22/2024 6:45 PM T [facility] AST 14 <=41 U/L 11/22/2024 6:45 PM T [facility] ALT 32(H) <=31 U/L 11/22/2024 6:45 PM T [facility] BILIRUBIN,TOTAL 0.2(L) 0.3 - 1.2 mg/dL 11/22/2024 6:45 PM T [facility] EGFR Non-Race Dependent 86 >=60 ml/min/1.7 3sq.m 11/22/2024 6:45 PM EDT [facility] Comment: Reported eGFR is based on the CKD-EPI 2020 equation that does not use a race coefficient. Blood Venous blood / Unknown Venipuncture / Unknown 11/22/2024 2:54 PM EDT 11/22/2024 2:54 PM EDT Dinorah Leger SENIOR DIRECTOR OF STRATEGY-SUSTAINABILITY COMMUNICATOR LAB BLOOD ORDERABLES Fin al Result [facility] [address] [place] [address], [place] [phone] * ECG 12 lead (11/22/2024 2:38 PM EDT) 11/22/2024 2:38 PM EDT Narrative RADHAMESUE - 11/22/2024 4:52 PM EDT us Dinorah [facility][Note 3] SENIOR DIRECTOR OF STRATEGY-SUSTAINABILITY COMMUNICATOR ECG ORDERABLES Final Re sult Performing Organization Address [facility]/ZIP Co de Phone Number KENNY * Vas venous duplex lwr bilateral (11/12/2024 4:18 PM EDT) Anatomical Region Laterality Modality Vascular Bilateral Ultrasound 11/12/2024 4:28 PM EDT Narrative 11/12/2024 6:08 PM EDT Previous: History of bilateral lower extremity posterior tibial DVT on 05/31/2024. Right: Limited visualization of veins in the thigh and calf due to edema and body habitus. Lower extremity deep veins are compressible with spontaneous phasic spectral Doppler waveforms; superficial veins are compressible without intraluminal content. Left: Limited visualization of veins in the thigh and calf due to edema and body habitus. Lower extremity deep veins are compressible with spontaneous phasic spectral Doppler waveforms; superficial veins are compressible without intraluminal content. General: Conclusions: LEFT:BILATERAL: NO EVIDENCE of deep or superficial vein thrombosis of the lower extremities with limited visualization of lower extremity vein segments as described above. Procedure Note Dedra Olivo DO - 11/12/2024 Previous: History of bilateral lower extremity posterior tibial DVT on05/31/2024. Right: Limited visualization of veins in the thigh and calf due to edemaand body habitus. Lower extremity deep veins are compressible withspontaneous phasic spectral Doppler waveforms; superficial veins arecompressible without intraluminal content. Left: Limited visualization of veins in the thigh and calf due to edemaand body habitus. Lower extremity deep veins are compressible withspontaneous phasic spectral Doppler waveforms; superficial veins arecompressible without intraluminal content. General: Conclusions: LEFT:BILATERAL: NO EVIDENCE of deep or superficial veinthrombosis of the lower extremities with limited visualization of lowerextremity vein segments as described above. 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 FINDINGS: Encephalomalacia in the right parietal lobe at the site of prior postsurgical change. Ventricles and sulci are age appropriate. No mass, mass effect or midline shift. No intracranial hemorrhage no CT evidence of acute cortical infarct. Postsurgical changes in the right parietal skull.. No acute intracranial hemorrhage. IMPRESSION: * Post surgical changes right parietal lobe with encephalomalacia no acute abnormality is noted. * Correlate with contrast-enhanced MRI brain for any potential recurrent or residual tumor. CLINICAL HISTORY: COMPARISON: None. In conjunction with speech pathology video swallowing function study conducted. Reference Air Kerma = mGy Findings: IMPRESSION: * No acute process. 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 FINDINGS: Encephalomalacia in the right parietal lobe at the site of priorpostsurgical change. Ventricles and sulci are age appropriate. No mass, mass effect or midlineshift. No intracranial hemorrhage no CT evidence of acute corticalinfarct. Postsurgical changes in the right parietal skull.. No acuteintracranial hemorrhage. IMPRESSION: * Post surgical changes right parietal lobe with encephalomalacia noacute abnormality is noted. * Correlate with contrast-enhanced MRI brain for any potential recurrentor residual tumor. CLINICAL HISTORY: COMPARISON: None. In conjunction with speech pathology video swallowing function studyconducted. Reference Air Kerma = mGy Findings: IMPRESSION: * No acute process. * Please see speech pathology report for further details Finalized by Jason Escalona MD on 10/15/2024 8:17 AM Adarsh Tovar MD IMG CT ORDERABLES Final Result * Urine culture (10/06/2024 3:06 PM EDT) Only the most recent of2 resultswithin the time period is included. CULTURE RESULTS 10-50,000 ORGANISMS/mL NORMAL UROGENITAL GRISELDA 10/08/2024 8:18 AM EDT [facility] Urine Urine specimen collection, clean catch / Unknown 10/06/2024 3:06 PM EDT 10/06/2024 3:33 PM EDT Narrative [facility] - 10/08/2024 8:18 AM EDT Corrected report. previously reported as: 10,000-50,000 CFU/mL enterococcus species Along with <10,000 CFU/mL Normal Urogenital Griselda. Abby Barbosa APRN-SUSTAINABILITY COMMUNICATOR MICROBIOLOGY - GENERA L ORDERABLES Final Result [facility] [address] [place] [address], [place] [phone] * Urinalysis (09/30/2024 3:10 PM EDT) COLOR Yellow Yellow, Colorless 09/30/2024 5:18 PM EDT [facility] TURBIDITY Clear Clear 09/30/2024 5:18 PM EDT [facility] SPECIFIC GRAVITY >=1.030 1.003 - 1.035 09/30 5:18 PM EDT [facility] NITRITE Negative Negative 09/30/2024 5:18 PM EDT [facility] PH,URINE 5.5 5.0 - 8.5 09/30/2024 5:18 PM EDT [facility] LEUKOCYTE ESTERASE Negative Negative 09/30/2024 5:18 PM EDT [facility] PROTEIN Negative Negative 09/30/2024 5:18 PM EDT [facility] KETONES (URINE) Negative Negative 5:18 PM EDT [facility] UROBILINOGEN 0.2 eu/dL 0.2 eu/dL, 1.0 eu/dL 09/30/2024 5:18 PM EDT [facility] BILIRUBIN (URINE) Negative Negative 09/30/2024 5:18 PM EDT [facility] BLOOD/HGB Negative Negative 09/30/2024 5:18 PM EDT [facility] GLUCOSE (URINE) Negative Negative, 250 mg/dL 09/30/2024 5:18 PM EDT [facility] Urine Urine specimen collection, clean catch / Unknown 09/30/2024 3:10 PM EDT 09/30/2024 5:09 PM EDT Narrative [facility] - 09/30/2024 5:18 PM EDT Urine received without preservative. Delays in transport may affect results. Interpret with caution. A clinical correlation is recommended. us Abby Barbosa SENIOR DIRECTOR OF STRATEGY-SUSTAINABILITY COMMUNICATOR URINE ORDERABLES Ina l Result [facility] [address] [place] [address], [place] * HM COLONOSCOPY (06/25/2007) us Scanning Provider External HEALTH MAINTENANCE Fi nal Result [facility] [address] [facility] [place] [place] [address] from Last 3 Months or Most Recently Relevant to Health Maintenance Insurance [facility] MEDICARE Advance Directives * Full Code (Latest Code Status on File) Date Activated Date Inactivated Comments 08/23/2024 11:14 AM 08/26/2024 6:23 PM * Full Code Date Activated Date Inactivated Comments 06/22/2024 5:17 PM 07/05/2024 5:12 PM * Full Code Date Activated Date Inactivated Comments 05/28/2024 4:39 PM 06/01/2024 9:25 PM Care Teams Airport Utility Worker Relationship Specialty Start Date End Date Dinorah Leger APRN-EKATERINA [address] [place] [id number] PCP - General Nurse Practitioner 03/09/24
--- OUTSIDE RECORDS SUMMARY | 2024-12-29 11:27 | XMS_ITS | Encounter Summary ---
Author Organization [facility] Address [address] [place] [address] Care Team Providers Care Metallurgical Engineering Technician Name Role Phone Misa Grey MD Primary Care Provider [phone] Deacon Lacy DO Unavailable [phone] Dinorah Leger MD Unavailable [phone] Encounter Details Date Type Department Care Team (Late Contact Info) Description 01/24/2023 External Result Encounter [facility] Unsolicited Sukhwinder Voss, CAMP ATTENDANT [address] [place], [place] [id number] Social History Tobacco Use Types Packs/Day Years [...] Description 02/22/2025 2:00 PM EST Procedure Visit [facility] [address] [place] [phone] Phil Cano DPM [address] [place], [place] [phone] documented as of this encounter Procedures Procedure [...] Nii Dangelo M.D.01/24/2023 2:31 PM Dictation Location: [place] [address] Transcribed By: [facility] 01/24/23 1431 Dictated By: Nii Dangelo DO 01/24/23 1419 Signed By: <Electronically signed by Nii Dangelo DO in OV> 01/24/23 1431 Narrative 02/14/2023 7:59 PM EST [facility] [address] [place] [address] [place] [address] MRI Report Signed Patient: Melissa Godoy MR#: [id number] : 1960 Acct:[id number] Age/Sex: 62 / F ADM Date: 01/24/23 Loc: MR Room: Type: [facility] Attending Dr: Sukhwinder Voss CAMP ATTENDANT-C Copies to: Sukhwinder Voss ACTUARY CLERK Ordering Provider: Sukhwinder Voss CNP Date of [...] con Procedure Note Radiology, Radiologist, - 02/14/2023 [facility] [address] [place] [address] [place] [address] MRI Report Signed Patient: Melissa Godoy JMR#: [id number] : 1960Acct:[id number] Age/Sex: 62 / FADM Date: 01/24/23 Loc: MR Room:Type: [facility] Attending Dr: Sukhwinder Voss CAMP ATTENDANT-C Copies to: Sukhwinder Voss ACTUARY CLERK Ordering Provider: Sukhwinder Voss CNP Date of [...] Nii Dangelo M.D.01/24/2023 2:31 PM Dictation Location: [place] [address] Transcribed By: [facility] 01/24/23 1431 Dictated By: Nii Dangelo DO 01/24/23 1419 Signed By: <Electronically signed by Nii Dangelo DO in OV> 01/24/23 1431 Sukhwinder Vsos CAMP ATTENDANT IMG MRI PROCEDURES Edited Resul t - Final documented in this encounter Visit Diagnoses Not on filedocumented in this encounter Care Teams Metallurgical Engineering Technician Relationship Specialty Start Date End Date Misa Grey MD [address] [place], [place] [phone] PCP - General Pediatrics 09/11/22 Deacon Lacy DO [address] [place] [id number] Referring Physician Neurology 04/08/24 Dinorah Leger MD [address] [place], [place] [phone] Referring Physician Flaking Roll Operator 04/08/24 documented as of this encounter
--- NOTE | 2024-12-29 11:40 | PC.NURSE ---
bilat lower legs red and warm to touch. pt reports the selling in legs is normal and not new
[2024-12-29 12:23] LABS: Hematocrit 40.3 % (36.0-48.0); Hemoglobin 13.6 g/dL (12.0-16.0); Immature Granulocytes Abs Auto 0.03 10^3/uL (0.00-0.03); Immature Granulocytes Pct Auto 0.3 % (0.0-0.5); Lymphocytes Absolute Auto 1.4 10^3/uL (1.2-3.8); Mean Corpuscular HGB Conc 33.7 g/dL (29.9-35.2); Mean Corpuscular Hemoglobin 31.9 pg (26.7-34.0); Mean Corpuscular Volume 94.4 fL (81.0-99.0); Platelet Count 394 10^3/uL (150-450); Red Blood Count 4.27 10^6/uL (4.20-5.40); White Blood Count 8.7 10^3/uL (4.0-11.0)
[2024-12-29 12:41] LABS: Alanine Aminotransferase 38 U/L (14-59); Albumin Globulin Ratio 0.8; Albumin Level 3.0 g/dL (3.4-5.0); Alkaline Phosphatase 168 U/L (46-116); Anion Gap 9.0; Aspartate Amino Transferase 31 U/L (15-37); Blood Urea Nitrogen 14.0 mg/dL (7.0-18.0); Calcium 9.0 mg/dL (8.5-10.1); Carbon Dioxide 31.8 mmol/L (21.0-32.0); Chloride 102 mmol/L (98-107); Estimated GFR (African America 57 (>=60 mL/min/1.73m^2); Estimated GFR (Non-African Ame 47 (>=60 mL/min/1.73m^2); Globulin 3.7 g/dL; Glucose 136 mg/dL (74-106); Sodium 140 mmol/L (136-145); Total Protein 6.7 g/dL (6.4-8.2)
[2024-12-29 12:46] LABS: Potassium 2.8 mmol/L (3.5-5.1)
--- NOTE | 2024-12-29 12:46 | ECG_ITS ---
[facility] Test Date: 2024-12-29 Pat Name: LEANDRO RICHEY Department: Room: - Gender: Female Dip Dyer: : 1960 Requested By: [id number] Order Number: [id number] Reading MD: Deacon Romero Measurements Intervals [place] Rate: 72 P: 64 [place]: 184 QRS: 17 QRSD: 94 T: 37 QT: 422 QTc: 446 Interpretive Statements 1100 Sinus rhythm 4068 Nonspecific [place] abnormality 8102 Low QRS voltage in chest leads QT appears prolonged 9130 borderline ECG Compared to ECG 06/22/2024 10:10:[address] wave changes present Electronically Signed On 12-29-2024 13:27:03 EDT by Deacon Romero
[2024-12-29 12:56] LABS: Magnesium 1.6 mg/dL (1.8-2.4)
[2024-12-29 13:15] VITALS: PULSE 72
--- NOTE | 2024-12-29 14:07 | ED.EXTPRO1 ---
HPI - Extremity Problem General Chief complaint: Extremity Problem, Nontraumatic Stated complaint: LOWER EXTREMITY PAIN Time Seen by Provider: 12/29/24 11:59 Source: patient Mode of arrival: Wheelchair History of Present Illness HPI Narrative: I had the patient 64-year-old female is coming to the ER after she was evaluated with nurse practitioner as outpatient at least for the last 2 months she has been treated with antibiotics twice but she never finished antibiotic, she was told that her legs are red and she need to be evaluated in the ER although the patient does not have any fever or chills she have knee pain on her left knee which is not an acute complaint The patient denies any other concerns and she was evaluated none sometime ago with a nurse practitioner and she was started on amoxicillin in addition to the doxycycline that she was provided with that before. The patient admits that her legs look red compared to her baseline but there is no other changes Related Data Home Medications ?Medication ?Instructions ?Recorded ?Confirmed albuterol sulfate 90 mcg/actuation 2 inh inhalation Q4H PRN shortness 06/22/24 06/22/24 aerosol inhaler of breath or wheezing apixaban 5 mg tablet 5 mg PO BID 06/22/24 06/22/24 aripiprazole 30 mg tablet 30 mg PO DAILY 06/22/24 12/29/24 atorvastatin 20 mg tablet 20 mg PO DAILY 06/22/24 12/29/24 benztropine 0.5 mg tablet 0.5 mg PO DAILY 06/22/24 12/29/24 duloxetine 60 mg capsule,delayed 60 mg PO DAILY 06/22/24 12/29/24 release levothyroxine 150 mcg tablet 150 mcg PO DAILY 06/22/24 12/29/24 metformin 500 mg tablet,extended 500 mg PO DAILY 06/22/24 12/29/24 release 24 hr cyanocobalamin (vitamin B-12) 1,000 mcg PO DAILY 12/29/24 12/29/24 1,000 mcg tablet famotidine 20 mg tablet 20 mg PO DAILY 12/29/24 12/29/24 furosemide 80 mg tablet 80 mg PO DAILY 12/29/24 12/29/24 lurasidone 40 mg tablet 40 mg PO QPM 12/29/24 12/29/24 potassium chloride 10 mEq 10 meq PO DAILY 12/29/24 12/29/24 tablet,extended release Previous Rx's ?Medication ?Instructions ?Recorded amoxicillin 875 mg-potassium 1 tab PO Q12H #14 tabs 12/29/24 clavulanate 125 mg tablet Allergies Allergy/AdvReac Type Severity Reaction Status Date / Time gabapentin Allergy Mild Anxiety Verified 06/22/24 08:46 semaglutide (From Ozempic) Allergy Mild Rash Verified 06/22/24 08:46 sulfamethoxazole (From Allergy Mild Hives Verified 06/22/24 08:46 Bactrim) trimethoprim (From Bactrim) Allergy Mild Hives Verified 06/22/24 08:46 Review of Systems ROS Status of ROS 10 or more systems reviewed and unremarkable except as noted in history and below [facility] Social History Little interest or pleasure in doing things: not at all Feeling down, depressed, or hopeless: not at all Exam Narrative Exam Narrative: Nurses notes and vital signs reviewed and patient is not hypoxic. General: Well-appearing and in no apparent distress. Skin: Warm, dry, no pallor noted. No rash. Head: Normocephalic, atraumatic. Lower extremity exam: The patient have bilateral lower extremity erythema noted but it looks all over the lower extremity bilaterally not only limited to specific site, there are no skin lesions and the erythema is fading with pressure. There is no tenderness on palpation and there is a full range of movement of the left knee Cardiovascular: Regular Rate and Rhythm without murmur, gallop or rub. Respiratory: No accessory muscle use or respiratory distress. Lungs are clear to auscultation, no wheezing, rales or rhonchi GI: Abdomen is soft, non-distended. Normal bowel sounds. No masses appreciated. No tenderness to palpation. No rebound, guarding, or rigidity noted. Neurological: A&O x4. No cranial nerve dysfunction observed. No truncal ataxia. Moves all extremities. Sensation intact. Psychiatric: Cooperative and interactive. Normal mood and affect. Constitutional Vital Signs, click to edit/add: Last Vital Signs Temp 97.7 F 12/29/24 11:24 Pulse 80 12/29/24 11:24 Resp 18 12/29/24 11:24 BP 142/72 H 12/29/24 11:24 Pulse Ox 94 L 12/29/24 11:24 O2 Del Method Room Air 12/29/24 11:24 Course Vital Signs Vital signs: Vital Signs Temperature 97.7 F 12/29/24 11:24 Pulse Rate 80 12/29/24 11:24 Respiratory Rate 18 12/29/24 11:24 Blood Pressure 142/72 H 12/29/24 11:24 Pulse Oximetry 94 L 12/29/24 11:24 Oxygen Delivery Method Room Air 12/29/24 11:24 Temperature 97.7 F 12/29/24 11:24 Pulse Rate 80 12/29/24 11:24 Respiratory Rate 18 12/29/24 11:24 Blood Pressure 142/72 H 12/29/24 11:24 Pulse Oximetry 94 L 12/29/24 11:24 Oxygen Delivery Method Room Air 12/29/24 11:24 MDM - Extremity (Nontraumatic) MDM Narrative Medical decision making narrative: CBC and chemistry of the patient showed no acute pathology but the CRP and ESR are elevated but that could be secondary to the fact that the patient has active treatment for brain cancer with radiation Right now the patient also had ultrasound of the lower extremity that shows no DVT bilaterally The patient was already taking amoxicillin I did explain to her that I will change her to Augmentin so that she can finish the course with the better coverage but I have a low suspicion for possible cellulitis The patient is to follow up with primary care physician in next 2-3 days or to return to the emergency department should any of the signs or symptoms worsen or new symptoms develop. The patient agrees with the following Diagnosis and Treatment plan and the patient will be discharged home. Lab Data Labs: Lab Results 12/29/24 Range/Units 12:14 WBC 8.7 (4.0-11.0) 10^3/uL RBC 4.27 (4.20-5.40) 10^6/uL Hgb 13.6 (12.0-16.0) g/dL Hct 40.3 (36.0-48.0) % MCV 94.4 (81.0-99.0) fL MCH 31.9 (26.7-34.0) pg MCHC 33.7 (29.9-35.2) g/dL RDW 14.4 (11.0-15.0) % Plt Count 394 (150-450) 10^3/uL MPV 8.7 L (9.5-13.5) fL Neut % (Auto) 73.9 (43.0-75.0) % Lymph % (Auto) 15.5 L (20.5-60.0) % [place] % (Auto) 9.7 (1.7-12.0) % Eos % (Auto) 0.5 L (0.9-7.0) % Baso % (Auto) 0.1 L (0.2-2.0) % Neut # (Auto) 6.4 (1.4-6.5) 10^3/uL Lymph # (Auto) 1.4 (1.2-3.8) 10^3/uL [place] # (Auto) 0.8 (0.3-0.8) 10^3/uL Eos # (Auto) 0.0 (0.0-0.7) 10^3/uL Baso # (Auto) 0.0 (0.0-0.1) 10^3/uL Abs Immat Gran (auto) 0.03 (0.00-0.03) 10^3/uL Imm/Tot Granulo (auto) 0.3 (0.0-0.5) % ESR 38 H (<=30) mm/hr Sodium 140 (136-145) mmol/L Potassium 2.8 L* (3.5-5.1) mmol/L Chloride 102 (98-107) mmol/L Carbon Dioxide 31.8 (21.0-32.0) mmol/L Anion Gap 9.0 BUN 14.0 (7.0-18.0) mg/dL Creatinine 1.15 H (0.55-1.02) mg/dL Est GFR ( Amer) 57 L (>=60 mL/min/1.73m^2) Est GFR (Non-Af Amer) 47 L (>=60 mL/min/1.73m^2) BUN/Creatinine Ratio 12.2 Glucose 136 H (74-106) mg/dL Calcium 9.0 (8.5-10.1) mg/dL Magnesium 1.6 L (1.8-2.4) mg/dL Total Bilirubin 0.6 (0.2-1.0) mg/dL AST 31 (15-37) U/L ALT 38 (14-59) U/L Alkaline Phosphatase 168 H (46-116) U/L C-Reactive Protein 1.58 H (<=0.50) mg/dL Total Protein 6.7 (6.4-8.2) g/dL Albumin 3.0 L (3.4-5.0) g/dL Globulin 3.7 g/dL Albumin/Globulin Ratio 0.8 Discharge Plan Discharge Chief Complaint: Extremity Problem, Nontraumatic Clinical Impression: Leg edema, Cellulitis Patient Disposition: Home, Self-Care Time of Disposition Decision: 14:15 Condition: Good Prescriptions / Home Meds: New amoxicillin-pot clavulanate 875-125 mg tablet 1 tab PO Q12H Qty: 14 0RF No Action atorvastatin 20 mg tablet 20 mg PO DAILY duloxetine 60 mg capsule,delayed release(DR/EC) 60 mg PO DAILY metformin 500 mg tablet extended release 24 hr 500 mg PO DAILY aripiprazole 30 mg tablet 30 mg PO DAILY benztropine 0.5 mg tablet 0.5 mg PO DAILY levothyroxine 150 mcg tablet 150 mcg PO DAILY apixaban 5 mg tablet 5 mg PO BID albuterol sulfate 90 mcg/actuation HFA aerosol inhaler 2 inh inhalation Q4H PRN (Reason: shortness of breath or wheezing) cyanocobalamin (vitamin B-12) 1,000 mcg tablet 1,000 mcg PO DAILY furosemide 80 mg tablet 80 mg PO DAILY lurasidone 40 mg tablet 40 mg PO QPM potassium chloride 10 mEq tablet extended release 10 meq PO DAILY famotidine 20 mg tablet 20 mg PO DAILY Print Language: Wallisian Instructions: Cellulitis (ED) Referrals: Physician,Non-Staff, MD [Primary Care Provider] - 1 week
[2024-12-29] MEDS: MAGNESIUM OXIDE 400 MG TABLET PO (14:38)
[2024-12-29] MEDS: POTASSIUM BICARBONATE/CIT 25 MEQ TABLET EFF 50 MEQ PO (14:38)
== END 2024-12-29 14:54 | disposition home or self-care (01) ==
PROVIDERS: Emergency Provider Emergency Medicine
DX: L03.116 Cellulitis of left lower limb (principal); L03.115 Cellulitis of right lower limb; R60.0 Localized edema; C71.9 Malignant neoplasm of brain, unspecified; Z79.899 Other long term (current) drug therapy
CPT/HCPCS: 36415; 80053; 83735; 85025; 85652; 86140; 93005; 93970; 99285